=== PATIENT | male | born 1965 | race Caucasian/White ===

== ENCOUNTER 2017-01-19 17:25 | Emergency (ER) | payer OTHER, MEDICAID ==
[2017-01-19 17:32] VITALS: BMI 24.4
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
[2017-01-19 19:16] LABS: BASOPHILS # (AUTO) 0.1 X10^3/uL (0.0-0.1); BASOPHILS % (AUTO) 0.9 % (0.2-1.0); EOSINOPHILS # (AUTO) 0.2 x10^3/uL (0.0-0.2); EOSINOPHILS % (AUTO) 1.9 % (0.9-2.9); HEMATOCRIT 33.3 % (42.0-54.0); HEMOGLOBIN 11.4 g/dL (13.5-18.0); LYMPHOCYTES # (AUTO) 1.7 X10^3/uL (1.3-2.9); LYMPHOCYTES % (AUTO) 18.8 % (21.0-51.0); MEAN CORPUSCULAR HEMOGLOBIN 30.8 pg (27.0-34.0); MEAN CORPUSCULAR HGB CONC 34.2 g/dL (33.0-35.0); MEAN PLATELET VOLUME 9.1 fL (7.4-11.0); MONOCYTES # (AUTO) 0.7 x10^3/uL (0.3-0.8); MONOCYTES % (AUTO) 7.4 % (0.0-13.0); NEUTROPHILS # (AUTO) 6.2 x10^3/uL (2.2-4.8); PLATELET COUNT 180 X10^3/uL (150.0-450.0); RED BLOOD COUNT 3.71 X10^6/uL (4.7-6.0); RED CELL DISTRIBUTION WIDTH 14.6 % (11.6-16.5); WHITE BLOOD COUNT 8.8 X10^3/uL (3.6-10.0)
[2017-01-19 19:26] LABS: ALANINE AMINOTRANSFERASE 15 Units/L (12-78); ALBUMIN 3.3 g/dL (3.4-5.0); ALKALINE PHOSPHATASE 37 Units/L (46-116); ASPARTATE AMINO TRANSFERASE 15 Units/L (15-37); BLOOD UREA NITROGEN 13 mg/dL (7-18); CALCIUM 9.1 mg/dL (8.5-10.1); CARBON DIOXIDE 28.8 mmol/L (21-32); CHLORIDE 99 mmol/L (98-107); COR CA(FOR HYPOALB) 9.7 mg/dL (8.5-10.1); COR NA(FOR HYPERGLY) 134 mmol/L (136-145); CREATININE 0.77 mg/dL (0.70-1.30); MAGNESIUM 1.7 mg/dL (1.7-2.9); SODIUM 133 mmol/L (136-145); TOTAL PROTEIN 6.3 g/dL (6.4-8.2); eGFR BLACK RACES > 60 (>60); eGFR NON BLACK RACES > 60 (>60)
[2017-01-19 19:39] LABS: BILIRUBIN,URINE NEGATIVE (NEGATIVE); BLOOD/HEMOGLOBIN,URINE 5+ (NEGATIVE); GLUCOSE, URINE NEGATIVE (NEGATIVE); KETONES,URINE 2+ (NEGATIVE); LEUKOCYTE ESTERASE ,URINE NEGATIVE (NEGATIVE); NITRITES,URINE NEGATIVE (NEGATIVE); PROTEIN,URINE 4+ (NEGATIVE); UROBILINOGEN,URINE NORMAL (NORMAL)
[2017-01-19 19:42] VITALS: BP 93/53
[2017-01-19 19:46] LABS: APPEARANCE,URINE TURBID (CLEAR); COLOR,URINE RED (YELLOW)
[2017-01-19 19:47] LABS: AMORPHOUS SEDIMENT,UR 2+ /HPF (NEGATIVE); BACTERIA,URINE NEGATIVE /HPF (NEGATIVE); MUCUS,URINE MODERATE /HPF (NEGATIVE); RBC,URINE TNTC/ABUNDANT /HPF (NEGATIVE); SQUAMOUS EPITHELIAL CELL,UR RARE /HPF (NEGATIVE)
--- NOTE | 2017-01-19 20:03 | CT ---
CT abdomen and pelvis without contrast Indication: Hematuria with suprapubic pain. Quadriplegic with condom catheterization. Comparison: None Technique: CT images of the abdomen and pelvis were obtained without contrast. Automatic exposure con trol was utilized. Findings: The lung bases are grossly clear. No acute skeletal abnormality identified. There is genera lized osteopenia. Chronic appearing deformity of the left iliac wing is noted. Evaluation of the abdominopelvic viscera is limited by lack of contrast. Accounting for this, the janna er, gallbladder, spleen, stomach, duodenum, pancreas, and adrenals demonstrate no significant abnorma lity. There is severe bilateral hydronephrosis associated with some renal parenchymal atrophy, worse on the left. There is a heterogeneously hyper attenuating collection within the urinary bladder measu ring 7.2 x 5.8 cm. No radiopaque urinary stones are identified. No significant bowel thickening or dilatation of the lower GI tract is identified. The rectum and pro state are within normal limits. No free fluid or adenopathy identified. There is mild aortoiliac athe rosclerosis, without aneurysm. Impression: Severe bilateral hydroureteronephrosis, suggesting bladder outlet obstruction and/or chronic reflux. There is heterogeneously hyperdense material within the urinary bladder consistent with blood. Underl venita mass cannot be excluded. No radiopaque urinary stones are identified. Reported By:
--- NOTE | 2017-01-19 20:09 | RAD ---
HISTORY: Chest pain Study: 2 AP views of the chest. Comparison:NONE Findings: Exam is limited by patient rotation. Lungs appear clear without focal airspace opacities. The lateral right costophrenic sulcus fully included within the field of view. The lungs are clear. No consolidation. There are no pleural effusions. Cardiac silhouette appears normal in size for portable technique. IMPRESSION: 1. No radiographic evidence of an acute cardiopulmonary process. Reported By:
[2017-01-19] MEDS ORDERED: LEVAQUIN TAB 500 MG ONE (21:29)
[2017-01-19] MEDS ORDERED: LEVAQUIN TAB 500 MG PO SCH (22:00)
== END 2017-01-19 21:37 | disposition home or self-care (01) ==
LOC: ER 17:43
DX: N13.30 Unspecified hydronephrosis (principal); N30.90 Cystitis, unspecified without hematuria; R31.9 Hematuria, unspecified; R73.9 Hyperglycemia, unspecified
CPT/HCPCS: 36415; 71010; 74176; 80053; 81001; 83735; 85025; 85610; 85730; 93005; 93010; 96365; 96374; 99282; 99283; A4222

== ENCOUNTER 2017-04-01 08:50 | Emergency (ER) | payer OTHER, MEDICAID ==
[2017-04-01 09:13] VITALS: BMI 23.7
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
[2017-04-01 09:33] LABS: BASOPHILS % (AUTO) 0.1 % (0.2-1.0); EOSINOPHILS # (AUTO) 0.1 x10^3/uL (0.0-0.2); EOSINOPHILS % (AUTO) 0.3 % (0.9-2.9); LYMPHOCYTES # (AUTO) 0.8 X10^3/uL (1.3-2.9); LYMPHOCYTES % (AUTO) 4.3 % (21.0-51.0); MEAN CORPUSCULAR HEMOGLOBIN 29.8 pg (27.0-34.0); MEAN CORPUSCULAR HGB CONC 32.6 g/dL (33.0-35.0); MEAN CORPUSCULAR VOLUME 91.4 fL (80.0-100.0); MEAN PLATELET VOLUME 9.4 fL (7.4-11.0); MONOCYTES # (AUTO) 1.1 x10^3/uL (0.3-0.8); NEUTROPHILS # (AUTO) 16.8 x10^3/uL (2.2-4.8); NEUTROPHILS % (AUTO) 89.3 % (42.0-75.0); PLATELET COUNT 199 X10^3/uL (150.0-450.0); RED BLOOD COUNT 4.37 X10^6/uL (4.7-6.0); RED CELL DISTRIBUTION WIDTH 13.8 % (11.6-16.5); WHITE BLOOD COUNT 18.8 X10^3/uL (3.6-10.0)
[2017-04-01 09:46] LABS: BLOOD UREA NITROGEN 14 mg/dL (7-18); CALCIUM 9.6 mg/dL (8.5-10.1); CARBON DIOXIDE 23.7 mmol/L (21-32); CHLORIDE 98 mmol/L (98-107); COR NA(FOR HYPERGLY) 140 mmol/L (136-145); CREATININE 1.25 mg/dL (0.70-1.30); SODIUM 137 mmol/L (136-145); TROPONIN I 0.15 ng/mL (0-1.5); eGFR BLACK RACES > 60 (>60); eGFR NON BLACK RACES > 60 (>60)
[2017-04-01 09:49] LABS: B-TYPE NATRIURETIC PEPTIDE 338 pg/mL (0-79)
[2017-04-01 09:52] LABS: ABG ALLEN TEST pos; ABG BASE EXCESS 3.3 mmol/L (-2.0-2.0); ABG HCO3 26.8 mmol/L (22-26); FRACTIONATED INSPIRED OXYGEN 100
[2017-04-01] MEDS ORDERED: NS 1000 ML 1,000 ML IV ONE (10:00)
[2017-04-01 10:04] LABS: C-REACTIVE PROTEIN 29.2 mg/L (0-3.0)
[2017-04-01 10:08] LABS: ALANINE AMINOTRANSFERASE 40 Units/L (12-78); ALBUMIN 3.5 g/dL (3.4-5.0); ALKALINE PHOSPHATASE 55 Units/L (46-116); ASPARTATE AMINO TRANSFERASE 59 Units/L (15-37); CKMB % 6.5 % (<4); CREATINE KINASE 65 Units/L (39-308); TOTAL PROTEIN 7.2 g/dL (6.4-8.2)
[2017-04-01 10:12] LABS: CREATINE KINASE MB 4.2 ng/mL (0-4.0)
[2017-04-01] MEDS ORDERED: NS 1000 ML 1,000 ML ONE (10:12)
[2017-04-01 10:18] LABS: LACTIC ACID 2.4 mmol/L (0.4-2.0)
--- NOTE | 2017-04-01 10:34 | CT ---
CT HEAD WITHOUT CONTRAST CLINICAL HISTORY: 51-year-old quadriplegic found unresponsive. COMPARISON: None. TECHNIQUE: Multiple axial CT images were obtained from the skull base to the cranial vertex without t he administration of contrast. FINDINGS: No evidence of abnormal intra- or extra axial fluid collections, midline shift, or mass eff ect. Rosenberg white differentiation is maintained. Age advanced cortical volume loss is present, with com mensurate sulcal and ventricular prominence. The basal cisterns are normal in appearance. Atheroscler otic vascular calcifications of the cavernous segments of the internal carotid arteries bilaterally. Polypoid mucosal thickening of the left maxillary sinus with scattered mucosal thickening of the ethm oid labyrinth. Remaining paranasal sinuses, mastoid air cells and tympanic cavities are clear. IMPRESSION: No acute intracranial process, if clinical concern persists, consider MRI/MRA brain. Reported By:
--- NOTE | 2017-04-01 10:48 | RAD ---
HISTORY: Quadriplegic, patient unresponsive. Endotracheal tube placement. Study: Single-view chest Comparison: 01/19/2017. Findings: Cardiac monitoring electrodes are noted on the chest. Endotracheal tube is in place with the tip the level of medial clavicles. The trachea is midline. The heart size is upper normal. Lungs and pleural spaces are clear. Osseous structures are intact IMPRESSION: Satisfactory position of the endotracheal tube. Upper normal heart size. Clear lungs and pleural spaces. Reported By:
[2017-04-01] MEDS ORDERED: ZOSYN VIAL 3.375 GM 3.375 GM in NS 100 ML IV + SPIKE MINIBAG* 100 ML IV ONE (11:41)
[2017-04-01] MEDS ORDERED: VANCOMYCIN HCL 1 GM VIAL 1 GM in D5W 250 ML IV 250 ML IV ONE (11:42)
[2017-04-01] MEDS ORDERED: VANCOMYCIN 1 GM PREMIX (ADDVANTAGE) 250 ML IV ONE (12:30)
[2017-04-01] MEDS ORDERED: NS 100 ML IV + SPIKE MINIBAG* 100 ML IV ONE (12:31)
[2017-04-01] MEDS ORDERED: ZOSYN VIAL 3.375 GM IV ONE (12:31)
[2017-04-01 12:46] LABS: BILIRUBIN,URINE NEGATIVE (NEGATIVE); BLOOD/HEMOGLOBIN,URINE 5+ (NEGATIVE); GLUCOSE, URINE NEGATIVE (NEGATIVE); KETONES,URINE 1+ (NEGATIVE); LEUKOCYTE ESTERASE ,URINE 3+ (NEGATIVE); NITRITES,URINE POSITIVE (NEGATIVE); PH,URINE 6.5 (5.0 - 8.0); PROTEIN,URINE 2+ (NEGATIVE); UROBILINOGEN,URINE NORMAL (NORMAL)
[2017-04-01] MEDS ORDERED: TORADOL 30 MG VIAL IVP ONE (12:46)
[2017-04-01] MEDS ORDERED: TORADOL 30 MG VIAL ONE (12:48)
[2017-04-01 12:55] LABS: AMORPHOUS SEDIMENT,UR TRACE /HPF (NEGATIVE); APPEARANCE,URINE CLOUDY (CLEAR); BACTERIA,URINE 1+ /HPF (NEGATIVE); COLOR,URINE YELLOW (YELLOW); MUCUS,URINE FEW /HPF (NEGATIVE); RBC,URINE 15-20 /HPF (NEGATIVE); SQUAMOUS EPITHELIAL CELL,UR FEW /HPF (NEGATIVE)
[2017-04-01 13:16] LABS: TROPONIN I 1.14 ng/mL (0-1.5)
[2017-04-01 13:51] VITALS: BP 116/82
[2017-04-01 13:52] LABS: CREATINE KINASE MB 11.1 ng/mL (0-4.0)
[2017-04-01] MEDS ORDERED: HEPARIN SODIUM IN D5W 25,000 UNITS/500 ML BAG IV PRN (14:16)
[2017-04-01] MEDS ORDERED: HEPARIN SODIUM IN D5W 25,000 UNITS/500 ML BAG IV ONE (14:20)
[2017-04-01] MEDS ORDERED: HEPARIN SODIUM INJ 5000 UNITS ONE (14:22)
[2017-04-01] MEDS ORDERED: HEPARIN SODIUM INJ 5000 UNITS IVP ONE (14:34)
== END 2017-04-01 14:41 | disposition short-term general hospital (02) ==
LOC: ER 09:07
DX: I21.4 Non-ST elevation (NSTEMI) myocardial infarction (principal); A41.9 Sepsis, unspecified organism
CPT/HCPCS: 36415; 36600; 51702; 70450; 71010; 80053; 80307; 81001; 82550; 82553; 82803; 83605; 83880; 84484; 85025; 86140; 87040; 87070; 87086; 87088; 87186; 87205; 93005; 93010; 96365; 96374; 96375; 99285; A4222; G0434; J1644; J1885; J2543; J3370

== ENCOUNTER 2017-04-19 16:55 | Inpatient (IN) | payer OTHER, MEDICAID ==
[2017-04-19 17:09] VITALS: BMI 27.1
[2017-04-19 18:01] LABS: BASOPHILS # (AUTO) 0.1 X10^3/uL (0.0-0.1); BASOPHILS % (AUTO) 1.1 % (0.2-1.0); EOSINOPHILS # (AUTO) 0.3 x10^3/uL (0.0-0.2); EOSINOPHILS % (AUTO) 3.3 % (0.9-2.9); HEMOGLOBIN 12.3 g/dL (13.5-18.0); LYMPHOCYTES # (AUTO) 2.4 X10^3/uL (1.3-2.9); LYMPHOCYTES % (AUTO) 24.8 % (21.0-51.0); MEAN CORPUSCULAR HEMOGLOBIN 30.2 pg (27.0-34.0); MEAN CORPUSCULAR HGB CONC 33.3 g/dL (33.0-35.0); MEAN CORPUSCULAR VOLUME 90.8 fL (80.0-100.0); MEAN PLATELET VOLUME 10.3 fL (7.4-11.0); MONOCYTES # (AUTO) 0.8 x10^3/uL (0.3-0.8); MONOCYTES % (AUTO) 8.4 % (0.0-13.0); NEUTROPHILS # (AUTO) 6.2 x10^3/uL (2.2-4.8); NEUTROPHILS % (AUTO) 62.4 % (42.0-75.0); PLATELET COUNT 185 X10^3/uL (150.0-450.0); RED BLOOD COUNT 4.07 X10^6/uL (4.7-6.0); RED CELL DISTRIBUTION WIDTH 15.2 % (11.6-16.5); WHITE BLOOD COUNT 9.9 X10^3/uL (3.6-10.0)
[2017-04-19 18:15] LABS: ALBUMIN 3.3 g/dL (3.4-5.0); CALCIUM 9.2 mg/dL (8.5-10.1); COR CA(FOR HYPOALB) 9.8 mg/dL (8.5-10.1); CREATININE 0.58 mg/dL (0.70-1.30); TOTAL PROTEIN 6.8 g/dL (6.4-8.2); eGFR BLACK RACES > 60 (>60); eGFR NON BLACK RACES > 60 (>60)
[2017-04-19 18:33] LABS: PLATELET MORPHOLOGY COMMENT NORMAL (NORMAL)
--- NOTE | 2017-04-19 18:49 | CT ---
CT head without contrast Indication: Altered mental status Technique: Helical CT images of the brain were obtained without IV contrast. Reformatted images in th e coronal and sagittal planes were also generated for review. Comparison: 04/01/2017 Findings: There is no intracranial hemorrhage, visible acute infarct, focal or generalized edema, ext ra-axial collection, hydrocephalus or mass. There is stable, age advanced atrophy with proportional c ompensatory ventricular and sulcal enlargement. There is mild mucosal thickening of the ethmoid sinus es and small mucous retention cyst within the left maxillary sinus. There is also new fluid opacifica tion of the left mastoid air cells. The remaining visualized paranasal sinuses right mastoid air cell s are clear. No acute osseous or soft tissue abnormality is identified. Impression: No acute intracranial abnormality or significant change since prior. Mild paranasal sinus mucosal disease and new fluid opacification of the left mastoid air cells. Corre late for acute sinusitis/mastoiditis. Reported By:
[2017-04-19 18:58] LABS: ALANINE AMINOTRANSFERASE 19 Units/L (12-78); ALKALINE PHOSPHATASE 48 Units/L (46-116); ASPARTATE AMINO TRANSFERASE 20 Units/L (15-37); BLOOD UREA NITROGEN 10 mg/dL (7-18); CARBON DIOXIDE 29.8 mmol/L (21-32); CHLORIDE 111 mmol/L (98-107); SODIUM 147 mmol/L (136-145)
[2017-04-19 19:03] LABS: LACTIC ACID 0.6 mmol/L (0.4-2.0)
--- NOTE | 2017-04-19 19:10 | RAD ---
HISTORY: Lethargy Study: Single-view of the chest Comparison: April 01, 2017 Findings: The patient is rotated. The cardiac silhouette is at the upper limits of normal. The lungs are relati vely clear without evidence of focal consolidation. IMPRESSION: No evidence of acute disease within the chest. Reported By:
[2017-04-19] MEDS ORDERED: CATAPRES TAB 0.3 MG PO ONE (19:16)
--- NOTE | 2017-04-19 20:17 | DR.AMS ---
HPI - Time Seen Time seen: 17:10 - PCP Primary Care Physician: MICKEY - HPI Comment HPI Comment: RESPONSE SLOW IN ED. FOLLOW COMMAND. - Complaint Cheif Complaint Doctors Comments: HISTORY BELOW. Chief Complaint:: EMS STATES PT WAS LETHARGIC UPON ARRIVAL WITH B/P NOTED TO BE 71/46. UPON ARRIVAL TO ED PT AWAKE REPEATING "I DON'T WANT TO GO TO THE HOSPITAL." ASKED PT WHERE HE WAS, PT KEEPS STATING CHLOE RAMEY - Reviewed Nurses Notes Reviewed: Yes - Source History Provided: Patient, EMS - Mode of Arrival Mode of Arrival: EMS - Timing Onset of Chief Complaint: 04/19/17 Came On: Suddenly - Duration Duration: Constant Duration: Hours - Quality Quality: Change in Behavior, Confusion - Severity Severity: Moderate - Context Recent: denies: Fever History Of: CVA - Associated Signs and Symptoms Associated Signs and Symptoms: Change in Behavior, Change in Memory PMH - PMH Past Medical History: Yes Past Surgical History: Yes Surgical History: Tonsillectomy - Family History History of Family Medical Conditions: No - Social History Alcohol Use: None Do you use any recreational Drugs:: No Lives With: Family Lives Where: Home - infectious screening In the last 2 months have you had wt loss of >10#?: NO Have you had fever, night sweats or hemotysis?: No Have you traveled outside the country in the last 6 months?: No Isolation: Standard ROS - Review of Systems Constitutional: Weakness Eyes: negative: Eye Pain, Discharge ENTM: negative: Ear Pain, Nose Discharge, Nose Congestion, Throat Pain Respiratoy: negative: Productive Cough, Non-Productive Cough Cardiovascular: negative: Chest Pain Gastrointestinal/Abdominal: negative: Abdominal Pain, Diarrhea, Nausea, Vomiting Genitourinary: Other (PARAPLEGIA) Neurological: Pre-existing Deficit (PARAPLEGIA) Musculoskeletal: Muscle Pain Integumentary: Change in Color, Dryness Endocrine: No Symptoms Reported All Other Systems: Reviewed and Negative PE - Vitals Vital Signs: Temp Pulse Pulse Pulse Resp BP BP 04/19/17 19:45 57 L 87/61 04/19/17 19:00 55 L 112/67 04/19/17 18:53 56 L 111/60 04/19/17 17:45 48 L 18 129/64 04/19/17 17:30 49 L 18 156/88 04/19/17 17:15 57 L 18 119/63 04/19/17 16:55 97.1 F L 60 18 115/59 04/01/17 13:50 116/82 116/82 Pulse Ox 04/19/17 19:45 98 04/19/17 19:00 100 04/19/17 18:53 100 04/19/17 17:45 100 04/19/17 17:30 100 04/19/17 17:15 100 04/19/17 16:55 99 04/01/17 13:50 - General Limitations: Altered Mental Status General Appearance: Alert - Head Head Exam: Normal Inspection Head Exam Physical: Other (NONE) - Eyes Eye exam: PERRL, EOMI. negative: Scleral Icterus, Conjunctival Injection Pupils: Regular, Round: Bilateral - ENT ENT Exam: Normal External Ear Exam External Ear Exam: Normal External Inspection TM/Canal Exam: Bilateral Normal Nose Exam: Normal Nose Exam Mouth Exam: Normal Inspection Throat Exam: Normal Inspection - Neck Neck Exam: Trachea Midline - Chest Chest Inspection: Symmetric Chest Wall Rise - Respiratory Respiratory Exam: Normal Lung Sounds Bilat Respiratory Exam: Bilateral Rhonchi, Upper Rhonchi, Lower Rhonchi - Cardiovascular Cardiovascular Exam: Regular Rate, Normal Rhythm, Normal Heart Sounds - Abdominal Exam Abdominal Exam: Normal Bowel Sounds, Soft. negative: Tenderness - Extremities Extremities Exam: Other (PARAPLEGIA) - Back Back Exam: Paraspinal Tenderness - Neurological Neurological Exam: Alert. negative: Oriented X3 Patient Oriented To: Person Speech: negative: Fluid Speech (SLOW SPEECH) Cranial Nerve Exam: Gag reflex (XI): Normal - Skin Skin Exam: Erythema MDM - Additional Information Obtained Additional Information Obtained From: Family - Differential Diagnosis Metabolic: Dehydration, Hypercalcemia, Hypernatremia, Hypoglycemia, Hyponatremia Structural: CVA Infectious: UTI Course - Treatment Treatment: SEE ORDERS - Education/Counseling Education/Counseling: Patient, Family, Education Educated On: Diagnosis ROR - Labs Reviewed Laboratory Results Reviewed?: Yes Result Diagrams: 04/22/17 03:15 04/22/17 03:15 Laboratory: WBC 9.9 X10^3/uL (3.6-10.0) 04/19/17 17:04 RBC 4.07 X10^6/uL (4.7-6.0) L 04/19/17 17:04 Hgb 12.3 g/dL (13.5-18.0) L 04/19/17 17:04 Hct 37.0 % (42.0-54.0) L 04/19/17 17:04 MCV 90.8 fL (80.0-100.0) 04/19/17 17:04 MCH 30.2 pg (27.0-34.0) 04/19/17 17:04 MCHC 33.3 g/dL (33.0-35.0) 04/19/17 17:04 RDW 15.2 % (11.6-16.5) 04/19/17 17:04 Plt Count 185 X10^3/uL (150.0-450.0) 04/19/17 17:04 Plt Count Comment Adequate (ADEQUATE) 04/19/17 17:04 MPV 10.3 fL (7.4-11.0) 04/19/17 17:04 Neut % 62.4 % (42.0-75.0) 04/19/17 17:04 Lymph % 24.8 % (21.0-51.0) 04/19/17 17:04 [place] % 8.4 % (0.0-13.0) 04/19/17 17:04 Eos % 3.3 % (0.9-2.9) H 04/19/17 17:04 Baso % 1.1 % (0.2-1.0) H 04/19/17 17:04 Neut # 6.2 x10^3/uL (2.2-4.8) H 04/19/17 17:04 Lymph # 2.4 X10^3/uL (1.3-2.9) 04/19/17 17:04 [place] # 0.8 x10^3/uL (0.3-0.8) 04/19/17 17:04 Eos # 0.3 x10^3/uL (0.0-0.2) H 04/19/17 17:04 Baso # 0.1 X10^3/uL (0.0-0.1) 04/19/17 17:04 Absolute Nucleated RBC 0.2 /100WBC 04/19/17 17:04 Plt Clumps, EDTA Rare 04/19/17 17:04 Plt Morphology Comment Normal (NORMAL) 04/19/17 17:04 RBC Morphology Normal (NORMAL) 04/19/17 17:04 Sodium 147 mmol/L (136-145) H 04/19/17 17:04 Corrected Sodium TNP 04/19/17 17:04 Potassium 4.1 mmol/L (3.5-5.1) 04/19/17 17:04 Chloride 111 mmol/L (98-107) H 04/19/17 17:04 Carbon Dioxide 29.8 mmol/L (21-32) 04/19/17 17:04 BUN 10 mg/dL (7-18) 04/19/17 17:04 Creatinine 0.58 mg/dL (0.70-1.30) L 04/19/17 17:04 Est GFR (MDRD) Af Amer > 60 (>60) 04/19/17 17:04 Est GFR (MDRD) Non-Af > 60 (>60) 04/19/17 17:04 Glucose 91 mg/dL (65-99) 04/19/17 17:04 Lactic Acid 0.6 mmol/L (0.4-2.0) 04/19/17 17:04 Calcium 9.2 mg/dL (8.5-10.1) 04/19/17 17:04 Corrected Calcium 9.8 mg/dL (8.5-10.1) 04/19/17 17:04 Total Bilirubin 0.50 mg/dL (0.2-1.0) 04/19/17 17:04 AST 20 Units/L (15-37) 04/19/17 17:04 ALT 19 Units/L (12-78) 04/19/17 17:04 Alkaline Phosphatase 48 Units/L (46-116) 04/19/17 17:04 C-Reactive Protein 14.20 mg/L (0-3.0) H 04/19/17 17:04 Total Protein 6.8 g/dL (6.4-8.2) 04/19/17 17:04 Albumin 3.3 g/dL (3.4-5.0) L 04/19/17 17:04 Globulin 3.5 g/dL (2.5-4.5) 04/19/17 17:04 Albumin/Globulin Ratio 0.9 Ratio (1.1-2.1) L 04/19/17 17:04 - XRAY XRAY Interpreted by: Radiologist XRAY Findings: REPORT DISCUSS WITH FAMILY AND PATIENT. - Diagnosis Discharge Problem: Mental status alteration Qualifiers: Altered mental status type: transient alteration of awareness Qualified Code(s) : R40.4 - Transient alteration of awareness Hypotension Qualifiers: Hypotension type: unspecified hypotension type Qualified Code(s): I95.9 - Hypotension, unspecified - Discharge Plan Disposition: 09 ADMITTED INPATIENT Condition: Stable - Follow ups/Referrals - Instructions
[2017-04-19] MEDS ORDERED: ROCEPHIN 1 GM IV PREMIX 1 GM/50 ML IV.SOLN. IV ONE (22:20)
[2017-04-19] MEDS ORDERED: ROCEPHIN VIAL 1 GM ONE (22:27)
[2017-04-19] MEDS ORDERED: NS 100 ML IV 100 ML IV ONE (22:27)
[2017-04-19 22:30] LABS: BILIRUBIN,URINE NEGATIVE (NEGATIVE); BLOOD/HEMOGLOBIN,URINE 4+ (NEGATIVE); GLUCOSE, URINE NEGATIVE (NEGATIVE); KETONES,URINE NEGATIVE (NEGATIVE); LEUKOCYTE ESTERASE ,URINE 3+ (NEGATIVE); NITRITES,URINE NEGATIVE (NEGATIVE); PROTEIN,URINE 1+ (NEGATIVE); UROBILINOGEN,URINE NORMAL (NORMAL)
[2017-04-19 22:44] LABS: APPEARANCE,URINE SLIGHTLY HAZY (CLEAR); BACTERIA,URINE 3+ /HPF (NEGATIVE); COLOR,URINE YELLOW (YELLOW); RBC,URINE TNTC /HPF (NEGATIVE); SQUAMOUS EPITHELIAL CELL,UR RARE /HPF (NEGATIVE)
[2017-04-19 22:54] LABS: CHOL/HDL RATIO 2.7 (0.0-5.0)
[2017-04-20] MEDS: ROCEPHIN 1 GM IV PREMIX 1 GM/50 ML IV.SOLN. IV SCH ×2 (00:32→09:31)
[2017-04-20] MEDS: NYSTATIN POWDER TOP SCH ×3 (00:38→21:06)
[2017-04-20 05:54] LABS: ALANINE AMINOTRANSFERASE 23 Units/L (12-78); ALBUMIN 3.2 g/dL (3.4-5.0); ALKALINE PHOSPHATASE 48 Units/L (46-116); ASPARTATE AMINO TRANSFERASE 18 Units/L (15-37); BLOOD UREA NITROGEN 9 mg/dL (7-18); CALCIUM 9.1 mg/dL (8.5-10.1); CARBON DIOXIDE 26.5 mmol/L (21-32); CHLORIDE 112 mmol/L (98-107); COR CA(FOR HYPOALB) 9.7 mg/dL (8.5-10.1); CREATININE 0.53 mg/dL (0.70-1.30); SODIUM 149 mmol/L (136-145); TOTAL PROTEIN 6.9 g/dL (6.4-8.2); eGFR BLACK RACES > 60 (>60); eGFR NON BLACK RACES > 60 (>60)
[2017-04-20 06:12] LABS: BASOPHILS # (AUTO) 0.1 X10^3/uL (0.0-0.1); EOSINOPHILS # (AUTO) 0.2 x10^3/uL (0.0-0.2); EOSINOPHILS % (AUTO) 4.3 % (0.9-2.9); HEMATOCRIT 36.2 % (42.0-54.0); LYMPHOCYTES # (AUTO) 1.7 X10^3/uL (1.3-2.9); LYMPHOCYTES % (AUTO) 34.1 % (21.0-51.0); MEAN CORPUSCULAR HEMOGLOBIN 30.2 pg (27.0-34.0); MEAN CORPUSCULAR HGB CONC 33.2 g/dL (33.0-35.0); MEAN CORPUSCULAR VOLUME 90.9 fL (80.0-100.0); MEAN PLATELET VOLUME 9.5 fL (7.4-11.0); MONOCYTES # (AUTO) 0.4 x10^3/uL (0.3-0.8); MONOCYTES % (AUTO) 8.5 % (0.0-13.0); NEUTROPHILS # (AUTO) 2.7 x10^3/uL (2.2-4.8); NEUTROPHILS % (AUTO) 52.1 % (42.0-75.0); PLATELET COUNT 220 X10^3/uL (150.0-450.0); RED BLOOD COUNT 3.99 X10^6/uL (4.7-6.0); RED CELL DISTRIBUTION WIDTH 14.8 % (11.6-16.5); WHITE BLOOD COUNT 5.1 X10^3/uL (3.6-10.0)
[2017-04-20] MEDS: PROTONIX INJ 40 MG VIAL IVP SCH (10:15)
[2017-04-20] MEDS ORDERED: CHRONULAC PO PRN (12:07)
[2017-04-20] MEDS ORDERED: BACLOFEN 20 MG PO PRN (12:07)
[2017-04-20] MEDS ORDERED: DULCOLAX SUPPOSITORY 10 MG PR PRN (12:07)
[2017-04-20] MEDS: ZANAFLEX PO SCH ×2 (12:54→21:06)
[2017-04-20] MEDS: ASPIRIN EC 81 MG PO SCH (12:54)
[2017-04-20] MEDS: LYRICA CAP 100 MG PO SCH ×2 (12:54→21:06)
[2017-04-20] MEDS: ROXICODONE TAB 15 MG PO PRN ×2 (12:54→22:30)
[2017-04-20] MEDS: PriLOSEC PO SCH (12:54)
[2017-04-20] MEDS: KLONOPIN TAB 1 MG PO SCH (21:06)
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
[2017-04-21] MEDS: ROXICODONE TAB 15 MG PO PRN ×3 (03:54→21:01)
[2017-04-21 04:41] LABS: BASOPHILS # (AUTO) 0.1 X10^3/uL (0.0-0.1); BASOPHILS % (AUTO) 1.2 % (0.2-1.0); EOSINOPHILS # (AUTO) 0.2 x10^3/uL (0.0-0.2); EOSINOPHILS % (AUTO) 2.8 % (0.9-2.9); HEMATOCRIT 33.1 % (42.0-54.0); LYMPHOCYTES # (AUTO) 3.4 X10^3/uL (1.3-2.9); LYMPHOCYTES % (AUTO) 55.9 % (21.0-51.0); MEAN CORPUSCULAR HEMOGLOBIN 30.6 pg (27.0-34.0); MEAN CORPUSCULAR HGB CONC 33.3 g/dL (33.0-35.0); MEAN CORPUSCULAR VOLUME 91.7 fL (80.0-100.0); MEAN PLATELET VOLUME 10.1 fL (7.4-11.0); MONOCYTES # (AUTO) 0.5 x10^3/uL (0.3-0.8); MONOCYTES % (AUTO) 8.1 % (0.0-13.0); NEUTROPHILS # (AUTO) 1.9 x10^3/uL (2.2-4.8); PLATELET COUNT 215 X10^3/uL (150.0-450.0); RED BLOOD COUNT 3.61 X10^6/uL (4.7-6.0); RED CELL DISTRIBUTION WIDTH 15.3 % (11.6-16.5); WHITE BLOOD COUNT 6.1 X10^3/uL (3.6-10.0)
[2017-04-21 04:58] LABS: ALANINE AMINOTRANSFERASE 17 Units/L (12-78); ALBUMIN 2.9 g/dL (3.4-5.0); ALKALINE PHOSPHATASE 38 Units/L (46-116); ASPARTATE AMINO TRANSFERASE 15 Units/L (15-37); BLOOD UREA NITROGEN 12 mg/dL (7-18); CALCIUM 8.9 mg/dL (8.5-10.1); CHLORIDE 108 mmol/L (98-107); COR CA(FOR HYPOALB) 9.8 mg/dL (8.5-10.1); CREATININE 0.85 mg/dL (0.70-1.30); SODIUM 144 mmol/L (136-145); TOTAL PROTEIN 6.3 g/dL (6.4-8.2); eGFR BLACK RACES > 60 (>60); eGFR NON BLACK RACES > 60 (>60)
[2017-04-21] MEDS: ROCEPHIN 1 GM IV PREMIX 1 GM/50 ML IV.SOLN. IV SCH (09:42)
[2017-04-21] MEDS: PROTONIX INJ 40 MG VIAL IVP SCH (09:42)
[2017-04-21] MEDS: PriLOSEC PO SCH (09:42)
[2017-04-21] MEDS: LYRICA CAP 100 MG PO SCH ×2 (09:42→21:00)
[2017-04-21] MEDS: ZANAFLEX PO SCH ×2 (09:42→21:00)
[2017-04-21] MEDS: ASPIRIN EC 81 MG PO SCH (09:42)
[2017-04-21] MEDS: NYSTATIN POWDER TOP SCH ×2 (09:43→21:01)
[2017-04-21] MEDS ORDERED: NS 250 ML IV 250 ML IV ONE (09:47)
[2017-04-21] MEDS: LIORESAL PO PRN (21:00)
[2017-04-21] MEDS: KLONOPIN TAB 1 MG PO SCH (21:01)
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
[2017-04-21] MEDS: NS 250 ML IV 250 ML IV SCH (23:10)
[2017-04-22 05:27] LABS: BASOPHILS # (AUTO) 0.1 X10^3/uL (0.0-0.1); BASOPHILS % (AUTO) 1.2 % (0.2-1.0); EOSINOPHILS # (AUTO) 0.2 x10^3/uL (0.0-0.2); EOSINOPHILS % (AUTO) 3.2 % (0.9-2.9); HEMATOCRIT 32.8 % (42.0-54.0); LYMPHOCYTES # (AUTO) 3.1 X10^3/uL (1.3-2.9); LYMPHOCYTES % (AUTO) 41.8 % (21.0-51.0); MEAN CORPUSCULAR HEMOGLOBIN 30.5 pg (27.0-34.0); MEAN CORPUSCULAR HGB CONC 33.6 g/dL (33.0-35.0); MEAN CORPUSCULAR VOLUME 90.6 fL (80.0-100.0); MEAN PLATELET VOLUME 9.9 fL (7.4-11.0); MONOCYTES # (AUTO) 0.6 x10^3/uL (0.3-0.8); MONOCYTES % (AUTO) 8.3 % (0.0-13.0); NEUTROPHILS # (AUTO) 3.3 x10^3/uL (2.2-4.8); NEUTROPHILS % (AUTO) 45.5 % (42.0-75.0); PLATELET COUNT 203 X10^3/uL (150.0-450.0); RED BLOOD COUNT 3.62 X10^6/uL (4.7-6.0); RED CELL DISTRIBUTION WIDTH 15.2 % (11.6-16.5); WHITE BLOOD COUNT 7.3 X10^3/uL (3.6-10.0)
[2017-04-22 05:29] LABS: ALANINE AMINOTRANSFERASE 17 Units/L (12-78); ALBUMIN 2.9 g/dL (3.4-5.0); ALKALINE PHOSPHATASE 38 Units/L (46-116); ASPARTATE AMINO TRANSFERASE 13 Units/L (15-37); BLOOD UREA NITROGEN 13 mg/dL (7-18); CARBON DIOXIDE 29.1 mmol/L (21-32); CHLORIDE 110 mmol/L (98-107); COR CA(FOR HYPOALB) 9.9 mg/dL (8.5-10.1); SODIUM 147 mmol/L (136-145); TOTAL PROTEIN 6.1 g/dL (6.4-8.2); eGFR BLACK RACES > 60 (>60); eGFR NON BLACK RACES > 60 (>60)
[2017-04-22] MEDS: PriLOSEC PO SCH (09:26)
[2017-04-22] MEDS: ZANAFLEX PO SCH ×2 (09:26→20:40)
[2017-04-22] MEDS: PROTONIX INJ 40 MG VIAL IVP SCH (09:26)
[2017-04-22] MEDS: LYRICA CAP 100 MG PO SCH ×2 (09:26→20:40)
[2017-04-22] MEDS: NYSTATIN POWDER TOP SCH ×2 (09:26→21:01)
[2017-04-22] MEDS: ROCEPHIN 1 GM IV PREMIX 1 GM/50 ML IV.SOLN. IV SCH (09:26)
[2017-04-22] MEDS: ASPIRIN EC 81 MG PO SCH (09:26)
[2017-04-22] MEDS: MAXIPIME 1 GM IV PREMIX 1 GM/50 ML BAG IV SCH ×2 (13:08→20:40)
[2017-04-22] MEDS: ROXICODONE TAB 15 MG PO PRN (19:01)
[2017-04-22] MEDS: KLONOPIN TAB 1 MG PO SCH (20:40)
--- NOTE | 2017-04-22 21:19 | PCM.PROG ---
Progress Note - Progress Note for Day of Date: 04/21/17 - Subjective Subjective: WAS ADMITTED FOR ALTERED MENTAL STATUS AND HYPOTENSION. TODAY, HE IS LYING IN BED WITH EYES CLOSED ON MORNING ROUNDS. HE AWAKENS AND RESPONDS TO VERBAL STIMULI. HE CONTINUES WITH COMPLAINTS OF LOWER BACK PAIN AND GENERALIZED WEAKNESS. ON EXAMINATION, HEART IS REGULAR IN RATE AND RHYTHM. LUNG SOUNDS ARE DIMINISHED THROUGHOUT. HE IS NOTED TO BE UTILIZING OXYGEN VIA NASAL CANNULA AT 2L/MIN. ABDOMEN IS ROUND, SOFT, AND NOTED WITH SUPERPUBIC TENDERNESS. HYPOACTIVE BOWEL SOUNDS ARE NOTED IN ALL QUADRANTS. GOOD MOVEMENT NOTED TO UPPER EXTREMITIES. VITALS THIS MORNING ARE 97.9-64-18-96%-101/59. ABNORMAL LAB VALUES INCLUDE THE FOLLOWING: RBC 3.61, HGB 11.0, HCT 33.1, CHLORIDE 108, ALK PHOS 38, TOTAL PROTEIN 6.3, ALBUMIN 2.9, A/G RATIO 0.9. HE IS CURRENTLY RECEIVING ROCEPHIN 1GM IV DAILY FOR URINARY TRACT INFECTION. TODAY, WE WILL CONTINUE WITH CURRENT PLAN OF CARE. WE PLAN TO FOLLOW UP WITH AM LABS AND CONTINUE TO MONITOR PATIENT. - Past Medical Family Social History Past Med/Fam/Surg Hx: No changes since H&P Allergies: Allergies meperidine [From Demerol] Adverse Reaction (Verified 01/19/17 17:25) - Review of Systems ROS: No change since H&P - Vital Signs and I&O's Vital Signs: Temperature 97.7 F Pulse Rate [Apical] 51 Pulse Rate [Right Radial] 61 Pulse Rate 60 Respiratory Rate 20 Blood Pressure [Right Arm] 127/79 Blood Pressure [Left Arm] 137/83 Blood Pressure 115/59 O2 Sat by Pulse Oximetry 100 Intake and Output: Intake & Output 04/20/17 04/21/17 04/22/17 04/23/17 11:59 11:59 11:59 11:59 Intake Total 0 1642 1770 560 Output Total 700 1400 2800 1200 Balance -700 792 -1030 640 - Physical Exam Oriented: Normal Eyes: Normal. negative: Blurred Vision, Diplopia, Discharge, Pain, Redness, Photophobia, Other Ear: Normal Nose: Normal. negative: Injected, Discharge, Blood, Other Throat: Normal. negative: Tonsillar Hypertrophy, Red, Exudate, Dry, Other Respiratory: Generalized, Diminished. negative: Normal, Right, Left, Superior, Inferior, Wheezes, Rales, Rhonchi, OTHER Cardiovascular: Normal. negative: Tachycardia, Bradycardia, Irregular, S3, S4, Systolic, Diastolic, Murmur, Edema, Other : Normal. negative: Dysuria, Hematuria, Frequency, Discharge, Testicular Pain , Bleeding, , Other Auscultation: Bowel Sounds: Normal. negative: Bruit, Absent, Increased, Decreased, High Pitched, Other Palpation: Normal Tenderness: Normal Skin: Normal. negative: Decreased Turgur, Rash, Papular, Macular, Maculopapular , Vesicular, Pustular, Petechial, Red, Tender, Hot, Diaphoresis, Wound, Bruising , Ecchymosis, Other Musculoskeletal: Back:Paraspinous, Motor Deficit (PARAPLEGIC) Psychiatric: Other (CONFUSED) Mood Description: Calm Affect: Normal Speech Pattern: Clear, Appropriate - Laboratory and Diagnostics Result Diagrams: 04/22/17 03:15 04/22/17 03:15 Labs: 04/19/17 22:22 Urine,Catheterized Urine Culture - Preliminary Laboratory WBC 7.3 X10^3/uL (3.6-10.0) 04/22/17 03:15 RBC 3.62 X10^6/uL (4.7-6.0) L 04/22/17 03:15 Hgb 11.0 g/dL (13.5-18.0) L 04/22/17 03:15 Hct 32.8 % (42.0-54.0) L 04/22/17 03:15 MCV 90.6 fL (80.0-100.0) 04/22/17 03:15 MCH 30.5 pg (27.0-34.0) 04/22/17 03:15 MCHC 33.6 g/dL (33.0-35.0) 04/22/17 03:15 RDW 15.2 % (11.6-16.5) 04/22/17 03:15 Plt Count 203 X10^3/uL (150.0-450.0) 04/22/17 03:15 Plt Count Comment Adequate (ADEQUATE) 04/19/17 17:04 MPV 9.9 fL (7.4-11.0) 04/22/17 03:15 Neut % 45.5 % (42.0-75.0) 04/22/17 03:15 Lymph % 41.8 % (21.0-51.0) 04/22/17 03:15 [place] % 8.3 % (0.0-13.0) 04/22/17 03:15 Eos % 3.2 % (0.9-2.9) H 04/22/17 03:15 Baso % 1.2 % (0.2-1.0) H 04/22/17 03:15 Neut # 3.3 x10^3/uL (2.2-4.8) 04/22/17 03:15 Lymph # 3.1 X10^3/uL (1.3-2.9) H 04/22/17 03:15 [place] # 0.6 x10^3/uL (0.3-0.8) 04/22/17 03:15 Eos # 0.2 x10^3/uL (0.0-0.2) 04/22/17 03:15 Baso # 0.1 X10^3/uL (0.0-0.1) 04/22/17 03:15 Absolute Nucleated RBC 0.0 /100WBC 04/22/17 03:15 Plt Clumps, EDTA Rare 04/19/17 17:04 Plt Morphology Comment Normal (NORMAL) 04/19/17 17:04 RBC Morphology Normal (NORMAL) 04/19/17 17:04 INR Target Range - 04/22/17 03:15 INR 0.96 (0.8-1.3) 04/22/17 03:15 Sodium 147 mmol/L (136-145) H 04/22/17 03:15 Corrected Sodium TNP 04/22/17 03:15 Potassium 3.7 mmol/L (3.5-5.1) 04/22/17 03:15 Chloride 110 mmol/L (98-107) H 04/22/17 03:15 Carbon Dioxide 29.1 mmol/L (21-32) 04/22/17 03:15 BUN 13 mg/dL (7-18) 04/22/17 03:15 Creatinine 0.70 mg/dL (0.70-1.30) 04/22/17 03:15 Est GFR (MDRD) Af Amer > 60 (>60) 04/22/17 03:15 Est GFR (MDRD) Non-Af > 60 (>60) 04/22/17 03:15 Glucose 85 mg/dL (65-99) 04/22/17 03:15 Lactic Acid 0.6 mmol/L (0.4-2.0) 04/19/17 17:04 Calcium 9.0 mg/dL (8.5-10.1) 04/22/17 03:15 Corrected Calcium 9.9 mg/dL (8.5-10.1) 04/22/17 03:15 Total Bilirubin 0.30 mg/dL (0.2-1.0) 04/22/17 03:15 AST 13 Units/L (15-37) L 04/22/17 03:15 ALT 17 Units/L (12-78) 04/22/17 03:15 Alkaline Phosphatase 38 Units/L (46-116) L 04/22/17 03:15 C-Reactive Protein 14.20 mg/L (0-3.0) H 04/19/17 17:04 Total Protein 6.1 g/dL (6.4-8.2) L 04/22/17 03:15 Albumin 2.9 g/dL (3.4-5.0) L 04/22/17 03:15 Globulin 3.2 g/dL (2.5-4.5) 04/22/17 03:15 Albumin/Globulin Ratio 0.9 Ratio (1.1-2.1) L 04/22/17 03:15 Triglycerides 96 mg/dL (0-150) 04/19/17 18:00 Cholesterol 132 mg/dL (0-200) 04/19/17 18:00 LDL Cholesterol, Calc 64 mg/dL (0-100) 04/19/17 18:00 HDL Cholesterol 49 mg/dL (40-60) 04/19/17 18:00 Cholesterol/HDL Ratio 2.7 (0.0-5.0) 04/19/17 18:00 Specimen Type Catherized urine 04/19/17 22:22 Urine Color Yellow (YELLOW) 04/19/17 22:22 Urine Appearance Slightly hazy (CLEAR) 04/19/17 22:22 Urine pH 7.0 (5.0 - 8.0) 04/19/17 22:22 Ur Specific [place] 1.010 (1.000-1.030) 04/19/17 22:22 Urine Protein 1+ (NEGATIVE) 04/19/17 22:22 Urine Glucose (UA) Negative (NEGATIVE) 04/19/17 22:22 Urine Ketones Negative (NEGATIVE) 04/19/17 22:22 Urine Occult Blood 4+ (NEGATIVE) 04/19/17 22:22 Urine Nitrite Negative (NEGATIVE) 04/19/17 22:22 Urine Bilirubin Negative (NEGATIVE) 04/19/17 22:22 Urine Urobilinogen Normal (NORMAL) 04/19/17 22:22 Ur Leukocyte Esterase 3+ (NEGATIVE) 04/19/17 22:22 Urine RBC Tntc /HPF (NEGATIVE) 04/19/17 22:22 Urine WBC Tntc /HPF (NEGATIVE) 04/19/17 22:22 Ur Squamous Epith Cells Rare /HPF (NEGATIVE) 04/19/17 22:22 Urine Bacteria 3+ /HPF (NEGATIVE) 04/19/17 22:22 Ur Culture Indicated? Yes/culture set up 04/19/17 22:22 - Plan (1) Urinary tract infection Status: Acute Qualifiers: Urinary tract infection type: acute cystitis Hematuria presence: with hematuria Qualified Code(s): N30.01 - Acute cystitis with hematuria Plan: ROCEPHIN 1GM IV DAILY, CONTINUE TO MONITOR (2) Hypotension Status: Acute Qualifiers: Hypotension type: unspecified hypotension type Qualified Code(s): I95.9 - Hypotension, unspecified Plan: MONITOR NIBP, CONTINUE TO MONITOR (3) History of neurogenic bowel Status: Chronic Plan: CONTINUE LACTULOSE 30MG PO HS PRN, CONTINUE BISOCODYL 10MG VA HS PRN, CONTINUE TO MONITOR (4) GERD (gastroesophageal reflux disease) Status: Acute Qualifiers: Esophagitis presence: esophagitis presence not specified Qualified Code(s) : K21.9 - Gastro-esophageal reflux disease without esophagitis Plan: CONTINUE PROTONIX 40MG DAILY, CONTINUE PRILOSEC 20MG DAILY, CONTINUE TO MONITOR
[2017-04-22] MEDS: NS 250 ML IV 250 ML IV SCH (21:51)
[2017-04-23 05:31] LABS: BASOPHILS # (AUTO) 0.1 X10^3/uL (0.0-0.1); EOSINOPHILS # (AUTO) 0.2 x10^3/uL (0.0-0.2); EOSINOPHILS % (AUTO) 3.5 % (0.9-2.9); HEMATOCRIT 33.4 % (42.0-54.0); HEMOGLOBIN 11.2 g/dL (13.5-18.0); LYMPHOCYTES # (AUTO) 2.9 X10^3/uL (1.3-2.9); LYMPHOCYTES % (AUTO) 43.9 % (21.0-51.0); MEAN CORPUSCULAR HEMOGLOBIN 30.1 pg (27.0-34.0); MEAN CORPUSCULAR HGB CONC 33.4 g/dL (33.0-35.0); MEAN CORPUSCULAR VOLUME 90.3 fL (80.0-100.0); MEAN PLATELET VOLUME 9.6 fL (7.4-11.0); MONOCYTES # (AUTO) 0.7 x10^3/uL (0.3-0.8); MONOCYTES % (AUTO) 9.8 % (0.0-13.0); NEUTROPHILS # (AUTO) 2.8 x10^3/uL (2.2-4.8); NEUTROPHILS % (AUTO) 41.8 % (42.0-75.0); PLATELET COUNT 199 X10^3/uL (150.0-450.0); RED CELL DISTRIBUTION WIDTH 15.1 % (11.6-16.5); WHITE BLOOD COUNT 6.7 X10^3/uL (3.6-10.0)
[2017-04-23 05:41] LABS: ALANINE AMINOTRANSFERASE 16 Units/L (12-78); ALBUMIN 2.9 g/dL (3.4-5.0); ALKALINE PHOSPHATASE 41 Units/L (46-116); ASPARTATE AMINO TRANSFERASE 11 Units/L (15-37); BLOOD UREA NITROGEN 12 mg/dL (7-18); CALCIUM 8.7 mg/dL (8.5-10.1); CARBON DIOXIDE 29.6 mmol/L (21-32); CHLORIDE 108 mmol/L (98-107); COR CA(FOR HYPOALB) 9.6 mg/dL (8.5-10.1); CREATININE 0.79 mg/dL (0.70-1.30); SODIUM 145 mmol/L (136-145); TOTAL PROTEIN 6.3 g/dL (6.4-8.2); eGFR BLACK RACES > 60 (>60); eGFR NON BLACK RACES > 60 (>60)
[2017-04-23] MEDS: ROXICODONE TAB 15 MG PO PRN ×2 (06:08→21:03)
[2017-04-23] MEDS: MAXIPIME 1 GM IV PREMIX 1 GM/50 ML BAG IV SCH ×2 (09:33→20:57)
[2017-04-23] MEDS: LYRICA CAP 100 MG PO SCH ×2 (09:34→20:57)
[2017-04-23] MEDS: ZANAFLEX PO SCH ×2 (09:34→20:57)
[2017-04-23] MEDS: PROTONIX INJ 40 MG VIAL IVP SCH (09:34)
[2017-04-23] MEDS: PriLOSEC PO SCH (09:34)
[2017-04-23] MEDS: ASPIRIN EC 81 MG PO SCH (09:34)
[2017-04-23] MEDS: NYSTATIN POWDER TOP SCH ×2 (09:34→22:32)
[2017-04-23] MEDS: NS 250 ML IV 250 ML IV SCH ×2 (09:41→22:33)
--- NOTE | 2017-04-23 11:53 | PCM.PROG ---
Progress Note - Progress Note for Day of Date: 04/22/17 - Subjective Subjective: WAS ADMITTED FOR ALTERED MENTAL STATUS AND HYPOTENSION. TODAY, HE IS LYING IN BED WITH EYES CLOSED ON MORNING ROUNDS. HE AWAKENS AND RESPONDS TO VERBAL STIMULI. HE CONTINUES WITH COMPLAINTS OF LOWER BACK PAIN AND GENERALIZED WEAKNESS. HE IS ALSO NOTED WITH COMPLAINTS OF SUPRAPUBIC PAIN THIS MORNING. PATIENTS SISTER REPORTS INTERMITTENT CONFUSION AND ALTERED MENTAL STATUS THROUGHOUT THE NIGHT. ON EXAMINATION, HEART IS REGULAR IN RATE AND RHYTHM. LUNG SOUNDS ARE DIMINISHED THROUGHOUT. HE IS NOTED TO BE UTILIZING OXYGEN VIA NASAL CANNULA AT 2L/MIN. ABDOMEN IS ROUND, SOFT, AND NOTED WITH MILD SUPERPUBIC TENDERNESS. HYPOACTIVE BOWEL SOUNDS ARE NOTED IN ALL QUADRANTS. GOOD MOVEMENT NOTED TO UPPER EXTREMITIES. PATIENT REPORTS RECENTLY BEING TREATED FOR A URINARY TRACT INFECTION WITH MACROBID. VITALS THIS MORNING ARE 97.8-62-18-98%- 108/62. ABNORMAL LAB VALUES INCLUDE THE FOLLOWING: RBC 3.62, HGB 11.0, HCT 32.8 , SODIUM 147, CHLORIDE 110, AST 13, ALK PHOS 38, TOTAL PROTEIN 6.1, ALBUMIN 2.9 , A/G RATIO 0.9. URINE CULTURE REPORED GROWTH OF PSEUDOMONAS AERUGINOSA. IT IS RESISTENT TO THE ANTIBIOTIC THAT HE IS CURRENTLY ON. WE WILL DISCONTINUE ROCEPHIN AND START MAXIPIME 1GM IV Q12H FOR. OTHERWISE, WE WILL CONTINUE WITH CURRENT PLAN OF CARE FOR PYELONEPHRITIS. WE PLAN TO FOLLOW UP WITH AM LABS AND CONTINUE TO MONITOR PATIENT. - Past Medical Family Social History Past Med/Fam/Surg Hx: No changes since H&P Allergies: Allergies meperidine [From Demerol] Adverse Reaction (Verified 01/19/17 17:25) - Review of Systems ROS: No change since H&P - Vital Signs and I&O's Vital Signs: Temperature 98.4 F Pulse Rate [Apical] 59 Pulse Rate [Right Radial] 77 Pulse Rate 60 Respiratory Rate 18 Blood Pressure [Right Arm] 112/63 Blood Pressure [Left Arm] 137/83 Blood Pressure 115/59 O2 Sat by Pulse Oximetry 97 Intake and Output: Intake & Output 04/20/17 04/21/17 04/22/17 04/23/17 11:59 11:59 11:59 11:59 Intake Total 0 1642 1770 1480 Output Total 700 1400 2800 2400 Balance -700 242 -1030 -920 - Physical Exam Oriented: Person Eyes: Normal. negative: Blurred Vision, Diplopia, Discharge, Pain, Redness, Photophobia, Other Ear: Normal Nose: Normal. negative: Injected, Discharge, Blood, Other Throat: Normal. negative: Tonsillar Hypertrophy, Red, Exudate, Dry, Other Respiratory: Generalized, Diminished. negative: Normal, Right, Left, Superior, Inferior, Wheezes, Rales, Rhonchi, OTHER Cardiovascular: Normal. negative: Tachycardia, Bradycardia, Irregular, S3, S4, Systolic, Diastolic, Murmur, Edema, Other : Normal. negative: Dysuria, Hematuria, Frequency, Discharge, Testicular Pain , Bleeding, , Other Auscultation: Bowel Sounds: Normal. negative: Bruit, Absent, Increased, Decreased, High Pitched, Other Palpation: Normal Tenderness: Suprapubic, Mild Skin: Normal. negative: Decreased Turgur, Rash, Papular, Macular, Maculopapular , Vesicular, Pustular, Petechial, Red, Tender, Hot, Diaphoresis, Wound, Bruising , Ecchymosis, Other Musculoskeletal: Back:Paraspinous, Motor Deficit (PARAPLEGIC) Psychiatric: Other (CONFUSED) Mood Description: Calm Affect: Normal Speech Pattern: Clear, Appropriate - Laboratory and Diagnostics Result Diagrams: 04/25/17 03:00 04/25/17 03:00 Labs: 04/19/17 22:22 Urine,Catheterized Urine Culture - Final Pseudomonas Aeruginosa Laboratory WBC 6.7 X10^3/uL (3.6-10.0) 04/23/17 04:50 RBC 3.70 X10^6/uL (4.7-6.0) L 04/23/17 04:50 Hgb 11.2 g/dL (13.5-18.0) L 04/23/17 04:50 Hct 33.4 % (42.0-54.0) L 04/23/17 04:50 MCV 90.3 fL (80.0-100.0) 04/23/17 04:50 MCH 30.1 pg (27.0-34.0) 04/23/17 04:50 MCHC 33.4 g/dL (33.0-35.0) 04/23/17 04:50 RDW 15.1 % (11.6-16.5) 04/23/17 04:50 Plt Count 199 X10^3/uL (150.0-450.0) 04/23/17 04:50 Plt Count Comment Adequate (ADEQUATE) 04/19/17 17:04 MPV 9.6 fL (7.4-11.0) 04/23/17 04:50 Neut % 41.8 % (42.0-75.0) L 04/23/17 04:50 Lymph % 43.9 % (21.0-51.0) 04/23/17 04:50 [place] % 9.8 % (0.0-13.0) 04/23/17 04:50 Eos % 3.5 % (0.9-2.9) H 04/23/17 04:50 Baso % 1.0 % (0.2-1.0) 04/23/17 04:50 Neut # 2.8 x10^3/uL (2.2-4.8) 04/23/17 04:50 Lymph # 2.9 X10^3/uL (1.3-2.9) 04/23/17 04:50 [place] # 0.7 x10^3/uL (0.3-0.8) 04/23/17 04:50 Eos # 0.2 x10^3/uL (0.0-0.2) 04/23/17 04:50 Baso # 0.1 X10^3/uL (0.0-0.1) 04/23/17 04:50 Absolute Nucleated RBC 0.0 /100WBC 04/23/17 04:50 Plt Clumps, EDTA Rare 04/19/17 17:04 Plt Morphology Comment Normal (NORMAL) 04/19/17 17:04 RBC Morphology Normal (NORMAL) 04/19/17 17:04 INR Target Range - 04/22/17 03:15 INR 0.96 (0.8-1.3) 04/22/17 03:15 Sodium 145 mmol/L (136-145) 04/23/17 04:50 Corrected Sodium TNP 04/23/17 04:50 Potassium 4.0 mmol/L (3.5-5.1) 04/23/17 04:50 Chloride 108 mmol/L (98-107) H 04/23/17 04:50 Carbon Dioxide 29.6 mmol/L (21-32) 04/23/17 04:50 BUN 12 mg/dL (7-18) 04/23/17 04:50 Creatinine 0.79 mg/dL (0.70-1.30) 04/23/17 04:50 Est GFR (MDRD) Af Amer > 60 (>60) 04/23/17 04:50 Est GFR (MDRD) Non-Af > 60 (>60) 04/23/17 04:50 Glucose 89 mg/dL (65-99) 04/23/17 04:50 Lactic Acid 0.6 mmol/L (0.4-2.0) 04/19/17 17:04 Calcium 8.7 mg/dL (8.5-10.1) 04/23/17 04:50 Corrected Calcium 9.6 mg/dL (8.5-10.1) 04/23/17 04:50 Total Bilirubin 0.20 mg/dL (0.2-1.0) 04/23/17 04:50 AST 11 Units/L (15-37) L 04/23/17 04:50 ALT 16 Units/L (12-78) 04/23/17 04:50 Alkaline Phosphatase 41 Units/L (46-116) L 04/23/17 04:50 C-Reactive Protein 14.20 mg/L (0-3.0) H 04/19/17 17:04 Total Protein 6.3 g/dL (6.4-8.2) L 04/23/17 04:50 Albumin 2.9 g/dL (3.4-5.0) L 04/23/17 04:50 Globulin 3.4 g/dL (2.5-4.5) 04/23/17 04:50 Albumin/Globulin Ratio 0.9 Ratio (1.1-2.1) L 04/23/17 04:50 Triglycerides 96 mg/dL (0-150) 04/19/17 18:00 Cholesterol 132 mg/dL (0-200) 04/19/17 18:00 LDL Cholesterol, Calc 64 mg/dL (0-100) 04/19/17 18:00 HDL Cholesterol 49 mg/dL (40-60) 04/19/17 18:00 Cholesterol/HDL Ratio 2.7 (0.0-5.0) 04/19/17 18:00 Specimen Type Catherized urine 04/19/17 22:22 Urine Color Yellow (YELLOW) 04/19/17 22:22 Urine Appearance Slightly hazy (CLEAR) 04/19/17 22:22 Urine pH 7.0 (5.0 - 8.0) 04/19/17 22:22 Ur Specific [place] 1.010 (1.000-1.030) 04/19/17 22:22 Urine Protein 1+ (NEGATIVE) 04/19/17 22:22 Urine Glucose (UA) Negative (NEGATIVE) 04/19/17 22:22 Urine Ketones Negative (NEGATIVE) 04/19/17 22:22 Urine Occult Blood 4+ (NEGATIVE) 04/19/17 22:22 Urine Nitrite Negative (NEGATIVE) 04/19/17 22:22 Urine Bilirubin Negative (NEGATIVE) 04/19/17 22:22 Urine Urobilinogen Normal (NORMAL) 04/19/17 22:22 Ur Leukocyte Esterase 3+ (NEGATIVE) 04/19/17 22:22 Urine RBC Tntc /HPF (NEGATIVE) 04/19/17 22:22 Urine WBC Tntc /HPF (NEGATIVE) 04/19/17 22:22 Ur Squamous Epith Cells Rare /HPF (NEGATIVE) 04/19/17 22:22 Urine Bacteria 3+ /HPF (NEGATIVE) 04/19/17 22:22 Ur Culture Indicated? Yes/culture set up 04/19/17 22:22 - Plan (1) Urinary tract infection Status: Acute Qualifiers: Urinary tract infection type: acute cystitis Hematuria presence: with hematuria Qualified Code(s): N30.01 - Acute cystitis with hematuria Plan: MAXIPIME 1GM IV Q12H, CONTINUE TO MONITOR (2) Hypotension Status: Acute Qualifiers: Hypotension type: unspecified hypotension type Qualified Code(s): I95.9 - Hypotension, unspecified Plan: MONITOR NIBP, CONTINUE TO MONITOR (3) History of neurogenic bowel Status: Chronic Plan: CONTINUE LACTULOSE 30MG PO HS PRN, CONTINUE BISOCODYL 10MG SD HS PRN, CONTINUE TO MONITOR (4) GERD (gastroesophageal reflux disease) Status: Acute Qualifiers: Esophagitis presence: esophagitis presence not specified Qualified Code(s) : K21.9 - Gastro-esophageal reflux disease without esophagitis Plan: CONTINUE PROTONIX 40MG DAILY, CONTINUE PRILOSEC 20MG DAILY, CONTINUE TO MONITOR
[2017-04-23] MEDS: KLONOPIN TAB 1 MG PO SCH (20:57)
[2017-04-24] MEDS: ROXICODONE TAB 15 MG PO PRN ×2 (04:23→21:28)
[2017-04-24 04:46] LABS: BASOPHILS # (AUTO) 0.1 X10^3/uL (0.0-0.1); BASOPHILS % (AUTO) 0.8 % (0.2-1.0); EOSINOPHILS # (AUTO) 0.3 x10^3/uL (0.0-0.2); EOSINOPHILS % (AUTO) 3.7 % (0.9-2.9); HEMATOCRIT 34.1 % (42.0-54.0); HEMOGLOBIN 11.4 g/dL (13.5-18.0); LYMPHOCYTES # (AUTO) 2.6 X10^3/uL (1.3-2.9); LYMPHOCYTES % (AUTO) 36.3 % (21.0-51.0); MEAN CORPUSCULAR HEMOGLOBIN 30.5 pg (27.0-34.0); MEAN CORPUSCULAR HGB CONC 33.5 g/dL (33.0-35.0); MEAN CORPUSCULAR VOLUME 91.1 fL (80.0-100.0); MEAN PLATELET VOLUME 9.9 fL (7.4-11.0); MONOCYTES # (AUTO) 0.7 x10^3/uL (0.3-0.8); MONOCYTES % (AUTO) 9.4 % (0.0-13.0); NEUTROPHILS # (AUTO) 3.5 x10^3/uL (2.2-4.8); NEUTROPHILS % (AUTO) 49.8 % (42.0-75.0); PLATELET COUNT 195 X10^3/uL (150.0-450.0); RED BLOOD COUNT 3.74 X10^6/uL (4.7-6.0)
[2017-04-24 05:01] LABS: ALANINE AMINOTRANSFERASE 16 Units/L (12-78); ALKALINE PHOSPHATASE 44 Units/L (46-116); ASPARTATE AMINO TRANSFERASE 13 Units/L (15-37); BLOOD UREA NITROGEN 11 mg/dL (7-18); CARBON DIOXIDE 26.8 mmol/L (21-32); CHLORIDE 107 mmol/L (98-107); COR CA(FOR HYPOALB) 9.8 mg/dL (8.5-10.1); SODIUM 143 mmol/L (136-145); TOTAL PROTEIN 6.6 g/dL (6.4-8.2); eGFR BLACK RACES > 60 (>60); eGFR NON BLACK RACES > 60 (>60)
[2017-04-24] MEDS: NS 250 ML IV 250 ML IV SCH ×3 (05:43→18:33)
[2017-04-24] MEDS: ZOFRAN INJ 4 MG VIAL IVP PRN ×2 (06:43→18:33)
[2017-04-24] MEDS: MAXIPIME 1 GM IV PREMIX 1 GM/50 ML BAG IV SCH ×2 (09:24→21:27)
[2017-04-24] MEDS: PROTONIX INJ 40 MG VIAL IVP SCH (09:25)
[2017-04-24] MEDS: ZANAFLEX PO SCH ×2 (09:26→21:27)
[2017-04-24] MEDS: ASPIRIN EC 81 MG PO SCH (09:26)
[2017-04-24] MEDS: LYRICA CAP 100 MG PO SCH ×2 (09:26→21:27)
[2017-04-24] MEDS: PriLOSEC PO SCH (09:26)
[2017-04-24] MEDS: NYSTATIN POWDER TOP SCH ×2 (09:27→21:28)
--- NOTE | 2017-04-24 11:29 | PCM.PROG ---
Progress Note - Progress Note for Day of Date: 04/23/17 - Subjective Subjective: WAS ADMITTED FOR ALTERED MENTAL STATUS AND HYPOTENSION. TODAY, HE IS ALERT AND ORIENTED, LYING IN BED ON MORNING ROUNDS. HE CONTINUES WITH COMPLAINTS OF LOWER BACK PAIN AND SUPRAPUBIC PAIN. ON EXAMINATION, HEART IS REGULAR IN RATE AND RHYTHM. LUNG SOUNDS ARE DIMINISHED THROUGHOUT. HE IS NOTED TO BE UTILIZING OXYGEN VIA NASAL CANNULA AT 2L/MIN. ABDOMEN IS ROUND, SOFT , AND NOTED WITH MILD SUPERPUBIC TENDERNESS. NORMAL BOWEL SOUNDS ARE NOTED IN ALL QUADRANTS. GOOD MOVEMENT NOTED TO UPPER EXTREMITIES. VITALS THIS MORNING ARE 98.5-68-20-98%-136/75. ABNORMAL LAB VALUES INCLUDE THE FOLLOWING: RBC 3.70, HGB 11.2, HCT 33.4, CHLORIDE 108, AST 11, ALK PHOS 41, TOTAL PROTEIN 6.3, ALBUMIN 2.9, A/G RATIO 0.9. HE CONTINUES ON ABX FOR GROWTH OF PSEUDOMONAS AERUGINOSA IN URINE. SENSITIVITY REPORTS DOES NOT REPORTS SENSITIVITY TO ANTIBIOTICS BY MOUTH, THEREFORE, HE WILL NEED AN EXTENDED COURSE OF ANTIBIOTICS. WE WILL CONTINUE WITH CURRENT PLAN OF CARE TODAY. WE PLAN TO FOLLOW UP WITH AM LABS AND CONTINUE TO MONITOR PATIENT. - Past Medical Family Social History Past Med/Fam/Surg Hx: No changes since H&P Allergies: Allergies meperidine [From Demerol] Adverse Reaction (Verified 01/19/17 17:25) - Review of Systems ROS: No change since H&P - Vital Signs and I&O's Vital Signs: Temperature 98.3 F Pulse Rate [Apical] 67 Pulse Rate [Right Radial] 71 Pulse Rate 60 Respiratory Rate 20 Blood Pressure [Right Arm] 90/57 Blood Pressure [Left Arm] 137/83 Blood Pressure 115/59 O2 Sat by Pulse Oximetry 94 Intake and Output: Intake & Output 04/21/17 04/22/17 04/23/17 04/24/17 11:59 11:59 11:59 11:59 Intake Total 1642 1770 1480 2000 Output Total 1400 2800 2400 2375 Balance 188 -1030 -920 -375 - Physical Exam Oriented: Normal Eyes: Normal. negative: Blurred Vision, Diplopia, Discharge, Pain, Redness, Photophobia, Other Ear: Normal Nose: Normal. negative: Injected, Discharge, Blood, Other Throat: Normal. negative: Tonsillar Hypertrophy, Red, Exudate, Dry, Other Respiratory: Generalized, Diminished. negative: Normal, Right, Left, Superior, Inferior, Wheezes, Rales, Rhonchi, OTHER Cardiovascular: Normal. negative: Tachycardia, Bradycardia, Irregular, S3, S4, Systolic, Diastolic, Murmur, Edema, Other : Normal. negative: Dysuria, Hematuria, Frequency, Discharge, Testicular Pain , Bleeding, , Other Auscultation: Bowel Sounds: Normal. negative: Bruit, Absent, Increased, Decreased, High Pitched, Other Palpation: Normal Tenderness: Suprapubic, Mild Skin: Normal. negative: Decreased Turgur, Rash, Papular, Macular, Maculopapular , Vesicular, Pustular, Petechial, Red, Tender, Hot, Diaphoresis, Wound, Bruising , Ecchymosis, Other Musculoskeletal: Back:Paraspinous, Motor Deficit (PARAPLEGIC) Psychiatric: Other (CONFUSED) Mood Description: Calm Affect: Normal Speech Pattern: Clear, Appropriate - Laboratory and Diagnostics Result Diagrams: 04/24/17 03:20 04/24/17 03:20 Labs: 04/19/17 22:22 Urine,Catheterized Urine Culture - Final Pseudomonas Aeruginosa Laboratory WBC 7.0 X10^3/uL (3.6-10.0) 04/24/17 03:20 RBC 3.74 X10^6/uL (4.7-6.0) L 04/24/17 03:20 Hgb 11.4 g/dL (13.5-18.0) L 04/24/17 03:20 Hct 34.1 % (42.0-54.0) L 04/24/17 03:20 MCV 91.1 fL (80.0-100.0) 04/24/17 03:20 MCH 30.5 pg (27.0-34.0) 04/24/17 03:20 MCHC 33.5 g/dL (33.0-35.0) 04/24/17 03:20 RDW 15.0 % (11.6-16.5) 04/24/17 03:20 Plt Count 195 X10^3/uL (150.0-450.0) 04/24/17 03:20 Plt Count Comment Adequate (ADEQUATE) 04/19/17 17:04 MPV 9.9 fL (7.4-11.0) 04/24/17 03:20 Neut % 49.8 % (42.0-75.0) 04/24/17 03:20 Lymph % 36.3 % (21.0-51.0) 04/24/17 03:20 [place] % 9.4 % (0.0-13.0) 04/24/17 03:20 Eos % 3.7 % (0.9-2.9) H 04/24/17 03:20 Baso % 0.8 % (0.2-1.0) 04/24/17 03:20 Neut # 3.5 x10^3/uL (2.2-4.8) 04/24/17 03:20 Lymph # 2.6 X10^3/uL (1.3-2.9) 04/24/17 03:20 [place] # 0.7 x10^3/uL (0.3-0.8) 04/24/17 03:20 Eos # 0.3 x10^3/uL (0.0-0.2) H 04/24/17 03:20 Baso # 0.1 X10^3/uL (0.0-0.1) 04/24/17 03:20 Absolute Nucleated RBC 0.0 /100WBC 04/24/17 03:20 Plt Clumps, EDTA Rare 04/19/17 17:04 Plt Morphology Comment Normal (NORMAL) 04/19/17 17:04 RBC Morphology Normal (NORMAL) 04/19/17 17:04 INR Target Range - 04/22/17 03:15 INR 0.96 (0.8-1.3) 04/22/17 03:15 Sodium 143 mmol/L (136-145) 04/24/17 03:20 Corrected Sodium TNP 04/24/17 03:20 Potassium 4.2 mmol/L (3.5-5.1) 04/24/17 03:20 Chloride 107 mmol/L (98-107) 04/24/17 03:20 Carbon Dioxide 26.8 mmol/L (21-32) 04/24/17 03:20 BUN 11 mg/dL (7-18) 04/24/17 03:20 Creatinine 0.60 mg/dL (0.70-1.30) L 04/24/17 03:20 Est GFR (MDRD) Af Amer > 60 (>60) 04/24/17 03:20 Est GFR (MDRD) Non-Af > 60 (>60) 04/24/17 03:20 Glucose 86 mg/dL (65-99) 04/24/17 03:20 Lactic Acid 0.6 mmol/L (0.4-2.0) 04/19/17 17:04 Calcium 9.0 mg/dL (8.5-10.1) 04/24/17 03:20 Corrected Calcium 9.8 mg/dL (8.5-10.1) 04/24/17 03:20 Total Bilirubin 0.30 mg/dL (0.2-1.0) 04/24/17 03:20 AST 13 Units/L (15-37) L 04/24/17 03:20 ALT 16 Units/L (12-78) 04/24/17 03:20 Alkaline Phosphatase 44 Units/L (46-116) L 04/24/17 03:20 C-Reactive Protein 14.20 mg/L (0-3.0) H 04/19/17 17:04 Total Protein 6.6 g/dL (6.4-8.2) 04/24/17 03:20 Albumin 3.0 g/dL (3.4-5.0) L 04/24/17 03:20 Globulin 3.6 g/dL (2.5-4.5) 04/24/17 03:20 Albumin/Globulin Ratio 0.8 Ratio (1.1-2.1) L 04/24/17 03:20 Triglycerides 96 mg/dL (0-150) 04/19/17 18:00 Cholesterol 132 mg/dL (0-200) 04/19/17 18:00 LDL Cholesterol, Calc 64 mg/dL (0-100) 04/19/17 18:00 HDL Cholesterol 49 mg/dL (40-60) 04/19/17 18:00 Cholesterol/HDL Ratio 2.7 (0.0-5.0) 04/19/17 18:00 Specimen Type Catherized urine 04/19/17 22:22 Urine Color Yellow (YELLOW) 04/19/17 22:22 Urine Appearance Slightly hazy (CLEAR) 04/19/17 22:22 Urine pH 7.0 (5.0 - 8.0) 04/19/17 22:22 Ur Specific [place] 1.010 (1.000-1.030) 04/19/17 22:22 Urine Protein 1+ (NEGATIVE) 04/19/17 22:22 Urine Glucose (UA) Negative (NEGATIVE) 04/19/17 22:22 Urine Ketones Negative (NEGATIVE) 04/19/17 22:22 Urine Occult Blood 4+ (NEGATIVE) 04/19/17 22:22 Urine Nitrite Negative (NEGATIVE) 04/19/17 22:22 Urine Bilirubin Negative (NEGATIVE) 04/19/17 22:22 Urine Urobilinogen Normal (NORMAL) 04/19/17 22:22 Ur Leukocyte Esterase 3+ (NEGATIVE) 04/19/17 22:22 Urine RBC Tntc /HPF (NEGATIVE) 04/19/17 22:22 Urine WBC Tntc /HPF (NEGATIVE) 04/19/17 22:22 Ur Squamous Epith Cells Rare /HPF (NEGATIVE) 04/19/17 22:22 Urine Bacteria 3+ /HPF (NEGATIVE) 04/19/17 22:22 Ur Culture Indicated? Yes/culture set up 04/19/17 22:22 - Plan (1) Urinary tract infection Status: Acute Qualifiers: Urinary tract infection type: acute cystitis Hematuria presence: with hematuria Qualified Code(s): N30.01 - Acute cystitis with hematuria Plan: MAXIPIME 1GM IV Q12H, CONTINUE TO MONITOR (2) Hypotension Status: Acute Qualifiers: Hypotension type: unspecified hypotension type Qualified Code(s): I95.9 - Hypotension, unspecified Plan: MONITOR NIBP, CONTINUE TO MONITOR (3) History of neurogenic bowel Status: Chronic Plan: CONTINUE LACTULOSE 30MG PO HS PRN, CONTINUE BISOCODYL 10MG PA HS PRN, CONTINUE TO MONITOR (4) GERD (gastroesophageal reflux disease) Status: Acute Qualifiers: Esophagitis presence: esophagitis presence not specified Qualified Code(s) : K21.9 - Gastro-esophageal reflux disease without esophagitis Plan: CONTINUE PROTONIX 40MG DAILY, CONTINUE PRILOSEC 20MG DAILY, CONTINUE TO MONITOR
[2017-04-24] MEDS: KLONOPIN TAB 1 MG PO SCH (21:27)
[2017-04-24] MEDS: LIORESAL PO PRN (23:06)
[2017-04-25 04:58] LABS: BASOPHILS # (AUTO) 0.1 X10^3/uL (0.0-0.1); EOSINOPHILS # (AUTO) 0.2 x10^3/uL (0.0-0.2); EOSINOPHILS % (AUTO) 3.6 % (0.9-2.9); HEMATOCRIT 33.3 % (42.0-54.0); HEMOGLOBIN 11.2 g/dL (13.5-18.0); LYMPHOCYTES # (AUTO) 2.6 X10^3/uL (1.3-2.9); LYMPHOCYTES % (AUTO) 37.4 % (21.0-51.0); MEAN CORPUSCULAR HEMOGLOBIN 30.6 pg (27.0-34.0); MEAN CORPUSCULAR HGB CONC 33.6 g/dL (33.0-35.0); MEAN PLATELET VOLUME 9.8 fL (7.4-11.0); MONOCYTES # (AUTO) 0.7 x10^3/uL (0.3-0.8); NEUTROPHILS # (AUTO) 3.2 x10^3/uL (2.2-4.8); PLATELET COUNT 192 X10^3/uL (150.0-450.0); RED BLOOD COUNT 3.66 X10^6/uL (4.7-6.0); RED CELL DISTRIBUTION WIDTH 15.2 % (11.6-16.5); WHITE BLOOD COUNT 6.8 X10^3/uL (3.6-10.0)
[2017-04-25 05:14] LABS: ALANINE AMINOTRANSFERASE 17 Units/L (12-78); ALBUMIN 2.9 g/dL (3.4-5.0); ALKALINE PHOSPHATASE 43 Units/L (46-116); ASPARTATE AMINO TRANSFERASE 14 Units/L (15-37); BLOOD UREA NITROGEN 12 mg/dL (7-18); CALCIUM 8.6 mg/dL (8.5-10.1); CARBON DIOXIDE 27.2 mmol/L (21-32); CHLORIDE 108 mmol/L (98-107); COR CA(FOR HYPOALB) 9.5 mg/dL (8.5-10.1); CREATININE 0.71 mg/dL (0.70-1.30); SODIUM 144 mmol/L (136-145); TOTAL PROTEIN 6.4 g/dL (6.4-8.2); eGFR BLACK RACES > 60 (>60); eGFR NON BLACK RACES > 60 (>60)
[2017-04-25] MEDS: NS 250 ML IV 250 ML IV SCH ×2 (06:07→17:49)
[2017-04-25] MEDS: ZANAFLEX PO SCH ×2 (08:57→21:47)
[2017-04-25] MEDS: PROTONIX INJ 40 MG VIAL IVP SCH (08:57)
[2017-04-25] MEDS: PriLOSEC PO SCH (08:57)
[2017-04-25] MEDS: LYRICA CAP 100 MG PO SCH ×2 (08:57→21:47)
[2017-04-25] MEDS: NYSTATIN POWDER TOP SCH ×2 (08:58→21:48)
[2017-04-25] MEDS: MAXIPIME 1 GM IV PREMIX 1 GM/50 ML BAG IV SCH ×2 (08:58→21:47)
[2017-04-25] MEDS: CYMBALTA PO SCH (09:51)
[2017-04-25] MEDS: ROXICODONE TAB 15 MG PO PRN (09:51)
--- NOTE | 2017-04-25 11:22 | PCM.PROG ---
Progress Note - Progress Note for Day of Date: 04/24/17 - Subjective Subjective: WAS ADMITTED FOR ALTERED MENTAL STATUS AND HYPOTENSION. TODAY, HE IS ALERT AND ORIENTED, LYING IN BED ON MORNING ROUNDS. HE CONTINUES WITH COMPLAINTS OF LOWER BACK PAIN AND SUPRAPUBIC PAIN. ON EXAMINATION, HEART IS REGULAR IN RATE AND RHYTHM. LUNG SOUNDS ARE DIMINISHED THROUGHOUT. ABDOMEN IS ROUND, SOFT, AND NOTED WITH MILD SUPERPUBIC TENDERNESS. NORMAL BOWEL SOUNDS ARE NOTED IN ALL QUADRANTS. VITALS THIS MORNING ARE 98.3-67-20-94%-90/57. ABNORMAL LAB VALUES INCLUDE THE FOLLOWING: RBC 3.74, HGB 11.4, HCT 34.1, CREATININE 0.60, AST 13, ALK PHOS 44, ALBUMIN 3.0, A/G RATIO 0.8. HE CONTINUES ON ABX FOR GROWTH OF PSEUDOMONAS AERUGINOSA IN URINE. PATIENT WILL REQUIRE AN EXTENDED COURSE OF IV ANTIBIOTICS FOR TWO WEEKS AFTER DISCHARGE FROM HOSPITAL. WE WILL DISCUSS THIS WITH CASE MANAGEMENT AND ARRANGE FOR PATIENT. HE WILL ORDER FOR AN ANESTHESIA CONSULT FOR PLACEMENT OF PICC LINE. OTHERWISE, WE WILL CONTINUE WITH CURRENT PLAN OF CARE TODAY. WE PLAN TO FOLLOW UP WITH AM LABS AND CONTINUE TO MONITOR PATIENT. - Past Medical Family Social History Past Med/Fam/Surg Hx: No changes since H&P Allergies: Allergies meperidine [From Demerol] Adverse Reaction (Verified 01/19/17 17:25) - Review of Systems ROS: No change since H&P - Vital Signs and I&O's Vital Signs: Temperature 97.8 F Pulse Rate [Right Brachial] 59 Pulse Rate [Apical] 77 Pulse Rate [Right Radial] 71 Pulse Rate 60 Respiratory Rate 20 Blood Pressure [Right Arm] 149/85 Blood Pressure [Left Arm] 137/83 Blood Pressure 115/59 O2 Sat by Pulse Oximetry 96 Intake and Output: Intake & Output 04/22/17 04/23/17 04/24/17 04/25/17 11:59 11:59 11:59 11:59 Intake Total 1770 1480 2000 1260 Output Total 2800 2400 2375 2775 Balance -1030 -920 -375 -1515 - Physical Exam Oriented: Normal Eyes: Normal. negative: Blurred Vision, Diplopia, Discharge, Pain, Redness, Photophobia, Other Ear: Normal Nose: Normal. negative: Injected, Discharge, Blood, Other Throat: Normal. negative: Tonsillar Hypertrophy, Red, Exudate, Dry, Other Respiratory: Generalized, Diminished. negative: Normal, Right, Left, Superior, Inferior, Wheezes, Rales, Rhonchi, OTHER Cardiovascular: Normal. negative: Tachycardia, Bradycardia, Irregular, S3, S4, Systolic, Diastolic, Murmur, Edema, Other : Normal. negative: Dysuria, Hematuria, Frequency, Discharge, Testicular Pain , Bleeding, , Other Auscultation: Bowel Sounds: Normal. negative: Bruit, Absent, Increased, Decreased, High Pitched, Other Palpation: Normal Tenderness: Suprapubic, Mild Skin: Normal. negative: Decreased Turgur, Rash, Papular, Macular, Maculopapular , Vesicular, Pustular, Petechial, Red, Tender, Hot, Diaphoresis, Wound, Bruising , Ecchymosis, Other Musculoskeletal: Back:Paraspinous, Motor Deficit (QUADRAPLEGIC ) Psychiatric: Other (CONFUSED) Mood Description: Calm Affect: Normal Speech Pattern: Clear, Appropriate - Laboratory and Diagnostics Result Diagrams: 04/25/17 03:00 04/25/17 03:00 Labs: 04/23/17 09:40 Blood Blood Culture - Preliminary 04/23/17 09:30 Blood Blood Culture - Preliminary 04/19/17 22:22 Urine,Catheterized Urine Culture - Final Pseudomonas Aeruginosa Laboratory WBC 6.8 X10^3/uL (3.6-10.0) 04/25/17 03:00 RBC 3.66 X10^6/uL (4.7-6.0) L 04/25/17 03:00 Hgb 11.2 g/dL (13.5-18.0) L 04/25/17 03:00 Hct 33.3 % (42.0-54.0) L 04/25/17 03:00 MCV 91.0 fL (80.0-100.0) 04/25/17 03:00 MCH 30.6 pg (27.0-34.0) 04/25/17 03:00 MCHC 33.6 g/dL (33.0-35.0) 04/25/17 03:00 RDW 15.2 % (11.6-16.5) 04/25/17 03:00 Plt Count 192 X10^3/uL (150.0-450.0) 04/25/17 03:00 Plt Count Comment Adequate (ADEQUATE) 04/19/17 17:04 MPV 9.8 fL (7.4-11.0) 04/25/17 03:00 Neut % 47.0 % (42.0-75.0) 04/25/17 03:00 Lymph % 37.4 % (21.0-51.0) 04/25/17 03:00 [place] % 11.0 % (0.0-13.0) 04/25/17 03:00 Eos % 3.6 % (0.9-2.9) H 04/25/17 03:00 Baso % 1.0 % (0.2-1.0) 04/25/17 03:00 Neut # 3.2 x10^3/uL (2.2-4.8) 04/25/17 03:00 Lymph # 2.6 X10^3/uL (1.3-2.9) 04/25/17 03:00 [place] # 0.7 x10^3/uL (0.3-0.8) 04/25/17 03:00 Eos # 0.2 x10^3/uL (0.0-0.2) 04/25/17 03:00 Baso # 0.1 X10^3/uL (0.0-0.1) 04/25/17 03:00 Absolute Nucleated RBC 0.1 /100WBC 04/25/17 03:00 Plt Clumps, EDTA Rare 04/19/17 17:04 Plt Morphology Comment Normal (NORMAL) 04/19/17 17:04 RBC Morphology Normal (NORMAL) 04/19/17 17:04 INR Target Range - 04/22/17 03:15 INR 0.96 (0.8-1.3) 04/22/17 03:15 Sodium 144 mmol/L (136-145) 04/25/17 03:00 Corrected Sodium TNP 04/25/17 03:00 Potassium 3.8 mmol/L (3.5-5.1) 04/25/17 03:00 Chloride 108 mmol/L (98-107) H 04/25/17 03:00 Carbon Dioxide 27.2 mmol/L (21-32) 04/25/17 03:00 BUN 12 mg/dL (7-18) 04/25/17 03:00 Creatinine 0.71 mg/dL (0.70-1.30) 04/25/17 03:00 Est GFR (MDRD) Af Amer > 60 (>60) 04/25/17 03:00 Est GFR (MDRD) Non-Af > 60 (>60) 04/25/17 03:00 Glucose 96 mg/dL (65-99) 04/25/17 03:00 Lactic Acid 0.6 mmol/L (0.4-2.0) 04/19/17 17:04 Calcium 8.6 mg/dL (8.5-10.1) 04/25/17 03:00 Corrected Calcium 9.5 mg/dL (8.5-10.1) 04/25/17 03:00 Total Bilirubin 0.30 mg/dL (0.2-1.0) 04/25/17 03:00 AST 14 Units/L (15-37) L 04/25/17 03:00 ALT 17 Units/L (12-78) 04/25/17 03:00 Alkaline Phosphatase 43 Units/L (46-116) L 04/25/17 03:00 C-Reactive Protein 14.20 mg/L (0-3.0) H 04/19/17 17:04 Total Protein 6.4 g/dL (6.4-8.2) 04/25/17 03:00 Albumin 2.9 g/dL (3.4-5.0) L 04/25/17 03:00 Globulin 3.5 g/dL (2.5-4.5) 04/25/17 03:00 Albumin/Globulin Ratio 0.8 Ratio (1.1-2.1) L 04/25/17 03:00 Triglycerides 96 mg/dL (0-150) 04/19/17 18:00 Cholesterol 132 mg/dL (0-200) 04/19/17 18:00 LDL Cholesterol, Calc 64 mg/dL (0-100) 04/19/17 18:00 HDL Cholesterol 49 mg/dL (40-60) 04/19/17 18:00 Cholesterol/HDL Ratio 2.7 (0.0-5.0) 04/19/17 18:00 Specimen Type Catherized urine 04/19/17 22:22 Urine Color Yellow (YELLOW) 04/19/17 22:22 Urine Appearance Slightly hazy (CLEAR) 04/19/17 22:22 Urine pH 7.0 (5.0 - 8.0) 04/19/17 22:22 Ur Specific [place] 1.010 (1.000-1.030) 04/19/17 22:22 Urine Protein 1+ (NEGATIVE) 04/19/17 22:22 Urine Glucose (UA) Negative (NEGATIVE) 04/19/17 22:22 Urine Ketones Negative (NEGATIVE) 04/19/17 22:22 Urine Occult Blood 4+ (NEGATIVE) 04/19/17 22:22 Urine Nitrite Negative (NEGATIVE) 04/19/17 22:22 Urine Bilirubin Negative (NEGATIVE) 04/19/17 22:22 Urine Urobilinogen Normal (NORMAL) 04/19/17 22:22 Ur Leukocyte Esterase 3+ (NEGATIVE) 04/19/17 22:22 Urine RBC Tntc /HPF (NEGATIVE) 04/19/17 22:22 Urine WBC Tntc /HPF (NEGATIVE) 04/19/17 22:22 Ur Squamous Epith Cells Rare /HPF (NEGATIVE) 04/19/17 22:22 Urine Bacteria 3+ /HPF (NEGATIVE) 04/19/17 22:22 Ur Culture Indicated? Yes/culture set up 04/19/17 22:22 - Plan (1) Klebsiella pneumoniae infection Status: Acute Plan: CONTINUE MAXIPIME 1GM IV Q12H, CONTINUE TO MONITOR (2) Urinary tract infection Status: Acute Qualifiers: Urinary tract infection type: acute cystitis Hematuria presence: with hematuria Qualified Code(s): N30.01 - Acute cystitis with hematuria Plan: MAXIPIME 1GM IV Q12H, CONTINUE TO MONITOR (3) Hypotension Status: Acute Qualifiers: Hypotension type: unspecified hypotension type Qualified Code(s): I95.9 - Hypotension, unspecified Plan: MONITOR NIBP, CONTINUE TO MONITOR (4) History of neurogenic bowel Status: Chronic Plan: CONTINUE LACTULOSE 30MG PO HS PRN, CONTINUE BISOCODYL 10MG IA HS PRN, CONTINUE TO MONITOR (5) GERD (gastroesophageal reflux disease) Status: Acute Qualifiers: Esophagitis presence: esophagitis presence not specified Qualified Code(s) : K21.9 - Gastro-esophageal reflux disease without esophagitis Plan: CONTINUE PROTONIX 40MG DAILY, CONTINUE PRILOSEC 20MG DAILY, CONTINUE TO MONITOR
[2017-04-25] MEDS ORDERED: XYLOCAINE 1 % (PLAIN) ONE (12:59)
[2017-04-25] MEDS: KLONOPIN TAB 1 MG PO SCH (21:47)
[2017-04-26] MEDS: ROXICODONE TAB 15 MG PO PRN (04:22)
[2017-04-26 05:14] LABS: BASOPHILS # (AUTO) 0.1 X10^3/uL (0.0-0.1); EOSINOPHILS # (AUTO) 0.3 x10^3/uL (0.0-0.2); HEMATOCRIT 36.1 % (42.0-54.0); HEMOGLOBIN 12.1 g/dL (13.5-18.0); LYMPHOCYTES # (AUTO) 2.6 X10^3/uL (1.3-2.9); LYMPHOCYTES % (AUTO) 38.4 % (21.0-51.0); MEAN CORPUSCULAR HEMOGLOBIN 30.3 pg (27.0-34.0); MEAN CORPUSCULAR HGB CONC 33.5 g/dL (33.0-35.0); MEAN CORPUSCULAR VOLUME 90.5 fL (80.0-100.0); MEAN PLATELET VOLUME 9.8 fL (7.4-11.0); MONOCYTES # (AUTO) 0.6 x10^3/uL (0.3-0.8); MONOCYTES % (AUTO) 8.3 % (0.0-13.0); NEUTROPHILS # (AUTO) 3.3 x10^3/uL (2.2-4.8); NEUTROPHILS % (AUTO) 48.3 % (42.0-75.0); PLATELET COUNT 187 X10^3/uL (150.0-450.0); RED BLOOD COUNT 3.99 X10^6/uL (4.7-6.0); RED CELL DISTRIBUTION WIDTH 14.7 % (11.6-16.5); WHITE BLOOD COUNT 6.8 X10^3/uL (3.6-10.0)
[2017-04-26 05:25] LABS: ALANINE AMINOTRANSFERASE 17 Units/L (12-78); ALBUMIN 3.2 g/dL (3.4-5.0); ALKALINE PHOSPHATASE 47 Units/L (46-116); ASPARTATE AMINO TRANSFERASE 12 Units/L (15-37); BLOOD UREA NITROGEN 14 mg/dL (7-18); CARBON DIOXIDE 29.4 mmol/L (21-32); CHLORIDE 108 mmol/L (98-107); COR CA(FOR HYPOALB) 9.6 mg/dL (8.5-10.1); CREATININE 0.64 mg/dL (0.70-1.30); SODIUM 142 mmol/L (136-145); TOTAL PROTEIN 6.9 g/dL (6.4-8.2); eGFR BLACK RACES > 60 (>60); eGFR NON BLACK RACES > 60 (>60)
[2017-04-26] MEDS: MAXIPIME 1 GM IV PREMIX 1 GM/50 ML BAG IV SCH (09:20)
[2017-04-26] MEDS: ZANAFLEX PO SCH (09:21)
[2017-04-26] MEDS: PriLOSEC PO SCH (09:21)
[2017-04-26] MEDS: LYRICA CAP 100 MG PO SCH (09:22)
[2017-04-26] MEDS: CYMBALTA PO SCH (09:22)
[2017-04-26] MEDS: NYSTATIN POWDER TOP SCH (09:22)
[2017-04-26] MEDS: PROTONIX INJ 40 MG VIAL IVP SCH (09:22)
--- NOTE | 2017-04-26 11:16 | PCM.PROG ---
Progress Note - Progress Note for Day of Date: 04/25/17 - Subjective Subjective: WAS ADMITTED FOR ALTERED MENTAL STATUS AND HYPOTENSION. TODAY, HE IS ALERT AND ORIENTED, LYING IN BED ON MORNING ROUNDS. HE CONTINUES WITH COMPLAINTS OF LOWER BACK PAIN AND SUPRAPUBIC PAIN. ON EXAMINATION, HEART IS REGULAR IN RATE AND RHYTHM. LUNG SOUNDS ARE DIMINISHED THROUGHOUT. ABDOMEN IS ROUND, SOFT, AND NOTED WITH MILD SUPERPUBIC TENDERNESS. NORMAL BOWEL SOUNDS ARE NOTED IN ALL QUADRANTS. VITALS THIS MORNING ARE 97.8-59-20-96%-149/85. ABNORMAL LAB VALUES INCLUDE THE FOLLOWING: RBC 3.66, HGB 12.1, HCT 36.1, CHLORIDE 108, AST 14, ALK PHOS 43, ALBUMIN 2.9, A/G RATIO 0.8. HE CONTINUES ON ABX FOR GROWTH OF PSEUDOMONAS AERUGINOSA IN URINE AND SEVERE SEPSIS. PATIENT WILL REQUIRE AN EXTENDED COURSE OF ANTIBIOTICS FOR TWO WEEKS AFTER DISCHARGE FROM HOSPITAL. WE CONSULTED WITH ANESTHESIA FOR POSSIBLE PICC LINE. THEY REPORT THAT PATIENT IS NOT A CANDIDATE FOR PICC LINE. AFTER FURTHER REVIEWING CULTURE AND SENSITIVITY, WE FEEL COMFORTABLE WITH TRANSITIONING PATIENT TO ORAL ANTIBIOTICS FOR TWO WEEKS ON DISCHARGE. CASE MANAGEMENT IS ARRANGING FOR HOSPICE CARE FOLLOWING DISCHARGE. OTHERWISE, WE WILL CONTINUE WITH CURRENT PLAN OF CARE TODAY. WE PLAN TO FOLLOW UP WITH AM LABS AND CONTINUE TO MONITOR PATIENT. - Past Medical Family Social History Past Med/Fam/Surg Hx: No changes since H&P Allergies: Allergies meperidine [From Demerol] Adverse Reaction (Verified 01/19/17 17:25) - Review of Systems ROS: No change since H&P - Vital Signs and I&O's Vital Signs: Temperature 97.9 F Pulse Rate [Right Brachial] 60 Pulse Rate [Apical] 77 Pulse Rate [Right Radial] 71 Pulse Rate 60 Respiratory Rate 20 Blood Pressure [Right Arm] 140/78 Blood Pressure [Left Arm] 137/83 Blood Pressure 115/59 O2 Sat by Pulse Oximetry 98 Intake and Output: Intake & Output 04/23/17 04/24/17 04/25/17 04/26/17 11:59 11:59 11:59 11:59 Intake Total 1480 2000 1260 1420 Output Total 2400 6264 5915 5275 Balance -694 -092 -4085 -791 - Physical Exam Oriented: Normal Eyes: Normal. negative: Blurred Vision, Diplopia, Discharge, Pain, Redness, Photophobia, Other Ear: Normal Nose: Normal. negative: Injected, Discharge, Blood, Other Throat: Normal. negative: Tonsillar Hypertrophy, Red, Exudate, Dry, Other Respiratory: Generalized, Diminished. negative: Normal, Right, Left, Superior, Inferior, Wheezes, Rales, Rhonchi, OTHER Cardiovascular: Normal. negative: Tachycardia, Bradycardia, Irregular, S3, S4, Systolic, Diastolic, Murmur, Edema, Other : Normal. negative: Dysuria, Hematuria, Frequency, Discharge, Testicular Pain , Bleeding, , Other Auscultation: Bowel Sounds: Normal. negative: Bruit, Absent, Increased, Decreased, High Pitched, Other Palpation: Normal Tenderness: Suprapubic, Mild Skin: Normal. negative: Decreased Turgur, Rash, Papular, Macular, Maculopapular , Vesicular, Pustular, Petechial, Red, Tender, Hot, Diaphoresis, Wound, Bruising , Ecchymosis, Other Musculoskeletal: Back:Paraspinous, Motor Deficit (QUADRAPLEGIC ) Psychiatric: Other (CONFUSED) Mood Description: Calm Affect: Normal Speech Pattern: Clear, Appropriate - Laboratory and Diagnostics Result Diagrams: 04/26/17 03:20 04/26/17 03:20 Labs: 04/23/17 09:40 Blood Blood Culture - Preliminary 04/23/17 09:30 Blood Blood Culture - Preliminary 04/19/17 22:22 Urine,Catheterized Urine Culture - Final Pseudomonas Aeruginosa Laboratory WBC 6.8 X10^3/uL (3.6-10.0) 04/26/17 03:20 RBC 3.99 X10^6/uL (4.7-6.0) L 04/26/17 03:20 Hgb 12.1 g/dL (13.5-18.0) L 04/26/17 03:20 Hct 36.1 % (42.0-54.0) L 04/26/17 03:20 MCV 90.5 fL (80.0-100.0) 04/26/17 03:20 MCH 30.3 pg (27.0-34.0) 04/26/17 03:20 MCHC 33.5 g/dL (33.0-35.0) 04/26/17 03:20 RDW 14.7 % (11.6-16.5) 04/26/17 03:20 Plt Count 187 X10^3/uL (150.0-450.0) 04/26/17 03:20 Plt Count Comment Adequate (ADEQUATE) 04/19/17 17:04 MPV 9.8 fL (7.4-11.0) 04/26/17 03:20 Neut % 48.3 % (42.0-75.0) 04/26/17 03:20 Lymph % 38.4 % (21.0-51.0) 04/26/17 03:20 [place] % 8.3 % (0.0-13.0) 04/26/17 03:20 Eos % 4.0 % (0.9-2.9) H 04/26/17 03:20 Baso % 1.0 % (0.2-1.0) 04/26/17 03:20 Neut # 3.3 x10^3/uL (2.2-4.8) 04/26/17 03:20 Lymph # 2.6 X10^3/uL (1.3-2.9) 04/26/17 03:20 [place] # 0.6 x10^3/uL (0.3-0.8) 04/26/17 03:20 Eos # 0.3 x10^3/uL (0.0-0.2) H 04/26/17 03:20 Baso # 0.1 X10^3/uL (0.0-0.1) 04/26/17 03:20 Absolute Nucleated RBC 0.0 /100WBC 04/26/17 03:20 Plt Clumps, EDTA Rare 04/19/17 17:04 Plt Morphology Comment Normal (NORMAL) 04/19/17 17:04 RBC Morphology Normal (NORMAL) 04/19/17 17:04 INR Target Range - 04/22/17 03:15 INR 0.96 (0.8-1.3) 04/22/17 03:15 Sodium 142 mmol/L (136-145) 04/26/17 03:20 Corrected Sodium TNP 04/26/17 03:20 Potassium 4.1 mmol/L (3.5-5.1) 04/26/17 03:20 Chloride 108 mmol/L (98-107) H 04/26/17 03:20 Carbon Dioxide 29.4 mmol/L (21-32) 04/26/17 03:20 BUN 14 mg/dL (7-18) 04/26/17 03:20 Creatinine 0.64 mg/dL (0.70-1.30) L 04/26/17 03:20 Est GFR (MDRD) Af Amer > 60 (>60) 04/26/17 03:20 Est GFR (MDRD) Non-Af > 60 (>60) 04/26/17 03:20 Glucose 77 mg/dL (65-99) 04/26/17 03:20 Lactic Acid 0.6 mmol/L (0.4-2.0) 04/19/17 17:04 Calcium 9.0 mg/dL (8.5-10.1) 04/26/17 03:20 Corrected Calcium 9.6 mg/dL (8.5-10.1) 04/26/17 03:20 Total Bilirubin 0.30 mg/dL (0.2-1.0) 04/26/17 03:20 AST 12 Units/L (15-37) L 04/26/17 03:20 ALT 17 Units/L (12-78) 04/26/17 03:20 Alkaline Phosphatase 47 Units/L (46-116) 04/26/17 03:20 C-Reactive Protein 14.20 mg/L (0-3.0) H 04/19/17 17:04 Total Protein 6.9 g/dL (6.4-8.2) 04/26/17 03:20 Albumin 3.2 g/dL (3.4-5.0) L 04/26/17 03:20 Globulin 3.7 g/dL (2.5-4.5) 04/26/17 03:20 Albumin/Globulin Ratio 0.9 Ratio (1.1-2.1) L 04/26/17 03:20 Triglycerides 96 mg/dL (0-150) 04/19/17 18:00 Cholesterol 132 mg/dL (0-200) 04/19/17 18:00 LDL Cholesterol, Calc 64 mg/dL (0-100) 04/19/17 18:00 HDL Cholesterol 49 mg/dL (40-60) 04/19/17 18:00 Cholesterol/HDL Ratio 2.7 (0.0-5.0) 04/19/17 18:00 Specimen Type Catherized urine 04/19/17 22:22 Urine Color Yellow (YELLOW) 04/19/17 22:22 Urine Appearance Slightly hazy (CLEAR) 04/19/17 22:22 Urine pH 7.0 (5.0 - 8.0) 04/19/17 22:22 Ur Specific [place] 1.010 (1.000-1.030) 04/19/17 22:22 Urine Protein 1+ (NEGATIVE) 04/19/17 22:22 Urine Glucose (UA) Negative (NEGATIVE) 04/19/17 22:22 Urine Ketones Negative (NEGATIVE) 04/19/17 22:22 Urine Occult Blood 4+ (NEGATIVE) 04/19/17 22:22 Urine Nitrite Negative (NEGATIVE) 04/19/17 22:22 Urine Bilirubin Negative (NEGATIVE) 04/19/17 22:22 Urine Urobilinogen Normal (NORMAL) 04/19/17 22:22 Ur Leukocyte Esterase 3+ (NEGATIVE) 04/19/17 22:22 Urine RBC Tntc /HPF (NEGATIVE) 04/19/17 22:22 Urine WBC Tntc /HPF (NEGATIVE) 04/19/17 22:22 Ur Squamous Epith Cells Rare /HPF (NEGATIVE) 04/19/17 22:22 Urine Bacteria 3+ /HPF (NEGATIVE) 04/19/17 22:22 Ur Culture Indicated? Yes/culture set up 04/19/17 22:22 - Plan (1) Sepsis due to Klebsiella pneumoniae Status: Acute Plan: CONTINUE MAXIPIME 1GM IV Q12H, CONTINUE TO MONITOR (2) Urinary tract infection Status: Acute Qualifiers: Urinary tract infection type: acute cystitis Hematuria presence: with hematuria Qualified Code(s): N30.01 - Acute cystitis with hematuria Plan: MAXIPIME 1GM IV Q12H, CONTINUE TO MONITOR (3) Hypotension Status: Acute Qualifiers: Hypotension type: unspecified hypotension type Qualified Code(s): I95.9 - Hypotension, unspecified Plan: MONITOR NIBP, CONTINUE TO MONITOR (4) History of neurogenic bowel Status: Chronic Plan: CONTINUE LACTULOSE 30MG PO HS PRN, CONTINUE BISOCODYL 10MG LA HS PRN, CONTINUE TO MONITOR (5) GERD (gastroesophageal reflux disease) Status: Acute Qualifiers: Esophagitis presence: esophagitis presence not specified Qualified Code(s) : K21.9 - Gastro-esophageal reflux disease without esophagitis Plan: CONTINUE PROTONIX 40MG DAILY, CONTINUE PRILOSEC 20MG DAILY, CONTINUE TO MONITOR
[2017-04-26 12:22] VITALS: BP 96/55
== END 2017-04-26 14:15 | disposition hospice, home (50) | DRG 689 ==
LOC: ER 16:55 → MED/SURG 22:21 → OBSVTOIN 04-21 08:00 → MED/SURG 04-22 14:50
PROVIDERS: ADMIT Internal Medicine; ATTEND Internal Medicine
DX: N30.01 Acute cystitis with hematuria (principal); B96.5 Pseudomonas (aeruginosa) (mallei) (pseudomallei) as the cause of diseases classified elsewhere; R40.4 Transient alteration of awareness; I95.89 Other hypotension; R00.1 Bradycardia, unspecified; R94.31 Abnormal electrocardiogram [ECG] [EKG]; R53.1 Weakness; K21.9 Gastro-esophageal reflux disease without esophagitis; Z87.19 Personal history of other diseases of the digestive system; M54.5 Low back pain; R65.20 Severe sepsis without septic shock; G82.20 Paraplegia, unspecified
CPT/HCPCS: 36415; 70450; 71010; 80053; 80061; 81001; 83605; 85025; 85610; 86140; 87040; 87086; 87088; 87150; 87186; 93005; 93010; 94760; 96365; 96374; 99284; A4222; C9113; G0378; J0692; J0696; J2001; J2405

== ENCOUNTER 2017-05-31 22:17 | Inpatient (IN) | payer MEDICAID, OTHER ==
[~2017-05-31 22:17] MED LIST: NS 1000 ML 1,000 ML ONE
[2017-05-31] MEDS ORDERED: NARCAN INJ ONE (22:22)
[2017-05-31] MEDS ORDERED: NS 1000 ML 1,000 ML IV ONE ×2 (22:25→22:38)
[2017-05-31] MEDS ORDERED: DUONEB 0.5 MG/3 MG ONE (22:29)
[2017-05-31] MEDS ORDERED: NARCAN INJ IVP ONE (22:38)
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
[2017-05-31] MEDS ORDERED: DUONEB 0.5 MG/3 MG NEB ONE (22:45)
--- NOTE | 2017-05-31 23:04 | RAD ---
HISTORY: Altered mental status, shortness of breath, unresponsive Study: Single view chest Comparison: 04/19/2017 Findings: Single portable view is limited by patient's condition. No infiltrate, effusion or pneumothorax ident ified. The cardiac and mediastinal contours are within normal limits. The soft tissues are unremarka ble. IMPRESSION: 1. No acute cardiopulmonary abnormality. Reported By:
--- NOTE | 2017-05-31 23:04 | CT ---
CT head without contrast Indication: Altered mental status, shortness of breath, unresponsive Technique: Helical CT images of the brain were obtained without IV contrast. Reformatted images in th e coronal and sagittal planes were also generated for review. Comparison: 04/19/2017 Findings: The exam is moderately degraded by patient motion artifact. Given these limitations, no int racranial hemorrhage, visible acute infarct, focal or generalized edema, extra-axial collection, hydr ocephalus or mass is identified. There is stable mild generalized cerebral atrophy with proportional compensatory ventricular and sulcal enlargement. Small mucous retention cysts are noted within the le ft maxillary and left posterior ethmoid sinuses. The remaining visualized paranasal sinuses and masto id air cells are clear. No acute osseous or soft tissue abnormality is identified. Impression: Motion limited exam without definite acute intracranial abnormality. Reported By:
[2017-05-31 23:26] LABS: ABG BASE EXCESS 2.3 mmol/L (-2.0-2.0); ABG HCO3 29.1 mmol/L (22-26)
[2017-05-31 23:27] LABS: ABG ALLEN TEST POS
[2017-05-31 23:34] LABS: LACTIC ACID 0.4 mmol/L (0.4-2.0)
[2017-05-31 23:37] LABS: BASOPHILS # (AUTO) 0.1 X10^3/uL (0.0-0.1); BASOPHILS % (AUTO) 0.8 % (0.2-1.0); EOSINOPHILS # (AUTO) 0.2 x10^3/uL (0.0-0.2); EOSINOPHILS % (AUTO) 1.5 % (0.9-2.9); HEMATOCRIT 35.5 % (42.0-54.0); LYMPHOCYTES # (AUTO) 1.7 X10^3/uL (1.3-2.9); LYMPHOCYTES % (AUTO) 16.4 % (21.0-51.0); MEAN CORPUSCULAR HEMOGLOBIN 29.5 pg (27.0-34.0); MEAN CORPUSCULAR HGB CONC 33.9 g/dL (33.0-35.0); MEAN CORPUSCULAR VOLUME 87.1 fL (80.0-100.0); MEAN PLATELET VOLUME 9.2 fL (7.4-11.0); MONOCYTES # (AUTO) 1.6 x10^3/uL (0.3-0.8); MONOCYTES % (AUTO) 14.8 % (0.0-13.0); NEUTROPHILS # (AUTO) 7.1 x10^3/uL (2.2-4.8); NEUTROPHILS % (AUTO) 66.5 % (42.0-75.0); PLATELET COUNT 172 X10^3/uL (150.0-450.0); RED BLOOD COUNT 4.07 X10^6/uL (4.7-6.0); RED CELL DISTRIBUTION WIDTH 14.8 % (11.6-16.5); WHITE BLOOD COUNT 10.6 X10^3/uL (3.6-10.0)
[2017-05-31 23:52] LABS: BLOOD UREA NITROGEN 20 mg/dL (7-18); CALCIUM 9.1 mg/dL (8.5-10.1); CARBON DIOXIDE 27.3 mmol/L (21-32); CHLORIDE 99 mmol/L (98-107); CREATININE 0.73 mg/dL (0.70-1.30); SODIUM 132 mmol/L (136-145); TROPONIN I < 0.02 ng/mL (0-1.5); eGFR BLACK RACES > 60 (>60); eGFR NON BLACK RACES > 60 (>60)
[2017-05-31 23:55] LABS: ALANINE AMINOTRANSFERASE 16 Units/L (12-78); ALBUMIN 2.7 g/dL (3.4-5.0); ALKALINE PHOSPHATASE 51 Units/L (46-116); ASPARTATE AMINO TRANSFERASE 12 Units/L (15-37); CKMB % 5.4 % (<4); COR CA(FOR HYPOALB) 10.1 mg/dL (8.5-10.1); CREATINE KINASE 24 Units/L (39-308); CREATINE KINASE MB 1.3 ng/mL (0-4.0); TOTAL PROTEIN 6.3 g/dL (6.4-8.2)
[2017-06-01 00:02] LABS: APPEARANCE,URINE TURBID (CLEAR); BACTERIA,URINE 2+ /HPF (Negative); COLOR,URINE ORANGE (YELLOW); RBC,URINE TNTC /HPF (NEGATIVE); SQUAMOUS EPITHELIAL CELL,UR RARE /HPF (NEGATIVE)
[2017-06-01 00:05] LABS: B-TYPE NATRIURETIC PEPTIDE 503 pg/mL (0-79)
[2017-06-01] MEDS ORDERED: FORTAZ or TAZICEF INJ ONE ×2 (00:42→05:39)
[2017-06-01] MEDS: FORTAZ or TAZICEF INJ 1 GM in NS 100 ML IV + SPIKE MINIBAG* 100 ML IV SCH ×4 (00:49→21:00)
[2017-06-01] MEDS ORDERED: AFRIN NASAL SPRAY ENOSTRIL PRN (01:28)
[2017-06-01] MEDS ORDERED: PATIENT'S HOME MEDICATION PO PRN (01:28)
[2017-06-01] MEDS ORDERED: DULCOLAX SUPPOSITORY 10 MG PR PRN (01:28)
[2017-06-01] MEDS ORDERED: BACLOFEN 20 MG PO PRN (01:28)
[2017-06-01] MEDS ORDERED: COLACE CAP 100 MG PO PRN (01:28)
[2017-06-01] MEDS ORDERED: ROXICODONE TAB 15 MG PO PRN (01:28)
[2017-06-01] MEDS ORDERED: CHRONULAC PO PRN (01:28)
--- NOTE | 2017-06-01 01:33 | CT ---
CT abdomen and pelvis without contrast Indication: 'Snoring respirations, pupils reactive, film in his throat and couldn't cough it up.' Technique: Helical CT images of the abdomen and pelvis were obtained without IV contrast. Reformatted images in the coronal and sagittal planes were also generated for review. Comparison: 01/19/2017 Findings: There is mild subsegmental atelectasis versus scarring of the bilateral lower lobes. Lung b ases are otherwise clear. Diffuse osteopenia and chronic appearing deformity of the left iliac wing a gain noted. There is a mild compression fracture of the L2 vertebral body with approximately 20% heig ht loss, which is subacute in appearance but new since prior exam. No aggressive osseous lesions are identified. Within the limits of a noncontrast exam, the unenhanced liver, collapsed gallbladder, spleen, pancrea s and adrenals are grossly unremarkable. There is severe bilateral hydroureteronephrosis with dilatio n of the ureters to the level of the urinary bladder. No radiopaque obstructing ureteral stones are i dentified. The urinary bladder is mildly distended and demonstrates irregular wall thickening with mu ltiple small diverticula noted. Postsurgical changes of the prostate suggestive for prior TURP are no todd. There is moderate stool throughout the colon, compatible with constipation. There is no bowel inflamm ation or obstruction. The appendix is normal. There is mild calcification of the abdominal aorta with out aneurysm. No free air, free fluid or lymphadenopathy is identified. Impression: Severe bilateral hydroureteronephrosis, again either reflecting sequela from chronic urinary bladder outlet obstruction and/or chronic vesicoureteral reflux. No obstructing radiopaque urinary tract ston es identified. Irregular bladder wall thickening. Correlate clinically for cystitis. Mild compression fracture of the L2 vertebral body, which is subacute in appearance but new since jose david or exam. Constipation and additional incidental findings, as above. Reported By:
[2017-06-01 01:54] VITALS: BMI 22.1
[2017-06-01 05:28] LABS: BASOPHILS # (AUTO) 0.1 X10^3/uL (0.0-0.1); BASOPHILS % (AUTO) 0.6 % (0.2-1.0); EOSINOPHILS # (AUTO) 0.1 x10^3/uL (0.0-0.2); EOSINOPHILS % (AUTO) 1.1 % (0.9-2.9); HEMATOCRIT 34.5 % (42.0-54.0); HEMOGLOBIN 11.8 g/dL (13.5-18.0); LYMPHOCYTES # (AUTO) 1.9 X10^3/uL (1.3-2.9); LYMPHOCYTES % (AUTO) 21.6 % (21.0-51.0); MEAN CORPUSCULAR HEMOGLOBIN 29.6 pg (27.0-34.0); MEAN CORPUSCULAR HGB CONC 34.1 g/dL (33.0-35.0); MEAN CORPUSCULAR VOLUME 86.7 fL (80.0-100.0); MEAN PLATELET VOLUME 9.3 fL (7.4-11.0); MONOCYTES # (AUTO) 1.4 x10^3/uL (0.3-0.8); MONOCYTES % (AUTO) 16.1 % (0.0-13.0); NEUTROPHILS # (AUTO) 5.4 x10^3/uL (2.2-4.8); NEUTROPHILS % (AUTO) 60.6 % (42.0-75.0); PLATELET COUNT 160 X10^3/uL (150.0-450.0); RED BLOOD COUNT 3.98 X10^6/uL (4.7-6.0); RED CELL DISTRIBUTION WIDTH 15.2 % (11.6-16.5); WHITE BLOOD COUNT 8.9 X10^3/uL (3.6-10.0)
[2017-06-01] MEDS: NS 1000 ML 1,000 ML IV SCH (05:34)
[2017-06-01] MEDS ORDERED: NS 100 ML IV + SPIKE MINIBAG* 100 ML IV ONE (05:41)
[2017-06-01 05:46] LABS: ALANINE AMINOTRANSFERASE 16 Units/L (12-78); ALBUMIN 2.6 g/dL (3.4-5.0); ALKALINE PHOSPHATASE 49 Units/L (46-116); ASPARTATE AMINO TRANSFERASE 11 Units/L (15-37); BLOOD UREA NITROGEN 19 mg/dL (7-18); CALCIUM 9.1 mg/dL (8.5-10.1); CARBON DIOXIDE 28.3 mmol/L (21-32); CHLORIDE 101 mmol/L (98-107); COR CA(FOR HYPOALB) 10.2 mg/dL (8.5-10.1); CREATININE 0.81 mg/dL (0.70-1.30); MAGNESIUM 1.9 mg/dL (1.7-2.9); SODIUM 136 mmol/L (136-145); TOTAL PROTEIN 6.3 g/dL (6.4-8.2); eGFR BLACK RACES > 60 (>60); eGFR NON BLACK RACES > 60 (>60)
[2017-06-01] MEDS: DUONEB 0.5 MG/3 MG NEB SCH ×6 (05:51→17:27)
[2017-06-01 05:54] LABS: CKMB % 6.3 % (<4); CREATINE KINASE 30 Units/L (39-308); CREATINE KINASE MB 1.9 ng/mL (0-4.0); TROPONIN I < 0.02 ng/mL (0-1.5)
[2017-06-01] MEDS ORDERED: PATIENT'S HOME MEDICATION (Cholecalciferol (Vitamin D3) [Vitamin D3] 2,000 UNIT) PO SCH (09:00)
[2017-06-01] MEDS: VITAMIN D3 PO SCH (10:24)
[2017-06-01] MEDS: FLONASE NASAL SPRAY ENOSTRIL SCH (10:24)
[2017-06-01] MEDS: VITAMIN B-12 PO SCH (10:24)
[2017-06-01] MEDS: VITAMIN C PO SCH (10:25)
[2017-06-01] MEDS: LYRICA CAP 100 MG PO SCH ×2 (10:25→20:49)
[2017-06-01] MEDS: PriLOSEC PO SCH (10:25)
[2017-06-01] MEDS: CYMBALTA PO SCH ×2 (10:28→20:50)
[2017-06-01] MEDS: INULIN PO SCH (10:49)
[2017-06-01] MEDS: NAPROXEN 375 MG PO SCH ×3 (10:49→20:59)
[2017-06-01] MEDS: CHROMIUM PICOLINATE PO SCH (10:49)
[2017-06-01] MEDS: [UNRECOGNIZED DRUG - OTHER] PO SCH (10:49)
[2017-06-01 12:01] LABS: CKMB % 7.6 % (<4); CREATINE KINASE 25 Units/L (39-308); CREATINE KINASE MB 1.9 ng/mL (0-4.0); TROPONIN I < 0.02 ng/mL (0-1.5)
[2017-06-01] MEDS ORDERED: CITROMA PO ONE (19:36)
[2017-06-01] MEDS: CHRONULAC PO SCH (20:48)
[2017-06-01] MEDS: LIORESAL PO PRN (20:49)
[2017-06-01] MEDS: COLACE CAP 100 MG PO SCH (20:49)
[2017-06-01] MEDS: KLONOPIN TAB 1 MG PO SCH (20:50)
[2017-06-01] MEDS ORDERED: XOPENEX 1.25 MG/3 ML NEBULE NEB SCH (21:00)
[2017-06-01] MEDS: XOPENEX 1.25 MG/3 ML NEBULE NEB SCH (21:34)
[2017-06-02] MEDS: NS 1000 ML 1,000 ML IV SCH (02:05)
[2017-06-02] MEDS: FORTAZ or TAZICEF INJ 1 GM in NS 100 ML IV + SPIKE MINIBAG* 100 ML IV SCH ×3 (05:02→22:26)
[2017-06-02 05:30] LABS: BASOPHILS # (AUTO) 0.1 X10^3/uL (0.0-0.1); BASOPHILS % (AUTO) 1.1 % (0.2-1.0); EOSINOPHILS # (AUTO) 0.2 x10^3/uL (0.0-0.2); EOSINOPHILS % (AUTO) 2.3 % (0.9-2.9); HEMATOCRIT 34.1 % (42.0-54.0); HEMOGLOBIN 11.5 g/dL (13.5-18.0); LYMPHOCYTES # (AUTO) 1.3 X10^3/uL (1.3-2.9); LYMPHOCYTES % (AUTO) 19.1 % (21.0-51.0); MEAN CORPUSCULAR HEMOGLOBIN 29.4 pg (27.0-34.0); MEAN CORPUSCULAR HGB CONC 33.7 g/dL (33.0-35.0); MEAN CORPUSCULAR VOLUME 87.2 fL (80.0-100.0); MEAN PLATELET VOLUME 9.2 fL (7.4-11.0); MONOCYTES # (AUTO) 0.9 x10^3/uL (0.3-0.8); NEUTROPHILS # (AUTO) 4.3 x10^3/uL (2.2-4.8); NEUTROPHILS % (AUTO) 64.5 % (42.0-75.0); PLATELET COUNT 194 X10^3/uL (150.0-450.0); RED BLOOD COUNT 3.91 X10^6/uL (4.7-6.0); RED CELL DISTRIBUTION WIDTH 15.2 % (11.6-16.5); WHITE BLOOD COUNT 6.6 X10^3/uL (3.6-10.0)
[2017-06-02 05:57] LABS: ALANINE AMINOTRANSFERASE 14 Units/L (12-78); ALBUMIN 2.3 g/dL (3.4-5.0); ALKALINE PHOSPHATASE 50 Units/L (46-116); ASPARTATE AMINO TRANSFERASE 12 Units/L (15-37); BLOOD UREA NITROGEN 17 mg/dL (7-18); CALCIUM 8.5 mg/dL (8.5-10.1); CARBON DIOXIDE 26.4 mmol/L (21-32); CHLORIDE 104 mmol/L (98-107); COR CA(FOR HYPOALB) 9.9 mg/dL (8.5-10.1); SODIUM 139 mmol/L (136-145); TOTAL PROTEIN 6.2 g/dL (6.4-8.2); eGFR BLACK RACES > 60 (>60); eGFR NON BLACK RACES > 60 (>60)
[2017-06-02] MEDS: XOPENEX 1.25 MG/3 ML NEBULE NEB SCH ×4 (09:31→21:13)
[2017-06-02] MEDS: NAPROXEN 375 MG PO SCH ×2 (09:52→20:26)
[2017-06-02] MEDS: VITAMIN D3 PO SCH (09:53)
[2017-06-02] MEDS: PriLOSEC PO SCH (09:53)
[2017-06-02] MEDS: VITAMIN B-12 PO SCH (09:53)
[2017-06-02] MEDS: LYRICA CAP 100 MG PO SCH ×2 (09:54→20:16)
[2017-06-02] MEDS: [UNRECOGNIZED DRUG - OTHER] PO SCH (09:55)
[2017-06-02] MEDS: CHROMIUM PICOLINATE PO SCH (09:55)
[2017-06-02] MEDS: INULIN PO SCH (09:55)
[2017-06-02] MEDS: FLONASE NASAL SPRAY ENOSTRIL SCH (09:56)
[2017-06-02] MEDS: CYMBALTA PO SCH ×2 (09:58→20:16)
[2017-06-02] MEDS: VITAMIN C PO SCH (09:59)
[2017-06-02] MEDS ORDERED: CITROMA PO ONE (14:49)
[2017-06-02] MEDS: TYLENOL 325 MG TAB PO PRN (15:17)
[2017-06-02] MEDS: CHRONULAC PO SCH (20:15)
[2017-06-02] MEDS: KLONOPIN TAB 1 MG PO SCH (20:16)
[2017-06-02] MEDS: COLACE CAP 100 MG PO SCH (20:16)
[2017-06-02] MEDS: LIORESAL PO PRN (20:16)
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
[2017-06-03] MEDS: TYLENOL 325 MG TAB PO PRN (00:08)
[2017-06-03] MEDS: NS 1000 ML 1,000 ML IV SCH (02:22)
[2017-06-03] MEDS: LIORESAL PO PRN ×2 (04:29→09:15)
[2017-06-03] MEDS: FORTAZ or TAZICEF INJ 1 GM in NS 100 ML IV + SPIKE MINIBAG* 100 ML IV SCH (05:02)
[2017-06-03 06:05] LABS: ALANINE AMINOTRANSFERASE 15 Units/L (12-78); ALBUMIN 2.4 g/dL (3.4-5.0); ALKALINE PHOSPHATASE 44 Units/L (46-116); ASPARTATE AMINO TRANSFERASE 16 Units/L (15-37); BLOOD UREA NITROGEN 16 mg/dL (7-18); CARBON DIOXIDE 25.8 mmol/L (21-32); CHLORIDE 104 mmol/L (98-107); COR CA(FOR HYPOALB) 10.3 mg/dL (8.5-10.1); SODIUM 140 mmol/L (136-145); TOTAL PROTEIN 6.5 g/dL (6.4-8.2); eGFR BLACK RACES > 60 (>60); eGFR NON BLACK RACES > 60 (>60)
[2017-06-03 06:10] LABS: BASOPHILS # (AUTO) 0.1 X10^3/uL (0.0-0.1); BASOPHILS % (AUTO) 0.9 % (0.2-1.0); EOSINOPHILS # (AUTO) 0.3 x10^3/uL (0.0-0.2); EOSINOPHILS % (AUTO) 4.8 % (0.9-2.9); HEMATOCRIT 36.1 % (42.0-54.0); LYMPHOCYTES # (AUTO) 1.8 X10^3/uL (1.3-2.9); LYMPHOCYTES % (AUTO) 27.6 % (21.0-51.0); MEAN CORPUSCULAR HEMOGLOBIN 29.1 pg (27.0-34.0); MEAN CORPUSCULAR HGB CONC 33.3 g/dL (33.0-35.0); MEAN CORPUSCULAR VOLUME 87.4 fL (80.0-100.0); MEAN PLATELET VOLUME 8.7 fL (7.4-11.0); NEUTROPHILS # (AUTO) 3.3 x10^3/uL (2.2-4.8); NEUTROPHILS % (AUTO) 51.7 % (42.0-75.0); PLATELET COUNT 194 X10^3/uL (150.0-450.0); RED BLOOD COUNT 4.14 X10^6/uL (4.7-6.0); RED CELL DISTRIBUTION WIDTH 15.2 % (11.6-16.5); WHITE BLOOD COUNT 6.4 X10^3/uL (3.6-10.0)
[2017-06-03] MEDS: VITAMIN D3 PO SCH (09:14)
[2017-06-03] MEDS: PriLOSEC PO SCH (09:15)
[2017-06-03] MEDS: VITAMIN B-12 PO SCH (09:15)
[2017-06-03] MEDS: LYRICA CAP 100 MG PO SCH (09:15)
[2017-06-03] MEDS: FLONASE NASAL SPRAY ENOSTRIL SCH (09:16)
[2017-06-03] MEDS: VITAMIN C PO SCH (09:20)
[2017-06-03] MEDS: XOPENEX 1.25 MG/3 ML NEBULE NEB SCH ×2 (09:59→14:15)
[2017-06-03 15:54] VITALS: BP 124/67
== END 2017-06-03 16:00 | disposition hospice, home (50) | DRG 951 ==
LOC: ER 22:17 → MED/SURG 06-01 00:45 → INTOOBSV 06-01 00:45 → UNDOADMOB 06-01 00:45 → OBSVTOIN 06-01 00:45 → UNDODISIN 06-03 16:00
PROVIDERS: ADMIT Obstetrics & Gynecology Obstetrics; ATTEND Internal Medicine
DX: Z51.5 Encounter for palliative care (principal); G82.50 Quadriplegia, unspecified; N39.0 Urinary tract infection, site not specified; E87.1 Hypo-osmolality and hyponatremia; R31.9 Hematuria, unspecified; R40.4 Transient alteration of awareness; R10.84 Generalized abdominal pain; K59.09 Other constipation; I95.89 Other hypotension; R94.31 Abnormal electrocardiogram [ECG] [EKG]; R06.02 Shortness of breath; R60.1 Generalized edema; B96.5 Pseudomonas (aeruginosa) (mallei) (pseudomallei) as the cause of diseases classified elsewhere
CPT/HCPCS: 36415; 36600; 70450; 71045; 74176; 80053; 80307; 81015; 82550; 82553; 82803; 83605; 83735; 83880; 84484; 85025; 85610; 85730; 86140; 87040; 87086; 87088; 87186; 93005; 93010; 94640; 94760; 96365; 96367; 96374; 96375; 99284; A4222; G0378; G0434; J0713; J2310; J7620

== ENCOUNTER 2017-07-26 20:15 | Inpatient (IN) | payer OTHER ==
[2017-07-26] MEDS ORDERED: NS 1000 ML 1,000 ML ONE ×2 (20:22→21:31)
[2017-07-26] MEDS ORDERED: NS 1000 ML 1,000 ML IV ONE (20:22)
--- NOTE | 2017-07-26 20:37 | DR.AMS ---
HPI - Time Seen Time seen: 20:20 - HPI Comment HPI Comment: Pt states on arrival he does NOT want a breathing tube and wants to be a DNR. He states he's had breathing tubes before and doesn't want another. 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) PMH - PMH Past Medical History: Anxiety, Depression, Sleep Apnea Past Medical History Comment: paraplegia, hx pneumonia, hx UTI's Past Surgical History: Yes Surgical History: Tonsillectomy - Social History Do you use any recreational Drugs:: No ROS - Review of Systems Constitutional: Weakness Eyes: No Symptoms Reported ENTM: Nose Congestion Respiratoy: Short of Breath Cardiovascular: No Symptoms Reported Gastrointestinal/Abdominal: No Symptoms Reported Genitourinary: No Symptoms Reported Neurological: No Symptoms Reported, Pre-existing Deficit Integumentary: No Symptoms Reported Hematologic/Lymphatic: No Symptoms Reported Endocrine: No Symptoms Reported Psychiatric: Depression All Other Systems: Reviewed and Negative PE - Vitals Vital Signs: Temp Pulse Pulse Resp BP BP BP 07/26/17 21:10 82 14 113/61 07/26/17 20:50 64 18 98/57 07/26/17 20:34 96.9 F L 65 17 67/39 07/26/17 20:30 71 15 69/42 07/26/17 20:21 66 16 71/42 06/03/17 12:00 124/67 124/67 04/20/17 04:00 137/83 Pulse Ox 07/26/17 21:10 100 07/26/17 20:50 92 L 07/26/17 20:34 91 L 07/26/17 20:30 88 L 07/26/17 20:21 89 L 06/03/17 12:00 04/20/17 04:00 - General Limitations: No Limitations General Appearance: Alert, In No Apparent Distress - Head Head Exam: Normal Inspection - Eyes Eye exam: Normal Appearance, PERRL - ENT ENT Exam: Normal Exam, Normal Oropharynx Throat Exam: Normal Inspection - Neck Neck Exam: Normal Inspection, Full ROM, Trachea Midline - Chest Chest Inspection: Normal Inspection. negative: Tenderness, Rash - Respiratory Respiratory Exam: Bilateral Rhonchi, Bilateral Decreased Breath Sounds - Cardiovascular Cardiovascular Exam: Regular Rate, Normal Rhythm, Normal Heart Sounds - Abdominal Exam Abdominal Exam: Normal Inspection, Normal Bowel Sounds, Soft. negative: Tenderness, Guarding, Rebound - Extremities Extremities Exam: Normal Capillary Refill - Neurological Neurological Exam: Alert, Oriented X3 Patient Oriented To: Person, Place, Time Speech: Fluid Speech - Psychological Psychiatric Exam: Normal Affect, Normal Mood - Skin Skin Exam: Warm, Dry, Intact ROR - Labs Reviewed Laboratory Results Reviewed?: Yes (UA + infection, cardiacs ok, BNP elev at 379) Result Diagrams: 07/26/17 20:59 07/26/17 20:49 Laboratory: WBC 11.4 X10^3/uL (3.6-10.0) H 07/26/17 20:59 RBC 3.59 X10^6/uL (4.7-6.0) L 07/26/17 20:59 Hgb 10.3 g/dL (13.5-18.0) L 07/26/17 20:59 Hct 31.7 % (42.0-54.0) L 07/26/17 20:59 MCV 88.1 fL (80.0-100.0) 07/26/17 20:59 MCH 28.7 pg (27.0-34.0) 07/26/17 20:59 MCHC 32.6 g/dL (33.0-35.0) L 07/26/17 20:59 RDW 16.2 % (11.6-16.5) 07/26/17 20:59 Plt Count 184 X10^3/uL (150.0-450.0) 07/26/17 20:59 MPV 8.4 fL (7.4-11.0) 07/26/17 20:59 Neut % (Auto) 75.2 % (42.0-75.0) H 07/26/17 20:59 Lymph % (Auto) 8.8 % (21.0-51.0) L 07/26/17 20:59 [place] % (Auto) 12.6 % (0.0-13.0) 07/26/17 20:59 Eos % (Auto) 2.9 % (0.9-2.9) 07/26/17 20:59 Baso % (Auto) 0.5 % (0.2-1.0) 07/26/17 20:59 Neut # (Auto) 8.6 x10^3/uL (2.2-4.8) H 07/26/17 20:59 Lymph # (Auto) 1.0 X10^3/uL (1.3-2.9) L 07/26/17 20:59 [place] # (Auto) 1.4 x10^3/uL (0.3-0.8) H 07/26/17 20:59 Eos # (Auto) 0.3 x10^3/uL (0.0-0.2) H 07/26/17 20:59 Baso # (Auto) 0.1 X10^3/uL (0.0-0.1) 07/26/17 20:59 Absolute Nucleated RBC 0.0 /100WBC 07/26/17 20:59 INR Target Range - 07/26/17 20:49 INR 1.03 (0.8-1.3) 07/26/17 20:49 APTT 23.2 SECONDS (22.9-36.5) 07/26/17 20:49 PTT Comment - 07/26/17 20:49 Sodium 138 mmol/L (136-145) 07/26/17 20:49 Corrected Sodium TNP 07/26/17 20:49 Potassium 5.3 mmol/L (3.5-5.1) H 07/26/17 20:49 Chloride 103 mmol/L (98-107) 07/26/17 20:49 Carbon Dioxide 26.2 mmol/L (21-32) 07/26/17 20:49 BUN 23 mg/dL (7-18) H 07/26/17 20:49 Creatinine 1.13 mg/dL (0.70-1.30) 07/26/17 20:49 Est GFR (MDRD) Af Amer > 60 (>60) 07/26/17 20:49 Est GFR (MDRD) Non-Af > 60 (>60) 07/26/17 20:49 Glucose 102 mg/dL (65-99) H 07/26/17 20:49 Calcium 8.5 mg/dL (8.5-10.1) 07/26/17 20:49 Corrected Calcium 9.4 mg/dL (8.5-10.1) 07/26/17 20:49 Magnesium 3.1 mg/dL (1.7-2.9) H 07/26/17 20:49 Total Bilirubin 0.70 mg/dL (0.2-1.0) 07/26/17 20:49 AST 18 Units/L (15-37) 07/26/17 20:49 ALT 12 Units/L (12-78) 07/26/17 20:49 Alkaline Phosphatase 66 Units/L (46-116) 07/26/17 20:49 Ammonia < 10 umol/L (11-32) L 07/26/17 20:49 Creatine Kinase 20 Units/L (39-308) L 07/26/17 20:49 CK-MB (CK-2) 1.2 ng/mL (0-4.0) 07/26/17 20:49 CK/CKMB % Calc 6.0 % (<4) 07/26/17 20:49 Troponin I < 0.02 ng/mL (0-1.5) 07/26/17 20:49 B-Natriuretic Peptide 387 pg/mL (0-79) H 07/26/17 20:49 Total Protein 7.3 g/dL (6.4-8.2) 07/26/17 20:49 Albumin 2.9 g/dL (3.4-5.0) L 07/26/17 20:49 Globulin 4.4 g/dL (2.5-4.5) 07/26/17 20:49 Albumin/Globulin Ratio 0.7 Ratio (1.1-2.1) L 07/26/17 20:49 Specimen Type Clean catch urine 07/26/17 20:56 Urine Color Yellow (YELLOW) 07/26/17 20:56 Urine Appearance Cloudy (CLEAR) 07/26/17 20:56 Urine pH 6.0 (5.0 - 8.0) 07/26/17 20:56 Ur Specific [place] 1.010 (1.000-1.030) 07/26/17 20:56 Urine Protein 2+ (NEGATIVE) 07/26/17 20:56 Urine Glucose (UA) Negative (NEGATIVE) 07/26/17 20:56 Urine Ketones Negative (NEGATIVE) 07/26/17 20:56 Urine Occult Blood 5+ (NEGATIVE) 07/26/17 20:56 Urine Nitrite Positive (NEGATIVE) 07/26/17 20:56 Urine Bilirubin Negative (NEGATIVE) 07/26/17 20:56 Urine Urobilinogen Normal (NORMAL) 07/26/17 20:56 Ur Leukocyte Esterase 3+ (NEGATIVE) 07/26/17 20:56 Urine RBC 10-20 /HPF (NONE SEEN) 07/26/17 20:56 Urine WBC Tntc /HPF (NONE SEEN) 07/26/17 20:56 Ur Squamous Epith Cells Few /HPF (NEGATIVE) 07/26/17 20:56 Urine Bacteria 2+ /HPF (NEGATIVE) 07/26/17 20:56 Ur Culture Indicated? Yes/culture set up 07/26/17 20:56 - XRAY XRAY Interpreted by: Radiologist XRAY Findings: nothing acute seen on port CXR - EKG Shirley: LAD Rhythm: NSR ST: Normal - Diagnosis Discharge Problem: Sepsis Qualifiers: Sepsis type: sepsis due to unspecified organism Qualified Code(s): A41.9 - Sepsis, unspecified organism - Discharge Plan Disposition: ADMITTED INPATIENT Condition: Fair - Follow ups/Referrals - Instructions
--- NOTE | 2017-07-26 20:40 | RAD ---
HISTORY: 51-year-old male with altered mental status and shortness of breath. Study: Frontal view of the chest. Comparison: Chest radiograph 05/31/2017 Findings: The trachea is midline. The cardiac silhouette is stably enlarged with low lung volumes. The lungs are clear without focal consolidation, effusion or pneumothorax. Soft tissues are unremarkable. Osse ous structures are unremarkable. IMPRESSION: 1. No acute cardiopulmonary disease. Reported By:
[2017-07-26] MEDS ORDERED: DUONEB 0.5 MG/3 MG NEB ONE (20:45)
[2017-07-26 21:09] LABS: BASOPHILS # (AUTO) 0.1 X10^3/uL (0.0-0.1); BASOPHILS % (AUTO) 0.5 % (0.2-1.0); EOSINOPHILS # (AUTO) 0.3 x10^3/uL (0.0-0.2); EOSINOPHILS % (AUTO) 2.9 % (0.9-2.9); HEMATOCRIT 31.7 % (42.0-54.0); HEMOGLOBIN 10.3 g/dL (13.5-18.0); LYMPHOCYTES % (AUTO) 8.8 % (21.0-51.0); MEAN CORPUSCULAR HEMOGLOBIN 28.7 pg (27.0-34.0); MEAN CORPUSCULAR HGB CONC 32.6 g/dL (33.0-35.0); MEAN CORPUSCULAR VOLUME 88.1 fL (80.0-100.0); MEAN PLATELET VOLUME 8.4 fL (7.4-11.0); MONOCYTES # (AUTO) 1.4 x10^3/uL (0.3-0.8); MONOCYTES % (AUTO) 12.6 % (0.0-13.0); NEUTROPHILS # (AUTO) 8.6 x10^3/uL (2.2-4.8); NEUTROPHILS % (AUTO) 75.2 % (42.0-75.0); PLATELET COUNT 184 X10^3/uL (150.0-450.0); RED BLOOD COUNT 3.59 X10^6/uL (4.7-6.0); RED CELL DISTRIBUTION WIDTH 16.2 % (11.6-16.5); WHITE BLOOD COUNT 11.4 X10^3/uL (3.6-10.0)
[2017-07-26 21:09] LABS: BILIRUBIN,URINE NEGATIVE (NEGATIVE); BLOOD/HEMOGLOBIN,URINE 5+ (NEGATIVE); GLUCOSE, URINE NEGATIVE (NEGATIVE); KETONES,URINE NEGATIVE (NEGATIVE); LEUKOCYTE ESTERASE ,URINE 3+ (NEGATIVE); NITRITES,URINE POSITIVE (NEGATIVE); PROTEIN,URINE 2+ (NEGATIVE); UROBILINOGEN,URINE NORMAL (NORMAL)
[2017-07-26 21:20] LABS: APPEARANCE,URINE CLOUDY (CLEAR); BACTERIA,URINE 2+ /HPF (NEGATIVE); COLOR,URINE YELLOW (YELLOW); SQUAMOUS EPITHELIAL CELL,UR FEW /HPF (NEGATIVE)
[2017-07-26 21:24] LABS: AMMONIA < 10 umol/L (11-32)
[2017-07-26] MEDS ORDERED: NS 1000 ML 1,000 ML IV STA (21:30)
[2017-07-26 21:34] LABS: BLOOD UREA NITROGEN 23 mg/dL (7-18); CALCIUM 8.5 mg/dL (8.5-10.1); CARBON DIOXIDE 26.2 mmol/L (21-32); CHLORIDE 103 mmol/L (98-107); CREATININE 1.13 mg/dL (0.70-1.30); SODIUM 138 mmol/L (136-145); TROPONIN I < 0.02 ng/mL (0-1.5); eGFR BLACK RACES > 60 (>60); eGFR NON BLACK RACES > 60 (>60)
[2017-07-26 21:38] LABS: ALANINE AMINOTRANSFERASE 12 Units/L (12-78); ALBUMIN 2.9 g/dL (3.4-5.0); ALKALINE PHOSPHATASE 66 Units/L (46-116); ASPARTATE AMINO TRANSFERASE 18 Units/L (15-37); COR CA(FOR HYPOALB) 9.4 mg/dL (8.5-10.1); CREATINE KINASE 20 Units/L (39-308); CREATINE KINASE MB 1.2 ng/mL (0-4.0); MAGNESIUM 3.1 mg/dL (1.7-2.9); TOTAL PROTEIN 7.3 g/dL (6.4-8.2)
[2017-07-26 21:39] LABS: B-TYPE NATRIURETIC PEPTIDE 387 pg/mL (0-79)
[2017-07-26] MEDS ORDERED: HALOPERIDOL PO PRN (22:18)
[2017-07-26] MEDS ORDERED: LEVAQUIN PREMIX IV 500 MG 500 MG/100 ML BAG IV ONE (22:18)
[2017-07-26] MEDS ORDERED: HYOSCYAMINE SULFATE SL PRN (22:18)
[2017-07-26] MEDS ORDERED: BACLOFEN 20 MG PO PRN (22:18)
[2017-07-26] MEDS ORDERED: DULCOLAX SUPPOSITORY 10 MG PR PRN (22:18)
[2017-07-26] MEDS ORDERED: ONDANSETRON 8 MG PO PRN (22:18)
[2017-07-26] MEDS ORDERED: COLACE CAP 100 MG PO PRN (22:18)
[2017-07-26] MEDS ORDERED: TYLENOL SUPP 650 MG RECTAL PRN (22:18)
[2017-07-26] MEDS ORDERED: ATIVAN TAB 0.5 MG PO PRN (22:18)
[2017-07-26] MEDS: NS 1000 ML 1,000 ML IV SCH (22:58)
[2017-07-26] MEDS: LEVAQUIN PREMIX IV 500 MG 500 MG/100 ML BAG IV SCH (22:58)
[2017-07-26] MEDS ORDERED: LIORESAL PO PRN (23:27)
[2017-07-26] MEDS ORDERED: HALDOL PO PRN (23:27)
[2017-07-27] MEDS: KLONOPIN TAB 1 MG PO SCH ×3 (00:09→21:17)
[2017-07-27] MEDS: NS 1000 ML 1,000 ML IV SCH ×3 (05:08→21:20)
[2017-07-27 05:41] LABS: BASOPHILS % (AUTO) 0.3 % (0.2-1.0); EOSINOPHILS # (AUTO) 0.2 x10^3/uL (0.0-0.2); HEMATOCRIT 27.7 % (42.0-54.0); HEMOGLOBIN 9.1 g/dL (13.5-18.0); LYMPHOCYTES # (AUTO) 1.6 X10^3/uL (1.3-2.9); LYMPHOCYTES % (AUTO) 13.4 % (21.0-51.0); MEAN CORPUSCULAR HEMOGLOBIN 29.1 pg (27.0-34.0); MEAN CORPUSCULAR HGB CONC 32.9 g/dL (33.0-35.0); MEAN CORPUSCULAR VOLUME 88.6 fL (80.0-100.0); MEAN PLATELET VOLUME 8.5 fL (7.4-11.0); MONOCYTES # (AUTO) 0.9 x10^3/uL (0.3-0.8); NEUTROPHILS % (AUTO) 76.3 % (42.0-75.0); PLATELET COUNT 178 X10^3/uL (150.0-450.0); RED BLOOD COUNT 3.13 X10^6/uL (4.7-6.0); RED CELL DISTRIBUTION WIDTH 16.2 % (11.6-16.5); WHITE BLOOD COUNT 11.8 X10^3/uL (3.6-10.0)
[2017-07-27 05:49] LABS: LACTIC ACID 0.3 mmol/L (0.4-2.0)
[2017-07-27 05:52] LABS: ALANINE AMINOTRANSFERASE 8 Units/L (12-78); ALBUMIN 2.3 g/dL (3.4-5.0); ALKALINE PHOSPHATASE 56 Units/L (46-116); ASPARTATE AMINO TRANSFERASE 9 Units/L (15-37); BLOOD UREA NITROGEN 20 mg/dL (7-18); CALCIUM 7.8 mg/dL (8.5-10.1); CARBON DIOXIDE 26.5 mmol/L (21-32); CHLORIDE 107 mmol/L (98-107); COR CA(FOR HYPOALB) 9.2 mg/dL (8.5-10.1); CREATININE 0.94 mg/dL (0.70-1.30); SODIUM 140 mmol/L (136-145); TOTAL PROTEIN 6.1 g/dL (6.4-8.2); eGFR BLACK RACES > 60 (>60); eGFR NON BLACK RACES > 60 (>60)
[2017-07-27] MEDS ORDERED: LEVSIN SYRUP PO PRN (08:00)
--- NOTE | 2017-07-27 08:25 | DR.H&P ---
H&P - History & Physical for Day of: H&P Date: 07/26/17 - Chief Complaint Chief Complaint: AMS PER FAMILY, SOB - Allergies Allergies/Adverse Reactions: Allergies Allergy/AdvReac Type Severity Reaction Status Date / Time meperidine [From Demerol] AdvReac Verified 07/26/17 20:47 - History of Present Illness History of Present Illness: [address] MCDONOUGH PP, ER ADMISSION WITH INCREASED AMS, INCREASE SOB AND CHEST CONGESTION. PT IS QUADRIPLEGIC, WITH HX OF REOCCURRING UTI'S. PT STATES REASON HE USUALLY HAS SOB WITH UTI. PT HAS PMH OF C SPINE INJURY, REOCCURRING UTIS, CONSITPATION, CHRONIC PAIN. PLAN TO ADMIT FOR TREATMENT AND EVALUATION OF AMS, CONFUSION. UTI - Past Medical History Past Medical History: Anxiety, Depression, Sleep Apnea Additional Medical History: PARAPLEGIC, NEUROGENIC BOWEL, MUSCLE SPASMS, CONSTIPATION - Past Surgical History Surgical History: Tonsillectomy Additional Surgical History: FUSION OF 3RD, 4TH, AND 5TH CERVICAL BERTEBRAE, ORBITAL FX, REPAIRED WITH PLATE - Social History Does patient currently use any type of tobacco product: No Have you used tobacco products in the last 12 months: No Type of Tobacco Use: None Does any household member use tobacco: No Alcohol Use: None Drug Use: None - Medications Home Medications: Acetaminophen [Tylenol Supp 650 mg] 650 mg RECTAL Q6H PRN 07/26/17 [History Confirmed 07/26/17] Duloxetine HCl [Cymbalta] 30 mg PO BID 07/26/17 [History Confirmed 07/26/17] Haloperidol [Haldol tab 0.5 mg] 1 - 2 tabs PO Q4H PRN 07/26/17 [History Confirmed 07/26/17] Hyoscyamine Sulfate 2 - 4 tabs SL Q4H PRN 07/26/17 [History Confirmed 07/26/17] Lorazepam [Ativan Tab 0.5 mg] 1 - 2 tabs PO Q2H PRN 07/26/17 [History Confirmed 07/26/17] Misc Home Med [Patient's Home Medication] 0.25 - 2 ml PO Q2H PRN 07/26/17 [ History Confirmed 07/26/17] Neomycin/Polymyxin B/Hydrocort [Qejhopoc-Tbohkprwf-Dp Ear Soln] 3 drops AFF EAR BID 07/26/17 [History Confirmed 07/26/17] Ondansetron [Zofran ODT 8 mg] 8 mg PO Q8H PRN 07/26/17 [History Confirmed ] Pregabalin [LYRICA 100 MG *] 1 cap PO BID 07/26/17 [History Confirmed 07/26/17] Sennosides/Docusate Sodium [Senna] 1 tab PO HS 07/26/17 [History Confirmed 07/26] Temazepam [Restoril Cap 30 mg] 30 mg PO HS 07/26/17 [History Confirmed 07/26/17] - Review of Systems Constitutional: Weakness Eyes: No Symptoms Reported ENT: No Symptoms Reported Respiratory: Shortness of Breath, SOB with Excertion Cardiovascular: No Symptoms Reported Gastrointestinal: Constipation Genitourinary: Incontinence Musculoskeletal: Neck Pain Skin: Wound (MILD REDNESS TO BUTTOCK) Neurological: Weakness, Other (PARALYSIS) - Physical Exam Vital Signs: Temperature 97.6 F Pulse Rate [Apical] 76 Pulse Rate 67 Respiratory Rate 18 Blood Pressure [Right Arm] 100/57 Blood Pressure [Left Arm] 137/83 Blood Pressure 67/39 O2 Sat by Pulse Oximetry 99 Oriented: Normal Eyes: Normal Ear: Normal Nose: Normal Throat: Normal Respiratory: Rhonchi Throughout, RLL Diminished, LLL Diminished Cardiovascular: Normal. negative: Edema : Normal Auscultation: Bowel Sounds: Decreased Palpation: Normal Tenderness: Normal Skin: Decreased Turgur Musculoskeletal: Motor Deficit, Sensory Deficit Psychiatric: Anxiety, Depression Speech Pattern: Clear, Appropriate - Assessment/Plan (1) Mental status alteration Qualifiers: Altered mental status type: transient alteration of awareness Qualified Code(s): R40.4 - Transient alteration of awareness Status: Acute Plan: ADMIT, IV ATBX. RESP THERAPY. RESUME HOME MEDS. BP MONITORING, SKIN ASSESSMENTS. REPEAT AM LABS (2) Urinary tract infection Qualifiers: Urinary tract infection type: site unspecified Hematuria presence: with hematuria Qualified Code(s): N39.0 - Urinary tract infection, site not specified; R31.9 - Hematuria, unspecified; R31.9 - Hematuria, unspecified Status: Acute (3) Quadriplegia Status: Acute (4) Constipation Qualifiers: Constipation type: unspecified constipation type Qualified Code(s): K59.00 - Constipation, unspecified Status: Acute (5) GERD (gastroesophageal reflux disease) Qualifiers: Esophagitis presence: esophagitis presence not specified Qualified Code(s) : K21.9 - Gastro-esophageal reflux disease without esophagitis Status: Acute
[2017-07-27] MEDS: CYMBALTA PO SCH ×2 (09:17→21:17)
[2017-07-27] MEDS: LYRICA CAP 100 MG PO SCH ×2 (09:17→21:19)
[2017-07-27] MEDS: PriLOSEC PO SCH (09:17)
[2017-07-27] MEDS: AFRIN NASAL SPRAY ENOSTRIL PRN (09:18)
[2017-07-27] MEDS: ZANAFLEX PO SCH ×2 (09:18→21:17)
[2017-07-27] MEDS: FLONASE NASAL SPRAY ENOSTRIL SCH (09:18)
[2017-07-27] MEDS: ROXICODONE TAB 15 MG PO PRN (09:26)
[2017-07-27] MEDS ORDERED: NS 100 ML IV 100 ML IV ONE ×2 (14:27→21:26)
[2017-07-27] MEDS: TOBRAMYCIN SULFATE IVP SCH ×2 (14:36→21:17)
[2017-07-27] MEDS ORDERED: SENOKOT PO SCH (21:00)
[2017-07-27] MEDS: LEVAQUIN PREMIX IV 500 MG 500 MG/100 ML BAG IV SCH (21:18)
[2017-07-27] MEDS: RESTORIL CAP 30 MG PO SCH (21:18)
[2017-07-27] MEDS: CHRONULAC PO SCH (22:01)
[2017-07-27] MEDS ORDERED: NYSTATIN CREAM ONE (23:52)
[2017-07-28] MEDS ORDERED: NS 100 ML IV 100 ML IV ONE ×2 (05:26→13:11)
[2017-07-28] MEDS: TOBRAMYCIN SULFATE IVP SCH ×2 (05:37→13:15)
[2017-07-28] MEDS: NS 1000 ML 1,000 ML IV SCH ×4 (05:38→22:00)
[2017-07-28] MEDS: FLONASE NASAL SPRAY ENOSTRIL SCH (08:45)
[2017-07-28] MEDS: LYRICA CAP 100 MG PO SCH ×2 (08:46→20:59)
[2017-07-28] MEDS: PriLOSEC PO SCH (08:46)
[2017-07-28] MEDS: KLONOPIN TAB 1 MG PO SCH ×2 (08:46→20:58)
[2017-07-28] MEDS: ZANAFLEX PO SCH ×2 (08:46→20:59)
[2017-07-28] MEDS: CYMBALTA PO SCH ×2 (08:46→20:59)
[2017-07-28 08:52] LABS: BASOPHILS % (AUTO) 0.5 % (0.2-1.0); EOSINOPHILS # (AUTO) 0.4 x10^3/uL (0.0-0.2); EOSINOPHILS % (AUTO) 5.7 % (0.9-2.9); HEMATOCRIT 26.5 % (42.0-54.0); HEMOGLOBIN 8.9 g/dL (13.5-18.0); LYMPHOCYTES # (AUTO) 1.9 X10^3/uL (1.3-2.9); LYMPHOCYTES % (AUTO) 27.9 % (21.0-51.0); MEAN CORPUSCULAR HEMOGLOBIN 29.4 pg (27.0-34.0); MEAN CORPUSCULAR HGB CONC 33.7 g/dL (33.0-35.0); MEAN CORPUSCULAR VOLUME 87.4 fL (80.0-100.0); MEAN PLATELET VOLUME 8.2 fL (7.4-11.0); MONOCYTES # (AUTO) 0.7 x10^3/uL (0.3-0.8); MONOCYTES % (AUTO) 10.5 % (0.0-13.0); NEUTROPHILS # (AUTO) 3.8 x10^3/uL (2.2-4.8); NEUTROPHILS % (AUTO) 55.4 % (42.0-75.0); PLATELET COUNT 170 X10^3/uL (150.0-450.0); RED BLOOD COUNT 3.03 X10^6/uL (4.7-6.0); RED CELL DISTRIBUTION WIDTH 15.8 % (11.6-16.5); WHITE BLOOD COUNT 6.9 X10^3/uL (3.6-10.0)
[2017-07-28 09:17] LABS: ALANINE AMINOTRANSFERASE 10 Units/L (12-78); ALBUMIN 2.2 g/dL (3.4-5.0); ALKALINE PHOSPHATASE 56 Units/L (46-116); ASPARTATE AMINO TRANSFERASE 9 Units/L (15-37); BLOOD UREA NITROGEN 20 mg/dL (7-18); CALCIUM 7.7 mg/dL (8.5-10.1); CARBON DIOXIDE 28.4 mmol/L (21-32); CHLORIDE 110 mmol/L (98-107); COR CA(FOR HYPOALB) 9.1 mg/dL (8.5-10.1); CREATININE 1.44 mg/dL (0.70-1.30); SODIUM 142 mmol/L (136-145); TOTAL PROTEIN 6.1 g/dL (6.4-8.2); eGFR BLACK RACES > 60 (>60); eGFR NON BLACK RACES 55 (>60)
[2017-07-28 12:20] LABS: CREATININE 1.3 mg/dL (0.70-1.30)
[2017-07-28 12:24] LABS: TOBRAMYCIN,TROUGH 3.2 ug/mL (0-2)
[2017-07-28] MEDS: ROXICODONE TAB 15 MG PO PRN (12:34)
[2017-07-28] MEDS ORDERED: PHARMACY CONSULT - TOBRAMYCIN XX SCH (13:00)
[2017-07-28] MEDS: RESTORIL CAP 30 MG PO SCH (20:58)
[2017-07-29] MEDS: ROXICODONE TAB 15 MG PO PRN ×2 (04:42→21:29)
[2017-07-29] MEDS: NS 1000 ML 1,000 ML IV SCH ×2 (06:01→22:05)
[2017-07-29] MEDS ORDERED: NS 100 ML IV 100 ML IV ONE ×3 (06:05→16:41)
[2017-07-29] MEDS: TOBRAMYCIN SULFATE IVP SCH ×2 (06:07→16:46)
[2017-07-29 06:24] LABS: BASOPHILS % (AUTO) 0.5 % (0.2-1.0); EOSINOPHILS # (AUTO) 0.4 x10^3/uL (0.0-0.2); HEMATOCRIT 27.2 % (42.0-54.0); HEMOGLOBIN 9.1 g/dL (13.5-18.0); LYMPHOCYTES # (AUTO) 1.5 X10^3/uL (1.3-2.9); LYMPHOCYTES % (AUTO) 20.1 % (21.0-51.0); MEAN CORPUSCULAR HEMOGLOBIN 29.1 pg (27.0-34.0); MEAN CORPUSCULAR HGB CONC 33.4 g/dL (33.0-35.0); MEAN CORPUSCULAR VOLUME 87.3 fL (80.0-100.0); MEAN PLATELET VOLUME 8.9 fL (7.4-11.0); MONOCYTES # (AUTO) 0.7 x10^3/uL (0.3-0.8); MONOCYTES % (AUTO) 9.5 % (0.0-13.0); NEUTROPHILS # (AUTO) 4.7 x10^3/uL (2.2-4.8); NEUTROPHILS % (AUTO) 64.9 % (42.0-75.0); PLATELET COUNT 175 X10^3/uL (150.0-450.0); RED BLOOD COUNT 3.11 X10^6/uL (4.7-6.0); RED CELL DISTRIBUTION WIDTH 15.8 % (11.6-16.5); WHITE BLOOD COUNT 7.3 X10^3/uL (3.6-10.0)
[2017-07-29 06:37] LABS: ALANINE AMINOTRANSFERASE 11 Units/L (12-78); ALBUMIN 2.2 g/dL (3.4-5.0); ALKALINE PHOSPHATASE 59 Units/L (46-116); ASPARTATE AMINO TRANSFERASE 10 Units/L (15-37); BLOOD UREA NITROGEN 20 mg/dL (7-18); CALCIUM 7.8 mg/dL (8.5-10.1); CHLORIDE 109 mmol/L (98-107); COR CA(FOR HYPOALB) 9.2 mg/dL (8.5-10.1); SODIUM 141 mmol/L (136-145); TOTAL PROTEIN 6.1 g/dL (6.4-8.2); eGFR BLACK RACES > 60 (>60); eGFR NON BLACK RACES > 60 (>60)
[2017-07-29] MEDS: ZOFRAN TAB 4 MG PO PRN (08:18)
[2017-07-29] MEDS: CYMBALTA PO SCH ×2 (09:32→21:32)
[2017-07-29] MEDS: PriLOSEC PO SCH (09:32)
[2017-07-29] MEDS: ZANAFLEX PO SCH ×2 (09:32→21:30)
[2017-07-29] MEDS: KLONOPIN TAB 1 MG PO SCH ×2 (09:33→21:30)
[2017-07-29] MEDS: LYRICA CAP 100 MG PO SCH ×2 (09:33→21:35)
[2017-07-29] MEDS: FLONASE NASAL SPRAY ENOSTRIL SCH (09:33)
[2017-07-29] MEDS ORDERED: NS 100 ML IV + SPIKE MINIBAG* 0 ML IV ONE (16:38)
[2017-07-29] MEDS: RESTORIL CAP 30 MG PO SCH (21:29)
[2017-07-30] MEDS: AFRIN NASAL SPRAY ENOSTRIL PRN (00:47)
[2017-07-30 02:17] LABS: CREATININE 1.19 mg/dL (0.70-1.30)
[2017-07-30 02:20] LABS: TOBRAMYCIN,TROUGH 5.6 ug/mL (0-2)
[2017-07-30] MEDS: TOBRAMYCIN SULFATE IVP SCH (02:22)
[2017-07-30] MEDS: NS 1000 ML 1,000 ML IV SCH ×5 (06:05→22:17)
[2017-07-30 06:17] LABS: BASOPHILS % (AUTO) 0.6 % (0.2-1.0); EOSINOPHILS # (AUTO) 0.4 x10^3/uL (0.0-0.2); EOSINOPHILS % (AUTO) 5.7 % (0.9-2.9); HEMATOCRIT 27.1 % (42.0-54.0); HEMOGLOBIN 9.1 g/dL (13.5-18.0); LYMPHOCYTES # (AUTO) 2.7 X10^3/uL (1.3-2.9); LYMPHOCYTES % (AUTO) 39.4 % (21.0-51.0); MEAN CORPUSCULAR HEMOGLOBIN 29.4 pg (27.0-34.0); MEAN CORPUSCULAR HGB CONC 33.6 g/dL (33.0-35.0); MEAN CORPUSCULAR VOLUME 87.5 fL (80.0-100.0); MEAN PLATELET VOLUME 8.7 fL (7.4-11.0); MONOCYTES # (AUTO) 0.6 x10^3/uL (0.3-0.8); MONOCYTES % (AUTO) 9.4 % (0.0-13.0); NEUTROPHILS % (AUTO) 44.9 % (42.0-75.0); PLATELET COUNT 167 X10^3/uL (150.0-450.0); RED BLOOD COUNT 3.09 X10^6/uL (4.7-6.0); RED CELL DISTRIBUTION WIDTH 15.7 % (11.6-16.5); WHITE BLOOD COUNT 6.7 X10^3/uL (3.6-10.0)
[2017-07-30 06:24] LABS: ALANINE AMINOTRANSFERASE 11 Units/L (12-78); ALBUMIN 2.2 g/dL (3.4-5.0); ALKALINE PHOSPHATASE 63 Units/L (46-116); ASPARTATE AMINO TRANSFERASE 10 Units/L (15-37); BLOOD UREA NITROGEN 20 mg/dL (7-18); CALCIUM 7.9 mg/dL (8.5-10.1); CARBON DIOXIDE 24.3 mmol/L (21-32); CHLORIDE 107 mmol/L (98-107); COR CA(FOR HYPOALB) 9.3 mg/dL (8.5-10.1); CREATININE 1.13 mg/dL (0.70-1.30); SODIUM 137 mmol/L (136-145); TOTAL PROTEIN 6.1 g/dL (6.4-8.2); eGFR BLACK RACES > 60 (>60); eGFR NON BLACK RACES > 60 (>60)
[2017-07-30] MEDS: KLONOPIN TAB 1 MG PO SCH ×2 (09:08→21:39)
[2017-07-30] MEDS: PriLOSEC PO SCH (09:08)
[2017-07-30] MEDS: LYRICA CAP 100 MG PO SCH ×2 (09:08→21:39)
[2017-07-30] MEDS: MERREM VIAL 1,000 MG in NS 100 ML IV 100 ML IV SCH ×3 (09:08→21:42)
[2017-07-30] MEDS: ZANAFLEX PO SCH ×2 (09:08→21:39)
[2017-07-30] MEDS: FLONASE NASAL SPRAY ENOSTRIL SCH (09:09)
[2017-07-30] MEDS: CYMBALTA PO SCH ×2 (09:10→21:39)
[2017-07-30] MEDS: ROXICODONE TAB 15 MG PO PRN ×2 (15:33→21:40)
[2017-07-30] MEDS: ZOFRAN TAB 4 MG PO PRN (20:09)
[2017-07-30] MEDS: RESTORIL CAP 30 MG PO SCH (21:40)
[2017-07-30] MEDS: CHRONULAC PO SCH (21:42)
[2017-07-31] MEDS: MERREM VIAL 1,000 MG in NS 100 ML IV 100 ML IV SCH ×3 (05:32→21:07)
[2017-07-31] MEDS: NS 1000 ML 1,000 ML IV SCH ×2 (05:33→13:43)
[2017-07-31 06:11] LABS: BASOPHILS # (AUTO) 0.1 X10^3/uL (0.0-0.1); EOSINOPHILS # (AUTO) 0.3 x10^3/uL (0.0-0.2); EOSINOPHILS % (AUTO) 3.8 % (0.9-2.9); HEMATOCRIT 26.9 % (42.0-54.0); HEMOGLOBIN 9.1 g/dL (13.5-18.0); LYMPHOCYTES # (AUTO) 2.1 X10^3/uL (1.3-2.9); LYMPHOCYTES % (AUTO) 29.9 % (21.0-51.0); MEAN CORPUSCULAR HEMOGLOBIN 29.2 pg (27.0-34.0); MEAN CORPUSCULAR HGB CONC 33.8 g/dL (33.0-35.0); MEAN CORPUSCULAR VOLUME 86.4 fL (80.0-100.0); MEAN PLATELET VOLUME 8.8 fL (7.4-11.0); MONOCYTES # (AUTO) 0.6 x10^3/uL (0.3-0.8); MONOCYTES % (AUTO) 9.1 % (0.0-13.0); NEUTROPHILS % (AUTO) 56.2 % (42.0-75.0); PLATELET COUNT 188 X10^3/uL (150.0-450.0); RED BLOOD COUNT 3.11 X10^6/uL (4.7-6.0); RED CELL DISTRIBUTION WIDTH 15.6 % (11.6-16.5); WHITE BLOOD COUNT 7.1 X10^3/uL (3.6-10.0)
[2017-07-31 06:15] LABS: ALANINE AMINOTRANSFERASE 12 Units/L (12-78); ALBUMIN 2.2 g/dL (3.4-5.0); ALKALINE PHOSPHATASE 65 Units/L (46-116); ASPARTATE AMINO TRANSFERASE 12 Units/L (15-37); BLOOD UREA NITROGEN 20 mg/dL (7-18); CALCIUM 7.7 mg/dL (8.5-10.1); CARBON DIOXIDE 22.5 mmol/L (21-32); CHLORIDE 107 mmol/L (98-107); COR CA(FOR HYPOALB) 9.1 mg/dL (8.5-10.1); CREATININE 1.16 mg/dL (0.70-1.30); SODIUM 141 mmol/L (136-145); TOTAL PROTEIN 6.2 g/dL (6.4-8.2); eGFR BLACK RACES > 60 (>60); eGFR NON BLACK RACES > 60 (>60)
[2017-07-31] MEDS ORDERED: DULCOLAX SUPPOSITORY 10 MG PR PRN (09:13)
[2017-07-31] MEDS: LYRICA CAP 100 MG PO SCH ×2 (09:26→20:44)
[2017-07-31] MEDS: ZANAFLEX PO SCH ×2 (09:26→20:44)
[2017-07-31] MEDS: KLONOPIN TAB 1 MG PO SCH ×2 (09:26→20:44)
[2017-07-31] MEDS: PriLOSEC PO SCH (09:26)
[2017-07-31] MEDS: CYMBALTA PO SCH ×2 (09:26→20:59)
[2017-07-31] MEDS: FLONASE NASAL SPRAY ENOSTRIL SCH (09:27)
[2017-07-31] MEDS: NYSTATIN CREAM TOP PRN (09:33)
[2017-07-31] MEDS ORDERED: RESTORIL CAP 15 MG PO ONE (20:55)
[2017-07-31] MEDS: RESTORIL CAP 30 MG PO SCH (20:59)
[2017-08-01] MEDS: NS 1000 ML 1,000 ML IV SCH (03:00)
[2017-08-01] MEDS: MERREM VIAL 1,000 MG in NS 100 ML IV 100 ML IV SCH ×3 (06:10→22:30)
[2017-08-01 06:39] LABS: BASOPHILS # (AUTO) 0.1 X10^3/uL (0.0-0.1); BASOPHILS % (AUTO) 0.7 % (0.2-1.0); EOSINOPHILS # (AUTO) 0.2 x10^3/uL (0.0-0.2); HEMATOCRIT 26.5 % (42.0-54.0); LYMPHOCYTES # (AUTO) 1.8 X10^3/uL (1.3-2.9); LYMPHOCYTES % (AUTO) 22.9 % (21.0-51.0); MEAN CORPUSCULAR HEMOGLOBIN 29.3 pg (27.0-34.0); MEAN CORPUSCULAR HGB CONC 33.8 g/dL (33.0-35.0); MEAN CORPUSCULAR VOLUME 86.7 fL (80.0-100.0); MEAN PLATELET VOLUME 8.6 fL (7.4-11.0); MONOCYTES # (AUTO) 0.6 x10^3/uL (0.3-0.8); MONOCYTES % (AUTO) 7.9 % (0.0-13.0); NEUTROPHILS % (AUTO) 65.5 % (42.0-75.0); PLATELET COUNT 196 X10^3/uL (150.0-450.0); RED BLOOD COUNT 3.05 X10^6/uL (4.7-6.0); RED CELL DISTRIBUTION WIDTH 15.6 % (11.6-16.5); WHITE BLOOD COUNT 7.7 X10^3/uL (3.6-10.0)
[2017-08-01 06:43] LABS: ALANINE AMINOTRANSFERASE 11 Units/L (12-78); ALBUMIN 2.3 g/dL (3.4-5.0); ALKALINE PHOSPHATASE 63 Units/L (46-116); ASPARTATE AMINO TRANSFERASE 11 Units/L (15-37); BLOOD UREA NITROGEN 18 mg/dL (7-18); CALCIUM 7.9 mg/dL (8.5-10.1); CARBON DIOXIDE 18.8 mmol/L (21-32); CHLORIDE 108 mmol/L (98-107); COR CA(FOR HYPOALB) 9.3 mg/dL (8.5-10.1); CREATININE 1.12 mg/dL (0.70-1.30); SODIUM 142 mmol/L (136-145); TOTAL PROTEIN 6.3 g/dL (6.4-8.2); eGFR BLACK RACES > 60 (>60); eGFR NON BLACK RACES > 60 (>60)
[2017-08-01] MEDS: ZANAFLEX PO SCH ×2 (08:18→21:16)
[2017-08-01] MEDS: PriLOSEC PO SCH (08:18)
[2017-08-01] MEDS: CYMBALTA PO SCH ×2 (08:18→21:15)
[2017-08-01] MEDS: LYRICA CAP 100 MG PO SCH ×2 (08:19→21:15)
[2017-08-01] MEDS: KLONOPIN TAB 1 MG PO SCH ×2 (08:19→21:15)
[2017-08-01] MEDS: FLONASE NASAL SPRAY ENOSTRIL SCH (08:19)
[2017-08-01] MEDS: ROXICODONE TAB 15 MG PO PRN (08:32)
[2017-08-01] MEDS: NYSTATIN CREAM TOP PRN (08:33)
[2017-08-01] MEDS: SNACK - Diabetic Appropriate PO SCH ×2 (09:58→21:14)
[2017-08-01] MEDS ORDERED: CATAPRES-TTS-2 TD SCH (10:00)
--- NOTE | 2017-08-01 10:07 | PCM.PROG ---
Progress Note - Progress Note for Day of Date: 07/29/17 - Subjective Subjective: IS BEING TREATED FOR UROSEPSIS. HE HAS A CHRONIC HISTORY OF URINARY TRACT INFECTIONS. TODAY, HE IS ALERT AND ORIENTED, LYING IN BED ON MORNING ROUNDS. HE AWAKENS TO VERBAL STIMULI. HE DENIES COMPLAINTS AT THIS TIME. STAFF REPORTS THAT PATIENT HAS BEEN NOTED WITH INTERMITTENT CONFUSION THROUGHOUT THE NIGHT. ON EXAMINATION, HEART IS REGULAR IN RATE AND RHYTHM. BILATERAL LUNGS ARE NOTED TO BE CLEAR TO AUSCULTATION. ABDOMEN IS ROUND, SOFT, AND NON-TENDER WITH NORMAL BOWEL SOUNDS NOTED IN ALL QUADRANTS. HIS VITALS THIS MORNING ARE 98.0-73-18-93%-178/82. LABS WERE OBTAINED. ABNORMAL LAB VALUES INCLUDE THE FOLLOWING: RBC 3.11, HGB 9.1, HCT 27.2, CHLORIDE 109, BUN 20, CALCIUM 7.8, AST 10, ALT 11, TOTAL PROTEIN 6.1, ALBUMIN 2.2. URINE CULTURE REPORTED GROWTH OF PSEUDOMONAS AERUGINOSA, FOR WHICH HE WAS STARTED ON TOBRAMYCIN OVER THE WEEKEND. WE WILL CONTINUE WITH CURRENT PLAN OF CARE TODAY. WE WILL FOLLOW UP WITH AM LABS AND CONTINUE TO MONITOR PATIENT. - Past Medical Family Social History Past Med/Fam/Surg Hx: No changes since H&P Allergies: Allergies meperidine [From Demerol] Adverse Reaction (Verified 07/26/17 20:47) - Review of Systems ROS: No change since H&P - Vital Signs and I&O's Vital Signs: Temperature 98.5 F Pulse Rate [Left Brachial] 75 Pulse Rate [Right Brachial] 84 Pulse Rate [Apical] 76 Pulse Rate 66 Respiratory Rate 18 Blood Pressure [Right Arm] 192/110 Blood Pressure [Left Arm] 161/84 Blood Pressure 67/39 O2 Sat by Pulse Oximetry 96 Intake and Output: Intake & Output 07/29/17 07/30/17 07/31/17 08/01/17 11:59 11:59 11:59 11:59 Intake Total 4290 3290 2553 1648 Output Total 3300 3535 3100 3600 Balance 990 -245 -547 -1952 - Physical Exam Oriented: Normal Eyes: Normal Ear: Normal Nose: Normal Throat: Normal Respiratory: Normal Cardiovascular: Normal. negative: Edema : Normal Auscultation: Bowel Sounds: Normal Palpation: Normal Tenderness: Normal Skin: Decreased Turgur Musculoskeletal: Motor Deficit, Sensory Deficit Psychiatric: Depression Mood Description: Flat Affect: Depressed Speech Pattern: Clear - Laboratory and Diagnostics Result Diagrams: 08/01/17 05:58 08/01/17 05:58 Labs: 07/26/17 20:59 Blood Blood Culture - Final 07/26/17 20:49 Blood Blood Culture - Final 07/26/17 20:56 Urine,Clean Catch Urine Culture - Final Pseudomonas Aeruginosa Laboratory WBC 7.7 X10^3/uL (3.6-10.0) 08/01/17 05:58 RBC 3.05 X10^6/uL (4.7-6.0) L 08/01/17 05:58 Hgb 9.0 g/dL (13.5-18.0) L 08/01/17 05:58 Hct 26.5 % (42.0-54.0) L 08/01/17 05:58 MCV 86.7 fL (80.0-100.0) 08/01/17 05:58 MCH 29.3 pg (27.0-34.0) 08/01/17 05:58 MCHC 33.8 g/dL (33.0-35.0) 08/01/17 05:58 RDW 15.6 % (11.6-16.5) 08/01/17 05:58 Plt Count 196 X10^3/uL (150.0-450.0) 08/01/17 05:58 MPV 8.6 fL (7.4-11.0) 08/01/17 05:58 Neut % (Auto) 65.5 % (42.0-75.0) 08/01/17 05:58 Lymph % (Auto) 22.9 % (21.0-51.0) 08/01/17 05:58 [place] % (Auto) 7.9 % (0.0-13.0) 08/01/17 05:58 Eos % (Auto) 3.0 % (0.9-2.9) H 08/01/17 05:58 Baso % (Auto) 0.7 % (0.2-1.0) 08/01/17 05:58 Neut # (Auto) 5.0 x10^3/uL (2.2-4.8) H 08/01/17 05:58 Lymph # (Auto) 1.8 X10^3/uL (1.3-2.9) 08/01/17 05:58 [place] # (Auto) 0.6 x10^3/uL (0.3-0.8) 08/01/17 05:58 Eos # (Auto) 0.2 x10^3/uL (0.0-0.2) 08/01/17 05:58 Baso # (Auto) 0.1 X10^3/uL (0.0-0.1) 08/01/17 05:58 Absolute Nucleated RBC 0.0 /100WBC 08/01/17 05:58 INR Target Range - 07/26/17 20:49 INR 1.03 (0.8-1.3) 07/26/17 20:49 APTT 23.2 SECONDS (22.9-36.5) 07/26/17 20:49 PTT Comment - 07/26/17 20:49 Sodium 142 mmol/L (136-145) 08/01/17 05:58 Corrected Sodium TNP 08/01/17 05:58 Potassium 4.3 mmol/L (3.5-5.1) 08/01/17 05:58 Chloride 108 mmol/L (98-107) H 08/01/17 05:58 Carbon Dioxide 18.8 mmol/L (21-32) L 08/01/17 05:58 BUN 18 mg/dL (7-18) 08/01/17 05:58 Creatinine 1.12 mg/dL (0.70-1.30) 08/01/17 05:58 Est GFR (MDRD) Af Amer > 60 (>60) 08/01/17 05:58 Est GFR (MDRD) Non-Af > 60 (>60) 08/01/17 05:58 Glucose 62 mg/dL (65-99) L 08/01/17 05:58 Lactic Acid 0.4 mmol/L (0.4-2.0) 07/27/17 15:40 Calcium 7.9 mg/dL (8.5-10.1) L 08/01/17 05:58 Corrected Calcium 9.3 mg/dL (8.5-10.1) 08/01/17 05:58 Magnesium 3.1 mg/dL (1.7-2.9) H 07/26/17 20:49 Total Bilirubin 0.40 mg/dL (0.2-1.0) 08/01/17 05:58 AST 11 Units/L (15-37) L 08/01/17 05:58 ALT 11 Units/L (12-78) L 08/01/17 05:58 Alkaline Phosphatase 63 Units/L (46-116) 08/01/17 05:58 Ammonia < 10 umol/L (11-32) L 07/26/17 20:49 Creatine Kinase 20 Units/L (39-308) L 07/26/17 20:49 CK-MB (CK-2) 1.2 ng/mL (0-4.0) 07/26/17 20:49 CK/CKMB % Calc 6.0 % (<4) 07/26/17 20:49 Troponin I < 0.02 ng/mL (0-1.5) 07/26/17 20:49 B-Natriuretic Peptide 387 pg/mL (0-79) H 07/26/17 20:49 Total Protein 6.3 g/dL (6.4-8.2) L 08/01/17 05:58 Albumin 2.3 g/dL (3.4-5.0) L 08/01/17 05:58 Globulin 4.0 g/dL (2.5-4.5) 08/01/17 05:58 Albumin/Globulin Ratio 0.6 Ratio (1.1-2.1) L 08/01/17 05:58 Cortisol 27.5 ug/dL 07/26/17 20:59 Specimen Type Clean catch urine 07/26/17 20:56 Urine Color Yellow (YELLOW) 07/26/17 20:56 Urine Appearance Cloudy (CLEAR) 07/26/17 20:56 Urine pH 6.0 (5.0 - 8.0) 07/26/17 20:56 Ur Specific [place] 1.010 (1.000-1.030) 07/26/17 20:56 Urine Protein 2+ (NEGATIVE) 07/26/17 20:56 Urine Glucose (UA) Negative (NEGATIVE) 07/26/17 20:56 Urine Ketones Negative (NEGATIVE) 07/26/17 20:56 Urine Occult Blood 5+ (NEGATIVE) 07/26/17 20:56 Urine Nitrite Positive (NEGATIVE) 07/26/17 20:56 Urine Bilirubin Negative (NEGATIVE) 07/26/17 20:56 Urine Urobilinogen Normal (NORMAL) 07/26/17 20:56 Ur Leukocyte Esterase 3+ (NEGATIVE) 07/26/17 20:56 Urine RBC 10-20 /HPF (NONE SEEN) 07/26/17 20:56 Urine WBC Tntc /HPF (NONE SEEN) 07/26/17 20:56 Ur Squamous Epith Cells Few /HPF (NEGATIVE) 07/26/17 20:56 Urine Bacteria 2+ /HPF (NEGATIVE) 07/26/17 20:56 Ur Culture Indicated? Yes/culture set up 07/26/17 20:56 Tobramycin Trough 5.6 ug/mL (0-2) H* 07/30/17 01:36 - Plan (1) Pseudomonas urinary tract infection Status: Acute Plan: TOBRAMYCIN IV, NORMAL SALINE AT 125ML/HR, CONTINUE TO MONITOR (2) Sepsis Status: Acute Qualifiers: Sepsis type: sepsis due to unspecified organism Qualified Code(s): A41.9 - Sepsis, unspecified organism Plan: TOBRAMYCIN IV, NORMAL SALINE AT 125ML/HR, CONTINUE TO MONITOR (3) Quadriplegia Status: Acute Plan: TURN Q2H, CONTINUE TO MONITOR
[2017-08-01] MEDS: D5 NS 1000 ML 1,000 ML IV SCH ×2 (10:13→18:12)
--- NOTE | 2017-08-01 10:19 | PCM.PROG ---
Progress Note - Progress Note for Day of Date: 07/30/17 - Subjective Subjective: IS BEING TREATED FOR UROSEPSIS. HE HAS A CHRONIC HISTORY OF URINARY TRACT INFECTIONS. TODAY, HE IS ALERT AND ORIENTED, LYING IN BED WITH EYES OPEN ON MORNING ROUNDS. HE REPORTS FEELINGS OF GENERALIZED WEAKNESS. STAFF REPORTS THAT PATIENT CONTINES WITH INTERMITTENT CONFUSION. ON EXAMINATION, HEART IS REGULAR IN RATE AND RHYTHM. BILATERAL LUNGS ARE NOTED TO BE CLEAR TO AUSCULTATION. ABDOMEN IS ROUND, SOFT, AND NON-TENDER WITH NORMAL BOWEL SOUNDS NOTED IN ALL QUADRANTS. HIS VITALS THIS MORNING ARE 97.9-67-20-93%-168/81. LABS WERE OBTAINED. ABNORMAL LAB VALUES INCLUDE THE FOLLOWING: RBC 3.09, HGB 9.1, HCT 27.1, BUN 20, CALCIUM 7.9, AST 10, ALT 11, TOTAL PROTEIN 6.1, ALBUMIN 2.2. TODAY, WE WILL CHANGE IV ANTIBIOTICS TO MEROPENEM 1GM IV Q8H, IT SEEMS TO BE A BETTER CHOICE. OTHERWISE, WE WILL CONTINUE WITH CURRENT PLAN OF CARE TODAY. WE WILL FOLLOW UP WITH AM LABS AND CONTINUE TO MONITOR PATIENT. - Past Medical Family Social History Past Med/Fam/Surg Hx: No changes since H&P Allergies: Allergies meperidine [From Demerol] Adverse Reaction (Verified 07/26/17 20:47) - Review of Systems ROS: No change since H&P - Vital Signs and I&O's Vital Signs: Temperature 98.5 F Pulse Rate [Left Brachial] 75 Pulse Rate [Right Brachial] 84 Pulse Rate [Apical] 76 Pulse Rate 66 Respiratory Rate 18 Blood Pressure [Right Arm] 192/110 Blood Pressure [Left Arm] 161/84 Blood Pressure 67/39 O2 Sat by Pulse Oximetry 96 Intake and Output: Intake & Output 07/29/17 07/30/17 07/31/17 08/01/17 11:59 11:59 11:59 11:59 Intake Total 4290 3290 2553 1648 Output Total 3300 3535 3100 3600 Balance 990 -245 -547 -1952 - Physical Exam Oriented: Normal Eyes: Normal Ear: Normal Nose: Normal Throat: Normal Respiratory: Normal Cardiovascular: Normal. negative: Edema : Normal Auscultation: Bowel Sounds: Normal Palpation: Normal Tenderness: Normal Skin: Normal Musculoskeletal: Motor Deficit, Sensory Deficit Psychiatric: Depression Mood Description: Flat Affect: Depressed Speech Pattern: Clear - Laboratory and Diagnostics Result Diagrams: 08/01/17 05:58 08/01/17 05:58 Labs: 07/26/17 20:59 Blood Blood Culture - Final 07/26/17 20:49 Blood Blood Culture - Final 07/26/17 20:56 Urine,Clean Catch Urine Culture - Final Pseudomonas Aeruginosa Laboratory WBC 7.7 X10^3/uL (3.6-10.0) 08/01/17 05:58 RBC 3.05 X10^6/uL (4.7-6.0) L 08/01/17 05:58 Hgb 9.0 g/dL (13.5-18.0) L 08/01/17 05:58 Hct 26.5 % (42.0-54.0) L 08/01/17 05:58 MCV 86.7 fL (80.0-100.0) 08/01/17 05:58 MCH 29.3 pg (27.0-34.0) 08/01/17 05:58 MCHC 33.8 g/dL (33.0-35.0) 08/01/17 05:58 RDW 15.6 % (11.6-16.5) 08/01/17 05:58 Plt Count 196 X10^3/uL (150.0-450.0) 08/01/17 05:58 MPV 8.6 fL (7.4-11.0) 08/01/17 05:58 Neut % (Auto) 65.5 % (42.0-75.0) 08/01/17 05:58 Lymph % (Auto) 22.9 % (21.0-51.0) 08/01/17 05:58 [place] % (Auto) 7.9 % (0.0-13.0) 08/01/17 05:58 Eos % (Auto) 3.0 % (0.9-2.9) H 08/01/17 05:58 Baso % (Auto) 0.7 % (0.2-1.0) 08/01/17 05:58 Neut # (Auto) 5.0 x10^3/uL (2.2-4.8) H 08/01/17 05:58 Lymph # (Auto) 1.8 X10^3/uL (1.3-2.9) 08/01/17 05:58 [place] # (Auto) 0.6 x10^3/uL (0.3-0.8) 08/01/17 05:58 Eos # (Auto) 0.2 x10^3/uL (0.0-0.2) 08/01/17 05:58 Baso # (Auto) 0.1 X10^3/uL (0.0-0.1) 08/01/17 05:58 Absolute Nucleated RBC 0.0 /100WBC 08/01/17 05:58 INR Target Range - 07/26/17 20:49 INR 1.03 (0.8-1.3) 07/26/17 20:49 APTT 23.2 SECONDS (22.9-36.5) 07/26/17 20:49 PTT Comment - 07/26/17 20:49 Sodium 142 mmol/L (136-145) 08/01/17 05:58 Corrected Sodium TNP 08/01/17 05:58 Potassium 4.3 mmol/L (3.5-5.1) 08/01/17 05:58 Chloride 108 mmol/L (98-107) H 08/01/17 05:58 Carbon Dioxide 18.8 mmol/L (21-32) L 08/01/17 05:58 BUN 18 mg/dL (7-18) 08/01/17 05:58 Creatinine 1.12 mg/dL (0.70-1.30) 08/01/17 05:58 Est GFR (MDRD) Af Amer > 60 (>60) 08/01/17 05:58 Est GFR (MDRD) Non-Af > 60 (>60) 08/01/17 05:58 Glucose 62 mg/dL (65-99) L 08/01/17 05:58 Lactic Acid 0.4 mmol/L (0.4-2.0) 07/27/17 15:40 Calcium 7.9 mg/dL (8.5-10.1) L 08/01/17 05:58 Corrected Calcium 9.3 mg/dL (8.5-10.1) 08/01/17 05:58 Magnesium 3.1 mg/dL (1.7-2.9) H 07/26/17 20:49 Total Bilirubin 0.40 mg/dL (0.2-1.0) 08/01/17 05:58 AST 11 Units/L (15-37) L 08/01/17 05:58 ALT 11 Units/L (12-78) L 08/01/17 05:58 Alkaline Phosphatase 63 Units/L (46-116) 08/01/17 05:58 Ammonia < 10 umol/L (11-32) L 07/26/17 20:49 Creatine Kinase 20 Units/L (39-308) L 07/26/17 20:49 CK-MB (CK-2) 1.2 ng/mL (0-4.0) 07/26/17 20:49 CK/CKMB % Calc 6.0 % (<4) 07/26/17 20:49 Troponin I < 0.02 ng/mL (0-1.5) 07/26/17 20:49 B-Natriuretic Peptide 387 pg/mL (0-79) H 07/26/17 20:49 Total Protein 6.3 g/dL (6.4-8.2) L 08/01/17 05:58 Albumin 2.3 g/dL (3.4-5.0) L 08/01/17 05:58 Globulin 4.0 g/dL (2.5-4.5) 08/01/17 05:58 Albumin/Globulin Ratio 0.6 Ratio (1.1-2.1) L 08/01/17 05:58 Cortisol 27.5 ug/dL 07/26/17 20:59 Specimen Type Clean catch urine 07/26/17 20:56 Urine Color Yellow (YELLOW) 07/26/17 20:56 Urine Appearance Cloudy (CLEAR) 07/26/17 20:56 Urine pH 6.0 (5.0 - 8.0) 07/26/17 20:56 Ur Specific [place] 1.010 (1.000-1.030) 07/26/17 20:56 Urine Protein 2+ (NEGATIVE) 07/26/17 20:56 Urine Glucose (UA) Negative (NEGATIVE) 07/26/17 20:56 Urine Ketones Negative (NEGATIVE) 07/26/17 20:56 Urine Occult Blood 5+ (NEGATIVE) 07/26/17 20:56 Urine Nitrite Positive (NEGATIVE) 07/26/17 20:56 Urine Bilirubin Negative (NEGATIVE) 07/26/17 20:56 Urine Urobilinogen Normal (NORMAL) 07/26/17 20:56 Ur Leukocyte Esterase 3+ (NEGATIVE) 07/26/17 20:56 Urine RBC 10-20 /HPF (NONE SEEN) 07/26/17 20:56 Urine WBC Tntc /HPF (NONE SEEN) 07/26/17 20:56 Ur Squamous Epith Cells Few /HPF (NEGATIVE) 07/26/17 20:56 Urine Bacteria 2+ /HPF (NEGATIVE) 07/26/17 20:56 Ur Culture Indicated? Yes/culture set up 07/26/17 20:56 Tobramycin Trough 5.6 ug/mL (0-2) H* 07/30/17 01:36 - Plan (1) Pseudomonas urinary tract infection Status: Acute Plan: TOBRAMYCIN IV, NORMAL SALINE AT 125ML/HR, CONTINUE TO MONITOR (2) Sepsis Status: Acute Qualifiers: Sepsis type: sepsis due to unspecified organism Qualified Code(s): A41.9 - Sepsis, unspecified organism Plan: TOBRAMYCIN IV, NORMAL SALINE AT 125ML/HR, CONTINUE TO MONITOR (3) Quadriplegia Status: Acute Plan: TURN Q2H, CONTINUE TO MONITOR (4) Mental status alteration Status: Acute Qualifiers: Altered mental status type: transient alteration of awareness Qualified Code(s): R40.4 - Transient alteration of awareness Plan: CONTINUE HALDOL, CONTINUE ATIVAN, CONTINUE TO MONITOR (5) Depression Status: Chronic Qualifiers: Depression Type: major depressive disorder Major depression recurrence: recurrent Active/Remission status: currently active Major depression episode severity: moderate Qualified Code(s): F33.1 - Major depressive disorder, recurrent, moderate Plan: CONTINUE CYMBALTA, CONTINUE TO MONITOR (6) GERD (gastroesophageal reflux disease) Status: Chronic Qualifiers: Esophagitis presence: esophagitis presence not specified Qualified Code(s) : K21.9 - Gastro-esophageal reflux disease without esophagitis Plan: CONTINUE PRILOSEC, CONTINUE TO MONITOR (7) History of neurogenic bowel Status: Chronic Plan: CONTINUE BACLOFEN, CONTINUE BISACODYL, CONTINUE CHRONULAC, CONTINUE TO MONITOR
--- NOTE | 2017-08-01 10:23 | PCM.PROG ---
Progress Note - Progress Note for Day of Date: 07/31/17 - Subjective Subjective: IS BEING TREATED FOR UROSEPSIS. HE HAS A CHRONIC HISTORY OF URINARY TRACT INFECTIONS. TODAY, HE IS LYING IN BED WITH EYES CLOSED ON MORNING ROUNDS. HE AWAKNES AND RESPONDS TO VERBAL STIMULI. HE CONTINUES TO REPORT FEELINGS OF GENERALIZED WEAKNESS. STAFF REPORTS THAT PATIENT CONTINES WITH INTERMITTENT CONFUSION. ON EXAMINATION, HEART IS REGULAR IN RATE AND RHYTHM. BILATERAL LUNGS ARE NOTED TO BE CLEAR TO AUSCULTATION. ABDOMEN IS ROUND , SOFT, AND NON-TENDER WITH NORMAL BOWEL SOUNDS NOTED IN ALL QUADRANTS. HIS VITALS THIS MORNING ARE 97.9-87-20-92%-176/86. LABS WERE OBTAINED. ABNORMAL LAB VALUES INCLUDE THE FOLLOWING: RBC 3.11-HGB 9.1, HCT 26.9, BUN 20, CALCIUM 7.7, AST 12, TOTAL PROTEIN 6.2, ALBUMIN 2.2. TODAY, WE WILL CONTINUE IV ANTIBIOTICS AND CURRENT PLAN OF CARE FOR TREATMENT OF PSEUDOMONAS IN URINE. WE WILL FOLLOW UP WITH AM LABS AND CONTINUE TO MONITOR PATIENT. - Past Medical Family Social History Past Med/Fam/Surg Hx: No changes since H&P Allergies: Allergies meperidine [From Demerol] Adverse Reaction (Verified 07/26/17 20:47) - Review of Systems ROS: No change since H&P - Vital Signs and I&O's Vital Signs: Temperature 98.5 F Pulse Rate [Left Brachial] 75 Pulse Rate [Right Brachial] 84 Pulse Rate [Apical] 76 Pulse Rate 66 Respiratory Rate 18 Blood Pressure [Right Arm] 192/110 Blood Pressure [Left Arm] 161/84 Blood Pressure 67/39 O2 Sat by Pulse Oximetry 96 Intake and Output: Intake & Output 07/29/17 07/30/17 07/31/17 08/01/17 11:59 11:59 11:59 11:59 Intake Total 4290 3290 2553 1648 Output Total 3300 3535 3100 3600 Balance 990 -135 -547 -0872 - Physical Exam Oriented: Normal Eyes: Normal Ear: Normal Nose: Normal Throat: Normal Respiratory: Normal Cardiovascular: Normal. negative: Edema : Normal Auscultation: Bowel Sounds: Normal Palpation: Normal Tenderness: Normal Skin: Normal Musculoskeletal: Motor Deficit, Sensory Deficit Psychiatric: Depression Mood Description: Flat Affect: Depressed Speech Pattern: Clear - Laboratory and Diagnostics Result Diagrams: 08/01/17 05:58 08/01/17 05:58 Labs: 07/26/17 20:59 Blood Blood Culture - Final 07/26/17 20:49 Blood Blood Culture - Final 07/26/17 20:56 Urine,Clean Catch Urine Culture - Final Pseudomonas Aeruginosa Laboratory WBC 7.7 X10^3/uL (3.6-10.0) 08/01/17 05:58 RBC 3.05 X10^6/uL (4.7-6.0) L 08/01/17 05:58 Hgb 9.0 g/dL (13.5-18.0) L 08/01/17 05:58 Hct 26.5 % (42.0-54.0) L 08/01/17 05:58 MCV 86.7 fL (80.0-100.0) 08/01/17 05:58 MCH 29.3 pg (27.0-34.0) 08/01/17 05:58 MCHC 33.8 g/dL (33.0-35.0) 08/01/17 05:58 RDW 15.6 % (11.6-16.5) 08/01/17 05:58 Plt Count 196 X10^3/uL (150.0-450.0) 08/01/17 05:58 MPV 8.6 fL (7.4-11.0) 08/01/17 05:58 Neut % (Auto) 65.5 % (42.0-75.0) 08/01/17 05:58 Lymph % (Auto) 22.9 % (21.0-51.0) 08/01/17 05:58 [place] % (Auto) 7.9 % (0.0-13.0) 08/01/17 05:58 Eos % (Auto) 3.0 % (0.9-2.9) H 08/01/17 05:58 Baso % (Auto) 0.7 % (0.2-1.0) 08/01/17 05:58 Neut # (Auto) 5.0 x10^3/uL (2.2-4.8) H 08/01/17 05:58 Lymph # (Auto) 1.8 X10^3/uL (1.3-2.9) 08/01/17 05:58 [place] # (Auto) 0.6 x10^3/uL (0.3-0.8) 08/01/17 05:58 Eos # (Auto) 0.2 x10^3/uL (0.0-0.2) 08/01/17 05:58 Baso # (Auto) 0.1 X10^3/uL (0.0-0.1) 08/01/17 05:58 Absolute Nucleated RBC 0.0 /100WBC 08/01/17 05:58 INR Target Range - 07/26/17 20:49 INR 1.03 (0.8-1.3) 07/26/17 20:49 APTT 23.2 SECONDS (22.9-36.5) 07/26/17 20:49 PTT Comment - 07/26/17 20:49 Sodium 142 mmol/L (136-145) 08/01/17 05:58 Corrected Sodium TNP 08/01/17 05:58 Potassium 4.3 mmol/L (3.5-5.1) 08/01/17 05:58 Chloride 108 mmol/L (98-107) H 08/01/17 05:58 Carbon Dioxide 18.8 mmol/L (21-32) L 08/01/17 05:58 BUN 18 mg/dL (7-18) 08/01/17 05:58 Creatinine 1.12 mg/dL (0.70-1.30) 08/01/17 05:58 Est GFR (MDRD) Af Amer > 60 (>60) 08/01/17 05:58 Est GFR (MDRD) Non-Af > 60 (>60) 08/01/17 05:58 Glucose 62 mg/dL (65-99) L 08/01/17 05:58 Lactic Acid 0.4 mmol/L (0.4-2.0) 07/27/17 15:40 Calcium 7.9 mg/dL (8.5-10.1) L 08/01/17 05:58 Corrected Calcium 9.3 mg/dL (8.5-10.1) 08/01/17 05:58 Magnesium 3.1 mg/dL (1.7-2.9) H 07/26/17 20:49 Total Bilirubin 0.40 mg/dL (0.2-1.0) 08/01/17 05:58 AST 11 Units/L (15-37) L 08/01/17 05:58 ALT 11 Units/L (12-78) L 08/01/17 05:58 Alkaline Phosphatase 63 Units/L (46-116) 08/01/17 05:58 Ammonia < 10 umol/L (11-32) L 07/26/17 20:49 Creatine Kinase 20 Units/L (39-308) L 07/26/17 20:49 CK-MB (CK-2) 1.2 ng/mL (0-4.0) 07/26/17 20:49 CK/CKMB % Calc 6.0 % (<4) 07/26/17 20:49 Troponin I < 0.02 ng/mL (0-1.5) 07/26/17 20:49 B-Natriuretic Peptide 387 pg/mL (0-79) H 07/26/17 20:49 Total Protein 6.3 g/dL (6.4-8.2) L 08/01/17 05:58 Albumin 2.3 g/dL (3.4-5.0) L 08/01/17 05:58 Globulin 4.0 g/dL (2.5-4.5) 08/01/17 05:58 Albumin/Globulin Ratio 0.6 Ratio (1.1-2.1) L 08/01/17 05:58 Cortisol 27.5 ug/dL 07/26/17 20:59 Specimen Type Clean catch urine 07/26/17 20:56 Urine Color Yellow (YELLOW) 07/26/17 20:56 Urine Appearance Cloudy (CLEAR) 07/26/17 20:56 Urine pH 6.0 (5.0 - 8.0) 07/26/17 20:56 Ur Specific [place] 1.010 (1.000-1.030) 07/26/17 20:56 Urine Protein 2+ (NEGATIVE) 07/26/17 20:56 Urine Glucose (UA) Negative (NEGATIVE) 07/26/17 20:56 Urine Ketones Negative (NEGATIVE) 07/26/17 20:56 Urine Occult Blood 5+ (NEGATIVE) 07/26/17 20:56 Urine Nitrite Positive (NEGATIVE) 07/26/17 20:56 Urine Bilirubin Negative (NEGATIVE) 07/26/17 20:56 Urine Urobilinogen Normal (NORMAL) 07/26/17 20:56 Ur Leukocyte Esterase 3+ (NEGATIVE) 07/26/17 20:56 Urine RBC 10-20 /HPF (NONE SEEN) 07/26/17 20:56 Urine WBC Tntc /HPF (NONE SEEN) 07/26/17 20:56 Ur Squamous Epith Cells Few /HPF (NEGATIVE) 07/26/17 20:56 Urine Bacteria 2+ /HPF (NEGATIVE) 07/26/17 20:56 Ur Culture Indicated? Yes/culture set up 07/26/17 20:56 Tobramycin Trough 5.6 ug/mL (0-2) H* 07/30/17 01:36 - Plan (1) Pseudomonas urinary tract infection Status: Acute Plan: TOBRAMYCIN IV, NORMAL SALINE AT 125ML/HR, CONTINUE TO MONITOR (2) Sepsis Status: Acute Qualifiers: Sepsis type: sepsis due to unspecified organism Qualified Code(s): A41.9 - Sepsis, unspecified organism Plan: TOBRAMYCIN IV, NORMAL SALINE AT 125ML/HR, CONTINUE TO MONITOR (3) Quadriplegia Status: Acute Plan: TURN Q2H, CONTINUE TO MONITOR (4) Mental status alteration Status: Acute Qualifiers: Altered mental status type: transient alteration of awareness Qualified Code(s): R40.4 - Transient alteration of awareness Plan: CONTINUE HALDOL, CONTINUE ATIVAN, CONTINUE TO MONITOR (5) Depression Status: Chronic Qualifiers: Depression Type: major depressive disorder Major depression recurrence: recurrent Active/Remission status: currently active Major depression episode severity: moderate Qualified Code(s): F33.1 - Major depressive disorder, recurrent, moderate Plan: CONTINUE CYMBALTA, CONTINUE TO MONITOR (6) GERD (gastroesophageal reflux disease) Status: Chronic Qualifiers: Esophagitis presence: esophagitis presence not specified Qualified Code(s) : K21.9 - Gastro-esophageal reflux disease without esophagitis Plan: CONTINUE PRILOSEC, CONTINUE TO MONITOR (7) History of neurogenic bowel Status: Chronic Plan: CONTINUE BACLOFEN, CONTINUE BISACODYL, CONTINUE CHRONULAC, CONTINUE TO MONITOR
[2017-08-01 12:05] VITALS: BMI 25.5
[2017-08-01] MEDS: CHECK PATCH XX SCH (21:14)
[2017-08-01] MEDS: RESTORIL CAP 30 MG PO SCH (21:15)
[2017-08-02 05:05] LABS: BASOPHILS # (AUTO) 0.1 X10^3/uL (0.0-0.1); BASOPHILS % (AUTO) 0.9 % (0.2-1.0); EOSINOPHILS # (AUTO) 0.3 x10^3/uL (0.0-0.2); EOSINOPHILS % (AUTO) 3.8 % (0.9-2.9); HEMATOCRIT 25.7 % (42.0-54.0); HEMOGLOBIN 8.8 g/dL (13.5-18.0); LYMPHOCYTES # (AUTO) 1.8 X10^3/uL (1.3-2.9); LYMPHOCYTES % (AUTO) 23.5 % (21.0-51.0); MEAN CORPUSCULAR HEMOGLOBIN 29.3 pg (27.0-34.0); MEAN CORPUSCULAR HGB CONC 34.3 g/dL (33.0-35.0); MEAN CORPUSCULAR VOLUME 85.4 fL (80.0-100.0); MEAN PLATELET VOLUME 8.4 fL (7.4-11.0); MONOCYTES # (AUTO) 0.6 x10^3/uL (0.3-0.8); MONOCYTES % (AUTO) 8.2 % (0.0-13.0); NEUTROPHILS # (AUTO) 4.7 x10^3/uL (2.2-4.8); NEUTROPHILS % (AUTO) 63.6 % (42.0-75.0); PLATELET COUNT 201 X10^3/uL (150.0-450.0); RED BLOOD COUNT 3.01 X10^6/uL (4.7-6.0); RED CELL DISTRIBUTION WIDTH 16.1 % (11.6-16.5); WHITE BLOOD COUNT 7.5 X10^3/uL (3.6-10.0)
[2017-08-02 05:14] LABS: ALANINE AMINOTRANSFERASE 9 Units/L (12-78); ALBUMIN 2.2 g/dL (3.4-5.0); ALKALINE PHOSPHATASE 59 Units/L (46-116); ASPARTATE AMINO TRANSFERASE 11 Units/L (15-37); BLOOD UREA NITROGEN 13 mg/dL (7-18); CALCIUM 7.8 mg/dL (8.5-10.1); CARBON DIOXIDE 22.5 mmol/L (21-32); CHLORIDE 110 mmol/L (98-107); COR CA(FOR HYPOALB) 9.2 mg/dL (8.5-10.1); COR NA(FOR HYPERGLY) 146 mmol/L (136-145); SODIUM 145 mmol/L (136-145); TOTAL PROTEIN 6.1 g/dL (6.4-8.2); eGFR BLACK RACES > 60 (>60); eGFR NON BLACK RACES > 60 (>60)
[2017-08-02] MEDS: MERREM VIAL 1,000 MG in NS 100 ML IV 100 ML IV SCH ×3 (05:34→21:44)
[2017-08-02] MEDS: D5 NS 1000 ML 1,000 ML IV SCH ×2 (05:35→14:26)
[2017-08-02] MEDS: ZANAFLEX PO SCH ×2 (08:47→21:50)
[2017-08-02] MEDS: CHECK PATCH XX SCH ×2 (08:47→21:49)
[2017-08-02] MEDS: KLONOPIN TAB 1 MG PO SCH ×2 (08:47→21:49)
[2017-08-02] MEDS: CYMBALTA PO SCH ×2 (08:47→21:57)
[2017-08-02] MEDS: LYRICA CAP 100 MG PO SCH ×2 (08:47→21:50)
[2017-08-02] MEDS: PriLOSEC PO SCH (08:47)
[2017-08-02] MEDS: FLONASE NASAL SPRAY ENOSTRIL SCH (08:48)
--- NOTE | 2017-08-02 11:18 | PCM.PROG ---
Progress Note - Progress Note for Day of Date: 08/01/17 - Subjective Subjective: IS BEING TREATED FOR UROSEPSIS. HE HAS A CHRONIC HISTORY OF URINARY TRACT INFECTIONS. TODAY, HE IS ALERT AND ORIENTED, LYING IN BED ON MORNING ROUNDS. HE CONTINUES TO REPORT FEELINGS OF GENERALIZED WEAKNESS. ON EXAMINATION, HEART IS REGULAR IN RATE AND RHYTHM. BILATERAL LUNGS ARE NOTED TO BE CLEAR TO AUSCULTATION. ABDOMEN IS ROUND, SOFT, AND NON-TENDER WITH NORMAL BOWEL SOUNDS NOTED IN ALL QUADRANTS. HIS VITALS THIS MORNING ARE 98.5-84-18-96%- 161/87. LABS WERE OBTAINED. ABNORMAL LAB VALUES INCLUDE THE FOLLOWING: RBC 3.05 , HGB 9.0, HCT 26.5, CHLORIDE 108, CARBON DIOXIDE 18.8, GLUCOSE 62, CALCIUM 7.9 , AST 11, ALT 11, TOTAL PROTEIN 6.3, ALBUMIN 2.3. TODAY, WE WILL CONTINUE IV ANTIBIOTICS AND CURRENT PLAN OF CARE FOR TREATMENT OF PSEUDOMONAS IN URINE. WE WILL ALSO START CLONIDINE 0.5MG TD PATCH WEEKLY AND CHANGE IV FLUIDS TO D5NS @ 125ML/HR DUE TO DECREASED GLUCOSE. WE WILL FOLLOW UP WITH AM LABS AND CONTINUE TO MONITOR PATIENT. - Past Medical Family Social History Past Med/Fam/Surg Hx: No changes since H&P Allergies: Allergies meperidine [From Demerol] Adverse Reaction (Verified 07/26/17 20:47) - Review of Systems ROS: No change since H&P - Vital Signs and I&O's Vital Signs: Temperature 99.3 F Pulse Rate [Left Brachial] 75 Pulse Rate [Right Brachial] 69 Pulse Rate [Apical] 76 Pulse Rate 66 Respiratory Rate 20 Blood Pressure [Right Arm] 191/97 Blood Pressure [Left Arm] 161/84 Blood Pressure 67/39 O2 Sat by Pulse Oximetry 90 Intake and Output: Intake & Output 07/30/17 07/31/17 08/01/17 08/02/17 11:59 11:59 11:59 11:59 Intake Total 3290 2553 1648 600 Output Total 3535 3100 3600 3050 Balance -260 -351 -1822 -4229 - Physical Exam Oriented: Normal Eyes: Normal Ear: Normal Nose: Normal Throat: Normal Respiratory: Normal Cardiovascular: Normal. negative: Edema : Normal Auscultation: Bowel Sounds: Normal Palpation: Normal Tenderness: Normal Skin: Normal Musculoskeletal: Motor Deficit, Sensory Deficit Psychiatric: Depression Mood Description: Flat Affect: Depressed Speech Pattern: Clear, Inappropriate - Laboratory and Diagnostics Result Diagrams: 08/02/17 04:40 08/02/17 04:40 Labs: 07/26/17 20:59 Blood Blood Culture - Final 07/26/17 20:49 Blood Blood Culture - Final 07/26/17 20:56 Urine,Clean Catch Urine Culture - Final Pseudomonas Aeruginosa Laboratory WBC 7.5 X10^3/uL (3.6-10.0) 08/02/17 04:40 RBC 3.01 X10^6/uL (4.7-6.0) L 08/02/17 04:40 Hgb 8.8 g/dL (13.5-18.0) L 08/02/17 04:40 Hct 25.7 % (42.0-54.0) L 08/02/17 04:40 MCV 85.4 fL (80.0-100.0) 08/02/17 04:40 MCH 29.3 pg (27.0-34.0) 08/02/17 04:40 MCHC 34.3 g/dL (33.0-35.0) 08/02/17 04:40 RDW 16.1 % (11.6-16.5) 08/02/17 04:40 Plt Count 201 X10^3/uL (150.0-450.0) 08/02/17 04:40 MPV 8.4 fL (7.4-11.0) 08/02/17 04:40 Neut % (Auto) 63.6 % (42.0-75.0) 08/02/17 04:40 Lymph % (Auto) 23.5 % (21.0-51.0) 08/02/17 04:40 [place] % (Auto) 8.2 % (0.0-13.0) 08/02/17 04:40 Eos % (Auto) 3.8 % (0.9-2.9) H 08/02/17 04:40 Baso % (Auto) 0.9 % (0.2-1.0) 08/02/17 04:40 Neut # (Auto) 4.7 x10^3/uL (2.2-4.8) 08/02/17 04:40 Lymph # (Auto) 1.8 X10^3/uL (1.3-2.9) 08/02/17 04:40 [place] # (Auto) 0.6 x10^3/uL (0.3-0.8) 08/02/17 04:40 Eos # (Auto) 0.3 x10^3/uL (0.0-0.2) H 08/02/17 04:40 Baso # (Auto) 0.1 X10^3/uL (0.0-0.1) 08/02/17 04:40 Absolute Nucleated RBC 0.0 /100WBC 08/02/17 04:40 INR Target Range - 07/26/17 20:49 INR 1.03 (0.8-1.3) 07/26/17 20:49 APTT 23.2 SECONDS (22.9-36.5) 07/26/17 20:49 PTT Comment - 07/26/17 20:49 Sodium 145 mmol/L (136-145) 08/02/17 04:40 Corrected Sodium 146 mmol/L (136-145) H 08/02/17 04:40 Potassium 3.6 mmol/L (3.5-5.1) 08/02/17 04:40 Chloride 110 mmol/L (98-107) H 08/02/17 04:40 Carbon Dioxide 22.5 mmol/L (21-32) 08/02/17 04:40 BUN 13 mg/dL (7-18) 08/02/17 04:40 Creatinine 1.20 mg/dL (0.70-1.30) 08/02/17 04:40 Est GFR (MDRD) Af Amer > 60 (>60) 08/02/17 04:40 Est GFR (MDRD) Non-Af > 60 (>60) 08/02/17 04:40 Glucose 126 mg/dL (65-99) H 08/02/17 04:40 POC Glucose (mg/dL) 69 mg/dL (65-99) 08/01/17 11:07 Lactic Acid 0.4 mmol/L (0.4-2.0) 07/27/17 15:40 Calcium 7.8 mg/dL (8.5-10.1) L 08/02/17 04:40 Corrected Calcium 9.2 mg/dL (8.5-10.1) 08/02/17 04:40 Magnesium 3.1 mg/dL (1.7-2.9) H 07/26/17 20:49 Total Bilirubin 0.30 mg/dL (0.2-1.0) 08/02/17 04:40 AST 11 Units/L (15-37) L 08/02/17 04:40 ALT 9 Units/L (12-78) L 08/02/17 04:40 Alkaline Phosphatase 59 Units/L (46-116) 08/02/17 04:40 Ammonia < 10 umol/L (11-32) L 07/26/17 20:49 Creatine Kinase 20 Units/L (39-308) L 07/26/17 20:49 CK-MB (CK-2) 1.2 ng/mL (0-4.0) 07/26/17 20:49 CK/CKMB % Calc 6.0 % (<4) 07/26/17 20:49 Troponin I < 0.02 ng/mL (0-1.5) 07/26/17 20:49 B-Natriuretic Peptide 387 pg/mL (0-79) H 07/26/17 20:49 Total Protein 6.1 g/dL (6.4-8.2) L 08/02/17 04:40 Albumin 2.2 g/dL (3.4-5.0) L 08/02/17 04:40 Globulin 3.9 g/dL (2.5-4.5) 08/02/17 04:40 Albumin/Globulin Ratio 0.6 Ratio (1.1-2.1) L 08/02/17 04:40 Cortisol 27.5 ug/dL 07/26/17 20:59 Specimen Type Clean catch urine 07/26/17 20:56 Urine Color Yellow (YELLOW) 07/26/17 20:56 Urine Appearance Cloudy (CLEAR) 07/26/17 20:56 Urine pH 6.0 (5.0 - 8.0) 07/26/17 20:56 Ur Specific [place] 1.010 (1.000-1.030) 07/26/17 20:56 Urine Protein 2+ (NEGATIVE) 07/26/17 20:56 Urine Glucose (UA) Negative (NEGATIVE) 07/26/17 20:56 Urine Ketones Negative (NEGATIVE) 07/26/17 20:56 Urine Occult Blood 5+ (NEGATIVE) 07/26/17 20:56 Urine Nitrite Positive (NEGATIVE) 07/26/17 20:56 Urine Bilirubin Negative (NEGATIVE) 07/26/17 20:56 Urine Urobilinogen Normal (NORMAL) 07/26/17 20:56 Ur Leukocyte Esterase 3+ (NEGATIVE) 07/26/17 20:56 Urine RBC 10-20 /HPF (NONE SEEN) 07/26/17 20:56 Urine WBC Tntc /HPF (NONE SEEN) 07/26/17 20:56 Ur Squamous Epith Cells Few /HPF (NEGATIVE) 07/26/17 20:56 Urine Bacteria 2+ /HPF (NEGATIVE) 07/26/17 20:56 Ur Culture Indicated? Yes/culture set up 07/26/17 20:56 Tobramycin Trough 5.6 ug/mL (0-2) H* 07/30/17 01:36 - Plan (1) Pseudomonas urinary tract infection Status: Acute Plan: MEROPENEM 1GM IV Q8H, D5NS AT 125ML/HR, CONTINUE TO MONITOR (2) Sepsis Status: Acute Qualifiers: Sepsis type: sepsis due to unspecified organism Qualified Code(s): A41.9 - Sepsis, unspecified organism Plan: MEROPENEM 1GM IV Q8H, D5NS AT 125ML/HR, CONTINUE TO MONITOR (3) Quadriplegia Status: Acute Plan: TURN Q2H, CONTINUE TO MONITOR (4) Mental status alteration Status: Acute Qualifiers: Altered mental status type: transient alteration of awareness Qualified Code(s): R40.4 - Transient alteration of awareness Plan: CONTINUE HALDOL, CONTINUE ATIVAN, CONTINUE TO MONITOR (5) Depression Status: Chronic Qualifiers: Depression Type: major depressive disorder Major depression recurrence: recurrent Active/Remission status: currently active Major depression episode severity: moderate Qualified Code(s): F33.1 - Major depressive disorder, recurrent, moderate Plan: CONTINUE CYMBALTA, CONTINUE TO MONITOR (6) GERD (gastroesophageal reflux disease) Status: Chronic Qualifiers: Esophagitis presence: esophagitis presence not specified Qualified Code(s) : K21.9 - Gastro-esophageal reflux disease without esophagitis Plan: CONTINUE PRILOSEC, CONTINUE TO MONITOR (7) History of neurogenic bowel Status: Chronic Plan: CONTINUE BACLOFEN, CONTINUE BISACODYL, CONTINUE CHRONULAC, CONTINUE TO MONITOR
[2017-08-02] MEDS: SNACK - Diabetic Appropriate PO SCH (21:15)
[2017-08-02] MEDS: RESTORIL CAP 30 MG PO SCH (21:50)
[2017-08-02] MEDS: CHRONULAC PO SCH (21:50)
[2017-08-03] MEDS: ROXICODONE TAB 15 MG PO PRN (02:38)
[2017-08-03] MEDS: D5 NS 1000 ML 1,000 ML IV SCH ×2 (04:14→06:35)
[2017-08-03 05:53] LABS: BASOPHILS # (AUTO) 0.1 X10^3/uL (0.0-0.1); EOSINOPHILS # (AUTO) 0.2 x10^3/uL (0.0-0.2); HEMATOCRIT 24.6 % (42.0-54.0); HEMOGLOBIN 8.5 g/dL (13.5-18.0); LYMPHOCYTES % (AUTO) 33.1 % (21.0-51.0); MEAN CORPUSCULAR HEMOGLOBIN 29.5 pg (27.0-34.0); MEAN CORPUSCULAR HGB CONC 34.5 g/dL (33.0-35.0); MEAN CORPUSCULAR VOLUME 85.7 fL (80.0-100.0); MEAN PLATELET VOLUME 8.4 fL (7.4-11.0); MONOCYTES # (AUTO) 0.7 x10^3/uL (0.3-0.8); MONOCYTES % (AUTO) 11.1 % (0.0-13.0); NEUTROPHILS # (AUTO) 3.1 x10^3/uL (2.2-4.8); NEUTROPHILS % (AUTO) 51.8 % (42.0-75.0); PLATELET COUNT 202 X10^3/uL (150.0-450.0); RED BLOOD COUNT 2.87 X10^6/uL (4.7-6.0); RED CELL DISTRIBUTION WIDTH 15.9 % (11.6-16.5)
[2017-08-03 06:23] LABS: ALANINE AMINOTRANSFERASE 10 Units/L (12-78); ALBUMIN 2.2 g/dL (3.4-5.0); ALKALINE PHOSPHATASE 53 Units/L (46-116); ASPARTATE AMINO TRANSFERASE 10 Units/L (15-37); BLOOD UREA NITROGEN 11 mg/dL (7-18); CALCIUM 7.8 mg/dL (8.5-10.1); CARBON DIOXIDE 26.9 mmol/L (21-32); CHLORIDE 113 mmol/L (98-107); COR CA(FOR HYPOALB) 9.2 mg/dL (8.5-10.1); COR NA(FOR HYPERGLY) 149 mmol/L (136-145); CREATININE 0.97 mg/dL (0.70-1.30); SODIUM 149 mmol/L (136-145); TOTAL PROTEIN 5.8 g/dL (6.4-8.2); eGFR BLACK RACES > 60 (>60); eGFR NON BLACK RACES > 60 (>60)
[2017-08-03] MEDS: MERREM VIAL 1,000 MG in NS 100 ML IV 100 ML IV SCH ×2 (06:35→15:35)
[2017-08-03] MEDS ORDERED: K-RIDER 10 MEQ/NS 100 ML 10 MEQ/100 ML BAG IV PRN (07:04)
[2017-08-03] MEDS ORDERED: K-LYTE EFFERVESCENT PO PRN (07:04)
[2017-08-03] MEDS ORDERED: POTASSIUM CHL 40 MEQ/NS 0.45% 500 ML IV PRN (07:04)
[2017-08-03] MEDS ORDERED: MAGNESIUM SULFATE 1 GM/100 mL PREMIX 1 GM/100 ML BAG IV PRN (07:04)
[2017-08-03] MEDS ORDERED: POTASSIUM CHL 60 MEQ/NS 0.45% 500 ML IV PRN (07:04)
[2017-08-03] MEDS ORDERED: MAG-OX TAB PO PRN (07:04)
[2017-08-03] MEDS ORDERED: POTASSIUM CHLORIDE LIQ 20 MEQ UDC PO PRN (07:04)
[2017-08-03] MEDS: LYRICA CAP 100 MG PO SCH (09:38)
[2017-08-03] MEDS: ZANAFLEX PO SCH (09:39)
[2017-08-03] MEDS: PriLOSEC PO SCH (09:39)
[2017-08-03] MEDS: KLONOPIN TAB 1 MG PO SCH (09:39)
[2017-08-03] MEDS: CYMBALTA PO SCH (09:40)
[2017-08-03] MEDS: FLONASE NASAL SPRAY ENOSTRIL SCH (09:43)
[2017-08-03] MEDS: CHECK PATCH XX SCH (09:44)
[2017-08-03 15:32] VITALS: BP 164/94
== END 2017-08-03 14:55 | disposition hospice, home (50) | DRG 689 ==
LOC: ER 20:17 → MED/SURG 21:53
PROVIDERS: ADMIT Internal Medicine; ATTEND Internal Medicine
DX: N39.0 Urinary tract infection, site not specified (principal); A41.52 Sepsis due to Pseudomonas; G82.50 Quadriplegia, unspecified; F33.1 Major depressive disorder, recurrent, moderate; K59.2 Neurogenic bowel, not elsewhere classified; Z51.5 Encounter for palliative care; R94.31 Abnormal electrocardiogram [ECG] [EKG]; R31.9 Hematuria, unspecified; K59.00 Constipation, unspecified; K21.9 Gastro-esophageal reflux disease without esophagitis; G89.29 Other chronic pain
CPT/HCPCS: 36415; 71045; 80053; 80200; 81001; 82140; 82533; 82550; 82553; 82565; 83605; 83735; 83880; 84484; 85025; 85610; 85730; 87040; 87086; 87088; 87186; 93005; 93010; 94760; 96365; 96367; 96374; 99284; A4216; A4222; S0181; J1956; J2185; J3260; J7620

== ENCOUNTER 2017-12-25 19:00 | Inpatient (IN) ==
--- NOTE | 2017-12-25 19:46 | DR.UPM ---
HPI Time Seen Time seen: 19:38 PCP Primary Care Physician: MICKEY LORA Complaint Chief Complaint Doctors Comments: Home health nurse noted on today's visit that he has a rapid HR and hematuria. Pt states he has noted blood in Condom Catheter since last Saturday. Lower abdominal pain for few days. He has no fever, or N/V. He was placed on Bactrim for presumed UTI and that abx. was changed to Macrobid today. Chief Complaint:: PTS HOME HEALTH NURSE WENT OUT TO SEE PT AND PT IS NOTED TO BE HAVING A UTI, GROSS HEMATURIA, AND HR > 150'S , NO TEMP, AND PT WAS JUST PLACED ON MACROBID ,,,BR Self Treatment fo Chief Complaint: MACROBID STARTED TODAY Source History Provided: Patient, EMS and Other Mode of Arrival Mode of Arrival: EMS Timing Onset of Chief Complaint: 12/25/17 PMH PMH Past Medical History: Yes Past Medical History: Anxiety, Depression and Sleep Apnea Past Surgical History: Yes Surgical History: Tonsillectomy Family History History of Family Medical Conditions: No Social History Does patient currently use any type of tobacco product: No Have you used tobacco products in the last 12 months: No Type of Tobacco Use: None Does any household member use tobacco: No Alcohol Use: None Do you use any recreational Drugs:: No Lives With: Family Lives Where: Home infectious screening In the last 2 months have you had wt loss of >10#?: NO Have you had fever, night sweats or hemotysis?: No Have you traveled outside the country in the last 6 months?: No Isolation: Standard ROS Review of Systems Constitutional: No Symptoms Reported Eyes: No Symptoms Reported ENTM: No Symptoms Reported Respiratoy: No Symptoms Reported Cardiovascular: No Symptoms Reported Gastrointestinal/Abdominal: Abdominal Pain (suprapubic tenderness); negative No Symptoms Reported, See HPI, Constipation, Diarrhea, Nausea, Vomiting and Food Intolerance Genitourinary: Other (Hematuria) Neurological: No Symptoms Reported Musculoskeletal: No Symptoms Reported (Quadraplegia) Integumentary: No Symptoms Reported Hematologic/Lymphatic: No Symptoms Reported Endocrine: No Symptoms Reported Psychiatric: No Symptoms Reported All Other Systems: Reviewed and Negative PE Vital Signs Vitals: Temperature 98.2 F Pulse Rate [Right] 98 Pulse Rate 130 Respiratory Rate 16 Blood Pressure [Right Arm] 133/73 Blood Pressure [Left Arm] 161/84 Blood Pressure 107/51 O2 Sat by Pulse Oximetry 100 General Limitations: Physical Limitation (Quadraplegia) General Appearance: Alert, In No Apparent Distress and Cachectic Head Head Exam: Normal Inspection Eyes Eye exam: Normal Appearance, PERRL and EOMI ENT ENT Exam: Normal Exam and Normal Oropharynx Neck Neck Exam: Normal Inspection and Trachea Midline Chest Chest Inspection: Symmetric Chest Wall Rise and Other (cachectic) Respiratory Respiratory Exam: Normal Lung Sounds Bilat Cardiovascular Cardiovascular Exam: Tachycardia Abdominal Exam Abdominal Exam: Normal Inspection, Normal Bowel Sounds and Soft Abdominal Tenderness: Suprapubic Rectal Rectal Exam: Deferred Extremities Extremities Exam: Other (flaccid) Neurologic Neurological Exam: Alert and Oriented X3 Psychiatric Psychiatric Exam: Normal Affect and Normal Mood Skin Skin Exam: Warm ROR Labs Reviewed Result Diagrams: 12/25/17 20:20 12/25/17 20:20 Laboratory: WBC 11.9 X10^3/uL (3.6-10.0) H 12/25/17 20:20 RBC 3.26 X10^6/uL (4.7-6.0) L 12/25/17 20:20 Hgb 9.6 g/dL (13.5-18.0) L 12/25/17 20:20 Hct 29.7 % (42.0-54.0) L 12/25/17 20:20 MCV 91.2 fL (80.0-100.0) 12/25/17 20:20 MCH 29.5 pg (27.0-34.0) 12/25/17 20:20 MCHC 32.3 g/dL (33.0-35.0) L 12/25/17 20:20 RDW 15.9 % (11.6-16.5) 12/25/17 20:20 Plt Count 247 X10^3/uL (150.0-450.0) 12/25/17 20:20 MPV 8.9 fL (7.4-11.0) 12/25/17 20:20 Neut % (Auto) 69.5 % (42.0-75.0) 12/25/17 20:20 Lymph % (Auto) 12.3 % (21.0-51.0) L 12/25/17 20:20 [place] % (Auto) 17.0 % (0.0-13.0) H 12/25/17 20:20 Eos % (Auto) 0.6 % (0.9-2.9) L 12/25/17 20:20 Baso % (Auto) 0.6 % (0.2-1.0) 12/25/17 20:20 Neut # (Auto) 8.3 x10^3/uL (2.2-4.8) H 12/25/17 20:20 Lymph # (Auto) 1.5 X10^3/uL (1.3-2.9) 12/25/17 20:20 [place] # (Auto) 2.0 x10^3/uL (0.3-0.8) H 12/25/17 20:20 Eos # (Auto) 0.1 x10^3/uL (0.0-0.2) 12/25/17 20:20 Baso # (Auto) 0.1 X10^3/uL (0.0-0.1) 12/25/17 20:20 Absolute Nucleated RBC 0.0 /100WBC 12/25/17 20:20 Sodium 134 mmol/L (136-145) L 12/25/17 20:20 Corrected Sodium TNP 12/25/17 20:20 Potassium 4.8 mmol/L (3.5-5.1) 12/25/17 20:20 Chloride 101 mmol/L (98-107) 12/25/17 20:20 Carbon Dioxide 26.3 mmol/L (21-32) 12/25/17 20:20 BUN 28 mg/dL (7-18) H 12/25/17 20:20 Creatinine 1.17 mg/dL (0.70-1.30) 12/25/17 20:20 Est GFR (MDRD) Af Amer > 60 (>60) 12/25/17 20:20 Est GFR (MDRD) Non-Af > 60 (>60) 12/25/17 20:20 Glucose 102 mg/dL (65-99) H 12/25/17 20:20 Lactic Acid 1.6 mmol/L (0.4-2.0) 12/25/17 23:20 Calcium 8.9 mg/dL (8.5-10.1) 12/25/17 20:20 Corrected Calcium TNP 12/25/17 20:20 Total Bilirubin 0.60 mg/dL (0.2-1.0) 12/25/17 20:20 AST 16 Units/L (15-37) 12/25/17 20:20 ALT 16 Units/L (12-78) 12/25/17 20:20 Alkaline Phosphatase 57 Units/L (46-116) 12/25/17 20:20 Total Protein 7.6 g/dL (6.4-8.2) 12/25/17 20:20 Albumin 3.4 g/dL (3.4-5.0) 12/25/17 20:20 Globulin 4.2 g/dL (2.5-4.5) 12/25/17 20:20 Albumin/Globulin Ratio 0.8 Ratio (1.1-2.1) L 12/25/17 20:20 Specimen Type Catherized urine 12/25/17 20:44 Urine Color Bloody (YELLOW) 12/25/17 20:44 Urine Appearance Hazy (CLEAR) 12/25/17 20:44 Urine pH 8.0 (5.0 - 8.0) 12/25/17 20:44 Ur Specific [place] 1.015 (1.000-1.030) 12/25/17 20:44 Urine Protein 4+ (NEGATIVE) 12/25/17 20:44 Urine Glucose (UA) Negative (NEGATIVE) 12/25/17 20:44 Urine Ketones Negative (NEGATIVE) 12/25/17 20:44 Urine Occult Blood 5+ (NEGATIVE) 12/25/17 20:44 Urine Nitrite Negative (NEGATIVE) 12/25/17 20:44 Urine Bilirubin Negative (NEGATIVE) 12/25/17 20:44 Urine Urobilinogen Normal (NORMAL) 12/25/17 20:44 Ur Leukocyte Esterase Negative (NEGATIVE) 12/25/17 20:44 Urine RBC Tntc /HPF (NONE SEEN) 12/25/17 20:44 Urine WBC 5-10 /HPF (NONE SEEN) 12/25/17 20:44 Ur Squamous Epith Cells Negative /HPF (NEGATIVE) 12/25/17 20:44 Amorphous Sediment 2+ /HPF (NEGATIVE) 12/25/17 20:44 Urine Bacteria 2+ /HPF (NEGATIVE) 12/25/17 20:44 Ur Culture Indicated? Yes/culture set up 12/25/17 20:44
[2017-12-25] MEDS ORDERED: XYLOCAINE VISCOUS ONE (19:57)
[2017-12-25 20:38] LABS: BASOPHILS # (AUTO) 0.1 X10^3/uL (0.0-0.1); BASOPHILS % (AUTO) 0.6 % (0.2-1.0); EOSINOPHILS # (AUTO) 0.1 x10^3/uL (0.0-0.2); EOSINOPHILS % (AUTO) 0.6 % (0.9-2.9); HEMATOCRIT 29.7 % (42.0-54.0); HEMOGLOBIN 9.6 g/dL (13.5-18.0); LYMPHOCYTES # (AUTO) 1.5 X10^3/uL (1.3-2.9); LYMPHOCYTES % (AUTO) 12.3 % (21.0-51.0); MEAN CORPUSCULAR HEMOGLOBIN 29.5 pg (27.0-34.0); MEAN CORPUSCULAR HGB CONC 32.3 g/dL (33.0-35.0); MEAN CORPUSCULAR VOLUME 91.2 fL (80.0-100.0); MEAN PLATELET VOLUME 8.9 fL (7.4-11.0); NEUTROPHILS # (AUTO) 8.3 x10^3/uL (2.2-4.8); NEUTROPHILS % (AUTO) 69.5 % (42.0-75.0); PLATELET COUNT 247 X10^3/uL (150.0-450.0); RED BLOOD COUNT 3.26 X10^6/uL (4.7-6.0); RED CELL DISTRIBUTION WIDTH 15.9 % (11.6-16.5); WHITE BLOOD COUNT 11.9 X10^3/uL (3.6-10.0)
[2017-12-25 20:50] LABS: ALANINE AMINOTRANSFERASE 16 Units/L (12-78); ALBUMIN 3.4 g/dL (3.4-5.0); ALKALINE PHOSPHATASE 57 Units/L (46-116); ASPARTATE AMINO TRANSFERASE 16 Units/L (15-37); BLOOD UREA NITROGEN 28 mg/dL (7-18); CALCIUM 8.9 mg/dL (8.5-10.1); CARBON DIOXIDE 26.3 mmol/L (21-32); CHLORIDE 101 mmol/L (98-107); CREATININE 1.17 mg/dL (0.70-1.30); SODIUM 134 mmol/L (136-145); TOTAL PROTEIN 7.6 g/dL (6.4-8.2); eGFR NON BLACK RACES > 60 (>60)
[2017-12-25 20:53] LABS: BILIRUBIN,URINE NEGATIVE (NEGATIVE); BLOOD/HEMOGLOBIN,URINE 5+ (NEGATIVE); GLUCOSE, URINE NEGATIVE (NEGATIVE); KETONES,URINE NEGATIVE (NEGATIVE); LEUKOCYTE ESTERASE ,URINE NEGATIVE (NEGATIVE); NITRITES,URINE NEGATIVE (NEGATIVE); PROTEIN,URINE 4+ (NEGATIVE); UROBILINOGEN,URINE NORMAL (NORMAL)
[2017-12-25 21:06] LABS: APPEARANCE,URINE HAZY (CLEAR); COLOR,URINE BLOODY (YELLOW)
[2017-12-25] MEDS ORDERED: NS 1000 ML 1,000 ML ONE (21:06)
[2017-12-25 21:07] LABS: BACTERIA,URINE 2+ /HPF (NEGATIVE); RBC,URINE TNTC /HPF (NONE SEEN); SQUAMOUS EPITHELIAL CELL,UR NEGATIVE /HPF (NEGATIVE)
[2017-12-25 21:08] LABS: AMORPHOUS SEDIMENT,UR 2+ /HPF (NEGATIVE)
[2017-12-25] MEDS ORDERED: NS 1000 ML 1,000 ML IV ONE (21:12)
[2017-12-25] MEDS ORDERED: NORCO 7.5/325 MG TAB PO ONE (22:54)
[2017-12-25] MEDS ORDERED: LEVAQUIN PREMIX IV 500 MG 500 MG/100 ML BAG IV ONE ×2 (22:54→23:17)
[2017-12-25] MEDS ORDERED: NORCO 7.5/325 MG TAB ONE (23:17)
--- NOTE | 2017-12-26 00:02 | RAD ---
Chest, one view Indication: Tachycardia Comparison: 07/26/2017 Findings: Cardiac silhouette size is stable. The lungs are grossly clear without focal infiltrates or significant pleural effusion. Impression: No acute chest process. Reported By:
[2017-12-26] MEDS ORDERED: NORCO 5/325 MG TAB PO PRN ×2 (00:45→01:13)
[2017-12-26] MEDS ORDERED: TYLENOL 325 MG TAB PO PRN (00:45)
[2017-12-26] MEDS ORDERED: ZOFRAN INJ 4 MG VIAL IVP SCH ×2 (01:00→07:00)
[2017-12-26] MEDS ORDERED: NS 1000 ML 1,000 ML IV SCH ×2 (01:00→09:00)
[2017-12-26] MEDS ORDERED: HALOPERIDOL PO PRN (01:27)
[2017-12-26] MEDS ORDERED: NORCO 7.5/325 MG TAB PO PRN (01:38)
[2017-12-26] MEDS ORDERED: MILK OF MAGNESIA PO PRN (01:38)
[2017-12-26] MEDS ORDERED: ZOFRAN INJ 4 MG VIAL IVP PRN (01:43)
[2017-12-26] MEDS: NS 1000 ML 1,000 ML IV SCH ×5 (02:02→18:21)
[2017-12-26 02:11] VITALS: BMI 23.3
[2017-12-26] MEDS: NORCO 7.5/325 MG TAB PO PRN (03:04)
[2017-12-26] MEDS ORDERED: HALDOL PO PRN (05:41)
[2017-12-26] MEDS: ROXICODONE TAB 15 MG PO PRN ×2 (05:45→17:37)
[2017-12-26] MEDS: KLONOPIN TAB 1 MG PO SCH ×3 (05:46→21:46)
[2017-12-26] MEDS: LYRICA CAP 100 MG PO SCH ×3 (05:46→21:46)
[2017-12-26 06:11] LABS: BASOPHILS % (AUTO) 0.4 % (0.2-1.0); EOSINOPHILS % (AUTO) 0.1 % (0.9-2.9); HEMATOCRIT 24.6 % (42.0-54.0); HEMOGLOBIN 8.2 g/dL (13.5-18.0); LYMPHOCYTES # (AUTO) 0.9 X10^3/uL (1.3-2.9); LYMPHOCYTES % (AUTO) 10.2 % (21.0-51.0); MEAN CORPUSCULAR HEMOGLOBIN 30.2 pg (27.0-34.0); MEAN CORPUSCULAR HGB CONC 33.2 g/dL (33.0-35.0); MEAN CORPUSCULAR VOLUME 90.9 fL (80.0-100.0); MEAN PLATELET VOLUME 8.8 fL (7.4-11.0); MONOCYTES # (AUTO) 1.2 x10^3/uL (0.3-0.8); MONOCYTES % (AUTO) 13.9 % (0.0-13.0); NEUTROPHILS # (AUTO) 6.5 x10^3/uL (2.2-4.8); NEUTROPHILS % (AUTO) 75.4 % (42.0-75.0); PLATELET COUNT 188 X10^3/uL (150.0-450.0); WHITE BLOOD COUNT 8.7 X10^3/uL (3.6-10.0)
[2017-12-26 06:39] LABS: ALANINE AMINOTRANSFERASE 14 Units/L (12-78); ALBUMIN 2.9 g/dL (3.4-5.0); ALKALINE PHOSPHATASE 48 Units/L (46-116); ASPARTATE AMINO TRANSFERASE 16 Units/L (15-37); BLOOD UREA NITROGEN 29 mg/dL (7-18); CALCIUM 8.5 mg/dL (8.5-10.1); CHLORIDE 104 mmol/L (98-107); COR CA(FOR HYPOALB) 9.4 mg/dL (8.5-10.1); CREATININE 1.19 mg/dL (0.70-1.30); SODIUM 137 mmol/L (136-145); TOTAL PROTEIN 6.6 g/dL (6.4-8.2); eGFR NON BLACK RACES > 60 (>60)
[2017-12-26] MEDS: LEVAQUIN PREMIX IV 500 MG 500 MG/100 ML BAG IV SCH (08:34)
[2017-12-26] MEDS: LIORESAL PO SCH ×4 (08:35→21:45)
[2017-12-26] MEDS: PriLOSEC PO SCH (08:35)
[2017-12-26] MEDS ORDERED: LEVAQUIN PREMIX IV 500 MG 500 MG/100 ML BAG IV SCH ×2 (09:00)
[2017-12-26] MEDS: CYMBALTA PO SCH ×2 (09:40→21:45)
[2017-12-26] MEDS: TYLENOL 325 MG TAB PO PRN (09:40)
[2017-12-26] MEDS ORDERED: DILAUDID INJ IVP PRN (09:51)
[2017-12-26] MEDS ORDERED: STERILE WATER IRRIGATION IR ONE (17:27)
[2017-12-26] MEDS ORDERED: PATIENT'S HOME MEDICATION (Sennosides-Docusate Sodium [Senna-S] 2 TAB) PO SCH (21:00)
[2017-12-26] MEDS ORDERED: COLACE CAP 100 MG PO SCH (21:00)
[2017-12-26] MEDS ORDERED: LACTULOSE PO SCH (21:00)
[2017-12-26] MEDS: CHRONULAC PO SCH (21:45)
[2017-12-27] MEDS: NS 1000 ML 1,000 ML IV SCH ×3 (01:03→17:05)
[2017-12-27] MEDS: KLONOPIN TAB 1 MG PO SCH ×3 (05:13→21:00)
[2017-12-27] MEDS: LYRICA CAP 100 MG PO SCH (05:13)
[2017-12-27 05:27] LABS: BASOPHILS % (AUTO) 0.5 % (0.2-1.0); EOSINOPHILS # (AUTO) 0.2 x10^3/uL (0.0-0.2); EOSINOPHILS % (AUTO) 4.4 % (0.9-2.9); LYMPHOCYTES % (AUTO) 21.2 % (21.0-51.0); MEAN CORPUSCULAR HEMOGLOBIN 30.3 pg (27.0-34.0); MEAN CORPUSCULAR HGB CONC 32.9 g/dL (33.0-35.0); MEAN CORPUSCULAR VOLUME 92.2 fL (80.0-100.0); MEAN PLATELET VOLUME 8.5 fL (7.4-11.0); MONOCYTES # (AUTO) 0.8 x10^3/uL (0.3-0.8); MONOCYTES % (AUTO) 15.8 % (0.0-13.0); NEUTROPHILS # (AUTO) 2.8 x10^3/uL (2.2-4.8); NEUTROPHILS % (AUTO) 58.1 % (42.0-75.0); PLATELET COUNT 135 X10^3/uL (150.0-450.0); RED BLOOD COUNT 2.12 X10^6/uL (4.7-6.0); RED CELL DISTRIBUTION WIDTH 16.3 % (11.6-16.5); WHITE BLOOD COUNT 4.9 X10^3/uL (3.6-10.0)
[2017-12-27 05:50] LABS: ALANINE AMINOTRANSFERASE 13 Units/L (12-78); ALBUMIN 2.2 g/dL (3.4-5.0); ALKALINE PHOSPHATASE 38 Units/L (46-116); ASPARTATE AMINO TRANSFERASE 12 Units/L (15-37); BLOOD UREA NITROGEN 24 mg/dL (7-18); CALCIUM 8.1 mg/dL (8.5-10.1); CARBON DIOXIDE 24.9 mmol/L (21-32); CHLORIDE 110 mmol/L (98-107); COR CA(FOR HYPOALB) 9.5 mg/dL (8.5-10.1); SODIUM 141 mmol/L (136-145); TOTAL PROTEIN 5.7 g/dL (6.4-8.2); eGFR NON BLACK RACES > 60 (>60)
[2017-12-27 06:04] LABS: HEMATOCRIT 19.6 % (42.0-54.0); HEMOGLOBIN 6.4 g/dL (13.5-18.0)
--- NOTE | 2017-12-27 08:32 | DR.H&P ---
H&P - History & Physical for Day of: H&P Date: 12/26/17 - Chief Complaint Chief Complaint: UTI, TACHYCARDIA - History of Present Illness History of Present Illness: WAS ADMITTED FOR COMMUNITY ACQUIRED PNEUMONIA, REFRACTORY TO OUTPATIENT TREATMENT. TODAY, SHE IS ALERT AND ORIENTED , SITTING UP IN BED ON MORNING ROUNDS. SHE CONTINUES WITH COMPLAINTS OF SHORTNESS OF BREATH AND A PRODUCTIVE COUGH. ON EXAMINATION, HEART IS REGULAR IN RATE AND RHYTHM. BILATERAL LUNGS ARE NOTED WITH COURSE, BIBASILAR WHEEZING TO AUSCULTATION. ABDOMEN IS ROUND, SOFT, AND NON-TENDER WITH NORMAL BOWEL SOUNDS NTOED IN ALL QUADRANTS. HER VITLAS THIS MORNING ARE 97.8-63-20-96%-167/73. LABS WERE OBTAINED. ABNORMAL LAB VALUES INCLUDE THE FOLLOWING: HGB 11.2, HCT 33.3, BUN 23, CREATININE 1.44, GLUCOSE 100, AST 13, ALBUMIN 3.0. SPUTUM AND BLOOD CULTURES ARE PENDING. TODAYS CHEST XRAY IS STABLE. SHE IS CURRENTLY RECEIVING IV ANTIBIOTICS AND RESPIRATORY TREATMENTS. TODAY, WE WILL START SOLU-MEDROL 40MG IV Q8H AND ADD PULMICORT TO NEB TX BID. OTHERWISE, WE WILL FOLLOW UP WITH AM LABS AND CONTINUE TO MONITOR PATIENT. - Past Medical History Past Medical History: Depression, Anxiety, Sleep Apnea Additional Medical History: QUADRAPLEGIC, NEUROGENIC BOWEL, MUSCLE SPASMS, CONSTIPATION - Past Surgical History Surgical History: Ortho Surgery, Tonsillectomy Additional Surgical History: FUSION OF 3RD, 4TH, AND 5TH CERVICAL BERTEBRAE, ORBITAL FX, REPAIRED WITH PLATE - Social History Does patient currently use any type of tobacco product: No Have you used tobacco products in the last 12 months: No Type of Tobacco Use: None Does any household member use tobacco: No Alcohol Use: None Drug Use: None - Medications Home Medications: meperidine [From Demerol] Adverse Reaction (Verified 07/26/17 20:47) CONTINUE taking the following medications RX: acetaminophen 1 supp [place] Q6H PRN 12/25/17 [History] RX: baclofen 1 tab PO QID 12/25/17 [History] RX: clonazepam 1 tab PO TID 12/25/17 [History] RX: clonidine 1 patch TOPICAL WEEKLY 12/25/17 [History] RX: haloperidol 0.5 - 1 mg PO Q4H PRN 12/25/17 [History] RX: hyoscyamine sulfate 1 - 2 ml SUBLINGUAL Q4H PRN 12/25/17 [History] RX: lactulose 2 tbsp PO HS 12/25/17 [History] RX: lorazepam 0.5 - 1 mg PO Q2H PRN 12/25/17 [History] RX: naproxen 1 tab PO BID 12/25/17 [History] RX: omeprazole 1 tab PO DAILY 12/25/17 [History] RX: oxycodone 1 tab PO QID 12/25/17 [History] RX: promethazine 1 supp PRN PRN 12/25/17 [History] duloxetine [Cymbalta] 1 tab PO QID 12/25/17 [History] pregabalin [Lyrica] 100 mg PO TID 12/25/17 [History] sennosides-docusate sodium [Senna-S] 2 tab PO HS 12/25/17 [History] RX: tizanidine 1 tab PO BID 12/26/17 [History] bisacodyl [Dulcolax (bisacodyl)] 1 supp [place] WEEKLY 12/26/17 [History] ondansetron HCl [Zofran] 1 tab PO TID PRN 12/26/17 [History] - Review of Systems Constitutional: Weakness Eyes: No Symptoms Reported ENT: No Symptoms Reported Respiratory: Shortness of Breath Cardiovascular: Other (TACHYCARDIA ) Gastrointestinal: Abdominal Pain Genitourinary: No Symptoms Reported Musculoskeletal: Other (QUADRAPLEGIA) Skin: No Symptoms Reported Neurological: Weakness - Physical Exam Vital Signs: Temperature 96.1 F Pulse Rate [Right] 97 Pulse Rate 130 Respiratory Rate 10 Blood Pressure [Right Arm] 84/53 Blood Pressure [Left Arm] 161/84 Blood Pressure 107/51 O2 Sat by Pulse Oximetry 99 Oriented: Normal Eyes: Normal Ear: Normal Nose: Normal Throat: Normal Respiratory: Diminished Throughout Cardiovascular: Tachycardia. negative: S3, S4, Murmur : Normal Auscultation: Bowel Sounds: Normal Palpation: Normal Tenderness: Suprapubic. negative: Rebound, Guarding, Rigidity Skin: Normal Musculoskeletal: Motor Deficit, Sensory Deficit Psychiatric: Normal Mood Description: Calm Affect: Normal Speech Pattern: Clear - Assessment/Plan (1) Urinary tract infection Qualifiers: Urinary tract infection type: acute cystitis Hematuria presence: with hematuria Qualified Code(s): N30.01 - Acute cystitis with hematuria Status: Acute Plan: NORMAL SALINE AT 125ML/HR, LEVAQUIN 500MG IV DAILY, CONTINUE TO MONITOR (2) Dehydration Status: Acute Plan: NORMAL SALINE AT 125ML/HR - Allergies Allergies/Adverse Reactions: Allergies Allergy/AdvReac Type Severity Reaction Status Date / Time meperidine [From Demerol] AdvReac Verified 07/26/17 20:47
[2017-12-27] MEDS ORDERED: DULCOLAX SUPPOSITORY 10 MG PR SCH (09:00)
[2017-12-27] MEDS: LEVAQUIN PREMIX IV 500 MG 500 MG/100 ML BAG IV SCH (09:20)
[2017-12-27] MEDS: PriLOSEC PO SCH (09:21)
[2017-12-27] MEDS: CYMBALTA PO SCH ×2 (09:21→20:16)
[2017-12-27] MEDS: LIORESAL PO SCH ×4 (09:21→20:13)
[2017-12-27] MEDS ORDERED: NARCAN INJ IVP ONE (10:15)
[2017-12-27] MEDS: NORCO 7.5/325 MG TAB PO PRN (13:00)
[2017-12-27] MEDS ORDERED: BENADRYL INJ 50 MG VIAL IV ONE (16:46)
[2017-12-27] MEDS ORDERED: NS 500 ML IV 500 ML IV ONE ×2 (16:55→21:42)
[2017-12-27] MEDS: TYLENOL 325 MG TAB PO PRN (17:06)
[2017-12-27] MEDS: ROXICODONE TAB 15 MG PO PRN (20:12)
[2017-12-27] MEDS: CHRONULAC PO SCH (20:13)
[2017-12-27] MEDS ORDERED: LASIX ONE (20:31)
[2017-12-27] MEDS: SENOKOT PO SCH (20:34)
[2017-12-27] MEDS: COLACE CAP 100 MG PO SCH (20:34)
[2017-12-27] MEDS ORDERED: LASIX IVP ONE (23:00)
[2017-12-28] MEDS: NS 1000 ML 1,000 ML IV SCH ×5 (03:00→20:51)
[2017-12-28] MEDS: KLONOPIN TAB 1 MG PO SCH ×3 (05:36→21:03)
[2017-12-28 06:16] LABS: BASOPHILS # (AUTO) 0.1 X10^3/uL (0.0-0.1); BASOPHILS % (AUTO) 0.7 % (0.2-1.0); EOSINOPHILS # (AUTO) 0.2 x10^3/uL (0.0-0.2); EOSINOPHILS % (AUTO) 3.1 % (0.9-2.9); HEMATOCRIT 32.4 % (42.0-54.0); HEMOGLOBIN 10.8 g/dL (13.5-18.0); LYMPHOCYTES # (AUTO) 1.7 X10^3/uL (1.3-2.9); LYMPHOCYTES % (AUTO) 23.6 % (21.0-51.0); MEAN CORPUSCULAR HEMOGLOBIN 30.7 pg (27.0-34.0); MEAN CORPUSCULAR HGB CONC 33.4 g/dL (33.0-35.0); MEAN CORPUSCULAR VOLUME 91.9 fL (80.0-100.0); MEAN PLATELET VOLUME 8.7 fL (7.4-11.0); MONOCYTES # (AUTO) 1.2 x10^3/uL (0.3-0.8); MONOCYTES % (AUTO) 16.4 % (0.0-13.0); NEUTROPHILS # (AUTO) 4.1 x10^3/uL (2.2-4.8); NEUTROPHILS % (AUTO) 56.2 % (42.0-75.0); PLATELET COUNT 157 X10^3/uL (150.0-450.0); RED BLOOD COUNT 3.53 X10^6/uL (4.7-6.0); RED CELL DISTRIBUTION WIDTH 15.2 % (11.6-16.5); WHITE BLOOD COUNT 7.3 X10^3/uL (3.6-10.0)
[2017-12-28 06:31] LABS: ALANINE AMINOTRANSFERASE 15 Units/L (12-78); ALBUMIN 2.4 g/dL (3.4-5.0); ALKALINE PHOSPHATASE 57 Units/L (46-116); ASPARTATE AMINO TRANSFERASE 15 Units/L (15-37); BLOOD UREA NITROGEN 25 mg/dL (7-18); CALCIUM 8.1 mg/dL (8.5-10.1); CARBON DIOXIDE 24.9 mmol/L (21-32); CHLORIDE 111 mmol/L (98-107); COR CA(FOR HYPOALB) 9.4 mg/dL (8.5-10.1); CREATININE 1.12 mg/dL (0.70-1.30); SODIUM 142 mmol/L (136-145); TOTAL PROTEIN 6.5 g/dL (6.4-8.2); eGFR NON BLACK RACES > 60 (>60)
[2017-12-28] MEDS: LEVAQUIN PREMIX IV 500 MG 500 MG/100 ML BAG IV SCH (09:09)
[2017-12-28] MEDS: PriLOSEC PO SCH (09:09)
[2017-12-28] MEDS: LIORESAL PO SCH ×4 (09:09→20:50)
[2017-12-28] MEDS: CYMBALTA PO SCH ×2 (09:11→20:50)
[2017-12-28] MEDS: NORCO 7.5/325 MG TAB PO PRN ×2 (09:38→22:11)
[2017-12-28] MEDS: ROXICODONE TAB 15 MG PO PRN ×2 (12:50→23:15)
[2017-12-28] MEDS ORDERED: CATAPRES-TTS-3 TD ONE (13:00)
[2017-12-28] MEDS ORDERED: CATAPRES-TTS-3 TD SCH (14:00)
[2017-12-28] MEDS ORDERED: APRESOLINE INJ 20 MG VIAL IVP PRN (17:46)
[2017-12-28] MEDS: COLACE CAP 100 MG PO SCH (20:50)
[2017-12-28] MEDS: SENOKOT PO SCH (20:50)
[2017-12-28] MEDS: CHRONULAC PO SCH (20:50)
[2017-12-29] MEDS: NS 1000 ML 1,000 ML IV SCH ×4 (02:52→18:16)
--- NOTE | 2017-12-29 04:15 | DR.UPM ---
HPI Time Seen Time seen: 19:25 PCP Primary Care Physician: MICKEY LORA Complaint Chief Complaint:: PTS HOME HEALTH NURSE WENT OUT TO SEE PT AND PT IS NOTED TO BE HAVING A UTI, GROSS HEMATURIA, AND HR > 150'S , NO TEMP, AND PT WAS JUST PLACED ON MACROBID ,,,BR Self Treatment fo Chief Complaint: MACROBID STARTED TODAY Source History Provided: Patient, EMS and Other Mode of Arrival Mode of Arrival: EMS Timing Onset of Chief Complaint: 12/25/17 PMH PMH Past Medical History: Yes Past Medical History: Anxiety, Depression and Sleep Apnea Past Surgical History: Yes Surgical History: Tonsillectomy Family History History of Family Medical Conditions: No Social History Does patient currently use any type of tobacco product: No Have you used tobacco products in the last 12 months: No Type of Tobacco Use: None Does any household member use tobacco: No Alcohol Use: None Do you use any recreational Drugs:: No Lives With: Family Lives Where: Home infectious screening In the last 2 months have you had wt loss of >10#?: NO Have you had fever, night sweats or hemotysis?: No Have you traveled outside the country in the last 6 months?: No Isolation: Standard PE Vital Signs Vitals: Temperature 98.4 F Pulse Rate [Right Brachial] 104 Pulse Rate [Left Brachial] 97 Pulse Rate [Right] 89 Pulse Rate 130 Respiratory Rate 22 Blood Pressure [Right Arm] 113/69 Blood Pressure [Left Arm] 140/82 Blood Pressure 107/51 O2 Sat by Pulse Oximetry 92 ROR Labs Reviewed Result Diagrams: 12/28/17 05:57 12/28/17 05:57 Laboratory: 12/25/17 20:44 Urine,Catheterized Urine Culture - Preliminary 12/25/17 20:22 Blood Blood Culture - Preliminary 12/25/17 20:20 Blood Blood Culture - Preliminary WBC 7.3 X10^3/uL (3.6-10.0) 12/28/17 05:57 RBC 3.53 X10^6/uL (4.7-6.0) L 12/28/17 05:57 Hgb 10.8 g/dL (13.5-18.0) L D 12/28/17 05:57 Hct 32.4 % (42.0-54.0) L 12/28/17 05:57 MCV 91.9 fL (80.0-100.0) 12/28/17 05:57 MCH 30.7 pg (27.0-34.0) 12/28/17 05:57 MCHC 33.4 g/dL (33.0-35.0) 12/28/17 05:57 RDW 15.2 % (11.6-16.5) 12/28/17 05:57 Plt Count 157 X10^3/uL (150.0-450.0) 12/28/17 05:57 MPV 8.7 fL (7.4-11.0) 12/28/17 05:57 Neut % (Auto) 56.2 % (42.0-75.0) 12/28/17 05:57 Lymph % (Auto) 23.6 % (21.0-51.0) 12/28/17 05:57 [place] % (Auto) 16.4 % (0.0-13.0) H 12/28/17 05:57 Eos % (Auto) 3.1 % (0.9-2.9) H 12/28/17 05:57 Baso % (Auto) 0.7 % (0.2-1.0) 12/28/17 05:57 Neut # (Auto) 4.1 x10^3/uL (2.2-4.8) 12/28/17 05:57 Lymph # (Auto) 1.7 X10^3/uL (1.3-2.9) 12/28/17 05:57 [place] # (Auto) 1.2 x10^3/uL (0.3-0.8) H 12/28/17 05:57 Eos # (Auto) 0.2 x10^3/uL (0.0-0.2) 12/28/17 05:57 Baso # (Auto) 0.1 X10^3/uL (0.0-0.1) 12/28/17 05:57 Absolute Nucleated RBC 0.0 /100WBC 12/28/17 05:57 Sodium 142 mmol/L (136-145) 12/28/17 05:57 Corrected Sodium TNP 12/28/17 05:57 Potassium 4.7 mmol/L (3.5-5.1) 12/28/17 05:57 Chloride 111 mmol/L (98-107) H 12/28/17 05:57 Carbon Dioxide 24.9 mmol/L (21-32) 12/28/17 05:57 BUN 25 mg/dL (7-18) H 12/28/17 05:57 Creatinine 1.12 mg/dL (0.70-1.30) 12/28/17 05:57 Est GFR (MDRD) Af Amer > 60 (>60) 12/28/17 05:57 Est GFR (MDRD) Non-Af > 60 (>60) 12/28/17 05:57 Glucose 89 mg/dL (65-99) 12/28/17 05:57 Lactic Acid 1.6 mmol/L (0.4-2.0) 12/25/17 23:20 Calcium 8.1 mg/dL (8.5-10.1) L 12/28/17 05:57 Corrected Calcium 9.4 mg/dL (8.5-10.1) 12/28/17 05:57 Total Bilirubin 0.40 mg/dL (0.2-1.0) 12/28/17 05:57 AST 15 Units/L (15-37) 12/28/17 05:57 ALT 15 Units/L (12-78) 12/28/17 05:57 Alkaline Phosphatase 57 Units/L (46-116) 12/28/17 05:57 Total Protein 6.5 g/dL (6.4-8.2) 12/28/17 05:57 Albumin 2.4 g/dL (3.4-5.0) L 12/28/17 05:57 Globulin 4.1 g/dL (2.5-4.5) 12/28/17 05:57 Albumin/Globulin Ratio 0.6 Ratio (1.1-2.1) L 12/28/17 05:57 Specimen Type Catherized urine 12/25/17 20:44 Urine Color Bloody (YELLOW) 12/25/17 20:44 Urine Appearance Hazy (CLEAR) 12/25/17 20:44 Urine pH 8.0 (5.0 - 8.0) 12/25/17 20:44 Ur Specific [place] 1.015 (1.000-1.030) 12/25/17 20:44 Urine Protein 4+ (NEGATIVE) 12/25/17 20:44 Urine Glucose (UA) Negative (NEGATIVE) 12/25/17 20:44 Urine Ketones Negative (NEGATIVE) 12/25/17 20:44 Urine Occult Blood 5+ (NEGATIVE) 12/25/17 20:44 Urine Nitrite Negative (NEGATIVE) 12/25/17 20:44 Urine Bilirubin Negative (NEGATIVE) 12/25/17 20:44 Urine Urobilinogen Normal (NORMAL) 12/25/17 20:44 Ur Leukocyte Esterase Negative (NEGATIVE) 12/25/17 20:44 Urine RBC Tntc /HPF (NONE SEEN) 12/25/17 20:44 Urine WBC 5-10 /HPF (NONE SEEN) 12/25/17 20:44 Ur Squamous Epith Cells Negative /HPF (NEGATIVE) 12/25/17 20:44 Amorphous Sediment 2+ /HPF (NEGATIVE) 12/25/17 20:44 Urine Bacteria 2+ /HPF (NEGATIVE) 12/25/17 20:44 Ur Culture Indicated? Yes/culture set up 12/25/17 20:44 Blood Type A POSITIVE 12/27/17 09:15 Antibody Screen Negative 12/27/17 09:15 Crossmatch See Detail 12/27/17 09:15 Diagnosis Discharge Problem: Urinary tract infection, Hematuria, Sepsis, Hypotension
[2017-12-29] MEDS: ROXICODONE TAB 15 MG PO PRN ×3 (05:13→21:10)
[2017-12-29] MEDS: KLONOPIN TAB 1 MG PO SCH ×3 (05:13→21:10)
[2017-12-29 05:27] LABS: BASOPHILS # (AUTO) 0.1 X10^3/uL (0.0-0.1); BASOPHILS % (AUTO) 1.2 % (0.2-1.0); EOSINOPHILS # (AUTO) 0.2 x10^3/uL (0.0-0.2); HEMATOCRIT 26.4 % (42.0-54.0); HEMOGLOBIN 8.9 g/dL (13.5-18.0); LYMPHOCYTES # (AUTO) 1.7 X10^3/uL (1.3-2.9); LYMPHOCYTES % (AUTO) 19.7 % (21.0-51.0); MEAN CORPUSCULAR HEMOGLOBIN 30.7 pg (27.0-34.0); MEAN CORPUSCULAR HGB CONC 33.7 g/dL (33.0-35.0); MEAN CORPUSCULAR VOLUME 91.1 fL (80.0-100.0); MEAN PLATELET VOLUME 8.7 fL (7.4-11.0); MONOCYTES % (AUTO) 12.1 % (0.0-13.0); NEUTROPHILS # (AUTO) 5.6 x10^3/uL (2.2-4.8); PLATELET COUNT 147 X10^3/uL (150.0-450.0); RED CELL DISTRIBUTION WIDTH 15.4 % (11.6-16.5); WHITE BLOOD COUNT 8.6 X10^3/uL (3.6-10.0)
[2017-12-29 05:38] LABS: ALANINE AMINOTRANSFERASE 15 Units/L (12-78); ALBUMIN 1.9 g/dL (3.4-5.0); ALKALINE PHOSPHATASE 48 Units/L (46-116); ASPARTATE AMINO TRANSFERASE 19 Units/L (15-37); BLOOD UREA NITROGEN 25 mg/dL (7-18); CALCIUM 7.7 mg/dL (8.5-10.1); CARBON DIOXIDE 19.9 mmol/L (21-32); CHLORIDE 111 mmol/L (98-107); COR CA(FOR HYPOALB) 9.4 mg/dL (8.5-10.1); CREATININE 1.13 mg/dL (0.70-1.30); SODIUM 139 mmol/L (136-145); TOTAL PROTEIN 5.4 g/dL (6.4-8.2); eGFR NON BLACK RACES > 60 (>60)
[2017-12-29 05:58] LABS: BAND NEUTROPHILS % 3 % (0-10); PLATELET MORPHOLOGY COMMENT NORMAL (NORMAL)
[2017-12-29] MEDS: LIORESAL PO SCH ×4 (09:37→21:10)
[2017-12-29] MEDS: LEVAQUIN PREMIX IV 500 MG 500 MG/100 ML BAG IV SCH (09:37)
[2017-12-29] MEDS: CYMBALTA PO SCH ×2 (09:37→21:14)
[2017-12-29] MEDS: PriLOSEC PO SCH (09:37)
[2017-12-29] MEDS: NORCO 7.5/325 MG TAB PO PRN (09:37)
--- NOTE | 2017-12-29 12:14 | PCM.PROG ---
Progress Note - Progress Note for Day of Date of Exam: 12/29/17 - Subjective Subjective: 52 WM QU[address]IPLEGIC PT OF DR MCDONOUGH, ADMITTED WITH HEMATURIA, UROSEPSIS. PT CURRENTLY ON IV LEVAQUIN, UC SENSITIVITY REPORT RESISTANT. CONSULTED PHARMACY FOR GENTAMICIN AND ZOSYN. PT CO PAIN ALL OVER THIS AM. PT HAS GROSS HEMATURIA IN ARENAS COLLECTION BAG. PT CURRENTLY ON IV DIALUDID AND PO ROXICODONE FOR PAIN. BP MONITORING AND AM LABS. - Past Medical Family Social History Past Med/Fam/Surg Hx: No changes since H&P Allergies: Allergies meperidine [From Demerol] Adverse Reaction (Verified 07/26/17 20:47) - Review of Systems ROS: No change since H&P - Vital Signs and I&O's Vital Signs: Temperature 99.3 F Pulse Rate [Right Brachial] 104 Pulse Rate [Left Brachial] 86 Pulse Rate [Right] 89 Pulse Rate 130 Respiratory Rate 20 Blood Pressure [Right Arm] 113/69 Blood Pressure [Left Arm] 127/59 Blood Pressure 107/51 O2 Sat by Pulse Oximetry 91 Intake and Output: Intake & Output 12/27/17 12/28/17 12/29/17 12/30/17 11:59 11:59 11:59 11:59 Intake Total 2398 / 2398 3110 / 3110 3240 / 3240 Output Total 2550 / 2550 1450 / 1450 3800 / 3800 Balance -152 / -152 1660 / 1660 -560 / -560 - Physical Exam Oriented: Normal Eyes: Normal Ear: Normal Nose: Normal Throat: Normal Respiratory: Diminished Cardiovascular: Tachycardia. negative: S3, S4, Murmur : Normal Auscultation: Bowel Sounds: Normal Tenderness: Suprapubic. negative: Rebound, Guarding, Rigidity Skin: Normal Musculoskeletal: Motor Deficit, Sensory Deficit Psychiatric: Normal Mood Description: Calm Affect: Normal Speech Pattern: Clear, Appropriate - Laboratory and Diagnostics Result Diagrams: 12/29/17 04:59 12/29/17 04:59 Labs: 12/25/17 20:44 Urine,Catheterized Urine Culture - Final Pseudomonas Aeruginosa 12/25/17 20:22 Blood Blood Culture - Preliminary 12/25/17 20:20 Blood Blood Culture - Preliminary Laboratory WBC 8.6 X10^3/uL (3.6-10.0) 12/29/17 04:59 RBC 2.90 X10^6/uL (4.7-6.0) L 12/29/17 04:59 Hgb 8.9 g/dL (13.5-18.0) L 12/29/17 04:59 Hct 26.4 % (42.0-54.0) L 12/29/17 04:59 MCV 91.1 fL (80.0-100.0) 12/29/17 04:59 MCH 30.7 pg (27.0-34.0) 12/29/17 04:59 MCHC 33.7 g/dL (33.0-35.0) 12/29/17 04:59 RDW 15.4 % (11.6-16.5) 12/29/17 04:59 Plt Count 147 X10^3/uL (150.0-450.0) L 12/29/17 04:59 Plt Count Comment Adequate (ADEQUATE) 12/29/17 04:59 MPV 8.7 fL (7.4-11.0) 12/29/17 04:59 Neut % (Auto) 65.0 % (42.0-75.0) 12/29/17 04:59 Lymph % (Auto) 19.7 % (21.0-51.0) L 12/29/17 04:59 [place] % (Auto) 12.1 % (0.0-13.0) 12/29/17 04:59 Eos % (Auto) 2.0 % (0.9-2.9) 12/29/17 04:59 Baso % (Auto) 1.2 % (0.2-1.0) H 12/29/17 04:59 Neut # (Auto) 5.6 x10^3/uL (2.2-4.8) H 12/29/17 04:59 Lymph # (Auto) 1.7 X10^3/uL (1.3-2.9) 12/29/17 04:59 [place] # (Auto) 1.0 x10^3/uL (0.3-0.8) H 12/29/17 04:59 Eos # (Auto) 0.2 x10^3/uL (0.0-0.2) 12/29/17 04:59 Baso # (Auto) 0.1 X10^3/uL (0.0-0.1) 12/29/17 04:59 Absolute Nucleated RBC 0.1 /100WBC 12/29/17 04:59 Total Counted 100 12/29/17 04:59 Neutrophils % (Manual) 66 % (39-76) 12/29/17 04:59 Band Neutrophils % 3 % (0-10) 12/29/17 04:59 Lymphocytes % (Manual) 20 % (13-43) 12/29/17 04:59 Monocytes % (Manual) 9 % (4-9) 12/29/17 04:59 Eosinophils % (Manual) 2 % (0-6) 12/29/17 04:59 Plt Morphology Comment Normal (NORMAL) 12/29/17 04:59 RBC Morphology Normal (NORMAL) 12/29/17 04:59 Sodium 139 mmol/L (136-145) 12/29/17 04:59 Corrected Sodium TNP 12/29/17 04:59 Potassium 5.6 mmol/L (3.5-5.1) H 12/29/17 04:59 Chloride 111 mmol/L (98-107) H 12/29/17 04:59 Carbon Dioxide 19.9 mmol/L (21-32) L 12/29/17 04:59 BUN 25 mg/dL (7-18) H 12/29/17 04:59 Creatinine 1.13 mg/dL (0.70-1.30) 12/29/17 04:59 Est GFR (MDRD) Af Amer > 60 (>60) 12/29/17 04:59 Est GFR (MDRD) Non-Af > 60 (>60) 12/29/17 04:59 Glucose 89 mg/dL (65-99) 12/29/17 04:59 Lactic Acid 1.6 mmol/L (0.4-2.0) 12/25/17 23:20 Calcium 7.7 mg/dL (8.5-10.1) L 12/29/17 04:59 Corrected Calcium 9.4 mg/dL (8.5-10.1) 12/29/17 04:59 Total Bilirubin 0.30 mg/dL (0.2-1.0) 12/29/17 04:59 AST 19 Units/L (15-37) 12/29/17 04:59 ALT 15 Units/L (12-78) 12/29/17 04:59 Alkaline Phosphatase 48 Units/L (46-116) 12/29/17 04:59 Total Protein 5.4 g/dL (6.4-8.2) L 12/29/17 04:59 Albumin 1.9 g/dL (3.4-5.0) L 12/29/17 04:59 Globulin 3.5 g/dL (2.5-4.5) 12/29/17 04:59 Albumin/Globulin Ratio 0.5 Ratio (1.1-2.1) L 12/29/17 04:59 Specimen Type Catherized urine 12/25/17 20:44 Urine Color Bloody (YELLOW) 12/25/17 20:44 Urine Appearance Hazy (CLEAR) 12/25/17 20:44 Urine pH 8.0 (5.0 - 8.0) 12/25/17 20:44 Ur Specific [place] 1.015 (1.000-1.030) 12/25/17 20:44 Urine Protein 4+ (NEGATIVE) 12/25/17 20:44 Urine Glucose (UA) Negative (NEGATIVE) 12/25/17 20:44 Urine Ketones Negative (NEGATIVE) 12/25/17 20:44 Urine Occult Blood 5+ (NEGATIVE) 12/25/17 20:44 Urine Nitrite Negative (NEGATIVE) 12/25/17 20:44 Urine Bilirubin Negative (NEGATIVE) 12/25/17 20:44 Urine Urobilinogen Normal (NORMAL) 12/25/17 20:44 Ur Leukocyte Esterase Negative (NEGATIVE) 12/25/17 20:44 Urine RBC Tntc /HPF (NONE SEEN) 12/25/17 20:44 Urine WBC 5-10 /HPF (NONE SEEN) 12/25/17 20:44 Ur Squamous Epith Cells Negative /HPF (NEGATIVE) 12/25/17 20:44 Amorphous Sediment 2+ /HPF (NEGATIVE) 12/25/17 20:44 Urine Bacteria 2+ /HPF (NEGATIVE) 18 20:44 Ur Culture Indicated? Yes/culture set up 12/25/17 20:44 Blood Type A POSITIVE 12/27/17 09:15 Antibody Screen Negative 12/27/17 09:15 Crossmatch See Detail 12/27/17 09:15 - Plan (1) Pseudomonas urinary tract infection Status: Acute Plan: IV GENTAMICIN AND IV ZOSYN, SEE CULTURE REPORT. IV HYDRATION AND ORAL HYDRATION. PAIN CONTROL, MONITOR H&H. BP MONITORING. REPEAT AM LABS (2) UTI (urinary tract infection) Status: Acute (3) Hematuria Status: Acute (4) Hypertension Status: Acute (5) Chronic pain disorder Status: Acute (6) Quadriplegia Status: Acute
[2017-12-29] MEDS ORDERED: CONSULT PHARMACY - GENTAMICIN XX SCH (13:00)
[2017-12-29] MEDS ORDERED: GENTAMICIN INJ ONE ×2 (13:35→21:11)
[2017-12-29] MEDS ORDERED: NS 100 ML IV + SPIKE MINIBAG* 100 ML IV ONE ×2 (13:53→21:04)
[2017-12-29] MEDS ORDERED: NS 100 ML IV 100 ML IV ONE ×2 (14:08→21:26)
[2017-12-29] MEDS: GENTAMICIN INJ 100 MG in NS 100 ML IV 100 ML IV SCH ×2 (14:23→22:00)
[2017-12-29] MEDS: ZOSYN VIAL 3.375 GRAMS IV SCH ×2 (14:52→21:00)
[2017-12-29] MEDS ORDERED: SOLU-Medrol 125 MG VIAL IVP ONE (15:36)
[2017-12-29] MEDS ORDERED: RESTORIL CAP 15 MG PO PRN (20:59)
[2017-12-29] MEDS: SENOKOT PO SCH (21:10)
[2017-12-29] MEDS: COLACE CAP 100 MG PO SCH (21:10)
[2017-12-29] MEDS: CHRONULAC PO SCH (21:11)
[2017-12-29] MEDS ORDERED: LANTISEPTIC TOP PRN (21:21)
--- NOTE | 2017-12-29 21:33 | DR.H&P ---
H&P - History & Physical for Day of: H&P Date: 12/26/17 - Chief Complaint Chief Complaint: UTI, TACHYCARDIA - History of Present Illness History of Present Illness: IS A 52 YEAR OLD PATIENT OF OURS. HE PRESENTED TO THE EMERGENCY ROOM VIA EMS. -HOME HEALTH NURSE REPORTS THAT SHE WAS VISITING PATIENT AND NOTICED GROSS HEMATURIA AND HEART RATE IN THE 150s. PATIENT REPORTS THAT HE WAS RECENTLY PLACED ON MACROBID FOR A URINARY TRACT INFECTION. HE DENIES FEVER. MEDICAL HISTORY INCLUDES QUADRAPLEGIA, HTN, SLEEP APNEA, GERD, NEUROGENIC BOWEL, CHRONIC UTIs, ANEMIA, ANXIETY, DEPRESSION, TONSILLECTOMY, CERVICAL FUSION, AND ORBITAL FX REPAIR. ON ARRIVAL, VITALS WERE 98.9-504-66-100%-107/51. LABS WERE OBTAINED. ABNORMAL LABS INCLUDE THE FOLLOWING : WBC 11.9, RBC 3.26, HGB 9.6, HCT 29.7, SODIUM 134, BUN 28, GLUCOSE 102. URINALYSIS REVEALED: WBC 5-10, RBC TNTC, BACTERIA 2+, LEUKOCYTES NEGATIVE, OCCULT BLOOD 5+, PROTEIN 4+. HE WAS GIVEN LEVAQUIN 500MG IV IN THE ER AND STARTED ON NORMAL SALINE AT 125ML/HR. HE WAS ADMITTED TO THE INTENSIVE CARE UNIT FOR FURTHER EVALUATION AND TREATMENT OF UROSEPSIS AND HYPOTENSION. WE WILL FOLLOW UP WITH AM LABS AND CONTINUE TO MONITOR. - Past Medical History Past Medical History: Depression, Anxiety, Sleep Apnea Additional Medical History: QUADRAPLEGIC, NEUROGENIC BOWEL, MUSCLE SPASMS, CONSTIPATION - Past Surgical History Surgical History: Tonsillectomy Additional Surgical History: FUSION OF 3RD, 4TH, AND 5TH CERVICAL BERTEBRAE, ORBITAL FX, REPAIRED WITH PLATE - Social History Does patient currently use any type of tobacco product: No Have you used tobacco products in the last 12 months: No Type of Tobacco Use: None Does any household member use tobacco: No Alcohol Use: None Drug Use: None - Medications Home Medications: meperidine [From Demerol] Adverse Reaction (Verified 07/26/17 20:47) CONTINUE taking the following medications acetaminophen 1 supp OK Q6H PRN 12/25/17 [History] baclofen 1 tab PO QID 12/25/17 [History] clonazepam 1 tab PO TID 12/25/17 [History] clonidine 1 patch TOPICAL WEEKLY 12/25/17 [History] duloxetine [Cymbalta] 1 tab PO QID 12/25/17 [History] haloperidol 0.5 - 1 mg PO Q4H PRN 12/25/17 [History] hyoscyamine sulfate 1 - 2 ml SUBLINGUAL Q4H PRN 12/25/17 [History] lactulose 2 tbsp PO HS 12/25/17 [History] lorazepam 0.5 - 1 mg PO Q2H PRN 12/25/17 [History] naproxen 1 tab PO BID 12/25/17 [History] omeprazole 1 tab PO DAILY 12/25/17 [History] oxycodone 1 tab PO QID 12/25/17 [History] pregabalin [Lyrica] 100 mg PO TID 12/25/17 [History] promethazine 1 supp PRN PRN 12/25/17 [History] sennosides-docusate sodium [Senna-S] 2 tab PO HS 12/25/17 [History] bisacodyl [Dulcolax (bisacodyl)] 1 supp OK WEEKLY 12/26/17 [History] ondansetron HCl [Zofran] 1 tab PO TID PRN 12/26/17 [History] tizanidine 1 tab PO BID 12/26/17 [History] - Review of Systems Constitutional: Weakness Eyes: No Symptoms Reported ENT: No Symptoms Reported Respiratory: Shortness of Breath Cardiovascular: Other (TACHYCARDIA ) Gastrointestinal: Abdominal Pain Genitourinary: No Symptoms Reported Musculoskeletal: Other (QUADRAPLEGIA ) Skin: No Symptoms Reported Neurological: Weakness - Physical Exam Vital Signs: Temperature 98.3 F Pulse Rate [Right Brachial] 104 Pulse Rate [Left Brachial] 89 Pulse Rate [Right] 89 Pulse Rate 130 Respiratory Rate 16 Blood Pressure [Right Arm] 113/69 Blood Pressure [Left Arm] 109/63 Blood Pressure 107/51 O2 Sat by Pulse Oximetry 92 Oriented: Normal Eyes: Normal Ear: Normal Nose: Normal Throat: Normal Respiratory: Diminished Throughout Cardiovascular: Tachycardia : Normal Auscultation: Bowel Sounds: Normal Palpation: Normal Tenderness: Suprapubic Skin: Normal Psychiatric: Normal Mood Description: Calm Affect: Normal Speech Pattern: Clear - Assessment/Plan (1) Urinary tract infection Qualifiers: Urinary tract infection type: acute cystitis Hematuria presence: with hematuria Qualified Code(s): N30.01 - Acute cystitis with hematuria Status: Acute Plan: NORMAL SALINE AT 125ML/HR, LEVAQUIN 500G IV DAILY, CONTINUE TO MONITOR (2) Dehydration Status: Acute Plan: NORMAL SALINE AT 125ML/HR - Allergies Allergies/Adverse Reactions: Allergies Allergy/AdvReac Type Severity Reaction Status Date / Time meperidine [From Demerol] AdvReac Verified 07/26/17 20:47
--- NOTE | 2017-12-29 21:50 | PCM.PROG ---
Progress Note - Progress Note for Day of Date of Exam: 12/27/17 - Subjective Subjective: WAS ADMITTED FOR UROSEPSIS AND DEHYDRATION. TODAY, LYING IN BED WITH EYES CLOSED ON MORNING ROUNDS. HE IS DROWSY AND DIFFICULT TO AROUSE. HE DOES MOAN TO PAINFUL STIMULI. STAFF REPORTS THAT HE HAS RECEIVED DILAUDID AND ROXICODONE RECENTLY. ON EXAMINATION, HEART IS REGULAR IN RATE AND RHYTHM. BILATERAL LUNGS ARE NOTED WITH DIMINISHED LUNG SOUNDS THROUGHOUT. ABDOMEN IS ROUND, SOFT, AND NOTED WITH MODERATE, SUPRAPUBIC PAIN ON PALPATION. HIS VITALS THIS MORNING ARE 96.1-97-10-99%-84/53. LABS WERE OBTAINED. ABNORMAL LAB VALUES INCLUDE THE FOLLOWING: RBC 2.12, HGB 6.4, HCT 19.6, PLT COUNT 135, CHLORIDE 110, BUN 24, CALCIUM 8.1, AST 12, ALK PHOS 38, TOTAL PROTEIN 5.7, ALBUMIN 2.2. BLOOD AND URINE CULTURES ARE PENDING. TODAY, WE WILL ADMINISTER TWO UNITS OF PACKED RED BLOOD CELLS. WE WILL ADMINISTER NARCAN 0.2MG IV X 1 DOSE. OTHERWISE, WE WILL FOLLOW UP WITH AM LABS AND CONTINUE TO MONITOR. - Past Medical Family Social History Past Med/Fam/Surg Hx: No changes since H&P Allergies: Allergies meperidine [From Demerol] Adverse Reaction (Verified 07/26/17 20:47) - Review of Systems ROS: No change since H&P - Vital Signs and I&O's Vital Signs: Temperature 98.3 F Pulse Rate [Right Brachial] 104 Pulse Rate [Left Brachial] 89 Pulse Rate [Right] 89 Pulse Rate 130 Respiratory Rate 16 Blood Pressure [Right Arm] 113/69 Blood Pressure [Left Arm] 109/63 Blood Pressure 107/51 O2 Sat by Pulse Oximetry 92 Intake and Output: Intake & Output 12/27/17 12/28/17 12/29/17 12/30/17 11:59 11:59 11:59 11:59 Intake Total 2398 / 2398 3110 / 3110 3240 / 3240 480 / 480 Output Total 2550 / 2550 1450 / 1450 3800 / 3800 1425 / 1425 Balance -152 / -152 1660 / 1660 -560 / -560 -945 / -945 - Physical Exam Oriented: Normal Eyes: Normal Ear: Normal Nose: Normal Throat: Normal Respiratory: Diminished Cardiovascular: Tachycardia : Normal Auscultation: Bowel Sounds: Normal Palpation: Normal Tenderness: Suprapubic Skin: Normal Musculoskeletal: Motor Deficit, Sensory Deficit Psychiatric: Normal Mood Description: Calm Affect: Normal Speech Pattern: Clear - Laboratory and Diagnostics Result Diagrams: 12/29/17 04:59 12/29/17 04:59 Labs: 12/25/17 20:44 Urine,Catheterized Urine Culture - Final Pseudomonas Aeruginosa 12/25/17 20:22 Blood Blood Culture - Preliminary 12/25/17 20:20 Blood Blood Culture - Preliminary Laboratory WBC 8.6 X10^3/uL (3.6-10.0) 12/29/17 04:59 RBC 2.90 X10^6/uL (4.7-6.0) L 12/29/17 04:59 Hgb 8.9 g/dL (13.5-18.0) L 12/29/17 04:59 Hct 26.4 % (42.0-54.0) L 12/29/17 04:59 MCV 91.1 fL (80.0-100.0) 12/29/17 04:59 MCH 30.7 pg (27.0-34.0) 12/29/17 04:59 MCHC 33.7 g/dL (33.0-35.0) 12/29/17 04:59 RDW 15.4 % (11.6-16.5) 12/29/17 04:59 Plt Count 147 X10^3/uL (150.0-450.0) L 12/29/17 04:59 Plt Count Comment Adequate (ADEQUATE) 12/29/17 04:59 MPV 8.7 fL (7.4-11.0) 12/29/17 04:59 Neut % (Auto) 65.0 % (42.0-75.0) 12/29/17 04:59 Lymph % (Auto) 19.7 % (21.0-51.0) L 12/29/17 04:59 [place] % (Auto) 12.1 % (0.0-13.0) 12/29/17 04:59 Eos % (Auto) 2.0 % (0.9-2.9) 12/29/17 04:59 Baso % (Auto) 1.2 % (0.2-1.0) H 12/29/17 04:59 Neut # (Auto) 5.6 x10^3/uL (2.2-4.8) H 12/29/17 04:59 Lymph # (Auto) 1.7 X10^3/uL (1.3-2.9) 12/29/17 04:59 [place] # (Auto) 1.0 x10^3/uL (0.3-0.8) H 12/29/17 04:59 Eos # (Auto) 0.2 x10^3/uL (0.0-0.2) 12/29/17 04:59 Baso # (Auto) 0.1 X10^3/uL (0.0-0.1) 12/29/17 04:59 Absolute Nucleated RBC 0.1 /100WBC 12/29/17 04:59 Total Counted 100 12/29/17 04:59 Neutrophils % (Manual) 66 % (39-76) 12/29/17 04:59 Band Neutrophils % 3 % (0-10) 12/29/17 04:59 Lymphocytes % (Manual) 20 % (13-43) 12/29/17 04:59 Monocytes % (Manual) 9 % (4-9) 12/29/17 04:59 Eosinophils % (Manual) 2 % (0-6) 12/29/17 04:59 Plt Morphology Comment Normal (NORMAL) 12/29/17 04:59 RBC Morphology Normal (NORMAL) 12/29/17 04:59 Sodium 139 mmol/L (136-145) 12/29/17 04:59 Corrected Sodium TNP 12/29/17 04:59 Potassium 5.6 mmol/L (3.5-5.1) H 12/29/17 04:59 Chloride 111 mmol/L (98-107) H 12/29/17 04:59 Carbon Dioxide 19.9 mmol/L (21-32) L 12/29/17 04:59 BUN 25 mg/dL (7-18) H 12/29/17 04:59 Creatinine 1.13 mg/dL (0.70-1.30) 12/29/17 04:59 Est GFR (MDRD) Af Amer > 60 (>60) 12/29/17 04:59 Est GFR (MDRD) Non-Af > 60 (>60) 12/29/17 04:59 Glucose 89 mg/dL (65-99) 12/29/17 04:59 Lactic Acid 1.6 mmol/L (0.4-2.0) 12/25/17 23:20 Calcium 7.7 mg/dL (8.5-10.1) L 12/29/17 04:59 Corrected Calcium 9.4 mg/dL (8.5-10.1) 12/29/17 04:59 Total Bilirubin 0.30 mg/dL (0.2-1.0) 12/29/17 04:59 AST 19 Units/L (15-37) 12/29/17 04:59 ALT 15 Units/L (12-78) 12/29/17 04:59 Alkaline Phosphatase 48 Units/L (46-116) 12/29/17 04:59 Total Protein 5.4 g/dL (6.4-8.2) L 12/29/17 04:59 Albumin 1.9 g/dL (3.4-5.0) L 12/29/17 04:59 Globulin 3.5 g/dL (2.5-4.5) 12/29/17 04:59 Albumin/Globulin Ratio 0.5 Ratio (1.1-2.1) L 12/29/17 04:59 Specimen Type Catherized urine 12/25/17 20:44 Urine Color Bloody (YELLOW) 12/25/17 20:44 Urine Appearance Hazy (CLEAR) 12/25/17 20:44 Urine pH 8.0 (5.0 - 8.0) 12/25/17 20:44 Ur Specific [place] 1.015 (1.000-1.030) 12/25/17 20:44 Urine Protein 4+ (NEGATIVE) 12/25/17 20:44 Urine Glucose (UA) Negative (NEGATIVE) 12/25/17 20:44 Urine Ketones Negative (NEGATIVE) 12/25/17 20:44 Urine Occult Blood 5+ (NEGATIVE) 12/25/17 20:44 Urine Nitrite Negative (NEGATIVE) 12/25/17 20:44 Urine Bilirubin Negative (NEGATIVE) 12/25/17 20:44 Urine Urobilinogen Normal (NORMAL) 12/25/17 20:44 Ur Leukocyte Esterase Negative (NEGATIVE) 12/25/17 20:44 Urine RBC Tntc /HPF (NONE SEEN) 12/25/17 20:44 Urine WBC 5-10 /HPF (NONE SEEN) 12/25/17 20:44 Ur Squamous Epith Cells Negative /HPF (NEGATIVE) 12/25/17 20:44 Amorphous Sediment 2+ /HPF (NEGATIVE) 12/25/17 20:44 Urine Bacteria 2+ /HPF (NEGATIVE) 12/25/17 20:44 Ur Culture Indicated? Yes/culture set up 12/25/17 20:44 Blood Type A POSITIVE 12/27/17 09:15 Antibody Screen Negative 12/27/17 09:15 Crossmatch See Detail 12/27/17 09:15 - Plan (1) Urinary tract infection Status: Acute Qualifiers: Urinary tract infection type: acute cystitis Hematuria presence: with hematuria Qualified Code(s): N30.01 - Acute cystitis with hematuria Plan: NORMAL SALINE AT 125ML/HR, LEVAQUIN 500G IV DAILY, CONTINUE TO MONITOR (2) Dehydration Status: Acute Plan: NORMAL SALINE AT 125ML/HR
--- NOTE | 2017-12-29 22:04 | PCM.PROG ---
Progress Note - Progress Note for Day of Date of Exam: 12/28/17 - Subjective Subjective: WAS ADMITTED FOR UROSEPSIS AND DEHYDRATION. TODAY, LYING IN BED WITH EYES CLOSED ON MORNING ROUNDS. HE AWAKENS EASILY TO VERBAL STIMULI. HE RECEIVED TWO UNITS OF PACKED RED BLOOD CELLS THROUGHOUT THE NIGHT FOR A LOW HEMOGLOBIN. ON EXAMINATION, HE IS SLIGHTLY TACHYCARDIC. BILATERAL LUNGS ARE NOTED WITH DIMINISHED LUNG SOUNDS THROUGHOUT. ABDOMEN IS ROUND, SOFT, AND NOTED WITH MILD, SUPRAPUBIC PAIN ON PALPATION. HIS VITALS THIS MORNING ARE 98.1-109-18 -94%NC-182/89. LABS WERE OBTAINED. ABNORMAL LAB VALUES INCLUDE THE FOLLOWING: RBC 3.53, HGB 10.8, HCT 32.4, CHLORIDE 111, BUN 25, CALCIUM 8.1, ALBUMIN 2.4. BLOOD AND URINE CULTURES ARE PENDING. TODAY, WE WILL CONTINUE WITH IV ANTIBIOIOTICS, IV FLUIDS, AND CURRENT PLAN OF CARE. OTHERWISE, WE WILL FOLLOW UP WITH AM LABS AND CONTINUE TO MONITOR. - Past Medical Family Social History Past Med/Fam/Surg Hx: No changes since H&P Allergies: Allergies meperidine [From Demerol] Adverse Reaction (Verified 07/26/17 20:47) - Review of Systems ROS: No change since H&P - Vital Signs and I&O's Vital Signs: Temperature 98.3 F Pulse Rate [Right Brachial] 104 Pulse Rate [Left Brachial] 89 Pulse Rate [Right] 89 Pulse Rate 130 Respiratory Rate 16 Blood Pressure [Right Arm] 113/69 Blood Pressure [Left Arm] 109/63 Blood Pressure 107/51 O2 Sat by Pulse Oximetry 92 Intake and Output: Intake & Output 12/27/17 12/28/17 12/29/17 12/30/17 11:59 11:59 11:59 11:59 Intake Total 2398 / 2398 3110 / 3110 3240 / 3240 480 / 480 Output Total 2550 / 2550 1450 / 1450 3800 / 3800 1425 / 1425 Balance -152 / -152 1660 / 1660 -560 / -560 -945 / -945 - Physical Exam Oriented: Normal Eyes: Normal Ear: Normal Nose: Normal Throat: Normal Respiratory: Diminished Cardiovascular: Tachycardia : Normal Auscultation: Bowel Sounds: Normal Palpation: Normal Tenderness: Suprapubic Skin: Normal Musculoskeletal: Motor Deficit, Sensory Deficit Psychiatric: Normal Mood Description: Calm Affect: Normal Speech Pattern: Clear - Laboratory and Diagnostics Result Diagrams: 12/29/17 04:59 12/29/17 04:59 Labs: 12/25/17 20:44 Urine,Catheterized Urine Culture - Final Pseudomonas Aeruginosa 12/25/17 20:22 Blood Blood Culture - Preliminary 12/25/17 20:20 Blood Blood Culture - Preliminary Laboratory WBC 8.6 X10^3/uL (3.6-10.0) 12/29/17 04:59 RBC 2.90 X10^6/uL (4.7-6.0) L 12/29/17 04:59 Hgb 8.9 g/dL (13.5-18.0) L 12/29/17 04:59 Hct 26.4 % (42.0-54.0) L 12/29/17 04:59 MCV 91.1 fL (80.0-100.0) 12/29/17 04:59 MCH 30.7 pg (27.0-34.0) 12/29/17 04:59 MCHC 33.7 g/dL (33.0-35.0) 12/29/17 04:59 RDW 15.4 % (11.6-16.5) 12/29/17 04:59 Plt Count 147 X10^3/uL (150.0-450.0) L 12/29/17 04:59 Plt Count Comment Adequate (ADEQUATE) 12/29/17 04:59 MPV 8.7 fL (7.4-11.0) 12/29/17 04:59 Neut % (Auto) 65.0 % (42.0-75.0) 12/29/17 04:59 Lymph % (Auto) 19.7 % (21.0-51.0) L 12/29/17 04:59 [place] % (Auto) 12.1 % (0.0-13.0) 12/29/17 04:59 Eos % (Auto) 2.0 % (0.9-2.9) 12/29/17 04:59 Baso % (Auto) 1.2 % (0.2-1.0) H 12/29/17 04:59 Neut # (Auto) 5.6 x10^3/uL (2.2-4.8) H 12/29/17 04:59 Lymph # (Auto) 1.7 X10^3/uL (1.3-2.9) 12/29/17 04:59 [place] # (Auto) 1.0 x10^3/uL (0.3-0.8) H 12/29/17 04:59 Eos # (Auto) 0.2 x10^3/uL (0.0-0.2) 12/29/17 04:59 Baso # (Auto) 0.1 X10^3/uL (0.0-0.1) 12/29/17 04:59 Absolute Nucleated RBC 0.1 /100WBC 12/29/17 04:59 Total Counted 100 12/29/17 04:59 Neutrophils % (Manual) 66 % (39-76) 12/29/17 04:59 Band Neutrophils % 3 % (0-10) 12/29/17 04:59 Lymphocytes % (Manual) 20 % (13-43) 12/29/17 04:59 Monocytes % (Manual) 9 % (4-9) 12/29/17 04:59 Eosinophils % (Manual) 2 % (0-6) 12/29/17 04:59 Plt Morphology Comment Normal (NORMAL) 12/29/17 04:59 RBC Morphology Normal (NORMAL) 12/29/17 04:59 Sodium 139 mmol/L (136-145) 12/29/17 04:59 Corrected Sodium TNP 12/29/17 04:59 Potassium 5.6 mmol/L (3.5-5.1) H 12/29/17 04:59 Chloride 111 mmol/L (98-107) H 12/29/17 04:59 Carbon Dioxide 19.9 mmol/L (21-32) L 12/29/17 04:59 BUN 25 mg/dL (7-18) H 12/29/17 04:59 Creatinine 1.13 mg/dL (0.70-1.30) 12/29/17 04:59 Est GFR (MDRD) Af Amer > 60 (>60) 12/29/17 04:59 Est GFR (MDRD) Non-Af > 60 (>60) 12/29/17 04:59 Glucose 89 mg/dL (65-99) 12/29/17 04:59 Lactic Acid 1.6 mmol/L (0.4-2.0) 12/25/17 23:20 Calcium 7.7 mg/dL (8.5-10.1) L 12/29/17 04:59 Corrected Calcium 9.4 mg/dL (8.5-10.1) 12/29/17 04:59 Total Bilirubin 0.30 mg/dL (0.2-1.0) 12/29/17 04:59 AST 19 Units/L (15-37) 12/29/17 04:59 ALT 15 Units/L (12-78) 12/29/17 04:59 Alkaline Phosphatase 48 Units/L (46-116) 12/29/17 04:59 Total Protein 5.4 g/dL (6.4-8.2) L 12/29/17 04:59 Albumin 1.9 g/dL (3.4-5.0) L 12/29/17 04:59 Globulin 3.5 g/dL (2.5-4.5) 12/29/17 04:59 Albumin/Globulin Ratio 0.5 Ratio (1.1-2.1) L 12/29/17 04:59 Specimen Type Catherized urine 12/25/17 20:44 Urine Color Bloody (YELLOW) 12/25/17 20:44 Urine Appearance Hazy (CLEAR) 12/25/17 20:44 Urine pH 8.0 (5.0 - 8.0) 12/25/17 20:44 Ur Specific [place] 1.015 (1.000-1.030) 12/25/17 20:44 Urine Protein 4+ (NEGATIVE) 12/25/17 20:44 Urine Glucose (UA) Negative (NEGATIVE) 12/25/17 20:44 Urine Ketones Negative (NEGATIVE) 12/25/17 20:44 Urine Occult Blood 5+ (NEGATIVE) 12/25/17 20:44 Urine Nitrite Negative (NEGATIVE) 12/25/17 20:44 Urine Bilirubin Negative (NEGATIVE) 12/25/17 20:44 Urine Urobilinogen Normal (NORMAL) 12/25/17 20:44 Ur Leukocyte Esterase Negative (NEGATIVE) 12/25/17 20:44 Urine RBC Tntc /HPF (NONE SEEN) 12/25/17 20:44 Urine WBC 5-10 /HPF (NONE SEEN) 12/25/17 20:44 Ur Squamous Epith Cells Negative /HPF (NEGATIVE) 12/25/17 20:44 Amorphous Sediment 2+ /HPF (NEGATIVE) 12/25/17 20:44 Urine Bacteria 2+ /HPF (NEGATIVE) 12/25/17 20:44 Ur Culture Indicated? Yes/culture set up 12/25/17 20:44 Blood Type A POSITIVE 12/27/17 09:15 Antibody Screen Negative 12/27/17 09:15 Crossmatch See Detail 12/27/17 09:15 - Plan (1) Urinary tract infection Status: Acute Qualifiers: Urinary tract infection type: acute cystitis Hematuria presence: with hematuria Qualified Code(s): N30.01 - Acute cystitis with hematuria Plan: NORMAL SALINE AT 125ML/HR, LEVAQUIN 500G IV DAILY, CONTINUE TO MONITOR (2) Dehydration Status: Acute Plan: NORMAL SALINE AT 125ML/HR (3) Anemia Status: Acute Qualifiers: Anemia type: iron deficiency Iron deficiency anemia type: chronic blood loss Qualified Code(s): D50.0 - Iron deficiency anemia secondary to blood loss (chronic) Plan: CONTINUE TO MONITOR
[2017-12-30] MEDS: NORCO 7.5/325 MG TAB PO PRN (00:03)
[2017-12-30] MEDS ORDERED: NS 100 ML IV 0 ML IV ONE (05:14)
[2017-12-30] MEDS ORDERED: NS 100 ML IV + SPIKE MINIBAG* 100 ML IV ONE (05:14)
[2017-12-30 05:25] LABS: BASOPHILS % (AUTO) 0.2 % (0.2-1.0); HEMATOCRIT 24.7 % (42.0-54.0); HEMOGLOBIN 8.3 g/dL (13.5-18.0); LYMPHOCYTES # (AUTO) 0.5 X10^3/uL (1.3-2.9); LYMPHOCYTES % (AUTO) 15.8 % (21.0-51.0); MEAN CORPUSCULAR HEMOGLOBIN 30.5 pg (27.0-34.0); MEAN CORPUSCULAR HGB CONC 33.6 g/dL (33.0-35.0); MEAN CORPUSCULAR VOLUME 90.7 fL (80.0-100.0); MEAN PLATELET VOLUME 8.9 fL (7.4-11.0); MONOCYTES # (AUTO) 0.2 x10^3/uL (0.3-0.8); MONOCYTES % (AUTO) 6.5 % (0.0-13.0); NEUTROPHILS # (AUTO) 2.4 x10^3/uL (2.2-4.8); NEUTROPHILS % (AUTO) 77.5 % (42.0-75.0); PLATELET COUNT 132 X10^3/uL (150.0-450.0); RED BLOOD COUNT 2.72 X10^6/uL (4.7-6.0); RED CELL DISTRIBUTION WIDTH 15.5 % (11.6-16.5); WHITE BLOOD COUNT 3.2 X10^3/uL (3.6-10.0)
[2017-12-30] MEDS: NS 1000 ML 1,000 ML IV SCH ×2 (05:34)
[2017-12-30] MEDS: KLONOPIN TAB 1 MG PO SCH (05:35)
[2017-12-30] MEDS: ZOSYN VIAL 3.375 GRAMS IV SCH (05:35)
[2017-12-30 05:47] LABS: ALANINE AMINOTRANSFERASE 19 Units/L (12-78); ALBUMIN 1.9 g/dL (3.4-5.0); ALKALINE PHOSPHATASE 63 Units/L (46-116); ASPARTATE AMINO TRANSFERASE 18 Units/L (15-37); BLOOD UREA NITROGEN 24 mg/dL (7-18); CARBON DIOXIDE 23.1 mmol/L (21-32); CHLORIDE 112 mmol/L (98-107); COR CA(FOR HYPOALB) 9.7 mg/dL (8.5-10.1); COR NA(FOR HYPERGLY) 143 mmol/L (136-145); CREATININE 1.16 mg/dL (0.70-1.30); SODIUM 141 mmol/L (136-145); TOTAL PROTEIN 5.7 g/dL (6.4-8.2); eGFR NON BLACK RACES > 60 (>60)
[2017-12-30] MEDS ORDERED: ALBUMIN HUMAN 25%- 100 ML 100 ML IV SCH (09:00)
[2017-12-30] MEDS: LIORESAL PO SCH (10:04)
[2017-12-30] MEDS: PriLOSEC PO SCH (10:04)
[2017-12-30] MEDS: CYMBALTA PO SCH (10:09)
[2017-12-30] MEDS: GENTAMICIN INJ 100 MG in NS 100 ML IV 100 ML IV SCH (11:11)
[2017-12-30 11:48] VITALS: BP 150/86
[2017-12-30] MEDS ORDERED: PHARMACY COMMENT IV NR (20:30)
[2018-01-01] MEDS ORDERED: CATAPRES-TTS-3 TD SCH (09:00)
--- NOTE | 2018-02-05 21:22 | DR.CARTERD ---
- Discharge Summary for: Discharge Summary for Date of:: 12/30/17 - Admission Date Date of Admission: 12/26/17 - Admission Diagnoses Admission Diagnosis: (1) Tachycardia (2) Dehydration (3) Urinary tract infection - Discharge Date Discharge Date: 12/30/17 - Discharge Diagnoses Discharge Diagnosis: (1) Pseudomonas urinary tract infection (2) Tachycardia (3) Dehydration (4) Hypertension (5) Chronic pain disorder (6) Quadriplegia - Hospital Course Hospital Course: DAY ONE, MR. WATKINS IS A 52 YEAR OLD PATIENT OF OURS. HE PRESENTED TO THE EMERGENCY ROOM VIA EMS. -HOME HEALTH NURSE REPORTED THAT SHE WAS VISITING PATIENT AND NOTICED GROSS HEMATURIA AND HEART RATE IN THE 150s. PATIENT REPORTED THAT HE WAS RECENTLY PLACED ON MACROBID FOR A URINARY TRACT INFECTION. HE DENIED FEVER. MEDICAL HISTORY INCLUDED QUADRAPLEGIA, HTN, SLEEP APNEA, GERD, NEUROGENIC BOWEL, CHRONIC UTIs, ANEMIA, ANXIETY, DEPRESSION, TONSILLECTOMY, CERVICAL FUSION, AND ORBITAL FX REPAIR. ON ARRIVAL, VITALS WERE 98.0-649-38-100% -107/51. LABS WERE OBTAINED. ABNORMAL LABS INCLUDED THE FOLLOWING: WBC 11.9, RBC 3.26, HGB 9.6, HCT 29.7, SODIUM 134, BUN 28, GLUCOSE 102. URINALYSIS REVEALED: WBC 5-10, RBC TNTC, BACTERIA 2+, LEUKOCYTES NEGATIVE, OCCULT BLOOD 5+ , PROTEIN 4+. HE WAS GIVEN LEVAQUIN 500MG IV IN THE ER AND STARTED ON NORMAL SALINE AT 125ML/HR. HE WAS ADMITTED TO THE INTENSIVE CARE UNIT FOR FURTHER EVALUATION AND TREATMENT OF UROSEPSIS AND HYPOTENSION. WE CONTINUED TO MONITOR. DAY TWO, MR. WATKINS WAS ADMITTED FOR UROSEPSIS AND DEHYDRATION. PATIENT WAS LYING IN BED WITH EYES CLOSED ON MORNING ROUNDS. HE WAS DROWSY AND DIFFICULT TO AROUSE. HE DID MOAN TO PAINFUL STIMULI. STAFF REPORTED THAT HE HAD RECEIVED DILAUDID AND ROXICODONE RECENTLY. ON EXAMINATION, HEART WAS REGULAR IN RATE AND RHYTHM. BILATERAL LUNGS WERE NOTED WITH DIMINISHED LUNG SOUNDS THROUGHOUT. ABDOMEN WAS ROUND, SOFT, AND NOTED WITH MODERATE, SUPRAPUBIC PAIN ON PALPATION. HIS VITALS WERE 96.1-97-10-99%-84/53. LABS WERE OBTAINED. ABNORMAL LAB VALUES INCLUDED THE FOLLOWING: RBC 2.12, HGB 6.4, HCT 19.6, PLT COUNT 135, CHLORIDE 110 , BUN 24, CALCIUM 8.1, AST 12, ALK PHOS 38, TOTAL PROTEIN 5.7, ALBUMIN 2.2. BLOOD AND URINE CULTURES WERE PENDING. WE ADMINISTERED TWO UNITS OF PACKED RED BLOOD CELLS. WE ADMINISTERED NARCAN 0.2MG IV X 1 DOSE. DAY THREE, HE AWAKENED EASILY TO VERBAL STIMULI. HE RECEIVED TWO UNITS OF PACKED RED BLOOD CELLS THROUGHOUT THE NIGHT FOR A LOW HEMOGLOBIN. ON EXAMINATION , HE WAS SLIGHTLY TACHYCARDIC. BILATERAL LUNGS WERE NOTED WITH DIMINISHED LUNG SOUNDS THROUGHOUT. ABDOMEN WAS ROUND, SOFT, AND NOTED WITH MILD, SUPRAPUBIC PAIN ON PALPATION. HIS VITALS WERE 98.1-109-18-94%NC-182/89. LABS WERE OBTAINED. ABNORMAL LAB VALUES INCLUDED THE FOLLOWING: RBC 3.53, HGB 10.8, HCT 32.4, CHLORIDE 111, BUN 25, CALCIUM 8.1, ALBUMIN 2.4. BLOOD AND URINE CULTURES WERE PENDING. WE CONTINUED WITH IV ANTIBIOTICS AND IV FLUIDS. DAY FOUR, PATIENT CONTINUED ON IV LEVAQUIN, URINE CULTURE SENSITIVITY REPORT RESISTANT. CONSULTED PHARMACY FOR GENTAMICIN AND ZOSYN. PATIENT COMPLAINED OF PAIN ALL OVER. PT HAD GROSS HEMATURIA IN ARENAS COLLECTION BAG. PATIENT CONTINUED ON IV DIALUDID AND PO ROXICODONE FOR PAIN. DAY FIVE, PATIENT REPORTED HE CONTINUED WITH PAIN, BUT HAD IMPROVED SINCE ADMISSION. URINE CULTURE REPORTED PSEUDOMONAS. HEMATURIA HAD IMPROVED. VITAL SIGNS STABLE. LABS WNL. WE DISCUSSED OPTIONS FOR DISCHARGE WITH PATIENT'S SISTER. HOSPICE WAS PRESENTED AND PATIENT'S SISTER AGREED WITH PLAN. WE PLANNED FOR DISCHARGE WITH HOSPICE. INSTRUCTIONS FOR MEDICATIONS AND FOLLOW UP WERE DISCUSSED WITH PATIENT AND FAMILY, BOTH VOICED UNDERSTANDING. PATIENT DISCHARGED HOME IN STABLE CONDITION WITH FAMILY. Labs: Microbiology 12/25/17 20:44 Urine,Catheterized Urine Culture - Final Pseudomonas Aeruginosa - Discharge Medications Discharge Medications: Home Medication List acetaminophen 1 supp NC Q6H PRN 12/25/17 [History] baclofen 1 tab PO QID 12/25/17 [History] clonazepam 1 tab PO TID 12/25/17 [History] clonidine 1 patch TOPICAL WEEKLY 12/25/17 [History] duloxetine [Cymbalta] 1 tab PO QID 12/25/17 [History] haloperidol 0.5 - 1 mg PO Q4H PRN 12/25/17 [History] hyoscyamine sulfate 1 - 2 ml SUBLINGUAL Q4H PRN 12/25/17 [History] lactulose 2 tbsp PO HS 12/25/17 [History] lorazepam 0.5 - 1 mg PO Q2H PRN 12/25/17 [History] naproxen 1 tab PO BID 12/25/17 [History] omeprazole 1 tab PO DAILY 12/25/17 [History] oxycodone 1 tab PO QID 12/25/17 [History] pregabalin [Lyrica] 100 mg PO TID 12/25/17 [History] promethazine 1 supp PRN PRN 12/25/17 [History] sennosides-docusate sodium [Senna-S] 2 tab PO HS 12/25/17 [History] bisacodyl [Dulcolax (bisacodyl)] 1 supp NC WEEKLY 12/26/17 [History] ondansetron HCl [Zofran] 1 tab PO TID PRN 12/26/17 [History] tizanidine 1 tab PO BID 12/26/17 [History] amoxicillin-pot clavulanate [Augmentin] 1 tab PO BID #28 tab 12/30/17 [Rx] Prescriptions: amoxicillin-pot clavulanate [Augmentin] David Oshea Miguel Angel - Discharge Disposition Discharge Disposition: PATIENT IS TO FOLLOW UP IN OUR OFFICE NEEDED.
== END 2017-12-30 12:40 | disposition home or self-care (01) | DRG 689 ==
LOC: MED/SURG 19:00 → ER 19:00 → OBSVTOIN 12-26 00:55 → MED/SURG 12-26 00:55 → ER 12-26 00:59
PROVIDERS: ADMIT Internal Medicine; ATTEND Internal Medicine
DX: N30.01 Acute cystitis with hematuria; Z66 Do not resuscitate; G82.50 Quadriplegia, unspecified; F41.8 Other specified anxiety disorders; R00.0 Tachycardia, unspecified; K21.9 Gastro-esophageal reflux disease without esophagitis; B96.5 Pseudomonas (aeruginosa) (mallei) (pseudomallei) as the cause of diseases classified elsewhere; E86.0 Dehydration; R06.02 Shortness of breath; I95.89 Other hypotension; D50.0 Iron deficiency anemia secondary to blood loss (chronic)
CPT/HCPCS: 36415; 36430; 51702; 71010; 71045; 80053; 81001; 83605; 85025; 86850; 86900; 86901; 86922; 87040; 87086; 87088; 87150; 87186; 96365; 96374; 99283; 99284; A4217; A4222; P9016; P9047; J0360; J1170; J1200; J1580; J1940; J1956; J2310; J2543; J2930; J3490; J7030; J7040; J7050

== ENCOUNTER 2018-08-02 11:58 | Inpatient (IN) ==
[2018-08-03 20:44] LABS: BASOPHILS # (AUTO) 0.1 X10^3/uL (0.0-0.1); BASOPHILS % (AUTO) 0.8 % (0.2-1.0); EOSINOPHILS # (AUTO) 0.3 x10^3/uL (0.0-0.2); EOSINOPHILS % (AUTO) 3.1 % (0.9-2.9); HEMATOCRIT 30.1 % (42.0-54.0); HEMOGLOBIN 9.9 g/dL (13.5-18.0); LYMPHOCYTES # (AUTO) 1.2 X10^3/uL (1.3-2.9); LYMPHOCYTES % (AUTO) 15.2 % (21.0-51.0); MEAN CORPUSCULAR HEMOGLOBIN 30.6 pg (27.0-34.0); MEAN CORPUSCULAR HGB CONC 32.9 g/dL (33.0-35.0); MEAN CORPUSCULAR VOLUME 93.2 fL (80.0-100.0); MEAN PLATELET VOLUME 8.5 fL (7.4-11.0); MONOCYTES # (AUTO) 0.7 x10^3/uL (0.3-0.8); MONOCYTES % (AUTO) 8.4 % (0.0-13.0); NEUTROPHILS # (AUTO) 5.9 x10^3/uL (2.2-4.8); NEUTROPHILS % (AUTO) 72.5 % (42.0-75.0); PLATELET COUNT 217 X10^3/uL (150.0-450.0); RED BLOOD COUNT 3.23 X10^6/uL (4.7-6.0); RED CELL DISTRIBUTION WIDTH 15.4 % (11.6-16.5); WHITE BLOOD COUNT 8.2 X10^3/uL (3.6-10.0)
[2018-08-03 20:53] LABS: ALANINE AMINOTRANSFERASE 12 Units/L (12-78); ALBUMIN 2.9 g/dL (3.4-5.0); ALKALINE PHOSPHATASE 66 Units/L (46-116); ASPARTATE AMINO TRANSFERASE 10 Units/L (15-37); BLOOD UREA NITROGEN 23 mg/dL (7-18); CALCIUM 8.6 mg/dL (8.5-10.1); CARBON DIOXIDE 26.3 mmol/L (21-32); CHLORIDE 104 mmol/L (98-107); COR CA(FOR HYPOALB) 9.5 mg/dL (8.5-10.1); CREATININE 1.11 mg/dL (0.70-1.30); SODIUM 138 mmol/L (136-145); TOTAL PROTEIN 6.4 g/dL (6.4-8.2); eGFR NON BLACK RACES > 60 (>60)
[2018-08-03 21:33] VITALS: BMI 21.5
[2018-08-03] MEDS: INVANZ INJ 1 GM VIAL 1 GM in NS 100 ML IV + SPIKE MINIBAG* 100 ML IV SCH (21:37)
[2018-08-03] MEDS: NS 1000 ML 1,000 ML IV SCH (21:51)
[2018-08-03 22:08] LABS: BILIRUBIN,URINE NEGATIVE (NEGATIVE); BLOOD/HEMOGLOBIN,URINE 5+ (NEGATIVE); GLUCOSE, URINE NEGATIVE (NEGATIVE); KETONES,URINE NEGATIVE (NEGATIVE); LEUKOCYTE ESTERASE ,URINE 3+ (NEGATIVE); NITRITES,URINE POSITIVE (NEGATIVE); PROTEIN,URINE 2+ (NEGATIVE); UROBILINOGEN,URINE NORMAL (NORMAL)
[2018-08-03 22:25] LABS: APPEARANCE,URINE HAZY (CLEAR); COLOR,URINE RED (YELLOW)
[2018-08-03 22:26] LABS: BACTERIA,URINE 2+ /HPF (NEGATIVE); RBC,URINE TNTC /HPF (NONE SEEN); SQUAMOUS EPITHELIAL CELL,UR NEGATIVE /HPF (NEGATIVE)
[2018-08-04] MEDS: NS 1000 ML 1,000 ML IV SCH ×3 (05:17→22:04)
[2018-08-04 05:24] LABS: BASOPHILS # (AUTO) 0.1 X10^3/uL (0.0-0.1); BASOPHILS % (AUTO) 0.7 % (0.2-1.0); EOSINOPHILS # (AUTO) 0.3 x10^3/uL (0.0-0.2); EOSINOPHILS % (AUTO) 3.9 % (0.9-2.9); HEMATOCRIT 26.9 % (42.0-54.0); HEMOGLOBIN 8.9 g/dL (13.5-18.0); LYMPHOCYTES # (AUTO) 2.4 X10^3/uL (1.3-2.9); LYMPHOCYTES % (AUTO) 28.5 % (21.0-51.0); MEAN CORPUSCULAR HEMOGLOBIN 30.9 pg (27.0-34.0); MEAN CORPUSCULAR HGB CONC 33.1 g/dL (33.0-35.0); MEAN CORPUSCULAR VOLUME 93.5 fL (80.0-100.0); MEAN PLATELET VOLUME 8.7 fL (7.4-11.0); MONOCYTES # (AUTO) 0.7 x10^3/uL (0.3-0.8); MONOCYTES % (AUTO) 8.6 % (0.0-13.0); NEUTROPHILS # (AUTO) 4.8 x10^3/uL (2.2-4.8); NEUTROPHILS % (AUTO) 58.3 % (42.0-75.0); PLATELET COUNT 185 X10^3/uL (150.0-450.0); RED BLOOD COUNT 2.88 X10^6/uL (4.7-6.0); RED CELL DISTRIBUTION WIDTH 15.3 % (11.6-16.5); WHITE BLOOD COUNT 8.3 X10^3/uL (3.6-10.0)
[2018-08-04 05:40] LABS: ALANINE AMINOTRANSFERASE 11 Units/L (12-78); ALBUMIN 2.4 g/dL (3.4-5.0); ALKALINE PHOSPHATASE 55 Units/L (46-116); ASPARTATE AMINO TRANSFERASE 10 Units/L (15-37); BLOOD UREA NITROGEN 24 mg/dL (7-18); CALCIUM 8.2 mg/dL (8.5-10.1); CARBON DIOXIDE 25.9 mmol/L (21-32); CHLORIDE 107 mmol/L (98-107); COR CA(FOR HYPOALB) 9.5 mg/dL (8.5-10.1); CREATININE 1.09 mg/dL (0.70-1.30); SODIUM 140 mmol/L (136-145); TOTAL PROTEIN 5.7 g/dL (6.4-8.2); eGFR NON BLACK RACES > 60 (>60)
[2018-08-04] MEDS: ROXICODONE TAB 15 MG PO PRN ×3 (08:36→22:44)
[2018-08-04] MEDS: INVANZ INJ 1 GM VIAL 1 GM in NS 100 ML IV + SPIKE MINIBAG* 100 ML IV SCH (08:37)
[2018-08-04] MEDS ORDERED: ATIVAN TAB 0.5 MG PO PRN (10:30)
[2018-08-04] MEDS ORDERED: AFRIN NASAL SPRAY ENOSTRIL PRN (10:30)
[2018-08-04] MEDS ORDERED: PHENERGAN SUPP 25 MG PR PRN (10:30)
[2018-08-04] MEDS ORDERED: ZOFRAN TAB 4 MG PO PRN (10:30)
[2018-08-04] MEDS ORDERED: [UNRECOGNIZED DRUG - OTHER] PO SCH (10:45)
[2018-08-04] MEDS: COLACE CAP 100 MG PO SCH ×2 (11:49→21:05)
[2018-08-04] MEDS: PriLOSEC PO SCH (11:49)
[2018-08-04] MEDS: VITAMIN D3 PO SCH (11:49)
[2018-08-04] MEDS: LIORESAL PO SCH ×4 (11:49→21:06)
[2018-08-04] MEDS: ZANAFLEX PO SCH ×2 (11:49→21:06)
[2018-08-04] MEDS: NAPROSYN PO SCH ×2 (11:49→21:05)
[2018-08-04] MEDS: FLONASE NASAL SPRAY ENOSTRIL SCH (11:50)
[2018-08-04] MEDS: CYMBALTA PO SCH ×2 (11:50→21:13)
[2018-08-04] MEDS: CHRONULAC PO SCH (11:51)
[2018-08-04] MEDS: ZOSYN VIAL 4.5 GRAMS 4.5 G in NS 100 ML IV + SPIKE MINIBAG* 100 ML IV SCH ×2 (15:48→22:27)
--- NOTE | 2018-08-04 19:05 | DR.H&P ---
H&P - History & Physical for Day of: H&P Date: 08/03/18 - Chief Complaint Chief Complaint: UTI, HEMATURIA, FEVER - History of Present Illness History of Present Illness: IS A 52 YEAR OLD PATIENT OF OURS WHO PRESENTED TO THE HOSPITAL A DIRECT ADMISSION DUE TO URINARY TRACT INFECTION AND HEMATURIA. PATIENT IS A QUADRAPLEGIC AND HAS A HISTORY OF CHRONIC URINARY TRACT INFECTIONS, HOWEVER, HE REPORTS RUNNING A FEVER FOR THE PAST SEVERAL DAYS. HE HAS BEEN ON MACROBID X 1 MONTH AND BACTRIM AND AUGMENTIN X 1 WEEK. HE REPORTED TO THE EMERGENCY ROOM ON 08/01. AT THAT TIME, URINALYSIS REVEALED WBC TNTC, RBC TNTC, BACTERIA 1+, LEUKOCYTES 3+. HE WAS DISCHARGED HOME AND INSTRUCTED TO CONTINUE HIS ORAL ANTIBIOTICS. SYMPTOMS CONTINUED DESPITE COMPLIANCE AFTER DISCHARGE FROM ER. HE WAS ADMITTED AND LABS WERE OBTAINED. ABNORMAL LAB VALUES INCLUDE THE FOLLOWING: RBC 3.23, HGB 9.9, HCT 30.1, POTASSIUM 5.7, BUN 23, GLUCOSE 109, AST 10, ALBUMIN 2.9. A URINALYSIS WAS REPEATED AND REVEALED: WBC TNTC, RBC TNTC, BACTERIA 2+, LEUKOCYTES 3+. HE WAS STARTED ON IV FLUIDS AND INVANZ 1GM IV DAILY. WE WILL RESUME HOME MEDICATIONS WITH THE EXCEPTION OF THE MACROBID, AUGMENTIN, AND BACTRIM. OTHERWISE, WE WILL FOLLOW UP WITH AM LABS AND CONTINUE TO MONITOR. - Past Medical History Past Medical History: Depression, Anxiety, Sleep Apnea Additional Medical History: QUADRAPLEGIC, NEUROGENIC BOWEL, MUSCLE SPASMS, CONSTIPATION - Past Surgical History Surgical History: Tonsillectomy Additional Surgical History: FUSION OF 3RD, 4TH, AND 5TH CERVICAL BERTEBRAE, ORBITAL FX, REPAIRED WITH PLATE - Social History Type of Tobacco Use: None Alcohol Use: None Drug Use: None - Medications Home Medications: meperidine [From Demerol] Adverse Reaction (Verified 08/03/18 20:02) CONTINUE taking the following medications amoxicillin-pot clavulanate 1 tab PO BID 08/03/18 [History] oxycodone 30 mg PO QID PRN 08/03/18 [History] oxymetazoline [Afrin (oxymetazoline)] 2 spray INTRANASAL BID PRN 08/03/18 [History] sulfamethoxazole-trimethoprim 1 tab PO BID 08/03/18 [History] temazepam 60 mg PO HS 08/03/18 [History] - Review of Systems Constitutional: See HPI, Fever, Chills Eyes: No Symptoms Reported ENT: No Symptoms Reported Respiratory: No Symptoms Reported Cardiovascular: No Symptoms Reported Gastrointestinal: No Symptoms Reported Genitourinary: See HPI, Hematuria Musculoskeletal: Other (QUADRAPLEGIC ) Skin: No Symptoms Reported Neurological: No Symptoms Reported - Physical Exam Vital Signs: Temperature 97.9 F Pulse Rate [Left Radial] 73 Respiratory Rate 16 Blood Pressure [Right Arm] 168/75 Blood Pressure [Left Arm] 153/74 Blood Pressure 123/71 O2 Sat by Pulse Oximetry 96 Oriented: Normal Eyes: Normal Ear: Normal Nose: Normal Throat: Normal Respiratory: Diminished Throughout Cardiovascular: Normal. negative: S3, S4, Murmur : Hematuria Auscultation: Bowel Sounds: Normal Palpation: Normal Tenderness: Normal Skin: Normal Musculoskeletal: Normal Psychiatric: Normal Mood Description: Calm Affect: Normal Speech Pattern: Clear - Assessment/Plan (1) UTI (urinary tract infection) Qualifiers: Urinary tract infection type: catheter-associated UTI Indwelling urinary catheter type: indwelling urethral catheter Encounter type: subsequent encounter Qualified Code(s): T83.511D - Infection and inflammatory reaction due to indwelling urethral catheter, subsequent encounter; N39.0 - Urinary tract infection, site not specified Status: Acute Plan: INVANZ 1GM IV DAILY, IV FLUIDS, CONTINUE TO MONITOR (2) Hematuria Qualifiers: Hematuria type: unspecified type Qualified Code(s): R31.9 - Hematuria, unspecified Status: Acute - Allergies Allergies/Adverse Reactions: Allergies Allergy/AdvReac Type Severity Reaction Status Date / Time meperidine [From Demerol] AdvReac Verified 08/03/18 20:02
[2018-08-04] MEDS ORDERED: MILK OF MAGNESIA PO ONE (21:00)
[2018-08-04] MEDS ORDERED: CHRONULAC PO ONE (21:00)
[2018-08-04] MEDS: RESTORIL CAP 30 MG PO SCH (21:05)
[2018-08-04] MEDS: KLONOPIN TAB 1 MG PO SCH (21:05)
[2018-08-04] MEDS: WELLBUTRIN XL 150 MG (DAILY) PO SCH (21:06)
[2018-08-05] MEDS: NS 1000 ML 1,000 ML IV SCH ×3 (04:11→20:53)
[2018-08-05] MEDS: ZOSYN VIAL 4.5 GRAMS 4.5 G in NS 100 ML IV + SPIKE MINIBAG* 100 ML IV SCH ×2 (05:12→13:17)
[2018-08-05 05:37] LABS: BASOPHILS # (AUTO) 0.1 X10^3/uL (0.0-0.1); BASOPHILS % (AUTO) 1.3 % (0.2-1.0); EOSINOPHILS # (AUTO) 0.3 x10^3/uL (0.0-0.2); EOSINOPHILS % (AUTO) 4.6 % (0.9-2.9); HEMATOCRIT 25.4 % (42.0-54.0); HEMOGLOBIN 8.5 g/dL (13.5-18.0); LYMPHOCYTES # (AUTO) 2.3 X10^3/uL (1.3-2.9); LYMPHOCYTES % (AUTO) 35.3 % (21.0-51.0); MEAN CORPUSCULAR HEMOGLOBIN 31.1 pg (27.0-34.0); MEAN CORPUSCULAR HGB CONC 33.3 g/dL (33.0-35.0); MEAN CORPUSCULAR VOLUME 93.3 fL (80.0-100.0); MEAN PLATELET VOLUME 8.6 fL (7.4-11.0); MONOCYTES # (AUTO) 0.7 x10^3/uL (0.3-0.8); MONOCYTES % (AUTO) 11.3 % (0.0-13.0); NEUTROPHILS # (AUTO) 3.1 x10^3/uL (2.2-4.8); NEUTROPHILS % (AUTO) 47.5 % (42.0-75.0); PLATELET COUNT 164 X10^3/uL (150.0-450.0); RED BLOOD COUNT 2.72 X10^6/uL (4.7-6.0); RED CELL DISTRIBUTION WIDTH 15.5 % (11.6-16.5); WHITE BLOOD COUNT 6.6 X10^3/uL (3.6-10.0)
[2018-08-05 05:48] LABS: ALANINE AMINOTRANSFERASE 10 Units/L (12-78); ALBUMIN 2.3 g/dL (3.4-5.0); ALKALINE PHOSPHATASE 49 Units/L (46-116); ASPARTATE AMINO TRANSFERASE 9 Units/L (15-37); BLOOD UREA NITROGEN 19 mg/dL (7-18); CALCIUM 7.9 mg/dL (8.5-10.1); CARBON DIOXIDE 24.3 mmol/L (21-32); CHLORIDE 108 mmol/L (98-107); COR CA(FOR HYPOALB) 9.3 mg/dL (8.5-10.1); CREATININE 1.16 mg/dL (0.70-1.30); SODIUM 139 mmol/L (136-145); TOTAL PROTEIN 5.5 g/dL (6.4-8.2); eGFR NON BLACK RACES > 60 (>60)
[2018-08-05] MEDS: ROXICODONE TAB 15 MG PO PRN ×2 (06:33→11:54)
--- NOTE | 2018-08-05 08:26 | PCM.PROG ---
Progress Note - Progress Note for Day of Date of Exam: 08/04/18 - Subjective Subjective: WAS ADMITTED FOR A URINARY TRACT INFECTION AND HEMATURIA. TODAY, HE IS ALERT AND ORIENTED, LYING IN BED ON MORNING ROUNDS. HE DENIES COMPLAINTS THIS MORNING. ON EXAMINATION, HEART IS REGULAR IN RATE AD RHYTHM. BILATERAL LUNGS ARE NOTED WITH DIMINISHED LUNG SOUNDS THROUGHOUT. ABDOMEN IS ROUND, SOFT, AND NOTED WITH NORMAL BOWEL SOUNDS IN ALL QUADRANTS. THERE IS A CATHETER NOTED TO BEDSIDE DRAINAGE. TEA COLOR URINE NOTED IN BAG. HIS VITALS THIS MORNING ARE 98.6-94-18-97%-136/63. LABS WERE OBTAINED. ABNORMAL LAB VALUES INCLUDE THE FOLLOWING: RBC 2.88, HGB 8.9, HCT 26.9, POTASSIUM 5.8, BUN 24, CALCIUM 8.2, AST 10, ALT 11, TOTAL PROTEIN 5.7, ALBUMIN 2.4. HE CONTINUES TO RECEIVE IV FLUIDS AND INVANZ 1GM IV DAILY. WE WILL CONTINUE WITH CURRENT PLAN OF CARE TODAY. OTHERWISE, WE WILL FOLLOW UP WITH AM LABS AND CONTINUE TO MONITOR. - Past Medical Family Social History Past Med/Fam/Surg Hx: No changes since H&P Allergies: Allergies meperidine [From Demerol] Adverse Reaction (Verified 08/03/18 20:02) - Review of Systems ROS: No change since H&P - Vital Signs and I&O's Vital Signs: Temperature 98.0 F Pulse Rate [Left Radial] 70 Respiratory Rate 18 Blood Pressure [Right Arm] 185/90 Blood Pressure [Left Arm] 153/74 Blood Pressure 123/71 O2 Sat by Pulse Oximetry 99 Intake and Output: Intake & Output 08/02/18 08/03/18 08/04/18 08/05/18 11:59 11:59 11:59 11:59 Intake Total 1930 / 1930 3320 / 3320 Output Total 1450 / 1450 3600 / 3600 Balance 480 / 480 -280 / -280 - Physical Exam Oriented: Normal Eyes: Normal Ear: Normal Nose: Normal Throat: Normal Respiratory: Generalized, Diminished Cardiovascular: Normal. negative: S3, S4, Murmur : Hematuria Auscultation: Bowel Sounds: Normal Palpation: Normal Tenderness: Normal Skin: Normal Musculoskeletal: Normal Psychiatric: Normal Mood Description: Calm Affect: Normal Speech Pattern: Clear - Laboratory and Diagnostics Result Diagrams: 08/05/18 04:42 08/05/18 04:42 Labs: Laboratory WBC 6.6 X10^3/uL (3.6-10.0) 08/05/18 04:42 RBC 2.72 X10^6/uL (4.7-6.0) L 08/05/18 04:42 Hgb 8.5 g/dL (13.5-18.0) L 08/05/18 04:42 Hct 25.4 % (42.0-54.0) L 08/05/18 04:42 MCV 93.3 fL (80.0-100.0) 08/05/18 04:42 MCH 31.1 pg (27.0-34.0) 08/05/18 04:42 MCHC 33.3 g/dL (33.0-35.0) 08/05/18 04:42 RDW 15.5 % (11.6-16.5) 08/05/18 04:42 Plt Count 164 X10^3/uL (150.0-450.0) 08/05/18 04:42 MPV 8.6 fL (7.4-11.0) 08/05/18 04:42 Neut % (Auto) 47.5 % (42.0-75.0) 08/05/18 04:42 Lymph % (Auto) 35.3 % (21.0-51.0) 08/05/18 04:42 [place] % (Auto) 11.3 % (0.0-13.0) 08/05/18 04:42 Eos % (Auto) 4.6 % (0.9-2.9) H 08/05/18 04:42 Baso % (Auto) 1.3 % (0.2-1.0) H 08/05/18 04:42 Neut # (Auto) 3.1 x10^3/uL (2.2-4.8) 08/05/18 04:42 Lymph # (Auto) 2.3 X10^3/uL (1.3-2.9) 08/05/18 04:42 [place] # (Auto) 0.7 x10^3/uL (0.3-0.8) 08/05/18 04:42 Eos # (Auto) 0.3 x10^3/uL (0.0-0.2) H 08/05/18 04:42 Baso # (Auto) 0.1 X10^3/uL (0.0-0.1) 08/05/18 04:42 Absolute Nucleated RBC 0.0 /100WBC 08/05/18 04:42 Sodium 139 mmol/L (136-145) 08/05/18 04:42 Corrected Sodium TNP 08/05/18 04:42 Potassium 5.3 mmol/L (3.5-5.1) H 08/05/18 04:42 Chloride 108 mmol/L (98-107) H 08/05/18 04:42 Carbon Dioxide 24.3 mmol/L (21-32) 08/05/18 04:42 BUN 19 mg/dL (7-18) H 08/05/18 04:42 Creatinine 1.16 mg/dL (0.70-1.30) 08/05/18 04:42 Est GFR (MDRD) Af Amer > 60 (>60) 08/05/18 04:42 Est GFR (MDRD) Non-Af > 60 (>60) 08/05/18 04:42 Glucose 89 mg/dL (65-99) 08/05/18 04:42 POC Glucose (mg/dL) 90 mg/dL (65-99) 08/05/18 05:21 Lactic Acid 1.0 mmol/L (0.4-2.0) 08/03/18 20:20 Calcium 7.9 mg/dL (8.5-10.1) L 08/05/18 04:42 Corrected Calcium 9.3 mg/dL (8.5-10.1) 08/05/18 04:42 Total Bilirubin 0.50 mg/dL (0.2-1.0) 08/05/18 04:42 AST 9 Units/L (15-37) L 08/05/18 04:42 ALT 10 Units/L (12-78) L 08/05/18 04:42 Alkaline Phosphatase 49 Units/L (46-116) 08/05/18 04:42 Total Protein 5.5 g/dL (6.4-8.2) L 08/05/18 04:42 Albumin 2.3 g/dL (3.4-5.0) L 08/05/18 04:42 Globulin 3.2 g/dL (2.5-4.5) 08/05/18 04:42 Albumin/Globulin Ratio 0.7 Ratio (1.1-2.1) L 08/05/18 04:42 Specimen Type Catherized urine 08/03/18 21:50 Urine Color Red (YELLOW) 08/03/18 21:50 Urine Appearance Hazy (CLEAR) 08/03/18 21:50 Urine pH 7.0 (5.0 - 8.0) 08/03/18 21:50 Ur Specific [place] 1.010 (1.000-1.030) 08/03/18 21:50 Urine Protein 2+ (NEGATIVE) 08/03/18 21:50 Urine Glucose (UA) Negative (NEGATIVE) 08/03/18 21:50 Urine Ketones Negative (NEGATIVE) 08/03/18 21:50 Urine Occult Blood 5+ (NEGATIVE) 08/03/18 21:50 Urine Nitrite Positive (NEGATIVE) 08/03/18 21:50 Urine Bilirubin Negative (NEGATIVE) 08/03/18 21:50 Urine Urobilinogen Normal (NORMAL) 08/03/18 21:50 Ur Leukocyte Esterase 3+ (NEGATIVE) 08/03/18 21:50 Urine RBC Tntc /HPF (NONE SEEN) 08/03/18 21:50 Urine WBC Tntc /HPF (NONE SEEN) 08/03/18 21:50 Ur Squamous Epith Cells Negative /HPF (NEGATIVE) 08/03/18 21:50 Urine Bacteria 2+ /HPF (NEGATIVE) 08/03/18 21:50 Ur Culture Indicated? No/not indicated 08/03/18 21:50 - Plan (1) UTI (urinary tract infection) Status: Acute Qualifiers: Urinary tract infection type: catheter-associated UTI Indwelling urinary catheter type: indwelling urethral catheter Encounter type: subsequent encounter Qualified Code(s): T83.511D - Infection and inflammatory reaction due to indwelling urethral catheter, subsequent encounter; N39.0 - Urinary tract infection, site not specified Plan: INVANZ 1GM IV DAILY, IV FLUIDS, CONTINUE TO MONITOR (2) Hematuria Status: Acute Qualifiers: Hematuria type: unspecified type Qualified Code(s): R31.9 - Hematuria, unspecified
[2018-08-05] MEDS: NAPROSYN PO SCH ×2 (09:04→20:43)
[2018-08-05] MEDS: LIORESAL PO SCH ×4 (09:04→20:43)
[2018-08-05] MEDS: ZANAFLEX PO SCH ×2 (09:05→20:43)
[2018-08-05] MEDS: PriLOSEC PO SCH (09:05)
[2018-08-05] MEDS: FLONASE NASAL SPRAY ENOSTRIL SCH (09:05)
[2018-08-05] MEDS: VITAMIN D3 PO SCH (09:05)
[2018-08-05] MEDS: CYMBALTA PO SCH ×2 (09:09→20:47)
[2018-08-05] MEDS: DULCOLAX SUPPOSITORY 10 MG PR SCH (16:46)
--- NOTE | 2018-08-05 19:26 | PCM.PROG ---
Progress Note - Progress Note for Day of Date of Exam: 08/05/18 - Subjective Subjective: WAS ADMITTED FOR A URINARY TRACT INFECTION AND HEMATURIA. TODAY, HE IS ALERT AND ORIENTED, LYING IN BED ON MORNING ROUNDS. HE DENIES COMPLAINTS THIS MORNING. ON EXAMINATION, HEART IS REGULAR IN RATE AD RHYTHM. BILATERAL LUNGS ARE NOTED WITH DIMINISHED LUNG SOUNDS THROUGHOUT. ABDOMEN IS ROUND, SOFT, AND NOTED WITH NORMAL BOWEL SOUNDS IN ALL QUADRANTS. THERE IS A CATHETER NOTED TO BEDSIDE DRAINAGE. TEA COLOR URINE NOTED IN BAG. HIS VITALS THIS MORNING ARE 98.0-70-18-99%-185/90. LABS WERE OBTAINED. ABNORMAL LAB VALUES INCLUDE THE FOLLOWING: RBC 2.72, HGB 8.5, HCT 25.4, POTASSIUM 5.3, CHLORIDE 108, BUN 19, CALCIUM 7.9, AST 9, ALT 10, TOTAL PROTEIN 5.5, ALBUMIN 2.3. BLOOD CULTURES PENDING. URINE CULTURE FROM ER VISIT ON 08/01 REPORTS GROWTH OF PSEUDOMONAS AERUGINOSA. IT IS RESISTANT TO THE ZOSYN THAT HE IS CURRENTLY ON. TODAY, WE WILL CHANGE IV ANTIBIOTICS TO TOBRAMYCIN 340MG PO DAILY. OTHERWISE, WE WILL FOLLOW UP WITH AM LABS AND CONTINUE TO MONITOR. - Past Medical Family Social History Past Med/Fam/Surg Hx: No changes since H&P Allergies: Allergies meperidine [From Demerol] Adverse Reaction (Verified 08/03/18 20:02) - Review of Systems ROS: No change since H&P - Vital Signs and I&O's Vital Signs: Temperature 98.7 F Pulse Rate [Left Radial] 83 Respiratory Rate 20 Blood Pressure [Right Arm] 98/55 Blood Pressure [Left Arm] 153/74 Blood Pressure 123/71 O2 Sat by Pulse Oximetry 95 Intake and Output: Intake & Output 08/03/18 08/04/18 08/05/18 08/06/18 11:59 11:59 11:59 11:59 Intake Total 1930 / 1930 3320 / 3320 400 / 400 Output Total 1450 / 1450 3600 / 3600 1700 / 1700 Balance 480 / 480 -280 / -280 -1300 / -1300 - Physical Exam Oriented: Normal Eyes: Normal Ear: Normal Nose: Normal Throat: Normal Respiratory: Generalized, Diminished Cardiovascular: Normal. negative: S3, S4, Murmur : Hematuria Auscultation: Bowel Sounds: Normal Palpation: Normal Tenderness: Normal Skin: Normal Musculoskeletal: Normal Psychiatric: Normal Mood Description: Calm Affect: Normal Speech Pattern: Clear - Laboratory and Diagnostics Result Diagrams: 08/05/18 04:42 08/05/18 04:42 Labs: 08/03/18 20:31 Blood Blood Culture - Preliminary 08/03/18 20:20 Blood Blood Culture - Preliminary 08/03/18 21:50 Urine,Catheterized Urine Culture - Preliminary Laboratory WBC 6.6 X10^3/uL (3.6-10.0) 08/05/18 04:42 RBC 2.72 X10^6/uL (4.7-6.0) L 08/05/18 04:42 Hgb 8.5 g/dL (13.5-18.0) L 08/05/18 04:42 Hct 25.4 % (42.0-54.0) L 08/05/18 04:42 MCV 93.3 fL (80.0-100.0) 08/05/18 04:42 MCH 31.1 pg (27.0-34.0) 08/05/18 04:42 MCHC 33.3 g/dL (33.0-35.0) 08/05/18 04:42 RDW 15.5 % (11.6-16.5) 08/05/18 04:42 Plt Count 164 X10^3/uL (150.0-450.0) 08/05/18 04:42 MPV 8.6 fL (7.4-11.0) 08/05/18 04:42 Neut % (Auto) 47.5 % (42.0-75.0) 08/05/18 04:42 Lymph % (Auto) 35.3 % (21.0-51.0) 08/05/18 04:42 [place] % (Auto) 11.3 % (0.0-13.0) 08/05/18 04:42 Eos % (Auto) 4.6 % (0.9-2.9) H 08/05/18 04:42 Baso % (Auto) 1.3 % (0.2-1.0) H 08/05/18 04:42 Neut # (Auto) 3.1 x10^3/uL (2.2-4.8) 08/05/18 04:42 Lymph # (Auto) 2.3 X10^3/uL (1.3-2.9) 08/05/18 04:42 [place] # (Auto) 0.7 x10^3/uL (0.3-0.8) 08/05/18 04:42 Eos # (Auto) 0.3 x10^3/uL (0.0-0.2) H 08/05/18 04:42 Baso # (Auto) 0.1 X10^3/uL (0.0-0.1) 08/05/18 04:42 Absolute Nucleated RBC 0.0 /100WBC 08/05/18 04:42 Sodium 139 mmol/L (136-145) 08/05/18 04:42 Corrected Sodium TNP 08/05/18 04:42 Potassium 5.3 mmol/L (3.5-5.1) H 08/05/18 04:42 Chloride 108 mmol/L (98-107) H 08/05/18 04:42 Carbon Dioxide 24.3 mmol/L (21-32) 08/05/18 04:42 BUN 19 mg/dL (7-18) H 08/05/18 04:42 Creatinine 1.16 mg/dL (0.70-1.30) 08/05/18 04:42 Est GFR (MDRD) Af Amer > 60 (>60) 08/05/18 04:42 Est GFR (MDRD) Non-Af > 60 (>60) 08/05/18 04:42 Glucose 89 mg/dL (65-99) 08/05/18 04:42 POC Glucose (mg/dL) 110 mg/dL (65-99) H 08/05/18 17:05 Lactic Acid 1.0 mmol/L (0.4-2.0) 08/03/18 20:20 Calcium 7.9 mg/dL (8.5-10.1) L 08/05/18 04:42 Corrected Calcium 9.3 mg/dL (8.5-10.1) 08/05/18 04:42 Total Bilirubin 0.50 mg/dL (0.2-1.0) 08/05/18 04:42 AST 9 Units/L (15-37) L 08/05/18 04:42 ALT 10 Units/L (12-78) L 08/05/18 04:42 Alkaline Phosphatase 49 Units/L (46-116) 08/05/18 04:42 Total Protein 5.5 g/dL (6.4-8.2) L 08/05/18 04:42 Albumin 2.3 g/dL (3.4-5.0) L 08/05/18 04:42 Globulin 3.2 g/dL (2.5-4.5) 08/05/18 04:42 Albumin/Globulin Ratio 0.7 Ratio (1.1-2.1) L 08/05/18 04:42 Specimen Type Catherized urine 08/03/18 21:50 Urine Color Red (YELLOW) 08/03/18 21:50 Urine Appearance Hazy (CLEAR) 08/03/18 21:50 Urine pH 7.0 (5.0 - 8.0) 08/03/18 21:50 Ur Specific [place] 1.010 (1.000-1.030) 08/03/18 21:50 Urine Protein 2+ (NEGATIVE) 08/03/18 21:50 Urine Glucose (UA) Negative (NEGATIVE) 08/03/18 21:50 Urine Ketones Negative (NEGATIVE) 08/03/18 21:50 Urine Occult Blood 5+ (NEGATIVE) 08/03/18 21:50 Urine Nitrite Positive (NEGATIVE) 08/03/18 21:50 Urine Bilirubin Negative (NEGATIVE) 08/03/18 21:50 Urine Urobilinogen Normal (NORMAL) 08/03/18 21:50 Ur Leukocyte Esterase 3+ (NEGATIVE) 08/03/18 21:50 Urine RBC Tntc /HPF (NONE SEEN) 08/03/18 21:50 Urine WBC Tntc /HPF (NONE SEEN) 08/03/18 21:50 Ur Squamous Epith Cells Negative /HPF (NEGATIVE) 08/03/18 21:50 Urine Bacteria 2+ /HPF (NEGATIVE) 08/03/18 21:50 Ur Culture Indicated? No/not indicated 08/03/18 21:50 - Plan (1) UTI (urinary tract infection) Status: Acute Qualifiers: Urinary tract infection type: catheter-associated UTI Indwelling urinary catheter type: indwelling urethral catheter Encounter type: subsequent encounter Qualified Code(s): T83.511D - Infection and inflammatory reaction due to indwelling urethral catheter, subsequent encounter; N39.0 - Urinary tract infection, site not specified Plan: TOBRAMYCIN 340MG IV DAILY, IV FLUIDS, CONTINUE TO MONITOR (2) Hematuria Status: Acute Qualifiers: Hematuria type: unspecified type Qualified Code(s): R31.9 - Hematuria, unspecified
[2018-08-05] MEDS ORDERED: NS IV SCH (20:00)
[2018-08-05] MEDS ORDERED: TOBRAMYCIN SULFATE IV SCH (20:00)
[2018-08-05] MEDS: WELLBUTRIN XL 150 MG (DAILY) PO SCH (20:42)
[2018-08-05] MEDS: TOBRAMYCIN SULFATE 80 MG in NS 100 ML IV 98 ML IV SCH (20:42)
[2018-08-05] MEDS: KLONOPIN TAB 1 MG PO SCH (20:43)
[2018-08-05] MEDS: RESTORIL CAP 30 MG PO SCH (20:43)
[2018-08-05] MEDS: COLACE CAP 100 MG PO SCH (20:43)
[2018-08-06] MEDS: ROXICODONE TAB 15 MG PO PRN ×4 (00:34→17:50)
[2018-08-06] MEDS: NS 1000 ML 1,000 ML IV SCH ×4 (04:35→23:53)
[2018-08-06] MEDS: TOBRAMYCIN SULFATE 80 MG in NS 100 ML IV 98 ML IV SCH ×2 (05:28→13:30)
[2018-08-06 05:30] LABS: ALANINE AMINOTRANSFERASE 8 Units/L (12-78); ALBUMIN 2.1 g/dL (3.4-5.0); ALKALINE PHOSPHATASE 50 Units/L (46-116); ASPARTATE AMINO TRANSFERASE 9 Units/L (15-37); BLOOD UREA NITROGEN 25 mg/dL (7-18); CALCIUM 7.9 mg/dL (8.5-10.1); CARBON DIOXIDE 25.4 mmol/L (21-32); CHLORIDE 109 mmol/L (98-107); COR CA(FOR HYPOALB) 9.4 mg/dL (8.5-10.1); CREATININE 0.96 mg/dL (0.70-1.30); SODIUM 142 mmol/L (136-145); TOTAL PROTEIN 5.3 g/dL (6.4-8.2); eGFR NON BLACK RACES > 60 (>60)
[2018-08-06 05:31] LABS: BASOPHILS % (AUTO) 0.7 % (0.2-1.0); EOSINOPHILS # (AUTO) 0.4 x10^3/uL (0.0-0.2); EOSINOPHILS % (AUTO) 6.6 % (0.9-2.9); HEMATOCRIT 25.5 % (42.0-54.0); HEMOGLOBIN 8.4 g/dL (13.5-18.0); LYMPHOCYTES # (AUTO) 2.5 X10^3/uL (1.3-2.9); LYMPHOCYTES % (AUTO) 36.9 % (21.0-51.0); MEAN CORPUSCULAR HEMOGLOBIN 30.8 pg (27.0-34.0); MEAN CORPUSCULAR HGB CONC 32.7 g/dL (33.0-35.0); MEAN CORPUSCULAR VOLUME 94.1 fL (80.0-100.0); MEAN PLATELET VOLUME 8.6 fL (7.4-11.0); MONOCYTES # (AUTO) 0.6 x10^3/uL (0.3-0.8); MONOCYTES % (AUTO) 9.5 % (0.0-13.0); NEUTROPHILS # (AUTO) 3.1 x10^3/uL (2.2-4.8); NEUTROPHILS % (AUTO) 46.3 % (42.0-75.0); PLATELET COUNT 171 X10^3/uL (150.0-450.0); RED BLOOD COUNT 2.71 X10^6/uL (4.7-6.0); RED CELL DISTRIBUTION WIDTH 15.8 % (11.6-16.5); WHITE BLOOD COUNT 6.7 X10^3/uL (3.6-10.0)
[2018-08-06] MEDS: NAPROSYN PO SCH ×2 (08:43→20:47)
[2018-08-06] MEDS: VITAMIN D3 PO SCH (08:43)
[2018-08-06] MEDS: PriLOSEC PO SCH (08:43)
[2018-08-06] MEDS: FLONASE NASAL SPRAY ENOSTRIL SCH (08:43)
[2018-08-06] MEDS: CYMBALTA PO SCH ×2 (08:44→22:10)
[2018-08-06] MEDS: ZANAFLEX PO SCH ×2 (08:44→20:47)
[2018-08-06] MEDS: LIORESAL PO SCH ×4 (08:44→20:47)
--- NOTE | 2018-08-06 13:54 | PCM.PROG ---
Progress Note - Progress Note for Day of Date of Exam: 08/06/18 - Subjective Subjective: WAS ADMITTED FOR A URINARY TRACT INFECTION AND HEMATURIA. TODAY, HE IS ALERT AND ORIENTED, LYING IN BED ON MORNING ROUNDS. HE DENIES COMPLAINTS THIS MORNING. ON EXAMINATION, HEART IS REGULAR IN RATE AD RHYTHM. BILATERAL LUNGS ARE NOTED WITH DIMINISHED LUNG SOUNDS THROUGHOUT. ABDOMEN IS ROUND, SOFT, AND NOTED WITH NORMAL BOWEL SOUNDS IN ALL QUADRANTS. THERE IS A CATHETER NOTED TO BEDSIDE DRAINAGE. TEA COLOR URINE NOTED IN BAG. HIS VITALS THIS MORNING ARE 98.7-76-20-97%-129/64. LABS WERE OBTAINED. ABNORMAL LAB VALUES INCLUDE THE FOLLOWING: RBC 2.72, HGB 8.5, HCT 25.4, POTASSIUM 5.3, CHLORIDE 108, BUN 19, CALCIUM 7.9, AST 9, ALT 10, TOTAL PROTEIN 5.5, ALBUMIN 2.3. BLOOD CULTURES PENDING. URINE CULTURE GROWTH OF PSEUDOMONAS AERUGINOSA. HE IS CURRENTLY ON TOBRAMYCIN 340MG PO DAILY. WE WILL CONTINUE WITH CURRENT PLAN OF CARE TODAY. OTHERWISE, WE WILL FOLLOW UP WITH AM LABS AND CONTINUE TO MONITOR. - Past Medical Family Social History Past Med/Fam/Surg Hx: No changes since H&P Allergies: Allergies meperidine [From Demerol] Adverse Reaction (Verified 08/03/18 20:02) - Review of Systems ROS: No change since H&P - Vital Signs and I&O's Vital Signs: Temperature 97.9 F Pulse Rate [Left Radial] 70 Respiratory Rate 20 Blood Pressure [Right Arm] 114/59 Blood Pressure [Left Arm] 153/74 Blood Pressure 123/71 O2 Sat by Pulse Oximetry 98 Intake and Output: Intake & Output 08/04/18 08/05/18 08/06/18 08/07/18 11:59 11:59 11:59 11:59 Intake Total 1930 / 1930 3320 / 3320 4010 / 4010 Output Total 1450 / 1450 3600 / 3600 4150 / 4150 Balance 480 / 480 -280 / -280 -140 / -140 - Physical Exam Oriented: Normal Eyes: Normal Ear: Normal Nose: Normal Throat: Normal Respiratory: Generalized, Diminished Cardiovascular: Normal. negative: S3, S4, Murmur : Hematuria Auscultation: Bowel Sounds: Normal Tenderness: Normal Skin: Normal Musculoskeletal: Normal Psychiatric: Normal Mood Description: Calm Affect: Normal Speech Pattern: Clear, Appropriate - Laboratory and Diagnostics Result Diagrams: 08/06/18 04:48 08/06/18 04:48 Labs: 08/03/18 21:50 Urine,Catheterized Urine Culture - Final Pseudomonas Aeruginosa 08/03/18 20:31 Blood Blood Culture - Preliminary 08/03/18 20:20 Blood Blood Culture - Preliminary Laboratory WBC 6.7 X10^3/uL (3.6-10.0) 08/06/18 04:48 RBC 2.71 X10^6/uL (4.7-6.0) L 08/06/18 04:48 Hgb 8.4 g/dL (13.5-18.0) L 08/06/18 04:48 Hct 25.5 % (42.0-54.0) L 08/06/18 04:48 MCV 94.1 fL (80.0-100.0) 08/06/18 04:48 MCH 30.8 pg (27.0-34.0) 08/06/18 04:48 MCHC 32.7 g/dL (33.0-35.0) L 08/06/18 04:48 RDW 15.8 % (11.6-16.5) 08/06/18 04:48 Plt Count 171 X10^3/uL (150.0-450.0) 08/06/18 04:48 MPV 8.6 fL (7.4-11.0) 08/06/18 04:48 Neut % (Auto) 46.3 % (42.0-75.0) 08/06/18 04:48 Lymph % (Auto) 36.9 % (21.0-51.0) 08/06/18 04:48 [place] % (Auto) 9.5 % (0.0-13.0) 08/06/18 04:48 Eos % (Auto) 6.6 % (0.9-2.9) H 08/06/18 04:48 Baso % (Auto) 0.7 % (0.2-1.0) 08/06/18 04:48 Neut # (Auto) 3.1 x10^3/uL (2.2-4.8) 08/06/18 04:48 Lymph # (Auto) 2.5 X10^3/uL (1.3-2.9) 08/06/18 04:48 [place] # (Auto) 0.6 x10^3/uL (0.3-0.8) 08/06/18 04:48 Eos # (Auto) 0.4 x10^3/uL (0.0-0.2) H 08/06/18 04:48 Baso # (Auto) 0.0 X10^3/uL (0.0-0.1) 08/06/18 04:48 Absolute Nucleated RBC 0.0 /100WBC 08/06/18 04:48 Sodium 142 mmol/L (136-145) 08/06/18 04:48 Corrected Sodium TNP 08/06/18 04:48 Potassium 5.4 mmol/L (3.5-5.1) H 08/06/18 04:48 Chloride 109 mmol/L (98-107) H 08/06/18 04:48 Carbon Dioxide 25.4 mmol/L (21-32) 08/06/18 04:48 BUN 25 mg/dL (7-18) H 08/06/18 04:48 Creatinine 0.96 mg/dL (0.70-1.30) 08/06/18 04:48 Est GFR (MDRD) Af Amer > 60 (>60) 08/06/18 04:48 Est GFR (MDRD) Non-Af > 60 (>60) 08/06/18 04:48 Glucose 104 mg/dL (65-99) H 08/06/18 04:48 POC Glucose (mg/dL) 91 mg/dL (65-99) 08/06/18 05:24 Lactic Acid 1.0 mmol/L (0.4-2.0) 08/03/18 20:20 Calcium 7.9 mg/dL (8.5-10.1) L 08/06/18 04:48 Corrected Calcium 9.4 mg/dL (8.5-10.1) 08/06/18 04:48 Total Bilirubin 0.50 mg/dL (0.2-1.0) 08/06/18 04:48 AST 9 Units/L (15-37) L 08/06/18 04:48 ALT 8 Units/L (12-78) L 08/06/18 04:48 Alkaline Phosphatase 50 Units/L (46-116) 08/06/18 04:48 Total Protein 5.3 g/dL (6.4-8.2) L 08/06/18 04:48 Albumin 2.1 g/dL (3.4-5.0) L 08/06/18 04:48 Globulin 3.2 g/dL (2.5-4.5) 08/06/18 04:48 Albumin/Globulin Ratio 0.7 Ratio (1.1-2.1) L 08/06/18 04:48 Specimen Type Catherized urine 08/03/18 21:50 Urine Color Red (YELLOW) 08/03/18 21:50 Urine Appearance Hazy (CLEAR) 08/03/18 21:50 Urine pH 7.0 (5.0 - 8.0) 08/03/18 21:50 Ur Specific [place] 1.010 (1.000-1.030) 08/03/18 21:50 Urine Protein 2+ (NEGATIVE) 08/03/18 21:50 Urine Glucose (UA) Negative (NEGATIVE) 08/03/18 21:50 Urine Ketones Negative (NEGATIVE) 08/03/18 21:50 Urine Occult Blood 5+ (NEGATIVE) 08/03/18 21:50 Urine Nitrite Positive (NEGATIVE) 08/03/18 21:50 Urine Bilirubin Negative (NEGATIVE) 08/03/18 21:50 Urine Urobilinogen Normal (NORMAL) 08/03/18 21:50 Ur Leukocyte Esterase 3+ (NEGATIVE) 08/03/18 21:50 Urine RBC Tntc /HPF (NONE SEEN) 08/03/18 21:50 Urine WBC Tntc /HPF (NONE SEEN) 08/03/18 21:50 Ur Squamous Epith Cells Negative /HPF (NEGATIVE) 08/03/18 21:50 Urine Bacteria 2+ /HPF (NEGATIVE) 08/03/18 21:50 Ur Culture Indicated? No/not indicated 08/03/18 21:50 - Plan (1) UTI (urinary tract infection) Status: Acute Qualifiers: Urinary tract infection type: catheter-associated UTI Indwelling urinary catheter type: indwelling urethral catheter Encounter type: subsequent encounter Qualified Code(s): T83.511D - Infection and inflammatory reaction due to indwelling urethral catheter, subsequent encounter; N39.0 - Urinary tract infection, site not specified Plan: TOBRAMYCIN 340MG IV DAILY, IV FLUIDS, CONTINUE TO MONITOR (2) Hematuria Status: Acute Qualifiers: Hematuria type: unspecified type Qualified Code(s): R31.9 - Hematuria, unspecified
[2018-08-06] MEDS: RESTORIL CAP 30 MG PO SCH (20:46)
[2018-08-06] MEDS: KLONOPIN TAB 1 MG PO SCH (20:47)
[2018-08-06] MEDS: WELLBUTRIN XL 150 MG (DAILY) PO SCH (20:47)
[2018-08-06] MEDS: COLACE CAP 100 MG PO SCH (20:47)
[2018-08-06] MEDS ORDERED: PHARMACY COMMENT IV NR (21:30)
[2018-08-06 22:04] LABS: CREATININE 1.01 mg/dL (0.70-1.30)
[2018-08-07] MEDS: ROXICODONE TAB 15 MG PO PRN ×3 (03:46→18:10)
[2018-08-07] MEDS: NS 1000 ML 1,000 ML IV SCH ×6 (05:18→20:47)
[2018-08-07 05:28] LABS: BASOPHILS % (AUTO) 0.5 % (0.2-1.0); EOSINOPHILS # (AUTO) 0.4 x10^3/uL (0.0-0.2); EOSINOPHILS % (AUTO) 6.2 % (0.9-2.9); HEMATOCRIT 25.7 % (42.0-54.0); HEMOGLOBIN 8.5 g/dL (13.5-18.0); LYMPHOCYTES # (AUTO) 2.5 X10^3/uL (1.3-2.9); LYMPHOCYTES % (AUTO) 38.3 % (21.0-51.0); MEAN CORPUSCULAR HGB CONC 33.1 g/dL (33.0-35.0); MEAN CORPUSCULAR VOLUME 93.7 fL (80.0-100.0); MEAN PLATELET VOLUME 8.3 fL (7.4-11.0); MONOCYTES # (AUTO) 0.6 x10^3/uL (0.3-0.8); MONOCYTES % (AUTO) 9.1 % (0.0-13.0); NEUTROPHILS % (AUTO) 45.9 % (42.0-75.0); PLATELET COUNT 170 X10^3/uL (150.0-450.0); RED BLOOD COUNT 2.74 X10^6/uL (4.7-6.0); RED CELL DISTRIBUTION WIDTH 15.5 % (11.6-16.5); WHITE BLOOD COUNT 6.5 X10^3/uL (3.6-10.0)
[2018-08-07 05:42] LABS: ALANINE AMINOTRANSFERASE 9 Units/L (12-78); ALBUMIN 2.2 g/dL (3.4-5.0); ALKALINE PHOSPHATASE 47 Units/L (46-116); ASPARTATE AMINO TRANSFERASE 11 Units/L (15-37); BLOOD UREA NITROGEN 23 mg/dL (7-18); CALCIUM 8.1 mg/dL (8.5-10.1); CARBON DIOXIDE 22.5 mmol/L (21-32); CHLORIDE 114 mmol/L (98-107); COR CA(FOR HYPOALB) 9.5 mg/dL (8.5-10.1); CREATININE 1.01 mg/dL (0.70-1.30); SODIUM 145 mmol/L (136-145); TOTAL PROTEIN 5.3 g/dL (6.4-8.2); eGFR NON BLACK RACES > 60 (>60)
[2018-08-07] MEDS ORDERED: BACITRACIN VIAL ONE (07:27)
[2018-08-07] MEDS ORDERED: BACTROBAN TOPICAL OINT ONE (07:27)
[2018-08-07] MEDS ORDERED: XYLOCAINE 1 % (PLAIN) ONE (07:27)
[2018-08-07] MEDS ORDERED: ANCEF 1 GRAM IV PREMIX* 1 G/50 ML BAG IV ONE (08:21)
[2018-08-07] MEDS ORDERED: LR 1000 ML IV 1,000 ML ONE (08:21)
[2018-08-07] MEDS ORDERED: FENTANYL INJ 100 mcg ONE (08:28)
[2018-08-07] MEDS ORDERED: KETALAR ONE (08:42)
[2018-08-07] MEDS ORDERED: DIPRIVAN VIAL ONE (10:10)
[2018-08-07] MEDS ORDERED: VERSED ONE (10:10)
--- NOTE | 2018-08-07 10:48 | RAD ---
HISTORY: Line placement. Study: Single view of the chest. Comparison: 06/30/2018 Findings: The cardiomediastinal silhouette is normal. No focal consolidations, pleural effusions or pneumothorax. Osseous structures demonstrate no acute abnormality. A right central catheter terminates over the expected area of the SVC. IMPRESSION: 1. No acute cardiopulmonary process. 2. A right central catheter terminating over the expected area of the SVC. Reported By:
[2018-08-07] MEDS ORDERED: HYDROGEN PEROXIDE 3% ONE (11:00)
[2018-08-07] MEDS: CHRONULAC PO SCH (11:39)
[2018-08-07] MEDS: LIORESAL PO SCH ×4 (11:40→20:45)
[2018-08-07] MEDS: PriLOSEC PO SCH (11:40)
[2018-08-07] MEDS: ZANAFLEX PO SCH ×2 (11:40→20:45)
[2018-08-07] MEDS: CYMBALTA PO SCH ×2 (11:41→20:46)
[2018-08-07] MEDS: VITAMIN D3 PO SCH (11:41)
[2018-08-07] MEDS: NAPROSYN PO SCH ×2 (11:41→20:45)
[2018-08-07] MEDS: FLONASE NASAL SPRAY ENOSTRIL SCH (11:42)
[2018-08-07] MEDS ORDERED: BUTT CREAM (COMPOUND) ONE (17:37)
[2018-08-07] MEDS ORDERED: BUTT CREAM (COMPOUND) TOP PRN (17:45)
[2018-08-07] MEDS: COLACE CAP 100 MG PO SCH (20:44)
[2018-08-07] MEDS: KLONOPIN TAB 1 MG PO SCH (20:45)
[2018-08-07] MEDS: RESTORIL CAP 30 MG PO SCH (20:45)
[2018-08-07] MEDS: NS IV SCH (20:46)
[2018-08-07] MEDS: TOBRAMYCIN SULFATE IV SCH (20:46)
[2018-08-07] MEDS: WELLBUTRIN XL 150 MG (DAILY) PO SCH (20:46)
[2018-08-08] MEDS: ROXICODONE TAB 15 MG PO PRN ×2 (03:00→09:12)
[2018-08-08 05:19] LABS: BASOPHILS % (AUTO) 0.3 % (0.2-1.0); EOSINOPHILS # (AUTO) 0.1 x10^3/uL (0.0-0.2); EOSINOPHILS % (AUTO) 1.4 % (0.9-2.9); HEMATOCRIT 26.8 % (42.0-54.0); HEMOGLOBIN 8.8 g/dL (13.5-18.0); LYMPHOCYTES # (AUTO) 0.9 X10^3/uL (1.3-2.9); LYMPHOCYTES % (AUTO) 10.7 % (21.0-51.0); MEAN CORPUSCULAR HGB CONC 32.7 g/dL (33.0-35.0); MEAN CORPUSCULAR VOLUME 94.7 fL (80.0-100.0); MEAN PLATELET VOLUME 8.1 fL (7.4-11.0); MONOCYTES # (AUTO) 0.5 x10^3/uL (0.3-0.8); MONOCYTES % (AUTO) 6.2 % (0.0-13.0); NEUTROPHILS # (AUTO) 6.8 x10^3/uL (2.2-4.8); NEUTROPHILS % (AUTO) 81.4 % (42.0-75.0); PLATELET COUNT 156 X10^3/uL (150.0-450.0); RED BLOOD COUNT 2.83 X10^6/uL (4.7-6.0); RED CELL DISTRIBUTION WIDTH 15.8 % (11.6-16.5); WHITE BLOOD COUNT 8.3 X10^3/uL (3.6-10.0)
[2018-08-08 05:44] LABS: ALANINE AMINOTRANSFERASE 10 Units/L (12-78); ALBUMIN 2.2 g/dL (3.4-5.0); ALKALINE PHOSPHATASE 49 Units/L (46-116); ASPARTATE AMINO TRANSFERASE 13 Units/L (15-37); BLOOD UREA NITROGEN 16 mg/dL (7-18); CALCIUM 8.3 mg/dL (8.5-10.1); CHLORIDE 114 mmol/L (98-107); COR CA(FOR HYPOALB) 9.7 mg/dL (8.5-10.1); CREATININE 0.83 mg/dL (0.70-1.30); SODIUM 146 mmol/L (136-145); TOTAL PROTEIN 5.5 g/dL (6.4-8.2); eGFR NON BLACK RACES > 60 (>60)
[2018-08-08] MEDS: NS 1000 ML 1,000 ML IV SCH (05:52)
[2018-08-08] MEDS ORDERED: CATAPRES-TTS-2 TD SCH (09:00)
[2018-08-08] MEDS: LIORESAL PO SCH (09:11)
[2018-08-08] MEDS: VITAMIN D3 PO SCH (09:11)
[2018-08-08] MEDS: PriLOSEC PO SCH (09:12)
[2018-08-08] MEDS: CYMBALTA PO SCH (09:14)
[2018-08-08] MEDS: NAPROSYN PO SCH (09:14)
[2018-08-08] MEDS: ZANAFLEX PO SCH (09:15)
[2018-08-08] MEDS: NS IV SCH (09:18)
[2018-08-08] MEDS: TOBRAMYCIN SULFATE IV SCH (09:18)
[2018-08-08] MEDS: DULCOLAX SUPPOSITORY 10 MG PR SCH (09:19)
[2018-08-08] MEDS: FLONASE NASAL SPRAY ENOSTRIL SCH (09:20)
[2018-08-08 15:08] VITALS: BP 127/72
--- NOTE | 2018-08-11 10:01 | PCM.PROG ---
Progress Note - Progress Note for Day of Date of Exam: 08/07/18 - Subjective Subjective: WAS ADMITTED FOR A URINARY TRACT INFECTION AND HEMATURIA. TODAY, HE IS ALERT AND ORIENTED, LYING IN BED ON MORNING ROUNDS. HE DENIES COMPLAINTS THIS MORNING. ON EXAMINATION, HEART IS REGULAR IN RATE AD RHYTHM. BILATERAL LUNGS ARE NOTED WITH DIMINISHED LUNG SOUNDS THROUGHOUT. ABDOMEN IS ROUND, SOFT, AND NOTED WITH NORMAL BOWEL SOUNDS IN ALL QUADRANTS. THERE IS A CATHETER NOTED TO BEDSIDE DRAINAGE. TEA COLOR URINE NOTED IN BAG. HIS VITALS THIS MORNING ARE 97.7-60-18-96%-161/90. LABS WERE OBTAINED. ABNORMAL LAB VALUES INCLUDE THE FOLLOWING: RBC 2.74, HGB 8.5, HCT 25.7, CHLORIDE 114, BUN 23, CALCIUM 8.1, AST 11, ALT 9, TOTAL PROTEIN 5.3, ALBUMIN 2.2. URINE CULTURE GROWTH OF PSEUDOMONAS AERUGINOSA. HE IS CURRENTLY ON TOBRAMYCIN 60MG PO Q12H. WE WILL CONTINUE WITH CURRENT PLAN OF CARE TODAY. WE WILL CONSULT FOR PORT A CATH PLACEMENT DUE TO POOR PERIPHERAL ACCESS. OTHERWISE, WE WILL FOLLOW UP WITH AM LABS AND CONTINUE TO MONITOR. - Past Medical Family Social History Past Med/Fam/Surg Hx: No changes since H&P Allergies: Allergies meperidine [From Demerol] Adverse Reaction (Verified 08/03/18 20:02) - Review of Systems ROS: No change since H&P - Vital Signs and I&O's Vital Signs: Temperature 97.6 F Pulse Rate [Left Radial] 97 Respiratory Rate 18 Blood Pressure [Right Arm] 127/72 Blood Pressure [Left Arm] 153/74 Blood Pressure 123/71 O2 Sat by Pulse Oximetry 97 Intake and Output: Intake & Output 08/08/18 08/09/18 08/10/18 08/11/18 11:59 11:59 11:59 11:59 Intake Total 3255 / 3255 Output Total 2750 / 2750 Balance 505 / 505 - Physical Exam Oriented: Normal Eyes: Normal Ear: Normal Nose: Normal Throat: Normal Respiratory: Generalized, Diminished Cardiovascular: Normal. negative: S3, S4, Murmur : Hematuria Auscultation: Bowel Sounds: Normal Tenderness: Normal Skin: Normal Musculoskeletal: Normal Psychiatric: Normal Mood Description: Calm Affect: Normal Speech Pattern: Clear, Appropriate - Laboratory and Diagnostics Result Diagrams: 08/08/18 04:43 08/08/18 04:43 Labs: 08/03/18 20:31 Blood Blood Culture - Final 08/03/18 20:20 Blood Blood Culture - Final 08/03/18 21:50 Urine,Catheterized Urine Culture - Final Pseudomonas Aeruginosa Laboratory WBC 8.3 X10^3/uL (3.6-10.0) 08/08/18 04:43 RBC 2.83 X10^6/uL (4.7-6.0) L 08/08/18 04:43 Hgb 8.8 g/dL (13.5-18.0) L 08/08/18 04:43 Hct 26.8 % (42.0-54.0) L 08/08/18 04:43 MCV 94.7 fL (80.0-100.0) 08/08/18 04:43 MCH 31.0 pg (27.0-34.0) 08/08/18 04:43 MCHC 32.7 g/dL (33.0-35.0) L 08/08/18 04:43 RDW 15.8 % (11.6-16.5) 08/08/18 04:43 Plt Count 156 X10^3/uL (150.0-450.0) 08/08/18 04:43 MPV 8.1 fL (7.4-11.0) 08/08/18 04:43 Neut % (Auto) 81.4 % (42.0-75.0) H 08/08/18 04:43 Lymph % (Auto) 10.7 % (21.0-51.0) L 08/08/18 04:43 [place] % (Auto) 6.2 % (0.0-13.0) 08/08/18 04:43 Eos % (Auto) 1.4 % (0.9-2.9) 08/08/18 04:43 Baso % (Auto) 0.3 % (0.2-1.0) 08/08/18 04:43 Neut # (Auto) 6.8 x10^3/uL (2.2-4.8) H 08/08/18 04:43 Lymph # (Auto) 0.9 X10^3/uL (1.3-2.9) L 08/08/18 04:43 [place] # (Auto) 0.5 x10^3/uL (0.3-0.8) 08/08/18 04:43 Eos # (Auto) 0.1 x10^3/uL (0.0-0.2) 08/08/18 04:43 Baso # (Auto) 0.0 X10^3/uL (0.0-0.1) 08/08/18 04:43 Absolute Nucleated RBC 0.0 /100WBC 08/08/18 04:43 Sodium 146 mmol/L (136-145) H 08/08/18 04:43 Corrected Sodium TNP 08/08/18 04:43 Potassium 4.4 mmol/L (3.5-5.1) 08/08/18 04:43 Chloride 114 mmol/L (98-107) H 08/08/18 04:43 Carbon Dioxide 22.0 mmol/L (21-32) 08/08/18 04:43 BUN 16 mg/dL (7-18) 08/08/18 04:43 Creatinine 0.83 mg/dL (0.70-1.30) 08/08/18 04:43 Est GFR (MDRD) Af Amer > 60 (>60) 08/08/18 04:43 Est GFR (MDRD) Non-Af > 60 (>60) 08/08/18 04:43 Glucose 95 mg/dL (65-99) 08/08/18 04:43 POC Glucose (mg/dL) 94 mg/dL (65-99) 08/06/18 19:34 Lactic Acid 1.0 mmol/L (0.4-2.0) 08/03/18 20:20 Calcium 8.3 mg/dL (8.5-10.1) L 08/08/18 04:43 Corrected Calcium 9.7 mg/dL (8.5-10.1) 08/08/18 04:43 Total Bilirubin 0.40 mg/dL (0.2-1.0) 08/08/18 04:43 AST 13 Units/L (15-37) L 08/08/18 04:43 ALT 10 Units/L (12-78) L 08/08/18 04:43 Alkaline Phosphatase 49 Units/L (46-116) 08/08/18 04:43 Total Protein 5.5 g/dL (6.4-8.2) L 08/08/18 04:43 Albumin 2.2 g/dL (3.4-5.0) L 08/08/18 04:43 Globulin 3.3 g/dL (2.5-4.5) 08/08/18 04:43 Albumin/Globulin Ratio 0.7 Ratio (1.1-2.1) L 08/08/18 04:43 Specimen Type Catherized urine 08/03/18 21:50 Urine Color Red (YELLOW) 08/03/18 21:50 Urine Appearance Hazy (CLEAR) 08/03/18 21:50 Urine pH 7.0 (5.0 - 8.0) 08/03/18 21:50 Ur Specific [place] 1.010 (1.000-1.030) 08/03/18 21:50 Urine Protein 2+ (NEGATIVE) 08/03/18 21:50 Urine Glucose (UA) Negative (NEGATIVE) 08/03/18 21:50 Urine Ketones Negative (NEGATIVE) 08/03/18 21:50 Urine Occult Blood 5+ (NEGATIVE) 08/03/18 21:50 Urine Nitrite Positive (NEGATIVE) 08/03/18 21:50 Urine Bilirubin Negative (NEGATIVE) 08/03/18 21:50 Urine Urobilinogen Normal (NORMAL) 08/03/18 21:50 Ur Leukocyte Esterase 3+ (NEGATIVE) 08/03/18 21:50 Urine RBC Tntc /HPF (NONE SEEN) 08/03/18 21:50 Urine WBC Tntc /HPF (NONE SEEN) 08/03/18 21:50 Ur Squamous Epith Cells Negative /HPF (NEGATIVE) 08/03/18 21:50 Urine Bacteria 2+ /HPF (NEGATIVE) 08/03/18 21:50 Ur Culture Indicated? No/not indicated 08/03/18 21:50 Random Tobramycin 2.5 ug/mL 08/07/18 04:57 Tobramycin Trough 4.0 ug/mL (0-2) H* 08/06/18 21:32 - Plan (1) UTI (urinary tract infection) Status: Acute Qualifiers: Urinary tract infection type: catheter-associated UTI Indwelling urinary catheter type: indwelling urethral catheter Encounter type: subsequent en counter Qualified Code(s): T83.511D - Infection and inflammatory reaction due to indwelling urethral catheter, subsequent encounter; N39.0 - Urinary tract infection, site not specified Plan: TOBRAMYCIN 60MG IV BID, IV FLUIDS, CONTINUE TO MONITOR (2) Hematuria Status: Acute Qualifiers: Hematuria type: unspecified type Qualified Code(s): R31.9 - Hematuria, unspecified
== END 2018-08-08 13:20 | disposition home or self-care (01) | DRG 689 ==
LOC: MED/SURG 08-03 19:26
PROVIDERS: ADMIT Internal Medicine; ATTEND Internal Medicine
DX: F41.8 Other specified anxiety disorders; R31.9 Hematuria, unspecified; I87.2 Venous insufficiency (chronic) (peripheral); N39.0 Urinary tract infection, site not specified; B96.5 Pseudomonas (aeruginosa) (mallei) (pseudomallei) as the cause of diseases classified elsewhere; T83.511D Infection and inflammatory reaction due to indwelling urethral catheter, subsequent encounter; L89.159 Pressure ulcer of sacral region, unspecified stage; F32.89 Other specified depressive episodes; G82.50 Quadriplegia, unspecified
CPT/HCPCS: 36415; 71010; 71045; 76000; 80053; 80200; 81001; 82565; 83605; 85025; 87040; 87086; 87088; 87186; 94760; A4216; A4222; J3490; S0106; J0690; J1335; J1642; J2250; J2543; J2704; J3010; J3260; J7030; J7050; J7120; S0119; S0181

== ENCOUNTER 2018-10-06 00:11 | Inpatient (IN) ==
--- NOTE | 2018-10-06 00:21 | DR.N/VMALE ---
"HPI Time Seen Time Seen by Provider: 10/06/18 00:14 HPI Comment HPI Comment: Pt is a 53 yo quadriplegic male who presents for nausea and vomiting. He has had dark vomitus for the past 24hrs. He denies significant pain in his abdomen. He has lost a significant amount of weight on the past few months and he states that he is not eating like he used to. Per staff familiar with him, his appearance has drastically change. He has history of recurrent UTI's. PMH PMH Past Medical History: Anxiety, Depression and Sleep Apnea Past Medical History Comment: quadriplegic, bed bound, recurrent UTI's Surgical History: Tonsillectomy Social History Do you use any recreational Drugs:: No ROS Review of Systems Constitutional: No Symptoms Reported Eyes: No Symptoms Reported ENTM: No Symptoms Reported Respiratoy: No Symptoms Reported Cardiovascular: No Symptoms Reported Gastrointestinal/Abdominal: Abdominal Pain, Nausea, Vomiting and Food Intolerance Genitourinary: No Symptoms Reported Neurological: No Symptoms Reported Musculoskeletal: Other (quadriplegic immoblie ) Integumentary: No Symptoms Reported Hematologic/Lymphatic: No Symptoms Reported Endocrine: No Symptoms Reported Psychiatric: No Symptoms Reported All Other Systems: Reviewed and Negative PE Vital Signs Vitals: Temperature 98 F Pulse Rate [Right Posterior 78 Tibial] Pulse Rate 93 Respiratory Rate 17 Blood Pressure [Right Calf] 118/77 Blood Pressure [Right Arm] 112/68 Blood Pressure [Left Arm] 153/74 Blood Pressure 94/57 O2 Sat by Pulse Oximetry 95 General Limitations: Physical Limitation General Appearance: Alert and Cachectic Head Head Exam: Normal Inspection, Atraumatic and Normocephalic Eyes Eye exam: Normal Appearance, PERRL and EOMI ENT ENT Exam: Normal Exam Neck Neck Exam: Normal Inspection Chest Chest Inspection: Normal Inspection Respiratory Respiratory Exam: Normal Lung Sounds Bilat Respiratory Exam: Bilateral: Clear to Auscultation Abdominal Exam Abdominal Exam: Normal Inspection, Normal Bowel Sounds and Soft Rectal Rectal Exam: negative Normal Rectal Tone Exam: Male: Normal Inspection and Other (condom catheter on ) Extremities Extremities Exam: Other (skinny, no sign of skin break down ) Back Back Exam: Normal Inspection Neurologic Neurological Exam: Alert and Oriented X3; negative Normal Gait Psychiatric Psychiatric Exam: Flat Affect Skin Skin Exam: Warm, Dry and Intact MDM Additional Information Obtained Additional Information Obtained From: Old Records, Delivery Man and PCP Differential Diagnosis Differential Diagnosis: Considerations may Include:: Urinary Tract Infection Differential Diagnosis Comment: failure to thrive COURSE Treatment Treatment: IV antibiotic, IVF's Reevaluation 1st: Improved (BP increased to SBP 120) 2nd: Unchanged 3rd: Unchanged Education/Counseling Education/Counseling: Patient and Counseling Educated On: Treatment, Diagnosis and Needs for Follow Up ROR Labs Reviewed Laboratory Results Reviewed?: Yes Result Diagrams: 10/06/18 00:35 10/06/18 00:35 Laboratory: WBC 7.8 X10^3/uL (3.6-10.0) 10/06/18 00:35 RBC 4.05 X10^6/uL (4.7-6.0) L 10/06/18 00:35 Hgb 12.4 g/dL (13.5-18.0) L 10/06/18 00:35 Hct 37.5 % (42.0-54.0) L 10/06/18 00:35 MCV 92.5 fL (80.0-100.0) 10/06/18 00:35 MCH 30.7 pg (27.0-34.0) 10/06/18 00:35 MCHC 33.2 g/dL (33.0-35.0) 10/06/18 00:35 RDW 15.5 % (11.6-16.5) 10/06/18 00:35 Plt Count 196 X10^3/uL (150.0-450.0) 10/06/18 00:35 MPV 8.9 fL (7.4-11.0) 10/06/18 00:35 Neut % (Auto) 62.6 % (42.0-75.0) 10/06/18 00:35 Lymph % (Auto) 20.6 % (21.0-51.0) L 10/06/18 00:35 [place] % (Auto) 13.6 % (0.0-13.0) H 10/06/18 00:35 Eos % (Auto) 2.6 % (0.9-2.9) 10/06/18 00:35 Baso % (Auto) 0.6 % (0.2-1.0) 10/06/18 00:35 Neut # (Auto) 4.9 x10^3/uL (2.2-4.8) H 10/06/18 00:35 Lymph # (Auto) 1.6 X10^3/uL (1.3-2.9) 10/06/18 00:35 [place] # (Auto) 1.1 x10^3/uL (0.3-0.8) H 10/06/18 00:35 Eos # (Auto) 0.2 x10^3/uL (0.0-0.2) 10/06/18 00:35 Baso # (Auto) 0.0 X10^3/uL (0.0-0.1) 10/06/18 00:35 Absolute Nucleated RBC 0.0 /100WBC 10/06/18 00:35 Sodium 137 mmol/L (136-145) 10/06/18 00:35 Corrected Sodium TNP 10/06/18 00:35 Potassium 4.8 mmol/L (3.5-5.1) 10/06/18 00:35 Chloride 102 mmol/L (98-107) 10/06/18 00:35 Carbon Dioxide 27.7 mmol/L (21-32) 10/06/18 00:35 BUN 47 mg/dL (7-18) H 10/06/18 00:35 Creatinine 0.98 mg/dL (0.70-1.30) 10/06/18 00:35 Est GFR (MDRD) Af Amer > 60 (>60) 10/06/18 00:35 Est GFR (MDRD) Non-Af > 60 (>60) 10/06/18 00:35 Glucose 95 mg/dL (65-99) 10/06/18 00:35 Calcium 9.2 mg/dL (8.5-10.1) 10/06/18 00:35 Corrected Calcium 9.9 mg/dL (8.5-10.1) 10/06/18 00:35 Total Bilirubin 0.60 mg/dL (0.2-1.0) 10/06/18 00:35 AST 20 Units/L (15-37) 10/06/18 00:35 ALT 19 Units/L (12-78) 10/06/18 00:35 Alkaline Phosphatase 66 Units/L (46-116) 10/06/18 00:35 Total Protein 7.4 g/dL (6.4-8.2) 10/06/18 00:35 Albumin 3.1 g/dL (3.4-5.0) L 10/06/18 00:35 Globulin 4.3 g/dL (2.5-4.5) 10/06/18 00:35 Albumin/Globulin Ratio 0.7 Ratio (1.1-2.1) L 10/06/18 00:35 Specimen Type Catherized urine 10/06/18 01:55 Urine Color Yellow (YELLOW) 10/06/18 01:55 Urine Appearance Cloudy (CLEAR) 10/06/18 01:55 Urine pH 7.0 (5.0 - 8.0) 10/06/18 01:55 Ur Specific [place] 1.005 (1.000-1.030) 10/06/18 01:55 Urine Protein 2+ (NEGATIVE) 10/06/18 01:55 Urine Glucose (UA) Negative (NEGATIVE) 10/06/18 01:55 Urine Ketones Negative (NEGATIVE) 10/06/18 01:55 Urine Occult Blood 5+ (NEGATIVE) 10/06/18 01:55 Urine Nitrite Positive (NEGATIVE) 10/06/18 01:55 Urine Bilirubin Negative (NEGATIVE) 10/06/18 01:55 Urine Urobilinogen Normal (NORMAL) 10/06/18 01:55 Ur Leukocyte Esterase 3+ (NEGATIVE) 10/06/18 01:55 Urine RBC 30-50 /HPF (NONE SEEN) 10/06/18 01:55 Urine WBC 30-50 /HPF (NONE SEEN) 10/06/18 01:55 Ur Squamous Epith Cells Rare /HPF (NEGATIVE) 10/06/18 01:55 Urine Bacteria 2+ /HPF (NEGATIVE) 10/06/18 01:55 Ur Culture Indicated? Yes/culture set up 10/06/18 01:55 Other Results Comments: AP abdomen Indication: Vomiting UA | | | SPECIMEN TYPE | CATHERIZED URINE | | UR COLOR | YELLOW | | YELLOW UR APPEAR | CLOUDY | | CLEAR PH | 7.0 | | 5.0 - 8.0 SPEC GRAVITY | 1.005 | | 1.000-1.030 Protein | 2+ | | NEGATIVE GLUCOSE | NEGATIVE | | NEGATIVE KETONES | NEGATIVE | | NEGATIVE BLOOD | 5+ | | NEGATIVE NITRITE | POSITIVE | | NEGATIVE BILIRUBIN | NEGATIVE | | NEGATIVE UROBILINOGEN | NORMAL | | NORMAL [place] ESTERASE | 3+ | | NEGATIVE ADD MICROSCOPIC | YES | | | Urine microscopic performed UR RBC | 30-50 | | NONE SEEN /HPF UR WBC | 30-50 | | NONE SEEN /HPF UR SQUAM EPI | RARE | | NEGATIVE /HPF UR BACT | 2+ | | NEGATIVE /HPF UR CULT IND | YES/CULTURE SET UP | | Comparison: None Findings: Large amount of colonic stool. No marked small bowel dilatation is observed. No gross free air. There is age advanced osteopenia with degenerative changes of the hips. Impression: Findings of constipation. No acute abdominal process. Reported By: XRAY Interpreted by: Radiologist Diagnosis Narrative Support Text: Admitted to Dr. Oshea for UTI and failure to thrive."
[2018-10-06 00:42] LABS: BILIRUBIN,URINE NEGATIVE (NEGATIVE); BLOOD/HEMOGLOBIN,URINE 5+ (NEGATIVE); GLUCOSE, URINE NEGATIVE (NEGATIVE); KETONES,URINE NEGATIVE (NEGATIVE); LEUKOCYTE ESTERASE ,URINE 3+ (NEGATIVE); NITRITES,URINE POSITIVE (NEGATIVE); PROTEIN,URINE 2+ (NEGATIVE); UROBILINOGEN,URINE NORMAL (NORMAL)
[2018-10-06 00:43] LABS: BASOPHILS % (AUTO) 0.6 % (0.2-1.0); EOSINOPHILS # (AUTO) 0.2 x10^3/uL (0.0-0.2); EOSINOPHILS % (AUTO) 2.6 % (0.9-2.9); HEMATOCRIT 37.5 % (42.0-54.0); HEMOGLOBIN 12.4 g/dL (13.5-18.0); LYMPHOCYTES # (AUTO) 1.6 X10^3/uL (1.3-2.9); LYMPHOCYTES % (AUTO) 20.6 % (21.0-51.0); MEAN CORPUSCULAR HEMOGLOBIN 30.7 pg (27.0-34.0); MEAN CORPUSCULAR HGB CONC 33.2 g/dL (33.0-35.0); MEAN CORPUSCULAR VOLUME 92.5 fL (80.0-100.0); MEAN PLATELET VOLUME 8.9 fL (7.4-11.0); MONOCYTES # (AUTO) 1.1 x10^3/uL (0.3-0.8); MONOCYTES % (AUTO) 13.6 % (0.0-13.0); NEUTROPHILS # (AUTO) 4.9 x10^3/uL (2.2-4.8); NEUTROPHILS % (AUTO) 62.6 % (42.0-75.0); PLATELET COUNT 196 X10^3/uL (150.0-450.0); RED BLOOD COUNT 4.05 X10^6/uL (4.7-6.0); RED CELL DISTRIBUTION WIDTH 15.5 % (11.6-16.5); WHITE BLOOD COUNT 7.8 X10^3/uL (3.6-10.0)
[2018-10-06] MEDS ORDERED: NS 1000 ML 1,000 ML ONE (00:47)
[2018-10-06] MEDS ORDERED: NS 1000 ML 500 ML IV ONE (00:48)
[2018-10-06] MEDS ORDERED: STERILE WATER IRRIGATION ONE (01:02)
[2018-10-06 01:03] LABS: ALANINE AMINOTRANSFERASE 19 Units/L (12-78); ALBUMIN 3.1 g/dL (3.4-5.0); ALKALINE PHOSPHATASE 66 Units/L (46-116); ASPARTATE AMINO TRANSFERASE 20 Units/L (15-37); BLOOD UREA NITROGEN 47 mg/dL (7-18); CALCIUM 9.2 mg/dL (8.5-10.1); CARBON DIOXIDE 27.7 mmol/L (21-32); CHLORIDE 102 mmol/L (98-107); COR CA(FOR HYPOALB) 9.9 mg/dL (8.5-10.1); CREATININE 0.98 mg/dL (0.70-1.30); SODIUM 137 mmol/L (136-145); TOTAL PROTEIN 7.4 g/dL (6.4-8.2); eGFR NON BLACK RACES > 60 (>60)
[2018-10-06 02:04] LABS: APPEARANCE,URINE CLOUDY (CLEAR); COLOR,URINE YELLOW (YELLOW)
[2018-10-06 02:05] LABS: BACTERIA,URINE 2+ /HPF (NEGATIVE); RBC,URINE 30-50 /HPF (NONE SEEN); SQUAMOUS EPITHELIAL CELL,UR RARE /HPF (NEGATIVE)
[2018-10-06] MEDS ORDERED: NS 100 ML IV + SPIKE MINIBAG* 100 ML ONE (02:51)
[2018-10-06] MEDS: ZOSYN VIAL 3.375 GRAMS 3.375 G in NS 100 ML IV + SPIKE MINIBAG* 100 ML IV SCH ×4 (02:52→22:32)
[2018-10-06] MEDS ORDERED: ZOSYN VIAL 3.375 GRAMS IV ONE (02:52)
--- NOTE | 2018-10-06 03:34 | RAD ---
AP abdomen Indication: Vomiting Comparison: None Findings: Large amount of colonic stool. No marked small bowel dilatation is observed. No gross free air. There is age advanced osteopenia with degenerative changes of the hips. Impression: Findings of constipation. No acute abdominal process. Reported By:
[2018-10-06] MEDS ORDERED: ROXICODONE TAB 5 MG PO ONE (06:50)
[2018-10-06] MEDS ORDERED: TYLENOL 325 MG TAB PO PRN (07:16)
--- NOTE | 2018-10-06 07:50 | RAD ---
HISTORY: 53-year-old male does not feel good. Two episodes of vomiting. Study: Frontal view of the chest. Comparison: Chest radiograph 07/30/2018 Findings: Right IJ approach chemo port unchanged. Partially imaged ACDF. The trachea is midline. The cardiac silhouette is stable. The lungs are clear without focal consolidation, effusion or pneumothorax. Soft tissues are unremarkable. Osseous structures are unremarkable. IMPRESSION: 1. No acute cardiopulmonary disease. 2. Surgical devices unchanged. Reported By:
[2018-10-06 07:52] LABS: ALANINE AMINOTRANSFERASE 16 Units/L (12-78); ALBUMIN 2.7 g/dL (3.4-5.0); ALKALINE PHOSPHATASE 59 Units/L (46-116); ASPARTATE AMINO TRANSFERASE 30 Units/L (15-37); BLOOD UREA NITROGEN 53 mg/dL (7-18); CARBON DIOXIDE 27.1 mmol/L (21-32); CHLORIDE 103 mmol/L (98-107); CREATININE 0.99 mg/dL (0.70-1.30); SODIUM 137 mmol/L (136-145); TOTAL PROTEIN 6.9 g/dL (6.4-8.2); eGFR NON BLACK RACES > 60 (>60)
[2018-10-06 07:53] LABS: BASOPHILS # (AUTO) 0.1 X10^3/uL (0.0-0.1); BASOPHILS % (AUTO) 0.8 % (0.2-1.0); EOSINOPHILS # (AUTO) 0.1 x10^3/uL (0.0-0.2); EOSINOPHILS % (AUTO) 1.3 % (0.9-2.9); HEMATOCRIT 35.1 % (42.0-54.0); HEMOGLOBIN 11.6 g/dL (13.5-18.0); LYMPHOCYTES # (AUTO) 1.9 X10^3/uL (1.3-2.9); LYMPHOCYTES % (AUTO) 19.5 % (21.0-51.0); MEAN CORPUSCULAR HEMOGLOBIN 30.5 pg (27.0-34.0); MEAN CORPUSCULAR VOLUME 92.4 fL (80.0-100.0); MEAN PLATELET VOLUME 9.1 fL (7.4-11.0); MONOCYTES # (AUTO) 1.5 x10^3/uL (0.3-0.8); MONOCYTES % (AUTO) 15.5 % (0.0-13.0); NEUTROPHILS # (AUTO) 6.3 x10^3/uL (2.2-4.8); NEUTROPHILS % (AUTO) 62.9 % (42.0-75.0); PLATELET COUNT 161 X10^3/uL (150.0-450.0); RED CELL DISTRIBUTION WIDTH 15.7 % (11.6-16.5)
[2018-10-06] MEDS ORDERED: PHARMACY CONSULT - VANCOMYCIN XX SCH (08:00)
[2018-10-06 08:10] LABS: BAND NEUTROPHILS % 9 % (0-10); PLATELET MORPHOLOGY COMMENT NORMAL (NORMAL)
[2018-10-06] MEDS: VANCOMYCIN HCL 1 GM VIAL 1 G in D5W 250 ML IV 250 ML IV SCH ×2 (10:33→20:59)
[2018-10-06 11:20] VITALS: BMI 20.7
[2018-10-06] MEDS ORDERED: PHENERGAN SUPP 25 MG PR PRN (11:25)
[2018-10-06] MEDS ORDERED: [UNRECOGNIZED DRUG - OTHER] PO SCH (11:30)
--- NOTE | 2018-10-06 11:35 | DR.H&P ---
H&P - History & Physical for Day of: H&P Date: 10/06/18 - Chief Complaint Chief Complaint: NAUSEA, VOMITING, DECREASED APPETITE, WEAKNESS - History of Present Illness History of Present Illness: IS A 53 YEAR OLD PATIENT OF OURS WHO P RESENTED TO THE ER WITH COMPLAINTS OF NAUSEA AND VOMITING. HE REPORTS DARK VOMITUS FOR 24 HOURS PRIOR TO ARRIVAL. FAMILY REPORTS THAT HE HAS HAD DRASTIC WEIGHT LOSS OVER THE PAST FEW MONTHS. PATIENT REPORTS THAT HE DOES NOT HAVE AN APPETITE. HE DENIES ABDOMINAL PAIN, BUT DOES HAVE A HISTORY OF RECURRENT UTIs. HE IS A QUADRIPLEGIC AND IS BED BOUND. ON ARRIVAL, VITALS WERE 98.0-93-20-97%-94/57. LABS WERE OBTAINED. ABNORMAL LAB VALUES INCLUDE THE FOLLOWING: RBC 4.05, HGB 12.4, HCT 37.5, BUN 47, ALBUMIN 3.1. URINALYSIS REVEALED WBC 30-50, RBC 30-50, LEUKOCYTES 3+, BACTERIA 2+, NITRITES POSITIVE, O CCULT BLOOD 5+. A URINE CULTURE WAS SET UP. A KUB WAS OBTAINED AND REVEALED: Findings of constipation. No acute abdominal process. CHEST XRAY WAS OBTAINED AND REVEALED: No acute cardiopulmonary disease. Surgical devices unchanged. HE WAS ADMITTED FOR FURTHER EVALUATION AND TREATMENT OF FAILURE TO THRIVE AND UTI. HE WAS STARTED ON PROCALAMINE AT 40ML/HR, NORMAL SALINE AT 40ML/HR, ALBUMIN 25% IV DAILY, ZOFRAN 4MG IV Q4H PRN, IV ZOSYN, AND IV VANCOMYCIN. WE PLAN TO FOLLOW UP WITH AM LABS AND CONTINUE TO MONITOR. - Past Medical History Past Medical History: Depression, Anxiety, Sleep Apnea Additional Medical History: QUADRAPLEGIC, NEUROGENIC BOWEL, MUSCLE SPASMS, CONSTIPATION - Past Surgical History Surgical History: Tonsillectomy, Other Additional Surgical History: FUSION OF 3RD, 4TH, AND 5TH CERVICAL BERTEBRAE, ORBITAL FX, REPAIRED WITH PLATE - Social History Does patient currently use any type of tobacco product: No Have you used tobacco products in the last 12 months: No Type of Tobacco Use: None Does any household member use tobacco: No Alcohol Use: None Drug Use: None - Medications Home Medications: meperidine [From Demerol] Adverse Reaction (Verified 08/03/18 20:02) - Review of Systems Constitutional: Weakness Eyes: No Symptoms Reported ENT: No Symptoms Reported Respiratory: No Symptoms Reported Cardiovascular: No Symptoms Reported Gastrointestinal: See HPI, Nausea, Vomiting Genitourinary: No Symptoms Reported Musculoskeletal: No Symptoms Reported Skin: No Symptoms Reported Neurological: Weakness - Physical Exam Vital Signs: Temperature 98.9 F Pulse Rate [Right Posterior 81 Tibial] Pulse Rate 93 Respiratory Rate 18 Blood Pressure [Right Calf] 103/65 Blood Pressure [Right Arm] 111/63 Blood Pressure [Left Arm] 153/74 Blood Pressure 94/57 O2 Sat by Pulse Oximetry 94 Oriented: Normal Eyes: Normal Ear: Normal Nose: Normal Throat: Normal Respiratory: Diminished Throughout Cardiovascular: Normal : Normal Auscultation: Bowel Sounds: Normal Tenderness: Normal Skin: Normal Musculoskeletal: Normal (QUADRIPLEGIC) Psychiatric: Normal Mood Description: Calm Affect: Normal Speech Pattern: Clear - Assessment/Plan (1) Failure to thrive Qualifiers: Failure to thrive age range: in adult Qualified Code(s): R62.7 - Adult failure to thrive Status: Acute Plan: NORMAL SALINE, PROCAL AT 40ML/HR, IV ALBUMIN, CONTINUE TO MONITOR (2) UTI (urinary tract infection) Qualifiers: Urinary tract infection type: acute cystitis Hematuria presence: with hematuria Qualified Code(s): N30.01 - Acute cystitis with hematuria Status: Acute Plan: IV ZOSYN, IV VANCOMYCIN, IV FLUIDS, CONTINUE TO MONITOR - Allergies Allergies/Adverse Reactions: Allergies Allergy/AdvReac Type Severity Reaction Status Date / Time meperidine [From Demerol] AdvReac Verified 08/03/18 20:02
[2018-10-06] MEDS ORDERED: PHARMACY CONSULT - DOSE _____ XX SCH (12:00)
[2018-10-06] MEDS: ALBUMIN HUMAN 25%- 100 ML 100 ML IV SCH (14:18)
[2018-10-06] MEDS: NS 1000 ML 1,000 ML IV SCH (14:20)
[2018-10-06] MEDS: LIORESAL PO SCH ×3 (14:21→20:53)
[2018-10-06] MEDS: VITAMIN D3 PO SCH (14:22)
[2018-10-06] MEDS: PriLOSEC PO SCH (14:22)
[2018-10-06] MEDS: DULCOLAX SUPPOSITORY 10 MG PR SCH (14:22)
[2018-10-06] MEDS: FLONASE NASAL SPRAY ENOSTRIL SCH (14:26)
[2018-10-06] MEDS: PERCOCET TAB 5/325 MG PO PRN ×2 (14:35→20:57)
[2018-10-06] MEDS: PROCALAMINE 3 % 1,000 ML IV SCH (14:50)
[2018-10-06] MEDS: KLONOPIN TAB 1 MG PO SCH (20:53)
[2018-10-06] MEDS: ZANAFLEX PO SCH (20:54)
[2018-10-06] MEDS: NAPROSYN PO SCH (20:54)
[2018-10-06] MEDS: WELLBUTRIN XL 150 MG (DAILY) PO SCH (20:54)
[2018-10-06] MEDS: CYMBALTA PO SCH (20:57)
[2018-10-07] MEDS: ROXICODONE TAB 15 MG PO PRN ×2 (03:09→09:50)
[2018-10-07 05:21] LABS: BASOPHILS % (AUTO) 0.6 % (0.2-1.0); EOSINOPHILS # (AUTO) 0.1 x10^3/uL (0.0-0.2); EOSINOPHILS % (AUTO) 1.8 % (0.9-2.9); HEMATOCRIT 27.6 % (42.0-54.0); LYMPHOCYTES # (AUTO) 1.5 X10^3/uL (1.3-2.9); MEAN CORPUSCULAR HEMOGLOBIN 30.8 pg (27.0-34.0); MEAN CORPUSCULAR HGB CONC 33.3 g/dL (33.0-35.0); MEAN CORPUSCULAR VOLUME 92.5 fL (80.0-100.0); MEAN PLATELET VOLUME 8.7 fL (7.4-11.0); MONOCYTES # (AUTO) 0.8 x10^3/uL (0.3-0.8); MONOCYTES % (AUTO) 12.7 % (0.0-13.0); NEUTROPHILS # (AUTO) 4.1 x10^3/uL (2.2-4.8); NEUTROPHILS % (AUTO) 61.9 % (42.0-75.0); PLATELET COUNT 134 X10^3/uL (150.0-450.0); RED BLOOD COUNT 2.98 X10^6/uL (4.7-6.0); WHITE BLOOD COUNT 6.7 X10^3/uL (3.6-10.0)
[2018-10-07 05:29] LABS: HEMOGLOBIN 9.2 g/dL (13.5-18.0)
[2018-10-07 05:33] LABS: ALANINE AMINOTRANSFERASE 11 Units/L (12-78); ALBUMIN 2.6 g/dL (3.4-5.0); ALKALINE PHOSPHATASE 45 Units/L (46-116); ASPARTATE AMINO TRANSFERASE 16 Units/L (15-37); BLOOD UREA NITROGEN 56 mg/dL (7-18); CALCIUM 8.3 mg/dL (8.5-10.1); CARBON DIOXIDE 23.8 mmol/L (21-32); CHLORIDE 103 mmol/L (98-107); COR CA(FOR HYPOALB) 9.4 mg/dL (8.5-10.1); CREATININE 1.22 mg/dL (0.70-1.30); SODIUM 135 mmol/L (136-145); TOTAL PROTEIN 5.9 g/dL (6.4-8.2); eGFR NON BLACK RACES > 60 (>60)
[2018-10-07] MEDS: ZOSYN VIAL 3.375 GRAMS 3.375 G in NS 100 ML IV + SPIKE MINIBAG* 100 ML IV SCH ×3 (05:35→22:51)
--- NOTE | 2018-10-07 08:51 | RAD ---
History: Failure to thrive Study: KUB Comparison: Yesterday Findings: There is no significant change. The colon is packed full of formed stool mainly involving the transverse descending sigmoid colon and rectum. There is prominent gas in stomach and small bowel. Impression: Unchanged relatively severe constipation Reported By:
[2018-10-07] MEDS: NS 1000 ML 1,000 ML IV SCH ×2 (09:45→15:19)
[2018-10-07] MEDS: ALBUMIN HUMAN 25%- 100 ML 100 ML IV SCH (09:45)
[2018-10-07] MEDS: CHRONULAC PO SCH ×2 (09:50→21:30)
[2018-10-07] MEDS: LIORESAL PO SCH ×4 (09:50→22:52)
[2018-10-07] MEDS: VITAMIN D3 PO SCH (09:50)
[2018-10-07] MEDS: ZANAFLEX PO SCH ×2 (09:50→22:51)
[2018-10-07] MEDS: NAPROSYN PO SCH ×2 (09:50→22:52)
[2018-10-07] MEDS: PriLOSEC PO SCH (09:51)
[2018-10-07] MEDS: CYMBALTA PO SCH ×2 (09:55→22:50)
[2018-10-07] MEDS: VANCOMYCIN HCL 1 GM VIAL 1 G in D5W 250 ML IV 250 ML IV SCH (10:51)
[2018-10-07] MEDS: FLONASE NASAL SPRAY ENOSTRIL SCH (10:51)
[2018-10-07] MEDS ORDERED: CATAPRES-TTS-2 TD SCH (11:00)
[2018-10-07] MEDS: ATIVAN TAB 0.5 MG PO PRN (15:00)
[2018-10-07] MEDS: PERCOCET TAB 5/325 MG PO PRN (15:00)
[2018-10-07] MEDS: ZOFRAN INJ 4 MG VIAL IVP PRN (18:15)
[2018-10-07] MEDS ORDERED: PHARMACY COMMENT IV NR (20:30)
[2018-10-07 21:16] LABS: CREATININE 1.32 mg/dL (0.70-1.30)
[2018-10-07 21:19] LABS: VANCOMYCIN,TROUGH 33.9 ug/mL (15-20)
[2018-10-07] MEDS: KLONOPIN TAB 1 MG PO SCH (22:50)
[2018-10-07] MEDS: WELLBUTRIN XL 150 MG (DAILY) PO SCH (22:51)
[2018-10-08] MEDS: ZOSYN VIAL 3.375 GRAMS 3.375 G in NS 100 ML IV + SPIKE MINIBAG* 100 ML IV SCH ×3 (05:23→21:50)
[2018-10-08 05:29] LABS: BASOPHILS % (AUTO) 0.4 % (0.2-1.0); EOSINOPHILS # (AUTO) 0.1 x10^3/uL (0.0-0.2); EOSINOPHILS % (AUTO) 1.9 % (0.9-2.9); HEMATOCRIT 26.1 % (42.0-54.0); HEMOGLOBIN 8.7 g/dL (13.5-18.0); LYMPHOCYTES # (AUTO) 1.6 X10^3/uL (1.3-2.9); LYMPHOCYTES % (AUTO) 24.6 % (21.0-51.0); MEAN CORPUSCULAR HGB CONC 33.2 g/dL (33.0-35.0); MEAN CORPUSCULAR VOLUME 93.3 fL (80.0-100.0); MEAN PLATELET VOLUME 9.3 fL (7.4-11.0); MONOCYTES # (AUTO) 0.9 x10^3/uL (0.3-0.8); MONOCYTES % (AUTO) 13.7 % (0.0-13.0); NEUTROPHILS # (AUTO) 3.7 x10^3/uL (2.2-4.8); NEUTROPHILS % (AUTO) 59.4 % (42.0-75.0); PLATELET COUNT 116 X10^3/uL (150.0-450.0); WHITE BLOOD COUNT 6.3 X10^3/uL (3.6-10.0)
[2018-10-08 05:39] LABS: ALANINE AMINOTRANSFERASE 9 Units/L (12-78); ALBUMIN 2.6 g/dL (3.4-5.0); ALKALINE PHOSPHATASE 42 Units/L (46-116); ASPARTATE AMINO TRANSFERASE 15 Units/L (15-37); BLOOD UREA NITROGEN 55 mg/dL (7-18); CALCIUM 8.3 mg/dL (8.5-10.1); CARBON DIOXIDE 24.4 mmol/L (21-32); CHLORIDE 105 mmol/L (98-107); COR CA(FOR HYPOALB) 9.4 mg/dL (8.5-10.1); CREATININE 1.26 mg/dL (0.70-1.30); SODIUM 139 mmol/L (136-145); TOTAL PROTEIN 5.8 g/dL (6.4-8.2); eGFR NON BLACK RACES > 60 (>60)
[2018-10-08 05:59] LABS: VANCOMYCIN,TROUGH 28.8 ug/mL (15-20)
[2018-10-08] MEDS: ALBUMIN HUMAN 25%- 100 ML 100 ML IV SCH (09:30)
[2018-10-08] MEDS: ATIVAN TAB 0.5 MG PO PRN (09:31)
[2018-10-08] MEDS: ROXICODONE TAB 15 MG PO PRN (09:31)
[2018-10-08] MEDS: ZANAFLEX PO SCH ×2 (09:32→20:40)
[2018-10-08] MEDS: VITAMIN D3 PO SCH (09:32)
[2018-10-08] MEDS: NAPROSYN PO SCH ×2 (09:32→20:39)
[2018-10-08] MEDS: LIORESAL PO SCH ×4 (09:32→20:40)
[2018-10-08] MEDS: PriLOSEC PO SCH (09:32)
[2018-10-08] MEDS: CYMBALTA PO SCH ×2 (09:35→20:39)
[2018-10-08] MEDS: FLONASE NASAL SPRAY ENOSTRIL SCH (09:39)
[2018-10-08] MEDS ORDERED: NS 500 ML IV 500 ML IV ONE (10:26)
[2018-10-08] MEDS: PERCOCET TAB 5/325 MG PO PRN ×2 (17:10→22:07)
[2018-10-08] MEDS: KLONOPIN TAB 1 MG PO SCH (20:39)
[2018-10-08] MEDS: WELLBUTRIN XL 150 MG (DAILY) PO SCH (20:41)
[2018-10-08] MEDS ORDERED: VANCOMYCIN HCL 1 GM VIAL 1 G in D5W 250 ML IV 250 ML IV SCH (21:00)
[2018-10-08] MEDS: NS 1000 ML 1,000 ML IV SCH (22:09)
--- NOTE | 2018-10-08 22:25 | PCM.PROG ---
Progress Note - Progress Note for Day of Date of Exam: 10/07/18 - Subjective Subjective: WAS ADMITTED FOR FAILURE TO THRIVE AND A URINARY TRACT INFECTION. TODAY, HE IS ALERT AND ORIENTED, LYING IN BED ON MORNING ROUNDS. HE CONTINUES WITH COMPLAINTS OF NAUSEA AND DECREASED APPETITE TODAY. ON EXAMINATION, HEART IS REGULAR IN RATE AND RHYTHM. BILATERAL LUNGS ARE NOTED WITH DIMINISHED LUNG SOUNDS. ABDOMEN IS ROUND, SOFT, AND NOTED WITH NORMAL BOWEL SOUNDS IN ALL QUADRANTS. HIS VITALS THIS MORNING ARE 98.1-70+-16-99%-145/68. LABS WERE OBTAINED. ABNORMAL LAB VALUES INCLUDE THE FOLLOWING: RBC 2.98, HGB 9.2, HCT 27.6, PLT COUNT 134, SODIUM 135, BUN 56, CREATININE 1.32, CALCIUM 8.3, ALT 11, ALK PHOS 45, TOTAL PROTEIN 5.9, ALBUMIN 2.6. URINE CULTURE PENDING. HE IS CURRENTLY RECEIVING IV ZOSYN AND IV VANCOMYCIN. WE WILL CONTINUE WITH CURRENT PLAN OF ARE TODAY. OTHERWISE, WE WILL FOLLOW UP WITH AM LABS AND CONTINUE TO MONITOR. - Past Medical Family Social History Past Med/Fam/Surg Hx: No changes since H&P Allergies: Allergies meperidine [From Demerol] Adverse Reaction (Verified 08/03/18 20:02) - Review of Systems ROS: No change since H&P - Vital Signs and I&O's Vital Signs: Temperature 98.2 F Pulse Rate [Right Posterior 73 Tibial] Pulse Rate 93 Respiratory Rate 18 Blood Pressure [Right Calf] 159/80 Blood Pressure [Right Arm] 111/63 Blood Pressure [Left Arm] 153/74 Blood Pressure 94/57 O2 Sat by Pulse Oximetry 96 Intake and Output: Intake & Output 10/06/18 10/07/18 10/08/18 10/09/18 11:59 11:59 11:59 11:59 Intake Total 680 / 680 740 / 740 300 / 300 Output Total 460 / 460 2350 / 2350 1180 / 1180 Balance 220 / 220 -1610 / -1610 -880 / -880 - Physical Exam Oriented: Normal Eyes: Normal Ear: Normal Nose: Normal Throat: Normal Cardiovascular: Normal : Normal Auscultation: Bowel Sounds: Normal Palpation: Normal Tenderness: Normal Skin: Normal Musculoskeletal: Normal (QUADRIPLEGIC) Psychiatric: Normal Mood Description: Calm Affect: Normal Speech Pattern: Clear - Laboratory and Diagnostics Result Diagrams: 10/08/18 04:44 10/08/18 04:44 Labs: 10/06/18 01:55 Urine,Catheterized Urine Culture - Final Pseudomonas Aeruginosa Laboratory WBC 6.3 X10^3/uL (3.6-10.0) 10/08/18 04:44 RBC 2.80 X10^6/uL (4.7-6.0) L 10/08/18 04:44 Hgb 8.7 g/dL (13.5-18.0) L 10/08/18 04:44 Hct 26.1 % (42.0-54.0) L 10/08/18 04:44 MCV 93.3 fL (80.0-100.0) 10/08/18 04:44 MCH 31.0 pg (27.0-34.0) 10/08/18 04:44 MCHC 33.2 g/dL (33.0-35.0) 10/08/18 04:44 RDW 15.0 % (11.6-16.5) 10/08/18 04:44 Plt Count 116 X10^3/uL (150.0-450.0) L 10/08/18 04:44 Plt Count Comment Adequate (ADEQUATE) 10/06/18 07:32 MPV 9.3 fL (7.4-11.0) 10/08/18 04:44 Neut % (Auto) 59.4 % (42.0-75.0) 10/08/18 04:44 Lymph % (Auto) 24.6 % (21.0-51.0) 10/08/18 04:44 [place] % (Auto) 13.7 % (0.0-13.0) H 10/08/18 04:44 Eos % (Auto) 1.9 % (0.9-2.9) 10/08/18 04:44 Baso % (Auto) 0.4 % (0.2-1.0) 10/08/18 04:44 Neut # (Auto) 3.7 x10^3/uL (2.2-4.8) 10/08/18 04:44 Lymph # (Auto) 1.6 X10^3/uL (1.3-2.9) 10/08/18 04:44 [place] # (Auto) 0.9 x10^3/uL (0.3-0.8) H 10/08/18 04:44 Eos # (Auto) 0.1 x10^3/uL (0.0-0.2) 10/08/18 04:44 Baso # (Auto) 0.0 X10^3/uL (0.0-0.1) 10/08/18 04:44 Absolute Nucleated RBC 0.0 /100WBC 10/08/18 04:44 Total Counted 100 10/06/18 07:32 Neutrophils % (Manual) 58 % (39-76) 10/06/18 07:32 Band Neutrophils % 9 % (0-10) 10/06/18 07:32 Lymphocytes % (Manual) 30 % (13-43) 10/06/18 07:32 Monocytes % (Manual) 3 % (4-9) L 10/06/18 07:32 Plt Morphology Comment Normal (NORMAL) 10/06/18 07:32 RBC Morphology Normal (NORMAL) 10/06/18 07:32 Sodium 139 mmol/L (136-145) 10/08/18 04:44 Corrected Sodium TNP 10/08/18 04:44 Potassium 4.5 mmol/L (3.5-5.1) 10/08/18 04:44 Chloride 105 mmol/L (98-107) 10/08/18 04:44 Carbon Dioxide 24.4 mmol/L (21-32) 10/08/18 04:44 BUN 55 mg/dL (7-18) H 10/08/18 04:44 Creatinine 1.26 mg/dL (0.70-1.30) 10/08/18 04:44 Est GFR (MDRD) Af Amer > 60 (>60) 10/08/18 04:44 Est GFR (MDRD) Non-Af > 60 (>60) 10/08/18 04:44 Glucose 81 mg/dL (65-99) 10/08/18 04:44 Calcium 8.3 mg/dL (8.5-10.1) L 10/08/18 04:44 Corrected Calcium 9.4 mg/dL (8.5-10.1) 10/08/18 04:44 Total Bilirubin 0.50 mg/dL (0.2-1.0) 10/08/18 04:44 AST 15 Units/L (15-37) 10/08/18 04:44 ALT 9 Units/L (12-78) L 10/08/18 04:44 Alkaline Phosphatase 42 Units/L (46-116) L 10/08/18 04:44 Total Protein 5.8 g/dL (6.4-8.2) L 10/08/18 04:44 Albumin 2.6 g/dL (3.4-5.0) L 10/08/18 04:44 Globulin 3.2 g/dL (2.5-4.5) 10/08/18 04:44 Albumin/Globulin Ratio 0.8 Ratio (1.1-2.1) L 10/08/18 04:44 Specimen Type Catherized urine 10/06/18 01:55 Urine Color Yellow (YELLOW) 10/06/18 01:55 Urine Appearance Cloudy (CLEAR) 10/06/18 01:55 Urine pH 7.0 (5.0 - 8.0) 10/06/18 01:55 Ur Specific [place] 1.005 (1.000-1.030) 10/06/18 01:55 Urine Protein 2+ (NEGATIVE) 10/06/18 01:55 Urine Glucose (UA) Negative (NEGATIVE) 10/06/18 01:55 Urine Ketones Negative (NEGATIVE) 10/06/18 01:55 Urine Occult Blood 5+ (NEGATIVE) 10/06/18 01:55 Urine Nitrite Positive (NEGATIVE) 10/06/18 01:55 Urine Bilirubin Negative (NEGATIVE) 10/06/18 01:55 Urine Urobilinogen Normal (NORMAL) 10/06/18 01:55 Ur Leukocyte Esterase 3+ (NEGATIVE) 10/06/18 01:55 Urine RBC 30-50 /HPF (NONE SEEN) 10/06/18 01:55 Urine WBC 30-50 /HPF (NONE SEEN) 10/06/18 01:55 Ur Squamous Epith Cells Rare /HPF (NEGATIVE) 10/06/18 01:55 Urine Bacteria 2+ /HPF (NEGATIVE) 10/06/18 01:55 Ur Culture Indicated? Yes/culture set up 10/06/18 01:55 Vancomycin Trough 28.8 ug/mL (15-20) H* 10/08/18 04:44 Blood Type A POSITIVE 10/08/18 10:40 Antibody Screen Negative 10/08/18 10:40 Crossmatch See Detail 10/08/18 10:40 - Plan (1) Failure to thrive Status: Acute Qualifiers: Failure to thrive age range: in adult Qualified Code(s): R62.7 - Adult failure to thrive Plan: NORMAL SALINE, PROCAL AT 40ML/HR, IV ALBUMIN, CONTINUE TO MONITOR (2) UTI (urinary tract infection) Status: Acute Qualifiers: Urinary tract infection type: acute cystitis Hematuria presence: with hematuria Qualified Code(s): N30.01 - Acute cystitis with hematuria Plan: IV ZOSYN, IV VANCOMYCIN, IV FLUIDS, CONTINUE TO MONITOR
[2018-10-08] MEDS ORDERED: NS 250 ML IV 250 ML ONE (22:47)
[2018-10-09 05:32] LABS: BASOPHILS % (AUTO) 0.7 % (0.2-1.0); EOSINOPHILS # (AUTO) 0.2 x10^3/uL (0.0-0.2); EOSINOPHILS % (AUTO) 2.9 % (0.9-2.9); HEMATOCRIT 31.8 % (42.0-54.0); LYMPHOCYTES # (AUTO) 2.1 X10^3/uL (1.3-2.9); LYMPHOCYTES % (AUTO) 29.5 % (21.0-51.0); MEAN CORPUSCULAR HEMOGLOBIN 30.8 pg (27.0-34.0); MEAN CORPUSCULAR HGB CONC 34.2 g/dL (33.0-35.0); MEAN CORPUSCULAR VOLUME 90.1 fL (80.0-100.0); MEAN PLATELET VOLUME 9.2 fL (7.4-11.0); MONOCYTES # (AUTO) 0.9 x10^3/uL (0.3-0.8); MONOCYTES % (AUTO) 12.5 % (0.0-13.0); NEUTROPHILS # (AUTO) 3.8 x10^3/uL (2.2-4.8); NEUTROPHILS % (AUTO) 54.4 % (42.0-75.0); PLATELET COUNT 122 X10^3/uL (150.0-450.0); RED BLOOD COUNT 3.53 X10^6/uL (4.7-6.0); RED CELL DISTRIBUTION WIDTH 15.6 % (11.6-16.5)
[2018-10-09 05:46] LABS: ALANINE AMINOTRANSFERASE 9 Units/L (12-78); ALBUMIN 2.9 g/dL (3.4-5.0); ALKALINE PHOSPHATASE 45 Units/L (46-116); ASPARTATE AMINO TRANSFERASE 16 Units/L (15-37); BLOOD UREA NITROGEN 49 mg/dL (7-18); CALCIUM 8.7 mg/dL (8.5-10.1); CARBON DIOXIDE 19.8 mmol/L (21-32); CHLORIDE 106 mmol/L (98-107); COR CA(FOR HYPOALB) 9.6 mg/dL (8.5-10.1); CREATININE 1.11 mg/dL (0.70-1.30); SODIUM 138 mmol/L (136-145); TOTAL PROTEIN 6.1 g/dL (6.4-8.2); eGFR NON BLACK RACES > 60 (>60)
[2018-10-09] MEDS: ZOSYN VIAL 3.375 GRAMS 3.375 G in NS 100 ML IV + SPIKE MINIBAG* 100 ML IV SCH ×3 (05:49→21:08)
[2018-10-09 05:51] LABS: HEMOGLOBIN 10.9 g/dL (13.5-18.0)
[2018-10-09] MEDS: LIORESAL PO SCH ×4 (08:44→21:10)
[2018-10-09] MEDS: ALBUMIN HUMAN 25%- 100 ML 100 ML IV SCH (08:44)
[2018-10-09] MEDS: ZANAFLEX PO SCH ×2 (08:44→21:11)
[2018-10-09] MEDS: NAPROSYN PO SCH ×2 (08:45→21:11)
[2018-10-09] MEDS: VITAMIN D3 PO SCH (08:45)
[2018-10-09] MEDS: PriLOSEC PO SCH (08:45)
[2018-10-09] MEDS: FLONASE NASAL SPRAY ENOSTRIL SCH (08:46)
[2018-10-09] MEDS: CYMBALTA PO SCH ×2 (08:48→21:09)
[2018-10-09] MEDS: PROCALAMINE 3 % 1,000 ML IV SCH (12:38)
[2018-10-09] MEDS ORDERED: BUTT CREAM (COMPOUND) ONE (14:14)
[2018-10-09] MEDS: DULCOLAX SUPPOSITORY 10 MG PR SCH (14:52)
[2018-10-09] MEDS: PERCOCET TAB 5/325 MG PO PRN (17:40)
[2018-10-09] MEDS: NS 1000 ML 1,000 ML IV SCH (17:42)
[2018-10-09] MEDS: KLONOPIN TAB 1 MG PO SCH (21:10)
[2018-10-09] MEDS: WELLBUTRIN XL 150 MG (DAILY) PO SCH (21:10)
--- NOTE | 2018-10-09 21:41 | PCM.PROG ---
Progress Note - Progress Note for Day of Date of Exam: 10/08/18 - Subjective Subjective: WAS ADMITTED FOR FAILURE TO THRIVE AND A URINARY TRACT INFECTION. TODAY, HE IS ALERT AND ORIENTED, LYING IN BED ON MORNING ROUNDS. HE CONTINUES WITH COMPLAINTS OF NAUSEA AND DECREASED APPETITE TODAY. ON EXAMINATION, HEART IS REGULAR IN RATE AND RHYTHM. BILATERAL LUNGS ARE NOTED WITH DIMINISHED LUNG SOUNDS. ABDOMEN IS ROUND, SOFT, AND NOTED WITH NORMAL BOWEL SOUNDS IN ALL QUADRANTS. HIS VITALS THIS MORNING ARE 98.7-80-18-96%-109/61. LABS WERE OBTAINED. ABNORMAL LAB VALUES INCLUDE THE FOLLOWING: RBC 2.80, HGB 8.7, HCT 26.1, PLT COUNT 116, BUN 55, CALCIUM 8.3, ALT 9, ALK PHOS 42, TOTAL PROTEIN 5.8, ALBUMIN 2.6. URINE CULTURE REPORTS GROWTH OF PSEUDOMONAS AERUGINOSA. HE IS CURRE NTLY RECEIVING IV ZOSYN AND IV VANCOMYCIN. WE WILL DISCONTINUE THE VANCOMYCIN TODAY. OTHERWISE, WE WILL FOLLOW UP WITH AM LABS AND CONTINUE TO MONITOR. - Past Medical Family Social History Past Med/Fam/Surg Hx: No changes since H&P Allergies: Allergies meperidine [From Demerol] Adverse Reaction (Verified 08/03/18 20:02) - Review of Systems ROS: No change since H&P - Vital Signs and I&O's Vital Signs: Temperature 99.1 F Pulse Rate [Left Brachial] 73 Pulse Rate [Right Posterior 78 Tibial] Pulse Rate 93 Respiratory Rate 18 Blood Pressure [Right Calf] 151/79 Blood Pressure [Right Arm] 111/63 Blood Pressure [Left Arm] 164/83 Blood Pressure 94/57 O2 Sat by Pulse Oximetry 94 Intake and Output: Intake & Output 10/07/18 10/08/18 10/09/18 10/10/18 11:59 11:59 11:59 11:59 Intake Total 680 / 680 740 / 740 1610 / 1610 1350 / 1350 Output Total 460 / 460 2350 / 2350 2805 / 2805 1600 / 1600 Balance 220 / 220 -1610 / -1610 -1195 / -1195 -250 / -250 - Physical Exam Oriented: Normal Eyes: Normal Ear: Normal Nose: Normal Throat: Normal Respiratory: Generalized, Diminished Cardiovascular: Normal : Normal Auscultation: Bowel Sounds: Normal Palpation: Normal Tenderness: Normal Skin: Normal Musculoskeletal: Normal (QUADRIPLEGIC) Psychiatric: Normal Mood Description: Calm Affect: Normal Speech Pattern: Clear, Appropriate - Laboratory and Diagnostics Result Diagrams: 10/09/18 04:44 10/09/18 04:44 Labs: 10/06/18 01:55 Urine,Catheterized Urine Culture - Final Pseudomonas Aeruginosa Laboratory WBC 7.0 X10^3/uL (3.6-10.0) 10/09/18 04:44 RBC 3.53 X10^6/uL (4.7-6.0) L 10/09/18 04:44 Hgb 10.9 g/dL (13.5-18.0) L D 10/09/18 04:44 Hct 31.8 % (42.0-54.0) L 10/09/18 04:44 MCV 90.1 fL (80.0-100.0) 10/09/18 04:44 MCH 30.8 pg (27.0-34.0) 10/09/18 04:44 MCHC 34.2 g/dL (33.0-35.0) 10/09/18 04:44 RDW 15.6 % (11.6-16.5) 10/09/18 04:44 Plt Count 122 X10^3/uL (150.0-450.0) L 10/09/18 04:44 Plt Count Comment Adequate (ADEQUATE) 10/06/18 07:32 MPV 9.2 fL (7.4-11.0) 10/09/18 04:44 Neut % (Auto) 54.4 % (42.0-75.0) 10/09/18 04:44 Lymph % (Auto) 29.5 % (21.0-51.0) 10/09/18 04:44 [place] % (Auto) 12.5 % (0.0-13.0) 10/09/18 04:44 Eos % (Auto) 2.9 % (0.9-2.9) 10/09/18 04:44 Baso % (Auto) 0.7 % (0.2-1.0) 10/09/18 04:44 Neut # (Auto) 3.8 x10^3/uL (2.2-4.8) 10/09/18 04:44 Lymph # (Auto) 2.1 X10^3/uL (1.3-2.9) 10/09/18 04:44 [place] # (Auto) 0.9 x10^3/uL (0.3-0.8) H 10/09/18 04:44 Eos # (Auto) 0.2 x10^3/uL (0.0-0.2) 10/09/18 04:44 Baso # (Auto) 0.0 X10^3/uL (0.0-0.1) 10/09/18 04:44 Absolute Nucleated RBC 0.0 /100WBC 10/09/18 04:44 Total Counted 100 10/06/18 07:32 Neutrophils % (Manual) 58 % (39-76) 10/06/18 07:32 Band Neutrophils % 9 % (0-10) 10/06/18 07:32 Lymphocytes % (Manual) 30 % (13-43) 10/06/18 07:32 Monocytes % (Manual) 3 % (4-9) L 10/06/18 07:32 Plt Morphology Comment Normal (NORMAL) 10/06/18 07:32 RBC Morphology Normal (NORMAL) 10/06/18 07:32 Sodium 138 mmol/L (136-145) 10/09/18 04:44 Corrected Sodium TNP 10/09/18 04:44 Potassium 4.9 mmol/L (3.5-5.1) 10/09/18 04:44 Chloride 106 mmol/L (98-107) 10/09/18 04:44 Carbon Dioxide 19.8 mmol/L (21-32) L 10/09/18 04:44 BUN 49 mg/dL (7-18) H 10/09/18 04:44 Creatinine 1.11 mg/dL (0.70-1.30) 10/09/18 04:44 Est GFR (MDRD) Af Amer > 60 (>60) 10/09/18 04:44 Est GFR (MDRD) Non-Af > 60 (>60) 10/09/18 04:44 Glucose 84 mg/dL (65-99) 10/09/18 04:44 Calcium 8.7 mg/dL (8.5-10.1) 10/09/18 04:44 Corrected Calcium 9.6 mg/dL (8.5-10.1) 10/09/18 04:44 Total Bilirubin 0.70 mg/dL (0.2-1.0) 10/09/18 04:44 AST 16 Units/L (15-37) 10/09/18 04:44 ALT 9 Units/L (12-78) L 10/09/18 04:44 Alkaline Phosphatase 45 Units/L (46-116) L 10/09/18 04:44 Total Protein 6.1 g/dL (6.4-8.2) L 10/09/18 04:44 Albumin 2.9 g/dL (3.4-5.0) L 10/09/18 04:44 Globulin 3.2 g/dL (2.5-4.5) 10/09/18 04:44 Albumin/Globulin Ratio 0.9 Ratio (1.1-2.1) L 10/09/18 04:44 Specimen Type Catherized urine 10/06/18 01:55 Urine Color Yellow (YELLOW) 10/06/18 01:55 Urine Appearance Cloudy (CLEAR) 10/06/18 01:55 Urine pH 7.0 (5.0 - 8.0) 10/06/18 01:55 Ur Specific [place] 1.005 (1.000-1.030) 10/06/18 01:55 Urine Protein 2+ (NEGATIVE) 10/06/18 01:55 Urine Glucose (UA) Negative (NEGATIVE) 10/06/18 01:55 Urine Ketones Negative (NEGATIVE) 10/06/18 01:55 Urine Occult Blood 5+ (NEGATIVE) 10/06/18 01:55 Urine Nitrite Positive (NEGATIVE) 10/06/18 01:55 Urine Bilirubin Negative (NEGATIVE) 10/06/18 01:55 Urine Urobilinogen Normal (NORMAL) 10/06/18 01:55 Ur Leukocyte Esterase 3+ (NEGATIVE) 10/06/18 01:55 Urine RBC 30-50 /HPF (NONE SEEN) 10/06/18 01:55 Urine WBC 30-50 /HPF (NONE SEEN) 10/06/18 01:55 Ur Squamous Epith Cells Rare /HPF (NEGATIVE) 10/06/18 01:55 Urine Bacteria 2+ /HPF (NEGATIVE) 10/06/18 01:55 Ur Culture Indicated? Yes/culture set up 10/06/18 01:55 Vancomycin Trough 28.8 ug/mL (15-20) H* 10/08/18 04:44 Blood Type A POSITIVE 10/08/18 10:40 Antibody Screen Negative 10/08/18 10:40 Crossmatch See Detail 10/08/18 10:40 - Plan (1) Failure to thrive Status: Acute Qualifiers: Failure to thrive age range: in adult Qualified Code(s): R62.7 - Adult failure to thrive Plan: NORMAL SALINE, PROCAL AT 40ML/HR, IV ALBUMIN, CONTINUE TO MONITOR (2) UTI (urinary tract infection) Status: Acute Qualifiers: Urinary tract infection type: acute cystitis Hematuria presence: with hematuria Qualified Code(s): N30.01 - Acute cystitis with hematuria Plan: IV ZOSYN, IV VANCOMYCIN, IV FLUIDS, CONTINUE TO MONITOR
[2018-10-10] MEDS: ZOFRAN INJ 4 MG VIAL IVP PRN (01:13)
[2018-10-10] MEDS: NS 1000 ML 1,000 ML IV SCH (01:14)
[2018-10-10] MEDS: ATIVAN TAB 0.5 MG PO PRN (02:46)
[2018-10-10] MEDS: ZOSYN VIAL 3.375 GRAMS 3.375 G in NS 100 ML IV + SPIKE MINIBAG* 100 ML IV SCH (06:20)
[2018-10-10 06:37] LABS: BASOPHILS # (AUTO) 0.1 X10^3/uL (0.0-0.1); BASOPHILS % (AUTO) 0.6 % (0.2-1.0); EOSINOPHILS # (AUTO) 0.3 x10^3/uL (0.0-0.2); EOSINOPHILS % (AUTO) 3.5 % (0.9-2.9); HEMOGLOBIN 11.5 g/dL (13.5-18.0); LYMPHOCYTES # (AUTO) 1.9 X10^3/uL (1.3-2.9); LYMPHOCYTES % (AUTO) 20.2 % (21.0-51.0); MEAN CORPUSCULAR HEMOGLOBIN 30.2 pg (27.0-34.0); MEAN CORPUSCULAR HGB CONC 33.7 g/dL (33.0-35.0); MEAN CORPUSCULAR VOLUME 89.6 fL (80.0-100.0); MEAN PLATELET VOLUME 8.3 fL (7.4-11.0); MONOCYTES % (AUTO) 10.1 % (0.0-13.0); NEUTROPHILS # (AUTO) 6.2 x10^3/uL (2.2-4.8); NEUTROPHILS % (AUTO) 65.6 % (42.0-75.0); PLATELET COUNT 126 X10^3/uL (150.0-450.0); RED BLOOD COUNT 3.79 X10^6/uL (4.7-6.0); WHITE BLOOD COUNT 9.4 X10^3/uL (3.6-10.0)
[2018-10-10 06:42] LABS: ALANINE AMINOTRANSFERASE 9 Units/L (12-78); ALBUMIN 3.2 g/dL (3.4-5.0); ALKALINE PHOSPHATASE 48 Units/L (46-116); ASPARTATE AMINO TRANSFERASE 19 Units/L (15-37); BLOOD UREA NITROGEN 43 mg/dL (7-18); CARBON DIOXIDE 17.1 mmol/L (21-32); CHLORIDE 109 mmol/L (98-107); COR CA(FOR HYPOALB) 9.6 mg/dL (8.5-10.1); CREATININE 1.07 mg/dL (0.70-1.30); SODIUM 140 mmol/L (136-145); TOTAL PROTEIN 6.6 g/dL (6.4-8.2); eGFR NON BLACK RACES > 60 (>60)
[2018-10-10] MEDS: NAPROSYN PO SCH (09:58)
[2018-10-10] MEDS: VITAMIN D3 PO SCH (09:58)
[2018-10-10] MEDS: ALBUMIN HUMAN 25%- 100 ML 100 ML IV SCH (09:58)
[2018-10-10] MEDS: LIORESAL PO SCH (09:58)
[2018-10-10] MEDS: ZANAFLEX PO SCH (09:58)
[2018-10-10] MEDS: PriLOSEC PO SCH (09:58)
[2018-10-10] MEDS: CHRONULAC PO SCH (09:59)
[2018-10-10] MEDS: FLONASE NASAL SPRAY ENOSTRIL SCH (09:59)
[2018-10-10] MEDS: CYMBALTA PO SCH (10:01)
[2018-10-10 10:56] VITALS: BP 166/89
== END 2018-10-10 12:33 | disposition home health service (06) | DRG 689 ==
LOC: ER 00:11 → MED/SURG 00:11
PROVIDERS: ADMIT Internal Medicine; ATTEND Internal Medicine
DX: R63.0 Anorexia; D64.89 Other specified anemias; Z87.440 Personal history of urinary (tract) infections; G82.50 Quadriplegia, unspecified; R11.2 Nausea with vomiting, unspecified; N30.01 Acute cystitis with hematuria; Z66 Do not resuscitate; B96.5 Pseudomonas (aeruginosa) (mallei) (pseudomallei) as the cause of diseases classified elsewhere; R62.7 Adult failure to thrive; R53.1 Weakness
CPT/HCPCS: 36415; 36430; 51702; 71010; 71045; 74000; 74018; 80053; 80202; 81001; 82565; 85025; 86850; 86900; 86901; 86922; 87086; 87088; 87150; 87186; 96365; 96374; 99284; A4217; A4222; B5200; P9016; P9047; S0106; G0378; J2405; J2543; J3370; J7030; J7040; J7050; J7060

== ENCOUNTER 2019-05-26 10:56 | Inpatient (IN) ==
--- NOTE | 2019-05-26 11:33 | DR.SOBA ---
HPI Time Seen Time Seen by Provider: 05/26/19 11:15 Primary Care Physician Primary Care Physician: MICKEY LORA HPI Comment HPI Comment: PATIENT IS 53YR OLD WHITE MALE, PARAPLEGIC ON HOME OXYGEN IN ER WITH INCREASING SOB. PATIENT SAID HE IS PRONE TO ASPIRATION PNEUMONIA. COUGHING, PRODUCTIVE CLEAR SPUTUM. NO FEVER. IN ER VIA EMS. HAVE CONDOM CATHETER C URRENTLY. Complaints Chief Complaint Doctors Comments: INCREASING SOB AND COUGH NOTED TODAY. Chief Complaint:: PT C/O SOB,,, PT HAS EXP RHONCHI ,, PT HAS HOME 02 2 LPM,, PT IS ALERT AND ORIENTED NO DISTRESS NOTED ,BR Reviewed Nurses Notes Reviewed: Yes Source History Provided: Patient and EMS Mode of Arrival Mode of Arrival: Stretcher Timing Onset of Chief Complaint: 05/26/19 Duration Duration: Hours Context Onset:: At Rest PE Risk Factors:: None History of:: None (PARAPLEGIA,) Currently on:: Inhaled Bronchodilators Prehospital Care:: O2 and Inhaled B2 Modifying Factors Worsens:: Exertion Improves:: Sitting Up Associated Signs and Symptoms Associated Signs and Symptoms: Wheeze, Cough, Numbness (PARAPLEGIA), Perioral Numbness, Hands Numbness and Feet Numbness If Cough Cough: Productive and Clear Other History Other History: PATIENT IS PARAPLEGIC PMH PMH Past Medical History: Yes Past Medical History Comment: PARAPLEGIC , Past Surgical History: No Family History History of Family Medical Conditions: No Social History Does patient currently use any type of tobacco product: Yes Have you used tobacco products in the last 12 months: Yes Type of Tobacco Use: None Does any household member use tobacco: No Alcohol Use: None Do you use any recreational Drugs:: No Lives With: Family Lives Where: Home infectious screening In the last 2 months have you had wt loss of >10#?: NO Have you had fever, night sweats or hemotysis?: No Have you traveled outside the country in the last 6 months?: No Isolation: Standard ROS Review of Systems Constitutional: See HPI and Weakness (PARAPLEGIA.); negative Fever Eyes: See HPI; negative Eye Pain and Blurred Vision ENTM: No Symptoms Reported and See HPI Respiratoy: See HPI, Productive Cough, Short of Breath and Wheezing Cardiovascular: See HPI and Other (PARAPLEGIA.); negative Chest Pain Gastrointestinal/Abdominal: See HPI and Other (PARAPLEGIA.); negative Abdominal Pain, Diarrhea, Nausea and Vomiting Genitourinary: No Symptoms Reported and Other (PARAPLEGIA.) Neurological: No Symptoms Reported, See HPI and Other (PARAPLEGIA.) Musculoskeletal: See HPI and Foot (PARAPLEGIA.) Integumentary: See HPI and Change in Color; negative Rash and Juandice Hematologic/Lymphatic: No Symptoms Reported and See HPI Endocrine: No Symptoms Reported and See HPI; negative Increased Thirst and Increased Urine Psychiatric: No Symptoms Reported and See HPI All Other Systems: Reviewed and Negative PE Vital Signs Vitals: Temperature 97.6 F Pulse Rate [Left Brachial] 94 Pulse Rate [Right Brachial] 84 Pulse Rate 81 Respiratory Rate 16 Blood Pressure [Right Calf] 151/79 Blood Pressure [Right Arm] 158/80 Blood Pressure [Left Arm] 146/86 Blood Pressure 110/82 O2 Sat by Pulse Oximetry 97 General Limitations: No Limitations General Appearance: Alert and In Distress Head Head Exam: Normal Inspection and Atraumatic Eyes Eye exam: Normal Appearance and PERRL; negative Scleral Icterus and Conjunctival Injection ENT ENT Exam: Normal Exam, Normal Oropharynx, Normal External Ear Exam and TM's Normal Bilaterally Neck Neck Exam: Normal Inspection and Trachea Midline; negative Tenderness and Lymphadenopathy Chest Chest Inspection: Normal Inspection and Symmetric Chest Wall Rise; negative Tenderness Respiratory Respiratory Exam: Prolonged Expiratory Phase and Respiratory Distress; negative Accessory Muscle Use and Chest Wall Tenderness Respiratory Exam: Bilateral: Wheezing and Bilateral: Rhonchi and Lower: Wheezing and Lower: Rhonchi Cardiovascular Cardiovascular Exam: Regular Rate, Normal Rhythm and Normal Heart Sounds; negative Systolic Murmur and Diastolic Murmur Abdominal Exam Abdominal Exam: Normal Inspection, Normal Bowel Sounds and Soft; negative Tenderness Extremities Extremities Exam: Other (PARAPLEGIA.) Back Back Exam: Other (PARAPLEGIA.) Neurologic Neurological Exam: Alert, Oriented X3 and Motor Sensory Deficit Psychiatric Psychiatric Exam: Normal Affect and Normal Mood Skin Skin Exam: Warm, Dry and Intact MDM Differential Diagnosis Differential Diagnosis: Bronchitis, CHF, COPD, Dysrhythmia, Hyponatremia, Mycardial Infarction, Pneumonia (ASPIRATION.), Pneumothorax and Respiratory Insu fficiency COURSE Treatment Treatment: SEE ORDERS. DILAUDID 2MG IV AND ZOFRAN 4MG IV. LEVAQUIN, 750MG IVPB. Reevaluation 1st: Improved (PAIN IMPROVED.) Consultation Consultation Comments: DISCUSSED PATIENT WITH DR. AREVALO. WILL ADMIT TO HOSPITAL. Education/Counseling Education/Counseling: Patient Educated On: Diagnosis ROR Labs Reviewed Laboratory Results Reviewed?: Yes Result Diagrams: 05/30/19 02:44 05/30/19 02:44 Laboratory: 05/26/19 11:05 Blood Blood Culture - Final 05/26/19 11:00 Blood Blood Culture - Final 05/26/19 15:45 Urine,Clean Catch Urine Culture - Final Pseudomonas Aeruginosa WBC 9.0 X10^3/uL (3.6-10.0) 05/28/19 04:33 RBC 4.00 X10^6/uL (4.7-6.0) L 05/28/19 04:33 Hgb 11.4 g/dL (13.5-18.0) L 05/28/19 04:33 Hct 35.1 % (42.0-54.0) L 05/28/19 04:33 MCV 87.7 fL (80.0-100.0) 05/28/19 04:33 MCH 28.6 pg (27.0-34.0) 05/28/19 04:33 MCHC 32.6 g/dL (33.0-35.0) L 05/28/19 04:33 RDW 15.0 % (11.6-16.5) 05/28/19 04:33 Plt Count 172 X10^3/uL (150.0-450.0) 05/28/19 04:33 MPV 8.0 fL (7.4-11.0) 05/28/19 04:33 Neut % (Auto) 67.7 % (42.0-75.0) 05/28/19 04:33 Lymph % (Auto) 14.6 % (21.0-51.0) L 05/28/19 04:33 [place] % (Auto) 15.1 % (0.0-13.0) H 05/28/19 04:33 Eos % (Auto) 2.1 % (0.9-2.9) 05/28/19 04:33 Baso % (Auto) 0.5 % (0.2-1.0) 05/28/19 04:33 Neut # (Auto) 6.1 x10^3/uL (2.2-4.8) H 05/28/19 04:33 Lymph # (Auto) 1.3 X10^3/uL (1.3-2.9) 05/28/19 04:33 [place] # (Auto) 1.4 x10^3/uL (0.3-0.8) H 05/28/19 04:33 Eos # (Auto) 0.2 x10^3/uL (0.0-0.2) 05/28/19 04:33 Baso # (Auto) 0.0 X10^3/uL (0.0-0.1) 05/28/19 04:33 Absolute Nucleated RBC 0.0 /100WBC 05/28/19 04:33 Sodium 141 mmol/L (136-145) 05/28/19 04:33 Corrected Sodium TNP 05/28/19 04:33 Potassium 3.8 mmol/L (3.5-5.1) 05/28/19 04:33 Chloride 106 mmol/L (98-107) 05/28/19 04:33 Carbon Dioxide 28.0 mmol/L (21-32) 05/28/19 04:33 BUN 18 mg/dL (7-18) 05/28/19 04:33 Creatinine 0.85 mg/dL (0.70-1.30) 05/28/19 04:33 Est GFR (MDRD) Af Amer > 60 (>60) 05/28/19 04:33 Est GFR (MDRD) Non-Af > 60 (>60) 05/28/19 04:33 Glucose 104 mg/dL (65-99) H 05/28/19 04:33 Lactic Acid 0.9 mmol/L (0.4-2.0) 05/26/19 11:00 Calcium 8.1 mg/dL (8.5-10.1) L 05/28/19 04:33 Corrected Calcium 9.2 mg/dL (8.5-10.1) 05/28/19 04:33 Total Bilirubin 0.20 mg/dL (0.2-1.0) 05/28/19 04:33 AST 9 Units/L (15-37) L 05/28/19 04:33 ALT 16 Units/L (12-78) 05/28/19 04:33 Alkaline Phosphatase 79 Units/L (46-116) 05/28/19 04:33 Creatine Kinase 74 Units/L (39-308) 05/26/19 11:00 CK-MB (CK-2) 1.9 ng/mL (0-4.0) 05/26/19 11:00 CK/CKMB % Calc 2.6 % (<4) 05/26/19 11:00 Troponin I < 0.02 ng/mL (0-1.5) 05/26/19 11:00 Total Protein 6.7 g/dL (6.4-8.2) 05/28/19 04:33 Albumin 2.6 g/dL (3.4-5.0) L 05/28/19 04:33 Globulin 4.1 g/dL (2.5-4.5) 05/28/19 04:33 Albumin/Globulin Ratio 0.6 Ratio (1.1-2.1) L 05/28/19 04:33 Specimen Type Clean catch urine 05/26/19 15:45 Urine Color Yellow (YELLOW) 05/26/19 15:45 Urine Appearance Cloudy (CLEAR) 05/26/19 15:45 Urine pH 6.5 (5.0 - 8.0) 05/26/19 15:45 Ur Specific [place] 1.010 (1.000-1.030) 05/26/19 15:45 Urine Protein 1+ (NEGATIVE) 05/26/19 15:45 Urine Glucose (UA) Negative (NEGATIVE) 05/26/19 15:45 Urine Ketones Negative (NEGATIVE) 05/26/19 15:45 Urine Occult Blood 3+ (NEGATIVE) 05/26/19 15:45 Urine Nitrite Negative (NEGATIVE) 05/26/19 15:45 Urine Bilirubin Negative (NEGATIVE) 05/26/19 15:45 Urine Urobilinogen Normal (NORMAL) 05/26/19 15:45 Ur Leukocyte Esterase 3+ (NEGATIVE) 05/26/19 15:45 Urine RBC 10-20 /HPF (0-3) A 05/26/19 15:45 Urine WBC Tntc /HPF (0-5) A 05/26/19 15:45 Ur Squamous Epith Cells Few /HPF (NEGATIVE) 05/26/19 15:45 Urine Bacteria 2+ /HPF (NEGATIVE) 05/26/19 15:45 Ur Culture Indicated? Yes/culture set up 05/26/19 15:45 XRAY XRAY Interpreted by: Radiologist XRAY Findings: REPORT NOTED. EKG [place]: Normal Rhythm: NSR Block: AVB and LBBB (LAFB.) Hypertrophy: LAE ST: Old, Ant, Lat and Infarct Opioid Opioid Risk Tool Age (Bear box if 16-45): No History of Preadolescent Sexual Abuse: No Total: 0 Total Score Risk Category: Low Risk Copyright: Ortega predicting aberrant behaviors Diagnosis Discharge Problem: Antibiotics started per pneumonia protocol, Acute respiratory distress, Paraplegia Pneumonia Qualifiers: Aspiration pneumonia type: unspecified Instructions Instructions: Anemia Dehydration, Adult, [id number] Upper Respiratory Infection, Adult, Mpvi-[id number] Urinary Tract Infection, Adult Hypertension, Msos-[id number] Community-Acquired Pneumonia, Adult Forms: Patient Portal
[2019-05-26 11:43] LABS: BASOPHILS # (AUTO) 0.1 X10^3/uL (0.0-0.1); BASOPHILS % (AUTO) 0.7 % (0.2-1.0); EOSINOPHILS # (AUTO) 0.4 x10^3/uL (0.0-0.2); HEMATOCRIT 38.4 % (42.0-54.0); HEMOGLOBIN 12.6 g/dL (13.5-18.0); LYMPHOCYTES # (AUTO) 1.9 X10^3/uL (1.3-2.9); LYMPHOCYTES % (AUTO) 24.2 % (21.0-51.0); MEAN CORPUSCULAR HEMOGLOBIN 28.9 pg (27.0-34.0); MEAN CORPUSCULAR HGB CONC 32.9 g/dL (33.0-35.0); MEAN PLATELET VOLUME 8.2 fL (7.4-11.0); MONOCYTES # (AUTO) 0.9 x10^3/uL (0.3-0.8); NEUTROPHILS # (AUTO) 4.6 x10^3/uL (2.2-4.8); NEUTROPHILS % (AUTO) 59.1 % (42.0-75.0); PLATELET COUNT 195 X10^3/uL (150.0-450.0); RED BLOOD COUNT 4.37 X10^6/uL (4.7-6.0); RED CELL DISTRIBUTION WIDTH 15.6 % (11.6-16.5); WHITE BLOOD COUNT 7.8 X10^3/uL (3.6-10.0)
[2019-05-26 11:55] LABS: LACTIC ACID 0.9 mmol/L (0.4-2.0)
[2019-05-26 11:57] LABS: BLOOD UREA NITROGEN 32 mg/dL (7-18); CALCIUM 8.8 mg/dL (8.5-10.1); CARBON DIOXIDE 30.9 mmol/L (21-32); CHLORIDE 102 mmol/L (98-107); COR NA(FOR HYPERGLY) 138 mmol/L (136-145); CREATININE 0.94 mg/dL (0.70-1.30); SODIUM 137 mmol/L (136-145); TROPONIN I < 0.02 ng/mL (0-1.5); eGFR NON BLACK RACES > 60 (>60)
[2019-05-26 12:02] LABS: ALANINE AMINOTRANSFERASE 19 Units/L (12-78); ALBUMIN 3.1 g/dL (3.4-5.0); ALKALINE PHOSPHATASE 88 Units/L (46-116); ASPARTATE AMINO TRANSFERASE 12 Units/L (15-37); CKMB % 2.6 % (<4); COR CA(FOR HYPOALB) 9.5 mg/dL (8.5-10.1); CREATINE KINASE 74 Units/L (39-308); CREATINE KINASE MB 1.9 ng/mL (0-4.0); TOTAL PROTEIN 7.5 g/dL (6.4-8.2)
--- NOTE | 2019-05-26 12:17 | RAD ---
HISTORYDyspnea and chest pain.STUDYCHEST, 1 VIEWCOMPARISONMay 2018.FINDINGSThe trachea is midline. The cardiac silhouette is unremarkable. Findings of COPD remain. The lungs are clear without focal infiltrate or effusion. The bony thorax is unremarkable. There is right-sided CVL observed in place whose tip overlies the SVC.IMPRESSIONNo acute cardiopulmonary changes or acute disease. COPD suggested. Please medically correlate.Electronically signed by: FAHEEM COLÓN III (May 26, 2019 12:15:10)
[2019-05-26] MEDS ORDERED: LEVAQUIN PREMIX IV 750 MG 750 MG/150 ML BAG IV ONE ×2 (13:53→14:20)
[2019-05-26] MEDS ORDERED: NS 1/2 1000 ML IV 1,000 ML IV ONE (14:20)
[2019-05-26] MEDS ORDERED: ZOFRAN INJ 4 MG VIAL IVP ONE (14:28)
[2019-05-26] MEDS ORDERED: DILAUDID INJ IVP ONE (14:28)
[2019-05-26] MEDS ORDERED: DILAUDID INJ ONE (14:30)
[2019-05-26] MEDS ORDERED: ZOFRAN INJ 4 MG VIAL ONE (14:30)
[2019-05-26] MEDS ORDERED: NS 1/2 1000 ML IV 1,000 ML IV SCH (15:00)
[2019-05-26 15:49] VITALS: BMI 20.7
[2019-05-26 16:03] LABS: BILIRUBIN,URINE NEGATIVE (NEGATIVE); BLOOD/HEMOGLOBIN,URINE 3+ (NEGATIVE); GLUCOSE, URINE NEGATIVE (NEGATIVE); KETONES,URINE NEGATIVE (NEGATIVE); LEUKOCYTE ESTERASE ,URINE 3+ (NEGATIVE); NITRITES,URINE NEGATIVE (NEGATIVE); PH,URINE 6.5 (5.0 - 8.0); PROTEIN,URINE 1+ (NEGATIVE); UROBILINOGEN,URINE NORMAL (NORMAL)
[2019-05-26 16:04] LABS: APPEARANCE,URINE CLOUDY (CLEAR); COLOR,URINE YELLOW (YELLOW)
[2019-05-26 16:09] LABS: BACTERIA,URINE 2+ /HPF (NEGATIVE); SQUAMOUS EPITHELIAL CELL,UR FEW /HPF (NEGATIVE)
[2019-05-26] MEDS ORDERED: LACTULOSE PO SCH (16:12)
[2019-05-26] MEDS ORDERED: ZOFRAN TAB 4 MG PO PRN (16:12)
[2019-05-26] MEDS ORDERED: TUSSIONEX PENNKINETIC SUSP PO PRN (16:12)
[2019-05-26] MEDS ORDERED: SALINE 3% 15 ML NEB TX NEB ONE (17:00)
[2019-05-26] MEDS: VSL#3 PO SCH (17:44)
[2019-05-26] MEDS: LIORESAL PO SCH ×2 (17:45→20:14)
[2019-05-26] MEDS: ROBITUSSIN DM PO SCH ×2 (17:45→20:14)
[2019-05-26] MEDS: FORTAZ or TAZICEF VIAL INJ 1 G in NS 100 ML IV + SPIKE MINIBAG* 100 ML IV SCH ×2 (17:45→22:58)
[2019-05-26] MEDS: NS 1/2 1000 ML IV 1,000 ML IV SCH (17:48)
[2019-05-26] MEDS: CHRONULAC PO SCH ×2 (20:00→20:24)
[2019-05-26] MEDS: KLONOPIN TAB 1 MG PO SCH (20:14)
[2019-05-26] MEDS: ZANAFLEX PO SCH (20:14)
[2019-05-26] MEDS: CYMBALTA PO SCH (20:16)
[2019-05-26] MEDS: DUONEB 0.5 MG/3 MG (3 mL) NEB SCH (20:50)
[2019-05-26] MEDS ORDERED: DUONEB 0.5 MG/3 MG (3 mL) NEB SCH (21:00)
[2019-05-26] MEDS: ROXICODONE TAB 15 MG PO PRN (21:14)
[2019-05-27] MEDS ORDERED: NS 1/2 1000 ML IV 1,000 ML IV ONE ×2 (03:08→16:22)
[2019-05-27] MEDS: ROXICODONE TAB 15 MG PO PRN ×4 (03:11→22:37)
[2019-05-27] MEDS: NS 1/2 1000 ML IV 1,000 ML IV SCH ×4 (03:36→22:34)
[2019-05-27] MEDS: FORTAZ or TAZICEF VIAL INJ 1 G in NS 100 ML IV + SPIKE MINIBAG* 100 ML IV SCH ×3 (05:27→21:31)
[2019-05-27 06:07] LABS: BASOPHILS # (AUTO) 0.1 X10^3/uL (0.0-0.1); BASOPHILS % (AUTO) 0.7 % (0.2-1.0); EOSINOPHILS # (AUTO) 0.3 x10^3/uL (0.0-0.2); EOSINOPHILS % (AUTO) 4.1 % (0.9-2.9); HEMATOCRIT 35.1 % (42.0-54.0); HEMOGLOBIN 11.5 g/dL (13.5-18.0); LYMPHOCYTES # (AUTO) 1.8 X10^3/uL (1.3-2.9); LYMPHOCYTES % (AUTO) 21.5 % (21.0-51.0); MEAN CORPUSCULAR HEMOGLOBIN 28.8 pg (27.0-34.0); MEAN CORPUSCULAR HGB CONC 32.9 g/dL (33.0-35.0); MEAN CORPUSCULAR VOLUME 87.7 fL (80.0-100.0); MEAN PLATELET VOLUME 8.3 fL (7.4-11.0); MONOCYTES # (AUTO) 0.8 x10^3/uL (0.3-0.8); MONOCYTES % (AUTO) 9.8 % (0.0-13.0); NEUTROPHILS # (AUTO) 5.5 x10^3/uL (2.2-4.8); NEUTROPHILS % (AUTO) 63.9 % (42.0-75.0); PLATELET COUNT 179 X10^3/uL (150.0-450.0); RED CELL DISTRIBUTION WIDTH 15.3 % (11.6-16.5); WHITE BLOOD COUNT 8.5 X10^3/uL (3.6-10.0)
[2019-05-27 06:20] LABS: ALANINE AMINOTRANSFERASE 17 Units/L (12-78); ALBUMIN 2.9 g/dL (3.4-5.0); ALKALINE PHOSPHATASE 78 Units/L (46-116); ASPARTATE AMINO TRANSFERASE 13 Units/L (15-37); BLOOD UREA NITROGEN 29 mg/dL (7-18); CARBON DIOXIDE 29.1 mmol/L (21-32); CHLORIDE 102 mmol/L (98-107); COR CA(FOR HYPOALB) 8.9 mg/dL (8.5-10.1); COR NA(FOR HYPERGLY) 138 mmol/L (136-145); CREATININE 0.77 mg/dL (0.70-1.30); SODIUM 138 mmol/L (136-145); TOTAL PROTEIN 6.6 g/dL (6.4-8.2); eGFR NON BLACK RACES > 60 (>60)
--- NOTE | 2019-05-27 08:45 | DR.H&P ---
H&P - History & Physical for Day of: H&P Date: 05/26/19 - Chief Complaint Chief Complaint: SOB, COUGH, HEADACHE, LOW OXYGEN SATURATIONS - History of Present Illness History of Present Illness: IS A 53 YEAR OLD PATIENT OF OURS WHO PRE SENTED TO THE ER WITH COMPLAINTS OF SHORTNESS OF BREATH, PRODUCTIVE COUGH, HEADACHE, AND LOW OXYGEN SATURATIONS. FAMILY REPORTS THAT HIS OXYGEN SATURATIONS HAVE FELL INTO THE 80s ON ROOM AIR OVER THE PAST FEW DAYS. HE HAS HOME 02 THAT HE WEARS NEEDED. PATIENTS SISTER REPORTS THAT HE HAS ALSO BEEN TAKING AUGMENTIN 875/125 BID FOR THE PAST WEEK AND RESPIRATORY TREATMENTS QID. PATIENT IS A PARAPLEGIC AND HAS A HISTORY OF GERD, PUD, HTN, ANEMIA, AND CHRONIC UTIs. ON ARRIVAL, VITALS WERE 97.7-82-18-94%-114/69. LABS WERE OBTAINED. ABNORMAL LAB VALUES INCLUDE THE FOLLOWING: RBC 4.37, HGB 12.6, HCT 38.4, BUN 32, GLUCOSE 145, AST 12, ALBUMIN 3.1. CARDIAC ENZYMES WITHIN NORMAL LIMITS. A URINALYSIS WAS OBTAINED AND REVEALED: WBC TNTC, RBC 10-20, LEUKOCYTES 3+, BACTERIA 2+. A URINE CULTURE WAS SET UP. BLOOD CULTURES WERE ALSO OBTAINED. A CHEST XRAY WAS OBTAINED AND REVEALED: No acute cardiopulmonary changes or acute disease. COPD suggested. EKG REVEALED: SINUS RHYTHM WITH HR 81. HE WAS GIVEN A RESPIRATORY TREATMENT, ZOFRAN 4MG IV X 1, DILAUDID 1MG IV X 1, AND LEVAQUIN 750MG IV X 1 IN THE ER. HE WAS ADMITTED FOR FURTHER EVALUATION AND TREATMENT OF BRONCHOPNEUMONIA, RESPIRATORY DISTRESS, COPD EXACERBATION, AND URINARY TRACT INFECTION. WE WILL START 1/2NS AT 75 ML/HR, FORTAZ 1G IV Q8H, RESPIRATORY TREATMENTS, AND RESUME HOME MEDS. OTHERWISE, WE PLAN TO FOLLOW UP WITH AM LABS AND CONTINUE TO MONITOR. - Past Medical History Past Medical History: Depression Additional Medical History: PARAPLEGIC, NEUROGENIC BOWEL, MUSCLE SPASMS, CONSTIPATION, CHRONIC UTIs. - Past Surgical History Surgical History: Tonsillectomy Additional Surgical History: FUSION OF 3RD, 4TH, AND 5TH CERVICAL BERTEBRAE, ORBITAL FX, REPAIRED WITH PLATE - Family History Family Medical History: Cancer - Social History Does patient currently use any type of tobacco product: Yes Have you used tobacco products in the last 12 months: Yes Type of Tobacco Use: Cigarettes How many years tobacco product used: 20 Does any household member use tobacco: No Alcohol Use: Occasionally Drug Use: None - Medications Home Medications: meperidine [From Demerol] Adverse Reaction (Verified 05/26/19 11:53) CONTINUE taking the following medications Lactobac. rhamnosus GG-inulin [[facility]] 1 cap PO DAILY 05/26/19 [History] amoxicillin-pot clavulanate 1 tab PO BID 05/26/19 [History] bisacodyl [Dulcolax (bisacodyl)] 10 mg MS 2XW 05/26/19 [History] bupropion HCl 300 mg PO DAILYHS 05/26/19 [History] cholecalciferol (vitamin D3) [Vitamin D3] 2,000 unit DAILY 05/26/19 [History] cranberry conc-ascorbic acid [Cranberry Plus Vitamin C] 2 cap PO DAILY 05/26/19 [History] docusate sodium 100 mg PO DAILY 05/26/19 [History] docusate sodium [Enemeez] 283 mg MS 2XW 05/26/19 [History] ppesvplfefa-bogygipbj-kwj C-Mn [Glucosamine Chondroitin MaxStr] 1 cap PO DAILY 05/26/19 [History] lorazepam 0.5 mg PO Q6HR PRN 05/26/19 [History] oxycodone 30 mg PO Q6HR PRN 05/26/19 [History] - Review of Systems Constitutional: Fever, Weakness Eyes: No Symptoms Reported ENT: No Symptoms Reported Respiratory: See HPI, Cough, Shortness of Breath Cardiovascular: No Symptoms Reported Gastrointestinal: No Symptoms Reported Genitourinary: No Symptoms Reported Musculoskeletal: No Symptoms Reported Skin: No Symptoms Reported Neurological: Weakness - Physical Exam Vital Signs: Temperature 97.6 F Pulse Rate [Right Brachial] 75 Pulse Rate 78 Respiratory Rate 14 Blood Pressure [Right Calf] 151/79 Blood Pressure [Right Arm] 114/68 Blood Pressure [Left Arm] 166/89 Blood Pressure 110/82 O2 Sat by Pulse Oximetry 97 Oriented: Normal Eyes: Normal Ear: Normal Nose: Normal Throat: Normal Respiratory: Rhonchi Throughout Cardiovascular: Normal. negative: S3, S4, Murmur : Normal Auscultation: Bowel Sounds: Normal Palpation: Normal Tenderness: Normal Skin: Normal Musculoskeletal: Normal Psychiatric: Normal Mood Description: Calm Affect: Normal Speech Pattern: Clear - Assessment/Plan (1) Bronchopneumonia Status: Acute Plan: IV FLUIDS, FORTAZ 1G IV Q8H, RESPIRATORY TX, SUPPLEMENTAL OXYGEN, CONTINUE TO MONITOR (2) COPD exacerbation Status: Acute (3) Respiratory distress Status: Acute (4) UTI (urinary tract infection) Qualifiers: Urinary tract infection type: acute cystitis Hematuria presence: with hematuria Qualified Code(s): N30.01 - Acute cystitis with hematuria Status: Acute Plan: FORTAZ 1G IV Q8H, IV FLUIDS, CONTINUE TO MONITOR - Allergies Allergies/Adverse Reactions: Allergies Allergy/AdvReac Type Severity Reaction Status Date / Time meperidine [From Demerol] AdvReac Verified 05/26/19 11:53
[2019-05-27] MEDS: DUONEB 0.5 MG/3 MG (3 mL) NEB SCH ×4 (08:51→20:30)
[2019-05-27] MEDS: FLONASE NASAL SPRAY ENOSTRIL SCH (09:57)
[2019-05-27] MEDS: CYMBALTA PO SCH ×2 (09:57→21:30)
[2019-05-27] MEDS: PriLOSEC PO SCH (09:57)
[2019-05-27] MEDS: LIORESAL PO SCH ×4 (09:58→21:30)
[2019-05-27] MEDS: VSL#3 PO SCH (09:59)
[2019-05-27] MEDS: ROBITUSSIN DM PO SCH ×4 (10:00→21:30)
[2019-05-27] MEDS: ZANAFLEX PO SCH ×2 (10:00→21:30)
[2019-05-27] MEDS ORDERED: OXYCODONE 30 MG PO PRN (10:36)
[2019-05-27] MEDS ORDERED: CRANBERRY ASCORBIC ACID PO SCH (10:45)
[2019-05-27] MEDS ORDERED: PATIENT'S HOME MEDICATION (Glucosamine-Chondroit-Vit C-Mn [Glucosamine Chondroitin Maxstr] PO SCH (10:45)
[2019-05-27] MEDS ORDERED: [UNRECOGNIZED DRUG - OTHER] PO SCH (10:45)
[2019-05-27] MEDS ORDERED: DULCOLAX SUPPOSITORY 10 MG PR SCH (11:00)
[2019-05-27] MEDS: VITAMIN D3 PO SCH (13:58)
[2019-05-27] MEDS: COLACE CAP 100 MG PO SCH (13:59)
[2019-05-27] MEDS: ATIVAN TAB 0.5 MG PO PRN (21:30)
[2019-05-27] MEDS: KLONOPIN TAB 1 MG PO SCH (21:30)
[2019-05-27] MEDS: WELLBUTRIN XL 300 MG (DAILY) PO SCH (21:30)
[2019-05-28] MEDS: ROXICODONE TAB 15 MG PO PRN (03:58)
[2019-05-28] MEDS ORDERED: NS 1/2 1000 ML IV 1,000 ML IV ONE (04:48)
[2019-05-28] MEDS: FORTAZ or TAZICEF VIAL INJ 1 G in NS 100 ML IV + SPIKE MINIBAG* 100 ML IV SCH ×3 (05:20→21:08)
[2019-05-28] MEDS: NS 1/2 1000 ML IV 1,000 ML IV SCH ×2 (05:20→12:56)
[2019-05-28 05:27] LABS: BASOPHILS % (AUTO) 0.5 % (0.2-1.0); EOSINOPHILS # (AUTO) 0.2 x10^3/uL (0.0-0.2); EOSINOPHILS % (AUTO) 2.1 % (0.9-2.9); HEMATOCRIT 35.1 % (42.0-54.0); HEMOGLOBIN 11.4 g/dL (13.5-18.0); LYMPHOCYTES # (AUTO) 1.3 X10^3/uL (1.3-2.9); LYMPHOCYTES % (AUTO) 14.6 % (21.0-51.0); MEAN CORPUSCULAR HEMOGLOBIN 28.6 pg (27.0-34.0); MEAN CORPUSCULAR HGB CONC 32.6 g/dL (33.0-35.0); MEAN CORPUSCULAR VOLUME 87.7 fL (80.0-100.0); MONOCYTES # (AUTO) 1.4 x10^3/uL (0.3-0.8); MONOCYTES % (AUTO) 15.1 % (0.0-13.0); NEUTROPHILS # (AUTO) 6.1 x10^3/uL (2.2-4.8); NEUTROPHILS % (AUTO) 67.7 % (42.0-75.0); PLATELET COUNT 172 X10^3/uL (150.0-450.0)
[2019-05-28 05:37] LABS: ALANINE AMINOTRANSFERASE 16 Units/L (12-78); ALBUMIN 2.6 g/dL (3.4-5.0); ALKALINE PHOSPHATASE 79 Units/L (46-116); ASPARTATE AMINO TRANSFERASE 9 Units/L (15-37); BLOOD UREA NITROGEN 18 mg/dL (7-18); CALCIUM 8.1 mg/dL (8.5-10.1); CHLORIDE 106 mmol/L (98-107); COR CA(FOR HYPOALB) 9.2 mg/dL (8.5-10.1); CREATININE 0.85 mg/dL (0.70-1.30); SODIUM 141 mmol/L (136-145); TOTAL PROTEIN 6.7 g/dL (6.4-8.2); eGFR NON BLACK RACES > 60 (>60)
--- NOTE | 2019-05-28 06:31 | RAD ---
HISTORYShortness of breathSTUDYCHEST, 1 [id number]/14/2020FINDINGSHeart is within normal limits in size. The nga are normal. The lungs are well inflated and free of acute alveolar infiltrates. No pleural effusions are identified. The bony thorax is unremarkable. There is a right-sided port present.IMPRESSIONLungs clearElectronically signed by: KAREN SANDOVAL (May 28, 2019 06:30:35)
[2019-05-28] MEDS ORDERED: TYLENOL 325 MG TAB PO ONE ×2 (08:36→08:40)
[2019-05-28] MEDS: ZANAFLEX PO SCH ×2 (08:56→21:08)
[2019-05-28] MEDS: VITAMIN D3 PO SCH (08:56)
[2019-05-28] MEDS: COLACE CAP 100 MG PO SCH (08:56)
[2019-05-28] MEDS: ROBITUSSIN DM PO SCH ×4 (08:56→21:06)
[2019-05-28] MEDS: LIORESAL PO SCH ×4 (08:56→21:06)
[2019-05-28] MEDS: VSL#3 PO SCH (08:56)
[2019-05-28] MEDS: PriLOSEC PO SCH (08:56)
[2019-05-28] MEDS: FLONASE NASAL SPRAY ENOSTRIL SCH (08:57)
[2019-05-28] MEDS: CYMBALTA PO SCH ×2 (09:00→21:12)
[2019-05-28] MEDS: DUONEB 0.5 MG/3 MG (3 mL) NEB SCH ×4 (09:20→21:05)
[2019-05-28] MEDS: OxyCONTIN CR 30 MG PO SCH ×2 (12:55→21:07)
[2019-05-28] MEDS: PROTONIX INJ 40 MG VIAL IVP SCH ×2 (12:56→21:09)
[2019-05-28] MEDS: TORADOL 30 MG VIAL IVP PRN (16:24)
--- NOTE | 2019-05-28 18:19 | PCM.PROG ---
Progress Note - Progress Note for Day of Date of Exam: 05/28/19 - Subjective Subjective: WAS ADMITTED FOR BRONCHOPNEUMONIA, COPD EXACERBATION, AND UTI. TODAY, HE IS ALERT AND ORIENTED, LYING IN BED ON MORNING ROUNDS. HE CONTINUES WITH COMPLAINTS OF SHORTNESS OF BREATH, COUGH, AND GENERALIZED PAIN. ON EXAMINATION, HEART IS REGULAR IN RATE AND RHYTHM. BILATERAL LUNGS ARE NOTED WITH RHONCHI THROUGHOUT. ABDOMEN IS ROUND, SOFT, AND NON-TENDER. NORMAL BOWEL SOUNDS ARE NOTED IN ALL QUADRANTS. HIS VITALS THIS MORNING ARE: 97.6-94-20-97%-158/80. LABS WERE OBTAINED. ABNORMAL LAB VALUES INCLUDE THE FOLLOWING: RBC 4.00, HGB 11.4, HCT 35.1, GLUCOSE 104, CALCIUM 8.1, AST 9, ALB UMIN 2.6. URINALYSIS WAS OBTAINED. ABNORMAL LAB VALUES INCLUDE THE FOLLOWING: WBC TNTC, RBC 10-20, LEUKOCYTES 3+, BACTERIA 2+. URINE CULTURE IS PENDING. BLOOD CULTURES ARE ALSO PENDING. A CHEST XRAY WAS OBTAINED AND REVEALED: LUNGS CLEAR. HE IS CURRENTLY RECEIVING 1/2NS AT 75ML/HR, FORTAZ 1G IV Q8H, RESPIRATORY TX, AND HOME MEDICATIONS WERE RESUMED. TODAY, WE WILL START TORADOL 30MG IV Q8H PRN AND PROTONIX 40MG PO BID. OTHERWISE, WE WILL FOLLOW UP WITH AM LABS AND CONTINUE TO MONITOR. - Past Medical Family Social History Past Med/Fam/Surg Hx: No changes since H&P Allergies: Allergies meperidine [From Demerol] Adverse Reaction (Verified 05/26/19 11:53) - Review of Systems ROS: No change since H&P - Vital Signs and I&O's Vital Signs: Temperature 97.7 F Pulse Rate [Left Brachial] 94 Pulse Rate [Right Brachial] 65 Pulse Rate 71 Respiratory Rate 19 Blood Pressure [Right Calf] 151/79 Blood Pressure [Right Arm] 163/77 Blood Pressure [Left Arm] 146/86 Blood Pressure 110/82 O2 Sat by Pulse Oximetry 99 Intake and Output: Intake & Output 05/26/19 05/27/19 05/28/19 05/29/19 11:59 11:59 11:59 11:59 Intake Total 2240 / 2240 1979 / 1979 360 / 360 Output Total 2175 / 2175 5025 / 5025 1800 / 1800 Balance 65 / 65 -3045 / -3045 -1440 / -1440 - Physical Exam Oriented: Normal Eyes: Normal Ear: Normal Nose: Normal Throat: Normal Respiratory: Generalized, Rhonchi Cardiovascular: Normal. negative: S3, S4, Murmur : Normal Auscultation: Bowel Sounds: Normal Palpation: Normal Tenderness: Normal Skin: Normal Musculoskeletal: Normal Psychiatric: Normal Mood Description: Calm Affect: Normal Speech Pattern: Clear, Appropriate - Laboratory and Diagnostics Result Diagrams: 05/28/19 04:33 05/28/19 04:33 Labs: 05/26/19 11:05 Blood Blood Culture - Preliminary 05/26/19 11:00 Blood Blood Culture - Preliminary 05/26/19 15:45 Urine,Clean Catch Urine Culture - Final Pseudomonas Aeruginosa Laboratory WBC 9.0 X10^3/uL (3.6-10.0) 05/28/19 04:33 RBC 4.00 X10^6/uL (4.7-6.0) L 05/28/19 04:33 Hgb 11.4 g/dL (13.5-18.0) L 05/28/19 04:33 Hct 35.1 % (42.0-54.0) L 05/28/19 04:33 MCV 87.7 fL (80.0-100.0) 05/28/19 04:33 MCH 28.6 pg (27.0-34.0) 05/28/19 04:33 MCHC 32.6 g/dL (33.0-35.0) L 05/28/19 04:33 RDW 15.0 % (11.6-16.5) 05/28/19 04:33 Plt Count 172 X10^3/uL (150.0-450.0) 05/28/19 04:33 MPV 8.0 fL (7.4-11.0) 05/28/19 04:33 Neut % (Auto) 67.7 % (42.0-75.0) 05/28/19 04:33 Lymph % (Auto) 14.6 % (21.0-51.0) L 05/28/19 04:33 [place] % (Auto) 15.1 % (0.0-13.0) H 05/28/19 04:33 Eos % (Auto) 2.1 % (0.9-2.9) 05/28/19 04:33 Baso % (Auto) 0.5 % (0.2-1.0) 05/28/19 04:33 Neut # (Auto) 6.1 x10^3/uL (2.2-4.8) H 05/28/19 04:33 Lymph # (Auto) 1.3 X10^3/uL (1.3-2.9) 05/28/19 04:33 [place] # (Auto) 1.4 x10^3/uL (0.3-0.8) H 05/28/19 04:33 Eos # (Auto) 0.2 x10^3/uL (0.0-0.2) 05/28/19 04:33 Baso # (Auto) 0.0 X10^3/uL (0.0-0.1) 05/28/19 04:33 Absolute Nucleated RBC 0.0 /100WBC 05/28/19 04:33 Sodium 141 mmol/L (136-145) 05/28/19 04:33 Corrected Sodium TNP 05/28/19 04:33 Potassium 3.8 mmol/L (3.5-5.1) 05/28/19 04:33 Chloride 106 mmol/L (98-107) 05/28/19 04:33 Carbon Dioxide 28.0 mmol/L (21-32) 05/28/19 04:33 BUN 18 mg/dL (7-18) 05/28/19 04:33 Creatinine 0.85 mg/dL (0.70-1.30) 05/28/19 04:33 Est GFR (MDRD) Af Amer > 60 (>60) 05/28/19 04:33 Est GFR (MDRD) Non-Af > 60 (>60) 05/28/19 04:33 Glucose 104 mg/dL (65-99) H 05/28/19 04:33 Lactic Acid 0.9 mmol/L (0.4-2.0) 05/26/19 11:00 Calcium 8.1 mg/dL (8.5-10.1) L 05/28/19 04:33 Corrected Calcium 9.2 mg/dL (8.5-10.1) 05/28/19 04:33 Total Bilirubin 0.20 mg/dL (0.2-1.0) 05/28/19 04:33 AST 9 Units/L (15-37) L 05/28/19 04:33 ALT 16 Units/L (12-78) 05/28/19 04:33 Alkaline Phosphatase 79 Units/L (46-116) 05/28/19 04:33 Creatine Kinase 74 Units/L (39-308) 05/26/19 11:00 CK-MB (CK-2) 1.9 ng/mL (0-4.0) 05/26/19 11:00 CK/CKMB % Calc 2.6 % (<4) 05/26/19 11:00 Troponin I < 0.02 ng/mL (0-1.5) 05/26/19 11:00 Total Protein 6.7 g/dL (6.4-8.2) 05/28/19 04:33 Albumin 2.6 g/dL (3.4-5.0) L 05/28/19 04:33 Globulin 4.1 g/dL (2.5-4.5) 05/28/19 04:33 Albumin/Globulin Ratio 0.6 Ratio (1.1-2.1) L 05/28/19 04:33 Specimen Type Clean catch urine 05/26/19 15:45 Urine Color Yellow (YELLOW) 05/26/19 15:45 Urine Appearance Cloudy (CLEAR) 05/26/19 15:45 Urine pH 6.5 (5.0 - 8.0) 05/26/19 15:45 Ur Specific [place] 1.010 (1.000-1.030) 05/26/19 15:45 Urine Protein 1+ (NEGATIVE) 05/26/19 15:45 Urine Glucose (UA) Negative (NEGATIVE) 05/26/19 15:45 Urine Ketones Negative (NEGATIVE) 05/26/19 15:45 Urine Occult Blood 3+ (NEGATIVE) 05/26/19 15:45 Urine Nitrite Negative (NEGATIVE) 05/26/19 15:45 Urine Bilirubin Negative (NEGATIVE) 05/26/19 15:45 Urine Urobilinogen Normal (NORMAL) 05/26/19 15:45 Ur Leukocyte Esterase 3+ (NEGATIVE) 05/26/19 15:45 Urine RBC 10-20 /HPF (0-3) A 05/26/19 15:45 Urine WBC Tntc /HPF (0-5) A 05/26/19 15:45 Ur Squamous Epith Cells Few /HPF (NEGATIVE) 05/26/19 15:45 Urine Bacteria 2+ /HPF (NEGATIVE) 05/26/19 15:45 Ur Culture Indicated? Yes/culture set up 05/26/19 15:45 - Plan (1) Bronchopneumonia Status: Acute Plan: IV FLUIDS, FORTAZ 1G IV Q8H, RESPIRATORY TX, SUPPLEMENTAL OXYGEN, CONTINUE TO MONITOR (2) COPD exacerbation Status: Acute (3) Respiratory distress Status: Acute (4) UTI (urinary tract infection) Status: Acute Qualifiers: Urinary tract infection type: acute cystitis Hematuria presence: with hematuria Qualified Code(s): N30.01 - Acute cystitis with hematuria Plan: FORTAZ 1G IV Q8H, IV FLUIDS, CONTINUE TO MONITOR
[2019-05-28] MEDS: KLONOPIN TAB 1 MG PO SCH (21:07)
[2019-05-28] MEDS: WELLBUTRIN XL 300 MG (DAILY) PO SCH (21:08)
[2019-05-29] MEDS: ATIVAN TAB 0.5 MG PO PRN (01:44)
[2019-05-29] MEDS ORDERED: NS 1/2 1000 ML IV 1,000 ML IV ONE ×2 (04:41→16:39)
[2019-05-29] MEDS: ROXICODONE TAB 15 MG PO PRN (04:56)
[2019-05-29] MEDS: NS 1/2 1000 ML IV 1,000 ML IV SCH ×2 (05:01→16:40)
[2019-05-29] MEDS: FORTAZ or TAZICEF VIAL INJ 1 G in NS 100 ML IV + SPIKE MINIBAG* 100 ML IV SCH ×3 (05:01→21:41)
[2019-05-29 06:10] LABS: BASOPHILS # (AUTO) 0.1 X10^3/uL (0.0-0.1); BASOPHILS % (AUTO) 0.9 % (0.2-1.0); EOSINOPHILS # (AUTO) 0.3 x10^3/uL (0.0-0.2); EOSINOPHILS % (AUTO) 5.2 % (0.9-2.9); HEMOGLOBIN 10.8 g/dL (13.5-18.0); LYMPHOCYTES % (AUTO) 33.6 % (21.0-51.0); MEAN CORPUSCULAR HEMOGLOBIN 28.7 pg (27.0-34.0); MEAN CORPUSCULAR HGB CONC 32.8 g/dL (33.0-35.0); MEAN CORPUSCULAR VOLUME 87.3 fL (80.0-100.0); MEAN PLATELET VOLUME 7.9 fL (7.4-11.0); MONOCYTES # (AUTO) 0.7 x10^3/uL (0.3-0.8); NEUTROPHILS # (AUTO) 2.8 x10^3/uL (2.2-4.8); NEUTROPHILS % (AUTO) 48.3 % (42.0-75.0); PLATELET COUNT 178 X10^3/uL (150.0-450.0); RED BLOOD COUNT 3.79 X10^6/uL (4.7-6.0); RED CELL DISTRIBUTION WIDTH 15.3 % (11.6-16.5); WHITE BLOOD COUNT 5.9 X10^3/uL (3.6-10.0)
[2019-05-29 06:21] LABS: ALANINE AMINOTRANSFERASE 16 Units/L (12-78); ALBUMIN 2.5 g/dL (3.4-5.0); ALKALINE PHOSPHATASE 73 Units/L (46-116); ASPARTATE AMINO TRANSFERASE 12 Units/L (15-37); BLOOD UREA NITROGEN 15 mg/dL (7-18); CALCIUM 8.4 mg/dL (8.5-10.1); CARBON DIOXIDE 27.9 mmol/L (21-32); CHLORIDE 106 mmol/L (98-107); COR CA(FOR HYPOALB) 9.6 mg/dL (8.5-10.1); CREATININE 0.63 mg/dL (0.70-1.30); SODIUM 141 mmol/L (136-145); TOTAL PROTEIN 6.5 g/dL (6.4-8.2); eGFR NON BLACK RACES > 60 (>60)
--- NOTE | 2019-05-29 06:36 | RAD ---
HISTORYShortness of breathSTUDYCHEST, 1 [id number]/16/2020FINDINGSThere is a right-sided port present. The heart is within normal limits in size. The nga are normal. The lungs are free of acute infiltrates. No pleural effusions are identified. The bony thorax is unremarkable.IMPRESSIONLungs remain clearElectronically signed by: KAREN SANDOVAL (May 29, 2019 06:35:27)
[2019-05-29] MEDS ORDERED: CATAPRES-TTS-2 TD SCH (09:00)
[2019-05-29] MEDS: DUONEB 0.5 MG/3 MG (3 mL) NEB SCH ×4 (09:18→20:45)
[2019-05-29] MEDS: PROTONIX INJ 40 MG VIAL IVP SCH ×2 (09:35→21:41)
[2019-05-29] MEDS: VITAMIN D3 PO SCH (09:36)
[2019-05-29] MEDS: COLACE CAP 100 MG PO SCH (09:37)
[2019-05-29] MEDS: ZANAFLEX PO SCH ×2 (09:37→21:41)
[2019-05-29] MEDS: CYMBALTA PO SCH ×2 (09:37→22:09)
[2019-05-29] MEDS: OxyCONTIN CR 30 MG PO SCH ×2 (09:37→21:44)
[2019-05-29] MEDS: VSL#3 PO SCH (09:37)
[2019-05-29] MEDS: LIORESAL PO SCH ×4 (09:38→21:41)
[2019-05-29] MEDS: ROBITUSSIN DM PO SCH ×4 (09:38→21:40)
[2019-05-29] MEDS: FLONASE NASAL SPRAY ENOSTRIL SCH (09:42)
[2019-05-29] MEDS ORDERED: DOCUSATE SODIUM 283 MG PR SCH (11:34)
[2019-05-29] MEDS ORDERED: NS IV NR (13:00)
[2019-05-29] MEDS ORDERED: GENTAMICIN IV NR (13:00)
[2019-05-29] MEDS: TORADOL 30 MG VIAL IVP PRN (14:38)
[2019-05-29] MEDS: CHRONULAC PO SCH ×2 (19:13→19:25)
--- NOTE | 2019-05-29 21:05 | PCM.PROG ---
Progress Note - Progress Note for Day of Date of Exam: 05/29/19 - Subjective Subjective: WAS ADMITTED FOR BRONCHOPNEUMONIA, COPD EXACERBATION, AND UTI. TODAY, HE IS ALERT AND ORIENTED, LYING IN BED ON MORNING ROUNDS. HE CONTINUES WITH COMPLAINTS OF SHORTNESS OF BREATH, COUGH, AND GENERALIZED PAIN. ON EXAMINATION, HEART IS REGULAR IN RATE AND RHYTHM. BILATERAL LUNGS ARE NOTED WITH RHONCHI THROUGHOUT. ABDOMEN IS ROUND, SOFT, AND NON-TENDER. NORMAL BOWEL SOUNDS ARE NOTED IN ALL QUADRANTS. HIS VITALS THIS MORNING ARE: 97.5-71-18-99%-175/88. LABS WERE OBTAINED. ABNORMAL LAB VALUES INCLUDE THE FOLLOWING: RBC 3.79, HGB 10.8, HCT 33.0, CREATININE 0.63, CALCIUM 8.4, AST 12, ALBUMIN 2.5. URINE CULTURE REPORTS GROWTH OF PSEUDOMONAS AERUGINOSA. BLOOD CULTURES ARE PENDING. A CHEST XRAY WAS OBTAINED AND REVEALED: LUNGS CLEAR. HE IS CURRENTLY RECEIVING 1/2NS AT 75ML/HR, FORTAZ 1G IV Q8H, RESPIRATORY TX, AND HOME MEDICATIONS WERE RESUMED. TODAY, WE WILL START GENTAMICIN 340MG IV DAILY. WE WILL OBTAIN A TROUGH 12 HOURS AFTER THE FIRST DOSE AND ADJUST FUTURE DOSES ACCORDINGLY. OTHERWISE, WE WILL FOLLOW UP WITH AM LABS AND CONTINUE TO MONITOR. - Past Medical Family Social History Past Med/Fam/Surg Hx: No changes since H&P Allergies: Allergies meperidine [From Demerol] Adverse Reaction (Verified 05/26/19 11:53) - Review of Systems ROS: No change since H&P - Vital Signs and I&O's Vital Signs: Temperature 97.5 F Pulse Rate [Left Brachial] 84 Pulse Rate [Right Brachial] 85 Pulse Rate 82 Respiratory Rate 18 Blood Pressure [Right Calf] 151/79 Blood Pressure [Right Arm] 129/70 Blood Pressure [Left Arm] 133/74 Blood Pressure 110/82 O2 Sat by Pulse Oximetry 98 Intake and Output: Intake & Output 05/27/19 05/28/19 05/29/19 05/30/19 11:59 11:59 11:59 11:59 Intake Total 2240 / 2240 1979 / 1979 1950 / 1950 1220 / 1220 Output Total 2175 / 2175 5025 / 5025 3425 / 3425 1400 / 1400 Balance 65 / 65 -3045 / -3045 -1475 / -1475 -180 / -180 - Physical Exam Oriented: Normal Eyes: Normal Ear: Normal Nose: Normal Throat: Normal Respiratory: Generalized, Rhonchi Cardiovascular: Normal. negative: S3, S4, Murmur : Normal Auscultation: Bowel Sounds: Normal Tenderness: Normal Skin: Normal Musculoskeletal: Normal Psychiatric: Normal Mood Description: Calm Affect: Normal Speech Pattern: Clear, Appropriate - Laboratory and Diagnostics Result Diagrams: 05/29/19 05:32 05/29/19 05:32 Labs: 05/26/19 11:05 Blood Blood Culture - Preliminary 05/26/19 11:00 Blood Blood Culture - Preliminary 05/26/19 15:45 Urine,Clean Catch Urine Culture - Final Pseudomonas Aeruginosa Laboratory WBC 5.9 X10^3/uL (3.6-10.0) 05/29/19 05:32 RBC 3.79 X10^6/uL (4.7-6.0) L 05/29/19 05:32 Hgb 10.8 g/dL (13.5-18.0) L 05/29/19 05:32 Hct 33.0 % (42.0-54.0) L 05/29/19 05:32 MCV 87.3 fL (80.0-100.0) 05/29/19 05:32 MCH 28.7 pg (27.0-34.0) 05/29/19 05:32 MCHC 32.8 g/dL (33.0-35.0) L 05/29/19 05:32 RDW 15.3 % (11.6-16.5) 05/29/19 05:32 Plt Count 178 X10^3/uL (150.0-450.0) 05/29/19 05:32 MPV 7.9 fL (7.4-11.0) 05/29/19 05:32 Neut % (Auto) 48.3 % (42.0-75.0) 05/29/19 05:32 Lymph % (Auto) 33.6 % (21.0-51.0) 05/29/19 05:32 [place] % (Auto) 12.0 % (0.0-13.0) 05/29/19 05:32 Eos % (Auto) 5.2 % (0.9-2.9) H 05/29/19 05:32 Baso % (Auto) 0.9 % (0.2-1.0) 05/29/19 05:32 Neut # (Auto) 2.8 x10^3/uL (2.2-4.8) 05/29/19 05:32 Lymph # (Auto) 2.0 X10^3/uL (1.3-2.9) 05/29/19 05:32 [place] # (Auto) 0.7 x10^3/uL (0.3-0.8) 05/29/19 05:32 Eos # (Auto) 0.3 x10^3/uL (0.0-0.2) H 05/29/19 05:32 Baso # (Auto) 0.1 X10^3/uL (0.0-0.1) 05/29/19 05:32 Absolute Nucleated RBC 0.0 /100WBC 05/29/19 05:32 Sodium 141 mmol/L (136-145) 05/29/19 05:32 Corrected Sodium TNP 05/29/19 05:32 Potassium 4.0 mmol/L (3.5-5.1) 05/29/19 05:32 Chloride 106 mmol/L (98-107) 05/29/19 05:32 Carbon Dioxide 27.9 mmol/L (21-32) 05/29/19 05:32 BUN 15 mg/dL (7-18) 05/29/19 05:32 Creatinine 0.63 mg/dL (0.70-1.30) L 05/29/19 05:32 Est GFR (MDRD) Af Amer > 60 (>60) 05/29/19 05:32 Est GFR (MDRD) Non-Af > 60 (>60) 05/29/19 05:32 Glucose 90 mg/dL (65-99) 05/29/19 05:32 Lactic Acid 0.9 mmol/L (0.4-2.0) 05/26/19 11:00 Calcium 8.4 mg/dL (8.5-10.1) L 05/29/19 05:32 Corrected Calcium 9.6 mg/dL (8.5-10.1) 05/29/19 05:32 Total Bilirubin 0.20 mg/dL (0.2-1.0) 05/29/19 05:32 AST 12 Units/L (15-37) L 05/29/19 05:32 ALT 16 Units/L (12-78) 05/29/19 05:32 Alkaline Phosphatase 73 Units/L (46-116) 05/29/19 05:32 Creatine Kinase 74 Units/L (39-308) 05/26/19 11:00 CK-MB (CK-2) 1.9 ng/mL (0-4.0) 05/26/19 11:00 CK/CKMB % Calc 2.6 % (<4) 05/26/19 11:00 Troponin I < 0.02 ng/mL (0-1.5) 05/26/19 11:00 Total Protein 6.5 g/dL (6.4-8.2) 05/29/19 05:32 Albumin 2.5 g/dL (3.4-5.0) L 05/29/19 05:32 Globulin 4.0 g/dL (2.5-4.5) 05/29/19 05:32 Albumin/Globulin Ratio 0.6 Ratio (1.1-2.1) L 05/29/19 05:32 Specimen Type Clean catch urine 05/26/19 15:45 Urine Color Yellow (YELLOW) 05/26/19 15:45 Urine Appearance Cloudy (CLEAR) 05/26/19 15:45 Urine pH 6.5 (5.0 - 8.0) 05/26/19 15:45 Ur Specific [place] 1.010 (1.000-1.030) 05/26/19 15:45 Urine Protein 1+ (NEGATIVE) 05/26/19 15:45 Urine Glucose (UA) Negative (NEGATIVE) 05/26/19 15:45 Urine Ketones Negative (NEGATIVE) 05/26/19 15:45 Urine Occult Blood 3+ (NEGATIVE) 05/26/19 15:45 Urine Nitrite Negative (NEGATIVE) 05/26/19 15:45 Urine Bilirubin Negative (NEGATIVE) 05/26/19 15:45 Urine Urobilinogen Normal (NORMAL) 05/26/19 15:45 Ur Leukocyte Esterase 3+ (NEGATIVE) 05/26/19 15:45 Urine RBC 10-20 /HPF (0-3) A 05/26/19 15:45 Urine WBC Tntc /HPF (0-5) A 05/26/19 15:45 Ur Squamous Epith Cells Few /HPF (NEGATIVE) 05/26/19 15:45 Urine Bacteria 2+ /HPF (NEGATIVE) 05/26/19 15:45 Ur Culture Indicated? Yes/culture set up 05/26/19 15:45 - Plan (1) Bronchopneumonia Status: Acute Plan: IV FLUIDS, FORTAZ 1G IV Q8H, RESPIRATORY TX, SUPPLEMENTAL OXYGEN, CONTINUE TO MONITOR (2) COPD exacerbation Status: Acute (3) Respiratory distress Status: Acute (4) UTI (urinary tract infection) Status: Acute Qualifiers: Urinary tract infection type: acute cystitis Hematuria presence: with hematuria Qualified Code(s): N30.01 - Acute cystitis with hematuria Plan: GENTAMICIN 340MG IV DAILY, FORTAZ 1G IV Q8H, IV FLUIDS, CONTINUE TO MONITOR
[2019-05-29] MEDS: KLONOPIN TAB 1 MG PO SCH (21:41)
[2019-05-29] MEDS: WELLBUTRIN XL 300 MG (DAILY) PO SCH (21:43)
[2019-05-30] MEDS ORDERED: PHARMACY COMMENT IV NR (02:00)
[2019-05-30 03:06] LABS: BASOPHILS % (AUTO) 0.9 % (0.2-1.0); EOSINOPHILS # (AUTO) 0.2 x10^3/uL (0.0-0.2); EOSINOPHILS % (AUTO) 4.4 % (0.9-2.9); HEMATOCRIT 32.9 % (42.0-54.0); HEMOGLOBIN 10.8 g/dL (13.5-18.0); LYMPHOCYTES # (AUTO) 1.5 X10^3/uL (1.3-2.9); LYMPHOCYTES % (AUTO) 29.9 % (21.0-51.0); MEAN CORPUSCULAR HEMOGLOBIN 28.7 pg (27.0-34.0); MEAN CORPUSCULAR HGB CONC 32.9 g/dL (33.0-35.0); MEAN CORPUSCULAR VOLUME 87.3 fL (80.0-100.0); MEAN PLATELET VOLUME 7.8 fL (7.4-11.0); MONOCYTES # (AUTO) 0.5 x10^3/uL (0.3-0.8); MONOCYTES % (AUTO) 9.5 % (0.0-13.0); NEUTROPHILS # (AUTO) 2.8 x10^3/uL (2.2-4.8); NEUTROPHILS % (AUTO) 55.3 % (42.0-75.0); PLATELET COUNT 192 X10^3/uL (150.0-450.0); RED BLOOD COUNT 3.77 X10^6/uL (4.7-6.0); WHITE BLOOD COUNT 5.1 X10^3/uL (3.6-10.0)
[2019-05-30 03:15] LABS: ALANINE AMINOTRANSFERASE 16 Units/L (12-78); ALBUMIN 2.4 g/dL (3.4-5.0); ALKALINE PHOSPHATASE 77 Units/L (46-116); ASPARTATE AMINO TRANSFERASE 11 Units/L (15-37); BLOOD UREA NITROGEN 21 mg/dL (7-18); CALCIUM 8.4 mg/dL (8.5-10.1); CARBON DIOXIDE 28.4 mmol/L (21-32); CHLORIDE 109 mmol/L (98-107); COR CA(FOR HYPOALB) 9.7 mg/dL (8.5-10.1); CREATININE 0.79 mg/dL (0.70-1.30); SODIUM 145 mmol/L (136-145); TOTAL PROTEIN 6.5 g/dL (6.4-8.2); eGFR NON BLACK RACES > 60 (>60)
[2019-05-30] MEDS: ROXICODONE TAB 15 MG PO PRN (04:22)
[2019-05-30] MEDS: FORTAZ or TAZICEF VIAL INJ 1 G in NS 100 ML IV + SPIKE MINIBAG* 100 ML IV SCH ×2 (05:53→14:26)
--- NOTE | 2019-05-30 06:16 | RAD ---
HISTORYSOB, quadriplegiaSTUDYAP [id number]/17/2020FINDINGSContinued normal heart size with essentially clear lungs. There is n o evidence for developing consolidation, edema or pleural fluid. Stable position of right IJ injectio n port.IMPRESSIONNo change; no acute chest findings.Electronically signed by: BENIGNO ARAYA (May 30, 2019 06:15:19)
[2019-05-30] MEDS: DUONEB 0.5 MG/3 MG (3 mL) NEB SCH (09:00)
[2019-05-30] MEDS: LIORESAL PO SCH ×2 (09:15→14:00)
[2019-05-30] MEDS: COLACE CAP 100 MG PO SCH (09:15)
[2019-05-30] MEDS: VSL#3 PO SCH (09:15)
[2019-05-30] MEDS: ROBITUSSIN DM PO SCH ×2 (09:15→14:29)
[2019-05-30] MEDS: PROTONIX INJ 40 MG VIAL IVP SCH (09:16)
[2019-05-30] MEDS: FLONASE NASAL SPRAY ENOSTRIL SCH (09:17)
[2019-05-30] MEDS: VITAMIN D3 PO SCH (09:24)
[2019-05-30] MEDS: CYMBALTA PO SCH (09:26)
[2019-05-30] MEDS: ZANAFLEX PO SCH (09:34)
[2019-05-30 12:35] VITALS: BP 178/97
[2019-05-30] MEDS: OxyCONTIN CR 30 MG PO SCH (14:37)
== END 2019-05-30 14:50 | disposition home health service (06) | DRG 194 ==
LOC: EDBD → ER 10:56 → MERGE 10:56 → ICU 10:56 → MED/SURG 05-27 13:35
PROVIDERS: ADMIT Internal Medicine; ATTEND Internal Medicine
DX: I10 Essential (primary) hypertension; B96.5 Pseudomonas (aeruginosa) (mallei) (pseudomallei) as the cause of diseases classified elsewhere; K21.9 Gastro-esophageal reflux disease without esophagitis; R94.31 Abnormal electrocardiogram [ECG] [EKG]; J18.0 Bronchopneumonia, unspecified organism; R51 Headache; N30.01 Acute cystitis with hematuria; R73.09 Other abnormal glucose; R06.02 Shortness of breath; J44.9 Chronic obstructive pulmonary disease, unspecified; J44.1 Chronic obstructive pulmonary disease with (acute) exacerbation; G82.20 Paraplegia, unspecified; Z87.440 Personal history of urinary (tract) infections; R07.89 Other chest pain
CPT/HCPCS: 36415; 71010; 71045; 80053; 80170; 81001; 82550; 82553; 83605; 84484; 85025; 87040; 87086; 87088; 87186; 93005; 94640; 94669; 96365; 96367; 96374; 96375; 99284; A4222; C9113; G0378; J0713; J1170; J1580; J1642; J1885; J1956; J2405; J3490; J7050; J7620

== ENCOUNTER 2020-10-01 20:51 | Observation (INO) ==
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
[2020-10-01 21:36] LABS: BASOPHILS # (AUTO) 0.1 X10^3/uL (0.0-0.1); EOSINOPHILS # (AUTO) 0.1 x10^3/uL (0.0-0.2); EOSINOPHILS % (AUTO) 0.9 % (0.9-2.9); HEMATOCRIT 37.6 % (42.0-54.0); HEMOGLOBIN 12.2 g/dL (13.5-18.0); LYMPHOCYTES # (AUTO) 1.6 X10^3/uL (1.3-2.9); LYMPHOCYTES % (AUTO) 19.5 % (21.0-51.0); MEAN CORPUSCULAR HEMOGLOBIN 27.4 pg (27.0-34.0); MEAN CORPUSCULAR HGB CONC 32.6 g/dL (33.0-35.0); MEAN CORPUSCULAR VOLUME 84.2 fL (80.0-100.0); MEAN PLATELET VOLUME 7.2 fL (7.4-11.0); MONOCYTES # (AUTO) 0.7 x10^3/uL (0.3-0.8); MONOCYTES % (AUTO) 8.1 % (0.0-13.0); NEUTROPHILS # (AUTO) 5.8 x10^3/uL (2.2-4.8); NEUTROPHILS % (AUTO) 70.5 % (42.0-75.0); PLATELET COUNT 299 X10^3/uL (150.0-450.0); RED BLOOD COUNT 4.47 X10^6/uL (4.7-6.0); RED CELL DISTRIBUTION WIDTH 15.4 % (11.6-16.5); WHITE BLOOD COUNT 8.3 X10^3/uL (3.6-10.0)
[2020-10-01 21:45] LABS: ALANINE AMINOTRANSFERASE 38 Units/L (12-78); ALBUMIN 3.3 g/dL (3.4-5.0); ALKALINE PHOSPHATASE 85 Units/L (46-116); ASPARTATE AMINO TRANSFERASE 26 Units/L (15-37); BLOOD UREA NITROGEN 34 mg/dL (7-18); CALCIUM 8.9 mg/dL (8.5-10.1); CARBON DIOXIDE 20.9 mmol/L (21-32); CHLORIDE 100 mmol/L (98-107); COR CA(FOR HYPOALB) 9.5 mg/dL (8.5-10.1); CREATININE 0.99 mg/dL (0.70-1.30); SODIUM 133 mmol/L (136-145); TOTAL PROTEIN 7.7 g/dL (6.4-8.2); eGFR NON BLACK RACES > 60 (>60)
[2020-10-01 21:49] LABS: LACTIC ACID 0.6 mmol/L (0.4-2.0)
--- NOTE | 2020-10-01 21:54 | CT ---
EXAM: HEAD CT WITHOUT INTRAVENOUS CONTRASTHISTORY: Altered mental status.TECHNIQUE: Spiral axial CT images are obtained through the brain without the administration of intravenous contrast. Additional sagittal and coronal reformatted images are reconstructed.DOSIMETRY: Total DLP 1256.3 mGycm; CTDI 67.4 mGyCOMPARISON: None available.FINDINGS:The centrum semiovale, basal ganglia, cerebellum, and brainstem are grossly unremarkable for a noncontrast CT scan. There is atherosclerotic disease of the right carotid siphon. Nonspecific pineal gland calcification is seen.There is no acute intracranial hemorrhage, discernible acute infarction, mass lesion, midline shift, or hydrocephalus seen. No extra-axial mass or abnormal fluid collection is seen.The calvarium is intact. There is chronic bilateral maxillary and ethmoid sinusitis marked by mucoperiosteal thickening. The partially imaged paranasal sinuses, middle ear cavities, and mastoid air cells are otherwise clear.IMPRESSION:1. No intracranial hemorrhage, discernible acute infarction, mass lesions, midline shift, mass effect or hydrocephalus seen.2. 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 Consider followup evaluation with MRI /MRA imaging for further assessment as clinically warranted.4. Mild chronic ethmoid and maxillary sinusitis.Electronically signed by: Christiano Pena (October 01, 2020 21:52:32)
[2020-10-01 23:08] LABS: BILIRUBIN,URINE NEGATIVE (NEGATIVE); BLOOD/HEMOGLOBIN,URINE 4+ (NEGATIVE); GLUCOSE, URINE NEGATIVE (NEGATIVE); KETONES,URINE 1+ (NEGATIVE); LEUKOCYTE ESTERASE ,URINE 3+ (NEGATIVE); NITRITES,URINE POSITIVE (NEGATIVE); PROTEIN,URINE 2+ (NEGATIVE); UROBILINOGEN,URINE NORMAL (NORMAL)
[2020-10-01 23:15] LABS: APPEARANCE,URINE CLEAR (CLEAR); COLOR,URINE YELLOW (YELLOW)
[2020-10-01 23:20] LABS: RBC,URINE 20-30 /HPF (0-3); SQUAMOUS EPITHELIAL CELL,UR FEW /HPF (NEGATIVE)
[2020-10-01 23:21] LABS: AMORPHOUS SEDIMENT,UR 4+ /HPF (NEGATIVE); BACTERIA,URINE 2+ /HPF (NEGATIVE); MUCUS,URINE NUMEROUS /HPF (NEGATIVE)
[2020-10-01] MEDS ORDERED: NS 1000 ML 1,000 ML IV ONE (23:28)
[2020-10-01] MEDS ORDERED: ROCEPHIN 1 GRAM IV PREMIX 1 G/50 ML IV.SOLN. IV ONE ×2 (23:29→23:50)
[2020-10-01] MEDS ORDERED: NS 1000 ML 1,000 ML ONE (23:49)
[2020-10-02] MEDS ORDERED: TORADOL 30 MG VIAL IVP ONE (00:23)
[2020-10-02] MEDS ORDERED: ROCEPHIN VIAL 1 GRAM 1 G in NS 100 ML IV + SPIKE MINIBAG* 100 ML IV SCH ×2 (00:27→21:00)
[2020-10-02] MEDS ORDERED: TORADOL 30 MG VIAL ONE (00:35)
[2020-10-02] MEDS ORDERED: NS 1000 ML 1,000 ML ONE (02:20)
[2020-10-02] MEDS: NS 1000 ML 1,000 ML IV SCH ×4 (03:21→19:36)
[2020-10-02] MEDS ORDERED: MILK OF MAGNESIA PO ONE (03:42)
[2020-10-02] MEDS ORDERED: COLACE CAP 100 MG PO ONE ×2 (03:42→03:58)
[2020-10-02] MEDS ORDERED: CHRONULAC PO ONE (03:42)
[2020-10-02] MEDS ORDERED: SENOKOT PO ONE ×2 (03:43→03:59)
[2020-10-02] MEDS ORDERED: CHRONULAC ONE (03:59)
[2020-10-02] MEDS ORDERED: MILK OF MAGNESIA ONE (03:59)
[2020-10-02 04:08] VITALS: BMI 21.3
[2020-10-02 06:21] LABS: BASOPHILS # (AUTO) 0.1 X10^3/uL (0.0-0.1); BASOPHILS % (AUTO) 0.8 % (0.2-1.0); EOSINOPHILS # (AUTO) 0.1 x10^3/uL (0.0-0.2); EOSINOPHILS % (AUTO) 1.1 % (0.9-2.9); HEMOGLOBIN 11.9 g/dL (13.5-18.0); LYMPHOCYTES # (AUTO) 1.6 X10^3/uL (1.3-2.9); LYMPHOCYTES % (AUTO) 21.7 % (21.0-51.0); MEAN CORPUSCULAR HEMOGLOBIN 28.1 pg (27.0-34.0); MEAN CORPUSCULAR HGB CONC 33.2 g/dL (33.0-35.0); MEAN CORPUSCULAR VOLUME 84.5 fL (80.0-100.0); MEAN PLATELET VOLUME 7.6 fL (7.4-11.0); MONOCYTES # (AUTO) 0.6 x10^3/uL (0.3-0.8); MONOCYTES % (AUTO) 7.6 % (0.0-13.0); NEUTROPHILS # (AUTO) 5.2 x10^3/uL (2.2-4.8); NEUTROPHILS % (AUTO) 68.8 % (42.0-75.0); PLATELET COUNT 269 X10^3/uL (150.0-450.0); RED BLOOD COUNT 4.25 X10^6/uL (4.7-6.0); RED CELL DISTRIBUTION WIDTH 15.2 % (11.6-16.5); WHITE BLOOD COUNT 7.5 X10^3/uL (3.6-10.0)
[2020-10-02 06:27] LABS: ALANINE AMINOTRANSFERASE 38 Units/L (12-78); ALBUMIN 3.1 g/dL (3.4-5.0); ALKALINE PHOSPHATASE 80 Units/L (46-116); ASPARTATE AMINO TRANSFERASE 28 Units/L (15-37); BLOOD UREA NITROGEN 39 mg/dL (7-18); CALCIUM 8.7 mg/dL (8.5-10.1); CARBON DIOXIDE 19.6 mmol/L (21-32); CHLORIDE 103 mmol/L (98-107); COR CA(FOR HYPOALB) 9.4 mg/dL (8.5-10.1); SODIUM 137 mmol/L (136-145); TOTAL PROTEIN 7.4 g/dL (6.4-8.2); eGFR NON BLACK RACES > 60 (>60)
[2020-10-02] MEDS ORDERED: DULCOLAX SUPPOSITORY 10 MG RECTAL PRN (06:36)
[2020-10-02] MEDS: NS IV SCH (12:47)
[2020-10-02] MEDS: GENTAMICIN IV SCH (12:47)
[2020-10-02] MEDS ORDERED: ADVIL SUSP 100 MG/5 ML PO PRN (16:41)
[2020-10-02] MEDS: ZANAFLEX PO SCH (23:00)
[2020-10-02] MEDS: NEURONTIN CAP 100 MG PO SCH (23:00)
--- NOTE | 2020-10-02 23:45 | DR.H&P ---
H&P - History & Physical for Day of: H&P Date: 10/02/20 - Chief Complaint Chief Complaint: HALLUCINATIONS, UT CONSTIPATION - History of Present Illness History of Present Illness: CHELLE IS A 52 YEAR OLD PATIENT OF OURS. HE PRESENTED TO THE EMERGENCY ROOM VIA EMS. PATIENTS FAMILY MEMBER REPORTS THAT PATIENT HAS BEEN HAVING HALLUCINATIONS. PATIENT WAS RECENTLY DIAGNOSED WITH A URINARY TRACT INFECTION AND HAS BEEN TAKING BACTRIM DS BID. HE WAS CHANGES TO MACROBID ON SATURDAY, BUT REPORTS THAT HE HAS NOT STARTED TAKING IT YET. HE HAS ALSO HAD FEVER, CONSTIPATION, AND DECREASED APPETITE. MEDICAL HISTORY INCLUDES QUADRAPLEGIA, HTN, SLEEP APNEA, GERD, NEUROGENIC BOWEL, CHRONIC UTIs, ANEMIA, ANXIETY, DEPRESSION, TONSILLECTOMY, CERVICAL FUSION, AND ORBITAL FX REPAIR. ON ARRIVAL, VITALS WERE 98.1-92-20-97%-135/89. LABS WERE OBTAINED. ABNORMAL LABS INCLUDE THE FOLLOWING: RBC 4.47, HGB 12.2, HCT 37.6, SODIUM 133, POTASSIUM 5.5, CARBON DIOXIDE 20.9, BUN 34, ALBUMIN 3.3. URINALYSIS REVEALED: WBC 30-50, RBC 20-30, LEUKOCYTES 3+, BACTERIEA 2+, NITRITES POSITIVE, PROTEIN 2+. COVID-19 NEGATIVE. URINE AND BLOOD CULTURES WERE SET UP. A BRAIN CT WAS OBTAINED AND REVEALED: 1. No intracranial hemorrhage, discernible acute infarction, mass lesions, midline shift, mass effect or hydrocephalus seen. 2. 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 3. Consider followup evaluation with MRI /MRA imaging for further assessment as clinically warranted. 4. Mild chronic ethmoid and maxillary sinusitis. IN THE ER, HE WAS GIVEN A NORMAL SALINE BOLUS, ROCEPHIN 1G IV DAILY, TORADOL 30MG IV X 1 DOSE, CHRONULAC 60MG PO X 1, COLACE 200MG PO X 1, MILK OF MAGNESIA 30ML PO X 1, SENOKOT 3TAB PO X 1. HE WAS ADMITTED TO THE HOSPITAL FOR FURTHER EVALUATION AND TREATMENT OF A URINARY TRACT INFECTION. HE WAS STARTED ON NORMAL SALINE AT 125 ML/HR, GENTAMICIN 320MG PO DAILY, DULCOLOX 10MG IN PRN, GABAPENTIN 100MG PO TID, IBUPROFEN 600MG PO Q6H PRN, AND ZANAFLEX 4MG PO BID. OTHERWISE, WE WILL FOLLOW UP WITH AM LABS AND CONTINUE TO MONITOR. TIME SPENT ON CLINICAL ASSESSMENT, REVIEWING LABS AND IMAGING, DECISION MAKING, AND DOCUMENTATION WAS GREATER THAN 75 MINUTES. - Past Medical History Past Medical History: Depression Additional Medical History: PARAPLEGIC, NEUROGENIC BOWEL, MUSCLE SPASMS, CONSTIPATION, CHRONIC UTIs. - Past Surgical History Surgical History: Tonsillectomy Additional Surgical History: FUSION OF 3RD, 4TH, AND 5TH CERVICAL BERTEBRAE, ORBITAL FX, REPAIRED WITH PLATE - Family History Family Medical History: Cancer - Social History Does patient currently use any type of tobacco product: No Have you used tobacco products in the last 12 months: No Type of Tobacco Use: Cigarettes How many years tobacco product used: 20 Does any household member use tobacco: No Alcohol Use: None - Medications Home Medications: meperidine [From Demerol] Adverse Reaction (Verified 04/27/20 09:51) oxycodone [From Percocet] Adverse Reaction (Verified 10/02/20 04:10) CONTINUE taking the following medications bupropion HCl 300 mg PO QHS 10/01/20 [History] clonazepam 1 mg PO HS 10/01/20 [History] clonidine 0.2 mg TRANSDERMAL QWEEK 10/01/20 [History] cranberry conc-ascorbic acid 1 cap PO DAILY 10/01/20 [History] docusate sodium [Colace] 200 mg PO BID 10/01/20 [History] fluticasone propionate [Flonase Allergy Relief] 1 spray INTRANASAL Q12H 10/01/20 [History] gabapentin 100 mg PO TID 10/01/20 [History] nitrofurantoin monohyd/m-cryst 100 mg PO BID 10/01/20 [History] oxycodone 20 mg PO QID PRN 10/01/20 [History] promethazine [Promethegan] 25 mg IN PRN PRN 10/01/20 [History] sennosides [senna] 25.8 mg PO QHS 10/01/20 [History] - Review of Systems Constitutional: Fever, Weakness Eyes: No Symptoms Reported ENT: No Symptoms Reported Respiratory: No Symptoms Reported Cardiovascular: No Symptoms Reported Gastrointestinal: No Symptoms Reported Genitourinary: No Symptoms Reported Musculoskeletal: No Symptoms Reported Skin: No Symptoms Reported Neurological: See HPI, Weakness, Confusion - Physical Exam Vital Signs: Temperature 98.2 F Pulse Rate [Left Radial] 97 Pulse Rate 92 Respiratory Rate 22 Blood Pressure [Left Arm] 161/79 Blood Pressure [Right Calf] 151/79 Blood Pressure [Right Arm] 102/67 Blood Pressure 135/89 O2 Sat by Pulse Oximetry 98 Oriented: Not Oriented Eyes: Normal Ear: Normal Nose: Normal Throat: Normal Respiratory: Diminished Throughout Cardiovascular: Normal : Normal Auscultation: Bowel Sounds: Normal Palpation: Normal Tenderness: Normal Skin: Normal Musculoskeletal: Normal Psychiatric: Normal Mood Description: Calm Affect: Normal Speech Pattern: Clear - Assessment/Plan (1) UTI (urinary tract infection) Qualifiers: Urinary tract infection type: acute cystitis Hematuria presence: with hematuria Qualified Code(s): N30.01 - Acute cystitis with hematuria Status: Acute Plan: ADMIT, NORMAL SALINE AT 125 ML/HR, GENTAMICIN 320MG PO DAILY, DULCOLOX 10MG IN PRN, GABAPENTIN 100MG PO TID, IBUPROFEN 600MG PO Q6H PRN, AND ZANAFLEX 4MG PO BID. - Allergies Allergies/Adverse Reactions: Allergies Allergy/AdvReac Type Severity Reaction Status Date / Time meperidine [From Demerol] AdvReac Verified 04/27/20 09:51 oxycodone [From Percocet] AdvReac Verified 10/02/20 04:10
[2020-10-03] MEDS: NS 1000 ML 1,000 ML IV SCH ×2 (02:37→08:31)
[2020-10-03 05:49] LABS: BASOPHILS # (AUTO) 0.1 X10^3/uL (0.0-0.1); EOSINOPHILS % (AUTO) 0.4 % (0.9-2.9); HEMATOCRIT 32.9 % (42.0-54.0); HEMOGLOBIN 10.8 g/dL (13.5-18.0); LYMPHOCYTES # (AUTO) 1.7 X10^3/uL (1.3-2.9); LYMPHOCYTES % (AUTO) 15.8 % (21.0-51.0); MEAN CORPUSCULAR HEMOGLOBIN 27.8 pg (27.0-34.0); MEAN CORPUSCULAR HGB CONC 32.9 g/dL (33.0-35.0); MEAN CORPUSCULAR VOLUME 84.5 fL (80.0-100.0); MEAN PLATELET VOLUME 7.8 fL (7.4-11.0); MONOCYTES % (AUTO) 9.6 % (0.0-13.0); NEUTROPHILS % (AUTO) 73.2 % (42.0-75.0); PLATELET COUNT 259 X10^3/uL (150.0-450.0); RED CELL DISTRIBUTION WIDTH 15.3 % (11.6-16.5); WHITE BLOOD COUNT 10.9 X10^3/uL (3.6-10.0)
[2020-10-03 06:12] LABS: ALANINE AMINOTRANSFERASE 37 Units/L (12-78); ALBUMIN 2.9 g/dL (3.4-5.0); ALKALINE PHOSPHATASE 69 Units/L (46-116); ASPARTATE AMINO TRANSFERASE 31 Units/L (15-37); BLOOD UREA NITROGEN 26 mg/dL (7-18); CALCIUM 8.2 mg/dL (8.5-10.1); CARBON DIOXIDE 16.1 mmol/L (21-32); CHLORIDE 106 mmol/L (98-107); COR CA(FOR HYPOALB) 9.1 mg/dL (8.5-10.1); CREATININE 0.88 mg/dL (0.70-1.30); SODIUM 138 mmol/L (136-145); TOTAL PROTEIN 6.8 g/dL (6.4-8.2); eGFR NON BLACK RACES > 60 (>60)
[2020-10-03] MEDS: NEURONTIN CAP 100 MG PO SCH (06:39)
[2020-10-03] MEDS: ZANAFLEX PO SCH (08:35)
[2020-10-03] MEDS: GENTAMICIN IV SCH (08:50)
[2020-10-03] MEDS: NS IV SCH (08:50)
[2020-10-03 12:31] VITALS: BP 187/94
[2020-10-03] MEDS ORDERED: CATAPRES-TTS-2 TD SCH (13:00)
[2020-10-04] MEDS ORDERED: PHARMACY COMMENT IV ONE ×2 (08:30→10:30)
== END 2020-10-03 13:25 | disposition home health service (06) ==
LOC: MED/SURG 20:51 → ER 20:51 → MED/SURG 10-02 02:55
PROVIDERS: ADMIT Internal Medicine; ATTEND Internal Medicine
DX: K21.9 Gastro-esophageal reflux disease without esophagitis; G82.50 Quadriplegia, unspecified; E87.5 Hyperkalemia; B96.5 Pseudomonas (aeruginosa) (mallei) (pseudomallei) as the cause of diseases classified elsewhere; B96.4 Proteus (mirabilis) (morganii) as the cause of diseases classified elsewhere; R44.3 Hallucinations, unspecified; Z20.822 Contact with and (suspected) exposure to COVID-19; K59.09 Other constipation; I10 Essential (primary) hypertension; N30.01 Acute cystitis with hematuria; R41.82 Altered mental status, unspecified

== ENCOUNTER 2020-10-06 07:12 | Inpatient (IN) ==
[2020-10-06] MEDS ORDERED: ROMAZICON INJ 1 MG IVP ONE ×3 (07:14→07:29)
[2020-10-06 07:28] VITALS: BMI 33.9
[2020-10-06] MEDS ORDERED: NS 1000 ML 1,000 ML IV ONE ×2 (07:29→08:27)
[2020-10-06 07:34] LABS: BASOPHILS # (AUTO) 0.1 X10^3/uL (0.0-0.1); BASOPHILS % (AUTO) 0.9 % (0.2-1.0); EOSINOPHILS # (AUTO) 0.1 x10^3/uL (0.0-0.2); HEMATOCRIT 36.1 % (42.0-54.0); HEMOGLOBIN 11.4 g/dL (13.5-18.0); LYMPHOCYTES # (AUTO) 1.3 X10^3/uL (1.3-2.9); LYMPHOCYTES % (AUTO) 10.9 % (21.0-51.0); MEAN CORPUSCULAR HEMOGLOBIN 27.4 pg (27.0-34.0); MEAN CORPUSCULAR HGB CONC 31.6 g/dL (33.0-35.0); MEAN CORPUSCULAR VOLUME 86.6 fL (80.0-100.0); MEAN PLATELET VOLUME 7.3 fL (7.4-11.0); MONOCYTES % (AUTO) 8.7 % (0.0-13.0); NEUTROPHILS # (AUTO) 9.3 x10^3/uL (2.2-4.8); NEUTROPHILS % (AUTO) 78.5 % (42.0-75.0); PLATELET COUNT 214 X10^3/uL (150.0-450.0); RED BLOOD COUNT 4.17 X10^6/uL (4.7-6.0); RED CELL DISTRIBUTION WIDTH 15.9 % (11.6-16.5); WHITE BLOOD COUNT 11.8 X10^3/uL (3.6-10.0)
[2020-10-06] MEDS ORDERED: NS 1000 ML 1,000 ML ONE (07:36)
--- NOTE | 2020-10-06 07:40 | DR.AMS ---
[facility] Last Filed: 10/06/20 22:36> Time Seen Time Seen by Provider: 10/06/20 07:18 PCP Primary Care Physician: MICKEY HPI Comment HPI Comment: A 55 y/o quad. pt. brought in via EMS as the family called EMS. Up on arrival to the house, he was noted lethargic and with apnea pea periods. I was informed of his recent admission and subsequent d/c form the hospital. He went home on 10/03/2020. At presentation, the pt. himself is not able to provide information. Later, I spoke with family who informed me that he had UTI (Proteus Mirabilis & Pseudomonas) was sent home on Gentamycin. He didn't sleep well for the 3 days following his arrival at home. and was noted with really low U/O yesterday. Complaint Chief Complaint:: SISTER CALLS EMS WITH C/O AMS. PT. WAS RECENTLY DISCHARGED FROM THE HOSPITAL. PT. IS RECEIVING IV ANTIBIOTICS @ HOME FOR UTI. SISTER INFORMS EMS THAT THE ANTIBIOTICS ARE NOT WORKING PROPERLY BECAUSE PT. IS NOT GETTING BETTER. UPON ARRIVAL TO THE ER, PT. IS LETHARGIC AND NOTED TO BE HAVING PERIODS OF APNEA. COVID-19 Coronavirus risk:travel/contact w/high risk person: No Has patient experienced Coronavirus symptoms: No Reviewed Nurses Notes Reviewed: Yes Source History Provided: EMS Mode of Arrival Mode of Arrival: EMS Timing Onset of Chief Complaint: 10/06/20 Associated Signs and Symptoms Associated Signs and Symptoms: None PMH <[facility] - Last Filed: 10/06/20 22:36> PMH Past Medical History: Yes Past Medical History: Anemia, COPD, Depression and GERD Past Medical History Comment: UTI, QUADRIPLEGIA Past Surgical History: Yes Surgical History: Tonsillectomy Family History History of Family Medical Conditions: Yes Family Medical History: Cancer Social History Does patient currently use any type of tobacco product: No Have you used tobacco products in the last 12 months: No Type of Tobacco Use: None Does any household member use tobacco: No Alcohol Use: None Do you use any recreational Drugs:: No Lives With: Family Lives Where: Home Travel Risk Coronavirus risk:travel/contact w/high risk person: No Has patient experienced Coronavirus symptoms: No Infectious screening In the last 2 months have you had wt loss of >10#?: NO Have you had fever, night sweats or hemotysis?: No Have you traveled outside the country in the last 6 months?: No Isolation: Standard ROS <[facility] - Last Filed: 10/06/20 22:36> Review of Systems Constitutional: No Symptoms Reported Eyes: No Symptoms Reported ENTM: No Symptoms Reported Respiratoy: No Symptoms Reported Cardiovascular: No Symptoms Reported Gastrointestinal/Abdominal: No Symptoms Reported Genitourinary: No Symptoms Reported Neurological: Other (Decreased LOC) Musculoskeletal: No Symptoms Reported Integumentary: No Symptoms Reported Hematologic/Lymphatic: No Symptoms Reported Endocrine: No Symptoms Reported Psychiatric: No Symptoms Reported PE <[facility] - Last Filed: 10/06/20 22:36> Vitals Vital Signs: Temp Pulse Resp BP BP Pulse Ox 10/06/20 10:30 98 H 24 148/84 99 10/06/20 10:15 86 20 171/84 99 10/06/20 10:00 84 23 177/79 100 10/06/20 09:45 87 23 166/90 100 10/06/20 09:30 86 33 H 170/96 100 10/06/20 09:15 85 30 H 124/81 100 10/06/20 09:14 83 31 H 120/62 100 10/06/20 09:00 77 22 85/50 99 10/06/20 08:45 77 29 H 84/51 98 10/06/20 08:30 77 19 99 10/06/20 08:24 76 15 100 10/06/20 08:00 74 13 84/51 98 10/06/20 07:45 76 16 80/53 97 10/06/20 07:44 76 17 97 10/06/20 07:30 77 25 H 79/50 97 10/06/20 07:26 78 27 H 99 10/06/20 07:13 97.7 F 79 15 82/51 97 10/03/20 12:00 187/94 General Limitations: No Limitations General Appearance: Lethargic Head Head Exam: Normal Inspection, Atraumatic and Normocephalic Eyes Eye exam: Normal Appearance and EOMI ENT ENT Exam: Normal Exam, Normal External Ear Exam, Mucous Membranes Dry, TM's Normal Bilaterally and Other (soft /crusty yellow crusty on lips and tongue,) Neck Neck Exam: Normal Inspection and Trachea Midline Chest Chest Inspection: Normal Inspection and Symmetric Chest Wall Rise Respiratory Respiratory Exam: Normal Lung Sounds Bilat and Other (He has periods of apnea. ) Cardiovascular Cardiovascular Exam: Regular Rate, Normal Rhythm, Normal Heart Sounds, +S1 and +S2 Abdominal Exam Abdominal Exam: Normal Inspection, Normal Bowel Sounds and Soft Extremities Extremities Exam: Other (extended and flaccid extremities) Back Back Exam: Normal Inspection Neurological Neurological Exam: Other (He is lethargic) Skin Skin Exam: Dry and Normal Color <Paul Carrasquillo - Last Filed: 10/06/20 09:57> Vitals Vital Signs: Temp Pulse Resp BP BP Pulse Ox 10/06/20 10:30 98 H 24 148/84 99 10/06/20 10:15 86 20 171/84 99 10/06/20 10:00 84 23 177/79 100 10/06/20 09:45 87 23 166/90 100 10/06/20 09:30 86 33 H 170/96 100 10/06/20 09:15 85 30 H 124/81 100 10/06/20 09:14 83 31 H 120/62 100 10/06/20 09:00 77 22 85/50 99 10/06/20 08:45 77 29 H 84/51 98 10/06/20 08:30 77 19 99 10/06/20 08:24 76 15 100 10/06/20 08:00 74 13 84/51 98 10/06/20 07:45 76 16 80/53 97 10/06/20 07:44 76 17 97 10/06/20 07:30 77 25 H 79/50 97 10/06/20 07:26 78 27 H 99 10/06/20 07:13 97.7 F 79 15 82/51 97 10/03/20 12:00 187/94 <Paul Carrasquillo - Last Filed: 10/06/20 09:57> Differential Diagnosis Metabolic: Dehydration Toxicologic: Drug Overdose Infectious: UTI COURSE <KRISTAN PÉRZE - Last Filed: 10/06/20 22:36> Treatment Treatment: I endorsed the pt. over to Dr. Crump at shift change. <Paul Carrasquillo - Last Filed: 10/06/20 09:57> Treatment Treatment: PATIENT CARE ENDORSED TO MY SERVICE DR CARRASQUILLO AT 0800, PATIENT ADMINISTERED ROMAZICON 0.2MG AND 0.4MG IV AT 0714 AND 0729 REMAINS LETHARGIC. ADMINISTERED NARCAN 1 MG IV, MARKED IMPROVEMENT IN MENTAL STATUS Reevaluation 1st: Improved Consultation Call Returned: 09:10 Consultation Comments: DISCUSSED FINDINGS WITH DR AREVALO AND WILL ADMIT TO INPATIENT ROR <KRISTAN PÉREZ - Last Filed: 10/06/20 22:36> Labs Reviewed Result Diagrams: 10/06/20 07:27 10/06/20 07:27 Laboratory: WBC 11.8 X10^3/uL (3.6-10.0) H 10/06/20 07: RBC 4.17 X10^6/uL (4.7-6.0) L 10/06/20 07: Hgb 11.4 g/dL (13.5-18.0) L 10/06/20 07: Hct 36.1 % (42.0-54.0) L 10/06/20 07: MCV 86.6 fL (80.0-100.0) 10/06/20 07: MCH 27.4 pg (27.0-34.0) 10/06/20 07: MCHC 31.6 g/dL (33.0-35.0) L 10/06/20 07: RDW 15.9 % (11.6-16.5) 10/06/20 07: Plt Count 214 X10^3/uL (150.0-450.0) 10/06/20 07: MPV 7.3 fL (7.4-11.0) L 10/06/20 07: Neut % (Auto) 78.5 % (42.0-75.0) H 10/06/20 07: Lymph % (Auto) 10.9 % (21.0-51.0) L 10/06/20 07: Ralls % (Auto) 8.7 % (0.0-13.0) 10/06/20 07: Eos % (Auto) 1.0 % (0.9-2.9) 10/06/20 07: Baso % (Auto) 0.9 % (0.2-1.0) 10/06/20 07: Neut # (Auto) 9.3 x10^3/uL (2.2-4.8) H 10/06/20 07:27 Lymph # (Auto) 1.3 X10^3/uL (1.3-2.9) 10/06/20 07:27 Ralls # (Auto) 1.0 x10^3/uL (0.3-0.8) H 10/06/20 07:27 Eos # (Auto) 0.1 x10^3/uL (0.0-0.2) 10/06/20 07:27 Baso # (Auto) 0.1 X10^3/uL (0.0-0.1) 10/06/20 07:27 Absolute Nucleated RBC 0.0 /100WBC 10/06/20 07:[address] [facility] 10/06/20 08:43 ABG pH 7.130 (7.35-7.45) L* 10/06/20 08:43 ABG pCO2 45.0 mmHg (35.0-45.0) 10/06/20 08:43 ABG pO2 88.0 mmHg (80.0-100.0) 10/06/20 08:43 ABG HCO3 15.0 mmol/L (22-26) L* 10/06/20 08:43 ABG O2 Saturation 93.0 % (90-100) 10/06/20 08:43 ABG Base Excess -13.8 mmol/L (-2.0-2.0) L 10/06/20 08:43 Chiki Test N/a 10/06/20 08:43 A-a Gradient 84.0 mmHg 10/06/20 08:43 FiO2 32.0 10/06/20 08:43 Blood Gas Comments Pt brandi well elj 10/06/20 08:43 Sodium 137 mmol/L (136-145) 10/06/20 07:27 Corrected Sodium TNP 10/06/20 07:27 Potassium 4.7 mmol/L (3.5-5.1) 10/06/20 07:27 Chloride 105 mmol/L (98-107) 10/06/20 07:27 Carbon Dioxide 19.0 mmol/L (21-32) L 10/06/20 07:27 BUN 42 mg/dL (7-18) H 10/06/20 07:27 Creatinine 1.22 mg/dL (0.70-1.30) 10/06/20 07:27 Est GFR (MDRD) Af Amer > 60 (>60) 10/06/20 07:27 Est GFR (MDRD) Non-Af > 60 (>60) 10/06/20 07:27 Glucose 61 mg/dL (65-99) L 10/06/20 07:27 Calcium 7.9 mg/dL (8.5-10.1) L 10/06/20 07:27 Corrected Calcium 8.9 mg/dL (8.5-10.1) 10/06/20 07:27 Total Bilirubin 0.30 mg/dL (0.2-1.0) 10/06/20 07:27 AST 17 Units/L (15-37) 10/06/20 07:27 ALT 26 Units/L (12-78) 10/06/20 07:27 Alkaline Phosphatase 66 Units/L (46-116) 10/06/20 07:27 Creatine Kinase 79 Units/L (39-308) 10/06/20 07:27 CK-MB (CK-2) 8.6 ng/mL (0-4.0) H* 10/06/20 07:27 CK/CKMB % Calc 10.9 % (<4) 10/06/20 07:27 Troponin I < 0.02 ng/mL (0-1.5) 10/06/20 07:27 Total Protein 6.4 g/dL (6.4-8.2) 10/06/20 07:27 Albumin 2.7 g/dL (3.4-5.0) L 10/06/20 07:27 Globulin 3.7 g/dL (2.5-4.5) 10/06/20 07:27 Albumin/Globulin Ratio 0.7 Ratio (1.1-2.1) L 10/06/20 07:27 EKG Rate: 78 [place]: Normal Rhythm: NSR Block: IVCD Hypertrophy: LVH ST: Normal <Paul Carrasquillo - Last Filed: 10/06/20 09:57> Labs Reviewed Laboratory: WBC 11.8 X10^3/uL (3.6-10.0) H 10/06/20 07:27 RBC 4.17 X10^6/uL (4.7-6.0) L 10/06/20 07: Hgb 11.4 g/dL (13.5-18.0) L 10/06/20 07: Hct 36.1 % (42.0-54.0) L 10/06/20 07: MCV 86.6 fL (80.0-100.0) 10/06/20 07: MCH 27.4 pg (27.0-34.0) 10/06/20 07: MCHC 31.6 g/dL (33.0-35.0) L 10/06/20 07: RDW 15.9 % (11.6-16.5) 10/06/20 07: Plt Count 214 X10^3/uL (150.0-450.0) 10/06/20 07: MPV 7.3 fL (7.4-11.0) L 10/06/20 07: Neut % (Auto) 78.5 % (42.0-75.0) H 10/06/20 07: Lymph % (Auto) 10.9 % (21.0-51.0) L 10/06/20 07: Ralls % (Auto) 8.7 % (0.0-13.0) 10/06/20 07: Eos % (Auto) 1.0 % (0.9-2.9) 10/06/20 07: Baso % (Auto) 0.9 % (0.2-1.0) 10/06/20 07: Neut # (Auto) 9.3 x10^3/uL (2.2-4.8) H 10/06/20 07: Lymph # (Auto) 1.3 X10^3/uL (1.3-2.9) 10/06/20 07: Ralls # (Auto) 1.0 x10^3/uL (0.3-0.8) H 10/06/20 07: Eos # (Auto) 0.1 x10^3/uL (0.0-0.2) 10/06/20 07: Baso # (Auto) 0.1 X10^3/uL (0.0-0.1) 10/06/20 07: Absolute Nucleated RBC 0.0 /100WBC 10/06/20 07:27 Sample Site Rbra 10/06/20 08:43 ABG pH 7.130 (7.35-7.45) L* 10/06/20 08:43 ABG pCO2 45.0 mmHg (35.0-45.0) 10/06/20 08:43 ABG pO2 88.0 mmHg (80.0-100.0) 10/06/20 08:43 ABG HCO3 15.0 mmol/L (22-26) L* 10/06/20 08:43 ABG O2 Saturation 93.0 % (90-100) 10/06/20 08:43 ABG Base Excess -13.8 mmol/L (-2.0-2.0) L 10/06/20 08:43 Chiki Test N/a 10/06/20 08:43 A-a Gradient 84.0 mmHg 10/06/20 08:43 FiO2 32.0 10/06/20 08:43 Blood Gas Comments Pt brandi well elj 10/06/20 08:43 Sodium 137 mmol/L (136-145) 10/06/20 07:27 Corrected Sodium TNP 10/06/20 07:27 Potassium 4.7 mmol/L (3.5-5.1) 10/06/20 07:27 Chloride 105 mmol/L (98-107) 10/06/20 07:27 Carbon Dioxide 19.0 mmol/L (21-32) L 10/06/20 07:27 BUN 42 mg/dL (7-18) H 10/06/20 07:27 Creatinine 1.22 mg/dL (0.70-1.30) 10/06/20 07:27 Est GFR (MDRD) Af Amer > 60 (>60) 10/06/20 07:27 Est GFR (MDRD) Non-Af > 60 (>60) 10/06/20 07:27 Glucose 61 mg/dL (65-99) L 10/06/20 07:27 Calcium 7.9 mg/dL (8.5-10.1) L 10/06/20 07:27 Corrected Calcium 8.9 mg/dL (8.5-10.1) 10/06/20 07:27 Total Bilirubin 0.30 mg/dL (0.2-1.0) 10/06/20 07:27 AST 17 Units/L (15-37) 10/06/20 07:27 ALT 26 Units/L (12-78) 10/06/20 07:27 Alkaline Phosphatase 66 Units/L (46-116) 10/06/20 07:27 Creatine Kinase 79 Units/L (39-308) 10/06/20 07:27 CK-MB (CK-2) 8.6 ng/mL (0-4.0) H* 10/06/20 07:27 CK/CKMB % Calc 10.9 % (<4) 10/06/20 07:27 Troponin I < 0.02 ng/mL (0-1.5) 10/06/20 07:27 Total Protein 6.4 g/dL (6.4-8.2) 10/06/20 07:27 Albumin 2.7 g/dL (3.4-5.0) L 10/06/20 07:27 Globulin 3.7 g/dL (2.5-4.5) 10/06/20 07:27 Albumin/Globulin Ratio 0.7 Ratio (1.1-2.1) L 10/06/20 07:27 Opioid <ADEWUNMI SOBOWALE - Last Filed: 10/06/20 22:36> Opioid Risk Tool Age (Bear box if 16-45): No History of Preadolescent Sexual Abuse: No Total: 0 Total Score Risk Category: Low Risk Copyright: Jordan SOMERS predicting aberrant behaviors <Paul Carrasquillo - Last Filed: 10/06/20 09:57> Opioid Risk Tool Total: 0 Total Score Risk Category: Low Risk <ADEWUNMI SOBOWALE - Last Filed: 10/06/20 22:36> Diagnosis Discharge Problem: Lethargy, Accidental drug overdose
--- NOTE | 2020-10-06 07:55 | RAD ---
HISTORYApneaSTUDYChest AP [id number]/2020FINDINGSThere is a port present on the right. The heart is within normal limits in size. The gna are normal. The lung nicolas are clear. No pleural effusions are identified. Bony thorax is unremarkable.IMPRESSIONLungs clearElectronically signed by: KAREN SANDOVAL (October 06 1 07:53:16)
[2020-10-06 08:14] LABS: ALANINE AMINOTRANSFERASE 26 Units/L (12-78); ALBUMIN 2.7 g/dL (3.4-5.0); ALKALINE PHOSPHATASE 66 Units/L (46-116); ASPARTATE AMINO TRANSFERASE 17 Units/L (15-37); BLOOD UREA NITROGEN 42 mg/dL (7-18); CALCIUM 7.9 mg/dL (8.5-10.1); CHLORIDE 105 mmol/L (98-107); COR CA(FOR HYPOALB) 8.9 mg/dL (8.5-10.1); CREATINE KINASE 79 Units/L (39-308); CREATININE 1.22 mg/dL (0.70-1.30); SODIUM 137 mmol/L (136-145); TOTAL PROTEIN 6.4 g/dL (6.4-8.2); TROPONIN I < 0.02 ng/mL (0-1.5); eGFR NON BLACK RACES > 60 (>60)
[2020-10-06 08:17] LABS: CKMB % 10.9 % (<4); CREATINE KINASE MB 8.6 ng/mL (0-4.0)
[2020-10-06] MEDS ORDERED: D50W ABBOJECT SYR IV ONE (08:27)
[2020-10-06] MEDS ORDERED: D50W ABBOJECT SYR ONE (08:29)
[2020-10-06 08:49] LABS: ABG BASE EXCESS -13.8 mmol/L (-2.0-2.0)
--- NOTE | 2020-10-06 08:52 | CT ---
HISTORYAMS, LETHARGYSTUDYHead CT without contrastCOMPARISONPrevious head CT from 10/01/2020TECHNIQUEAxial imaging was performed from the vertex to the base of skull without intravenous contrast being administered. Sagittal and coronal reformations were generated. Automated exposure control techniques were used with this exam.FINDINGSThe posterior fossa and supratentorial region demonstrate no evidence of intracranial hemorrhage or extracerebral fluid collections. Ventricles are symmetric in size and position with no mass effect seen. Normal howard-white matter differentiation is maintained. On the bone windows, no acute bony abnormality is identified. Mild degree of ethmoid and maxillary sinus disease is present. Otherwise visualized aspect of the paranasal sinuses and mastoid air cells are predominantly clear.IMPRESSIONNo acute intracranial abnormality is seen on this exam. No significant interval change since previous CT from 1Electronically signed by: SANTIAGO BISHOP (October 06, 2020 08:50:02)
[2020-10-06] MEDS ORDERED: NARCAN INJ IVP ONE (09:05)
[2020-10-06] MEDS ORDERED: NARCAN INJ ONE (09:09)
[2020-10-06] MEDS ORDERED: ZOFRAN TAB 4 MG PO PRN (10:21)
[2020-10-06] MEDS ORDERED: PHENERGAN SUPP 25 MG PR PRN (10:21)
[2020-10-06] MEDS ORDERED: FLONASE NASAL SPRAY ENOSTRIL SCH ×2 (11:00→21:00)
[2020-10-06] MEDS: LEVAQUIN PREMIX IV 750 MG 750 MG/150 ML BAG IV SCH ×2 (11:40→11:56)
[2020-10-06] MEDS: NS 1000 ML 1,000 ML IV SCH (11:56)
[2020-10-06] MEDS: NEURONTIN CAP 100 MG PO SCH ×2 (13:37→21:33)
[2020-10-06 15:23] LABS: CKMB % 9.8 % (<4); CREATINE KINASE 84 Units/L (39-308); TROPONIN I < 0.02 ng/mL (0-1.5)
[2020-10-06 15:26] LABS: CREATINE KINASE MB 8.2 ng/mL (0-4.0)
[2020-10-06 16:49] LABS: BILIRUBIN,URINE NEGATIVE (NEGATIVE); BLOOD/HEMOGLOBIN,URINE 5+ (NEGATIVE); GLUCOSE, URINE NEGATIVE (NEGATIVE); KETONES,URINE 2+ (NEGATIVE); LEUKOCYTE ESTERASE ,URINE 3+ (NEGATIVE); NITRITES,URINE NEGATIVE (NEGATIVE); PROTEIN,URINE 2+ (NEGATIVE); UROBILINOGEN,URINE NORMAL (NORMAL)
[2020-10-06 17:28] LABS: APPEARANCE,URINE CLOUDY (CLEAR); COLOR,URINE YELLOW (YELLOW)
[2020-10-06 17:29] LABS: AMORPHOUS SEDIMENT,UR 2+ /HPF (NEGATIVE); BACTERIA,URINE 1+ /HPF (NEGATIVE); RBC,URINE TNTC /HPF (0-3); SQUAMOUS EPITHELIAL CELL,UR MODERATE /HPF (NEGATIVE)
[2020-10-06 17:30] LABS: MUCUS,URINE MANY /HPF (NEGATIVE)
[2020-10-06 19:14] LABS: LACTIC ACID 0.5 mmol/L (0.4-2.0)
[2020-10-06 19:21] LABS: CKMB % 9.8 % (<4); CREATINE KINASE 80 Units/L (39-308); TROPONIN I < 0.02 ng/mL (0-1.5)
[2020-10-06 19:23] LABS: CREATINE KINASE MB 7.8 ng/mL (0-4.0)
[2020-10-06] MEDS: COLACE CAP 100 MG PO SCH (21:15)
[2020-10-06] MEDS: SENOKOT PO SCH (21:16)
[2020-10-06] MEDS: ZANAFLEX PO SCH (21:16)
[2020-10-06] MEDS: CYMBALTA PO SCH (21:16)
[2020-10-06 23:02] LABS: CKMB % 8.5 % (<4); CREATINE KINASE 86 Units/L (39-308); TROPONIN I < 0.02 ng/mL (0-1.5)
[2020-10-06 23:07] LABS: CREATINE KINASE MB 7.3 ng/mL (0-4.0)
[2020-10-07 05:04] LABS: BASOPHILS # (AUTO) 0.1 X10^3/uL (0.0-0.1); BASOPHILS % (AUTO) 0.7 % (0.2-1.0); EOSINOPHILS # (AUTO) 0.1 x10^3/uL (0.0-0.2); EOSINOPHILS % (AUTO) 0.5 % (0.9-2.9); HEMATOCRIT 33.8 % (42.0-54.0); HEMOGLOBIN 10.8 g/dL (13.5-18.0); LYMPHOCYTES # (AUTO) 1.1 X10^3/uL (1.3-2.9); LYMPHOCYTES % (AUTO) 6.9 % (21.0-51.0); MEAN CORPUSCULAR HEMOGLOBIN 27.5 pg (27.0-34.0); MEAN CORPUSCULAR HGB CONC 31.9 g/dL (33.0-35.0); MEAN CORPUSCULAR VOLUME 86.1 fL (80.0-100.0); MEAN PLATELET VOLUME 8.2 fL (7.4-11.0); MONOCYTES % (AUTO) 6.3 % (0.0-13.0); NEUTROPHILS # (AUTO) 13.5 x10^3/uL (2.2-4.8); NEUTROPHILS % (AUTO) 85.6 % (42.0-75.0); PLATELET COUNT 195 X10^3/uL (150.0-450.0); RED BLOOD COUNT 3.92 X10^6/uL (4.7-6.0); RED CELL DISTRIBUTION WIDTH 16.1 % (11.6-16.5); WHITE BLOOD COUNT 15.8 X10^3/uL (3.6-10.0)
[2020-10-07 05:23] LABS: ALANINE AMINOTRANSFERASE 23 Units/L (12-78); ALBUMIN 2.5 g/dL (3.4-5.0); ALKALINE PHOSPHATASE 63 Units/L (46-116); ASPARTATE AMINO TRANSFERASE 19 Units/L (15-37); BLOOD UREA NITROGEN 37 mg/dL (7-18); CALCIUM 7.8 mg/dL (8.5-10.1); CARBON DIOXIDE 17.4 mmol/L (21-32); CHLORIDE 104 mmol/L (98-107); CREATININE 0.99 mg/dL (0.70-1.30); SODIUM 135 mmol/L (136-145); TOTAL PROTEIN 6.3 g/dL (6.4-8.2); eGFR NON BLACK RACES > 60 (>60)
[2020-10-07] MEDS: NEURONTIN CAP 100 MG PO SCH ×3 (05:54→22:56)
[2020-10-07] MEDS: NS 1000 ML 1,000 ML IV SCH ×3 (05:54→22:59)
[2020-10-07] MEDS ORDERED: ZOFRAN INJ 4 MG VIAL ONE (06:50)
[2020-10-07] MEDS: ZOFRAN INJ 4 MG VIAL IVP PRN (07:12)
[2020-10-07] MEDS ORDERED: ROXICODONE TAB 5 MG PO PRN (07:53)
--- NOTE | 2020-10-07 08:02 | RAD ---
HISTORYSOBSTUDYCHEST, 1 [id number]/27/2021FINDINGSOpacity in the left apex is unchanged. This could be chronic pleural thickening or effusion layering dependently on a supine film.Lungs are clear.Heart size is normal.Bones are unremarkable.Right jugular central venous catheter is in the expected location of the superior vena cava. EKG leads are noted.IMPRESSION1. Unchanged left apical effusion or pleural scarringElectronically signed by: Heri Barry (October 07, 2020 07:59:44)
[2020-10-07] MEDS: ZANAFLEX PO SCH ×2 (08:20→21:08)
[2020-10-07] MEDS: LIORESAL PO SCH ×4 (08:20→21:07)
[2020-10-07] MEDS ORDERED: SODIUM CHLORIDE IV SCH (09:00)
[2020-10-07] MEDS ORDERED: GENTAMICIN IV SCH (09:00)
[2020-10-07] MEDS: PriLOSEC PO SCH (09:08)
[2020-10-07] MEDS: LEVAQUIN PREMIX IV 750 MG 750 MG/150 ML BAG IV SCH (09:08)
[2020-10-07] MEDS: CYMBALTA PO SCH ×2 (09:08→21:07)
[2020-10-07] MEDS: COLACE CAP 100 MG PO SCH ×2 (09:09→21:07)
--- NOTE | 2020-10-07 10:03 | RAD ---
HISTORYPOSSIBLE ASPIRATIONSTUDYCHEST, 1 [id number]/28/2021.TECHNIQUEAP view of the chestFINDINGSRight chest wall port with tip in good position. Patient is rotated. There is new airspace opacity in the left lower lobe and medial segment of the right lower lobe. The cardiac and mediastinal contours are within normal limits. No definite pleural effusion or pneumothorax. Right costophrenic sulcus not completely visualized.IMPRESSIONBilateral lower lobe airspace opacities consistent with aspiration pneumonia.Electronically signed by: Mu Dale (October 07, 2020 10:02:32)
--- NOTE | 2020-10-07 10:20 | DR.UPDATE ---
H&P Update History and Physical Update: History and Physical reviewed and patient examined. Changes noted: Yes with the following: TIME SPENT ON CLINICAL ASSESSMENT, REVIEWING LABS AND IMAGING, DECISION MAKING, AND DOCUMENTATION GREATER THAN 75 MINUTES. WAS DISCHARGED HOME FROM THE HOSPITAL ON 10/03/20 AFTER BEING TREATED FOR A URINARY TRACT INFECTION. CULTURE GREW PROTEUS MIRABILIS AND PSEUDOMONAS AERUGINOSA. HE WAS DISCHARGED HOME ON IV GENTAMICIN X 10 DAYS. PATIENT RETURNED TO THE ER TODAY VIA EMS WITH FAMILY REPORTING THAT PATIENT HAS BEEN LETHARGIC AND HAD PERIODS OF APNEA. THEY REPORT THAT THEY BELIEVE SOMEONE AT HOME HAS GIVEN HIM TOO MUCH MEDICATION. ON ARRIVAL TO THE ER, HE WAS LETHARGIC, BUT DID AWAKEN TO VERBAL STIMULI. PATIENT HAS A ARENAS CATHETER TO BEDSIDE DRAINAGE ON ARRIVAL. MEDICAL HISTORY INCLUDES QUADRAPLEGIA, HTN, SLEEP APNEA, GERD, NEUROGENIC BOWEL, CHRONIC UTIs, ANEMIA, ANXIETY, DEPRESSION, TONSILLECTOMY, CERVICAL FUSION, AND ORBITAL FX REPAIR. HIS VITALS ON ARRIVAL WERE 97.7-79-15-97%-82/51. HE WAS PLACED ON NASAL CANNULA AT 3 LPM. LABS WERE OBTAINED. ABNORMAL LAB VALUES INCLUDE THE FOLLOWING: WBC 11.8, RBC 4.17, HGB 11.4, HCT 36.1, CARBON DIOXIDE 19.0, BUN 42, GLUCOSE 61, CK-MB 8.6, ALBUMIN 2.7. URINALYSIS WAS REPEATED AND REVEALED: WBC TNTC, RBC TNTC, LEUKOCYTES 3+, BACTE BARBARA 1+. URINE AND BLOOD CULTURES WERE SET UP. A CHEST XRAY WAS OBTAINED AND REVEALED: LUNGS CLEAR. BRAIN CT OBTAINED AND REVEALED: No acute intracranial abnormality is seen on this exam. No significant interval change since previous CT from 10/01/2020. IN THE ER, HE WAS GIVEN ROMAZICON 0.4MG IV X 1 DOSE, THEN ROMAZICON 0.2MG IV X 1 DOSE, A NORMAL SALINE BOLUS, AN AMP OF D50, NARCAN 1 MG IV X 1 DOSE. HE DID HAVE INCREASED ALERTNESS AFTER ROMAZICON AND NARCAN. HE WAS ADMITTED TO THE HOSPITAL FOR FURTHER EVALUATION AND TREATMENT OF UTI, HYPOTENSION, MEDICATION OVERDOSE, AND LETHARGY. HE WAS STARTED ON NORMAL SALINE AT 75 ML/HR, LEVAQUIN 750MG IV DAILY, ZANAFLEX 4MG PO BID, SENOKOT 1 TAB PO HS, PHENERGAN 25MG CO PRN, ROXICODONE 20MG PO Q6H PRN, ZOFRAN 4MG IV Q8H PRN NAUSEA, OMEPRAZOLE 20MG PO DAILY, LACTULOSE 60ML PO Q3D, NEURONTIN 100MG PO TID, CYMBALTA 30MG PO BID, COLACE 200MG PO BID, AND LIORESAL 20MG PO QID. WE WILL OBTAIN SERIAL CARDIAC ENZYMES AND EKGS. WE WILL PLACE HIM ON THE HEMP FIBER TAKER OFF. OTHERWISE, WE PLAN TO FOLLOW UP WITH AM LABS AND CONTINUE TO MONITOR. TIME SPENT ON CLINICAL ASSESSMENT, REVIEWING LABS AND IMAGING, DECISION MAKING, AND DOCUMENTATION GREATER THAN 75 MINUTES. Prescription drug monitoring program results: PDMP was not reviewed H&P Reviewed: Yes Patient was examined?: Yes
--- NOTE | 2020-10-07 10:33 | PCM.PROG ---
Progress Note - Progress Note for Day of Date of Exam: 10/07/20 - Subjective Subjective: IS BEING TREATED FOR UTI AND HYPOTENSION. STAFF REPORTS THAT EARLY THIS MORNING, PATIENT BEGAN EXCESSIVELY COUGHING AFTER DRINKING ENSURE. THEY BELIEVE THAT HE MAY HAS ASPIRATED. ON MORNING ROUNDS, PATIENT IS LYING IN BED WITH EYES CLOSED. HIS SISTER IS AT BEDSIDE. HE AWAKENS AND RESPONDS TO VERBAL STIMULI. ON EXAMINATION, HEART IS REGULAR IN RATE AND RHYTHM. BILATERAL LUNGS ARE NOTED WITH DIMINISHED LUNG SOUNDS THROUGHOUT. ABDOMEN IS ROUND, SOFT, AND NON-TENDER WITH NORMAL BOWEL SOUNDS NOTED IN ALL QUADRANTS. ARENAS CATHETER NOTED TO BEDSIDE DRAINAGE. HIS VITALS THIS MORNING ARE: 97.8-118-27-94%-100/54. LABS WERE OBTAINED. ABNORMAL LAB VALUES INCLUDE THE FOLLOWING: WBC 15.8, RBC 3.92, HGB 10.8, HCT 33.8, SODIUM 135, CARBON DIOXIDE 17.4, BUN 37, GLUCOSE 62, CALCIUM 7.8, TOTAL PROTEIN 6.3, ALBUMIN 2.5. URINE AND BLOOD CULTURES ARE PENDING. A CHEST XRAY WAS OBTAINED AFTER PATIENTS COUGHING EPISODE THIS MORNING. IT REVEALED: Bilateral lower lobe airspace opacities consistent with aspiration pneumonia. HE IS CURRENTLY RECEIVING NORMAL SALINE AT 75 ML/HR, LEVAQUIN 750MG IV DAILY, ZANAFLEX 4MG PO BID, SENOKOT 1 TAB PO HS, PHENERGAN 25MG NE PRN, ROXICODONE 20MG PO Q6H PRN, ZOFRAN 4MG IV Q8H PRN NAUSEA, OMEPRAZOLE 20MG PO DAILY, LACTULOSE 60ML PO Q3D, NEURONTIN 100MG PO TID, CYMBALTA 30MG PO BID, COLACE 200MG PO BID, AND LIORESAL 20MG PO QID. TODAY, WE WILL ADD NEB TREATMENTS AND WILL REVIEW HIS OTHER HOME MEDICATIONS. OTHERWISE, WE PLAN TO FOLLOW UP WITH AM LABS AND CHEST XRAY AND CONTINUE TO MONITOR. TIME SPENT ON CLINICAL ASSESSMENT, REVIEWING LABS AND IMAGING, DECISION MAKING, AND DOCUMENTATION GREATER THAN 45 MINUTES. - Past Medical Family Social History Past Med/Fam/Surg Hx: No changes since H&P Allergies: Allergies meperidine [From Demerol] Adverse Reaction (Verified 04/27/20 09:51) oxycodone [From Percocet] Adverse Reaction (Verified 10/02/20 04:10) - Review of Systems ROS: No change since H&P - Vital Signs and I&O's Vital Signs: Temperature 97.8 F Pulse Rate 118 Respiratory Rate 27 Blood Pressure [Left Arm] 187/94 Blood Pressure 100/54 O2 Sat by Pulse Oximetry 94 Intake and Output: Intake & Output 10/04/20 10/05/20 10/06/20 10/07/20 11:59 11:59 11:59 11:59 Intake Total 4658 / 4658 Output Total 500 / 500 Balance 4158 / 4158 - Physical Exam Oriented: Person, Place Eyes: Normal Ear: Normal Nose: Normal Throat: Normal Respiratory: Generalized, Diminished Cardiovascular: Tachycardia : Normal Auscultation: Bowel Sounds: Normal Palpation: Normal Tenderness: Diffuse Skin: Normal Musculoskeletal: Normal Psychiatric: Normal Mood Description: Calm Affect: Normal Speech Pattern: Appropriate, Unclear, Slurred - Laboratory and Diagnostics Result Diagrams: 10/07/20 04:36 10/07/20 04:36 Labs: Laboratory WBC 15.8 X10^3/uL (3.6-10.0) H 10/07/20 04:36 RBC 3.92 X10^6/uL (4.7-6.0) L 10/07/20 04:36 Hgb 10.8 g/dL (13.5-18.0) L 10/07/20 04:36 Hct 33.8 % (42.0-54.0) L 10/07/20 04:36 MCV 86.1 fL (80.0-100.0) 10/07/20 04:36 MCH 27.5 pg (27.0-34.0) 10/07/20 04:36 MCHC 31.9 g/dL (33.0-35.0) L 10/07/20 04:36 RDW 16.1 % (11.6-16.5) 10/07/20 04:36 Plt Count 195 X10^3/uL (150.0-450.0) 10/07/20 04:36 MPV 8.2 fL (7.4-11.0) 10/07/20 04:36 Neut % (Auto) 85.6 % (42.0-75.0) H 10/07/20 04:36 Lymph % (Auto) 6.9 % (21.0-51.0) L 10/07/20 04:36 [place] % (Auto) 6.3 % (0.0-13.0) 10/07/20 04:36 Eos % (Auto) 0.5 % (0.9-2.9) L 10/07/20 04:36 Baso % (Auto) 0.7 % (0.2-1.0) 10/07/20 04:36 Neut # (Auto) 13.5 x10^3/uL (2.2-4.8) H 10/07/20 04:36 Lymph # (Auto) 1.1 X10^3/uL (1.3-2.9) L 10/07/20 04:36 [place] # (Auto) 1.0 x10^3/uL (0.3-0.8) H 10/07/20 04:36 Eos # (Auto) 0.1 x10^3/uL (0.0-0.2) 10/07/20 04:36 Baso # (Auto) 0.1 X10^3/uL (0.0-0.1) 10/07/20 04:36 Absolute Nucleated RBC 0.1 /100WBC 10/07/20 04:36 Sample Site Rbra 10/06/20 08:43 ABG pH 7.130 (7.35-7.45) L* 10/06/20 08:43 ABG pCO2 45.0 mmHg (35.0-45.0) 10/06/20 08:43 ABG pO2 88.0 mmHg (80.0-100.0) 10/06/20 08:43 ABG HCO3 15.0 mmol/L (22-26) L* 10/06/20 08:43 ABG O2 Saturation 93.0 % (90-100) 10/06/20 08:43 ABG Base Excess -13.8 mmol/L (-2.0-2.0) L 10/06/20 08:43 [place] Test N/a 10/06/20 08:43 A-a Gradient 84.0 mmHg 10/06/20 08:43 FiO2 32.0 10/06/20 08:43 Blood Gas Comments Pt brandi well elj 10/06/20 08:43 Sodium 135 mmol/L (136-145) L 10/07/20 04:36 Corrected Sodium TNP 10/07/20 04:36 Potassium 4.1 mmol/L (3.5-5.1) 10/07/20 04:36 Chloride 104 mmol/L (98-107) 10/07/20 04:36 Carbon Dioxide 17.4 mmol/L (21-32) L 10/07/20 04:36 BUN 37 mg/dL (7-18) H 10/07/20 04:36 Creatinine 0.99 mg/dL (0.70-1.30) 10/07/20 04:36 Est GFR (MDRD) Af Amer > 60 (>60) 10/07/20 04:36 Est GFR (MDRD) Non-Af > 60 (>60) 10/07/20 04:36 Glucose 62 mg/dL (65-99) L 10/07/20 04:36 POC Glucose (mg/dL) 78 mg/dL (65-99) 10/07/20 06:48 Lactic Acid 0.5 mmol/L (0.4-2.0) 10/06/20 17:56 Calcium 7.8 mg/dL (8.5-10.1) L 10/07/20 04:36 Corrected Calcium 9.0 mg/dL (8.5-10.1) 10/07/20 04:36 Total Bilirubin 0.20 mg/dL (0.2-1.0) 10/07/20 04:36 AST 19 Units/L (15-37) 10/07/20 04:36 ALT 23 Units/L (12-78) 10/07/20 04:36 Alkaline Phosphatase 63 Units/L (46-116) 10/07/20 04:36 Creatine Kinase 86 Units/L (39-308) 10/06/20 22:12 CK-MB (CK-2) 7.3 ng/mL (0-4.0) H* 10/06/20 22:12 CK/CKMB % Calc 8.5 % (<4) 10/06/20 22:12 Troponin I < 0.02 ng/mL (0-1.5) 10/06/20 22:12 Total Protein 6.3 g/dL (6.4-8.2) L 10/07/20 04:36 Albumin 2.5 g/dL (3.4-5.0) L 10/07/20 04:36 Globulin 3.8 g/dL (2.5-4.5) 10/07/20 04:36 Albumin/Globulin Ratio 0.7 Ratio (1.1-2.1) L 10/07/20 04:36 Specimen Type Catherized urine 10/06/20 16:30 Urine Color Yellow (YELLOW) 10/06/20 16:30 Urine Appearance Cloudy (CLEAR) 10/06/20 16:30 Urine pH 7.0 (5.0 - 8.0) 10/06/20 16:30 Ur Specific [place] 1.010 (1.000-1.030) 10/06/20 16:30 Urine Protein 2+ (NEGATIVE) 10/06/20 16:30 Urine Glucose (UA) Negative (NEGATIVE) 10/06/20 16: Urine Ketones 2+ (NEGATIVE) 10/06/20 16:30 Urine Occult Blood 5+ (NEGATIVE) 10/06/20 16:30 Urine Nitrite Negative (NEGATIVE) 10/06/20 16: Urine Bilirubin Negative (NEGATIVE) 10/06/20 16:30 Urine Urobilinogen Normal (NORMAL) 10/06/20 16:30 Ur Leukocyte Esterase 3+ (NEGATIVE) 10/06/20 16:30 Urine RBC Tntc /HPF (0-3) A 10/06/20 16:30 Urine WBC Tntc /HPF (0-5) A 10/06/20 16:30 Ur Squamous Epith Cells Moderate /HPF (NEGATIVE) 10/06/20 16:30 Amorphous Sediment 2+ /HPF (NEGATIVE) 10/06/20 16:30 Urine Bacteria 1+ /HPF (NEGATIVE) 10/06/20 16:30 Urine Mucus Many /HPF (NEGATIVE) 10/06/20 16:30 Ur Culture Indicated? Yes/culture set up 10/06/20 16:30 Urine Opiates Screen Negative (NEG=<300) 10/06/20 16:30 Urine Methadone Screen Negative (NEG=<300) 10/06/20 16:30 Ur Barbiturates Screen Negative (NEG=<200) 10/06/20 16:30 Ur Phencyclidine Scrn Negative (NEG=<25) 10/06/20 16:30 Ur Amphetamines Screen Negative (NEG=<1000) 10/06/20 16:30 U Benzodiazepines Scrn Negative (NEG=<200) 10/06/20 16:30 Urine Cocaine Screen Negative (NEG=<300) 10/06/20 16:30 U Marijuana (THC) Screen Negative (NEG=<50) 10/06/20 16:30 - Plan (1) Aspiration pneumonia Status: Acute Qualifiers: Aspiration pneumonia type: unspecified Laterality: bilateral Lung location: lower lobe of lung Qualified Code(s): J69.0 - Pneumonitis due to inhalation of food and vomit Plan: SUPPLEMENTAL OXYGEN, NORMAL SALINE AT 75 ML/HR, LEVAQUIN 750MG IV DAILY, N EB TX, ZANAFLEX 4MG PO BID, SENOKOT 1 TAB PO HS, PHENERGAN 25MG NE PRN, ROXICODONE 20MG PO Q6H PRN, ZOFRAN 4MG IV Q8H PRN NAUSEA, OMEPRAZOLE 20MG PO DAILY, LACTULOSE 60ML PO Q3D, NEURONTIN 100MG PO TID, CYMBALTA 30MG PO BID, COLACE 200MG PO BID, AND LIORESAL 20MG PO QID. RESUME OTHER HOME MEDICATIONS (2) UTI (urinary tract infection) Status: Acute Qualifiers: Urinary tract infection type: acute cystitis Hematuria presence: with hematuria Qualified Code(s): N30.01 - Acute cystitis with hematuria (3) Proteus mirabilis infection Status: Acute (4) Pseudomonas urinary tract infection Status: Acute (5) Hypotension Status: Acute Qualifiers: Hypotension type: unspecified hypotension type Qualified Code(s): I95.9 - Hypotension, unspecified
[2020-10-07] MEDS: XOPENEX 1.25 MG/3 ML NEBULE NEB SCH ×2 (12:15→17:00)
[2020-10-07] MEDS ORDERED: NARCAN INJ IVP ONE (14:55)
[2020-10-07 15:02] LABS: ABG BASE EXCESS -13.6 mmol/L (-2.0-2.0)
[2020-10-07] MEDS: OFIRMEV IV 1000 MG VIAL 1,000 MG/100 ML VIAL IV PRN (15:30)
[2020-10-07] MEDS: ZOSYN VIAL 3.375 GRAMS 3.375 G in NS 100 ML IV + SPIKE MINIBAG* 100 ML IV SCH ×2 (15:30→22:59)
[2020-10-07 15:54] LABS: CKMB % 5.6 % (<4); CREATINE KINASE 55 Units/L (39-308); CREATINE KINASE MB 3.1 ng/mL (0-4.0); TROPONIN I < 0.02 ng/mL (0-1.5)
--- NOTE | 2020-10-07 16:03 | RAD ---
HISTORYUNRESPONSIVESTUDYCHEST, 1 [id number]/28/2021FINDINGSThe cardiomediastinal silhouette is stable. Right chest port unchanged. Similar bibasilar opacities. No pneumothorax. The bony thorax appears intact.IMPRESSIONNo significant change.Electronically signed by: KAREN SANDOVAL (October 07, 2020 16:01:09)
[2020-10-07] MEDS ORDERED: D5W 250 ML IV 250 ML IV ONE (16:18)
[2020-10-07] MEDS ORDERED: LEVOPHED INJ ONE (16:18)
[2020-10-07] MEDS ORDERED: LEVOPHED INJ 8 MG in D5W 250 ML IV 242 ML IV PRN ×2 (16:27→16:30)
[2020-10-07 16:44] LABS: ABG BASE EXCESS -11.5 mmol/L (-2.0-2.0)
[2020-10-07] MEDS: PULMICORT NEB TX 0.5 MG NEB SCH (21:04)
[2020-10-07] MEDS: CHRONULAC PO SCH (21:07)
[2020-10-07] MEDS: SENOKOT PO SCH (21:08)
[2020-10-07 21:33] LABS: CKMB % 4.9 % (<4); CREATINE KINASE MB 2.9 ng/mL (0-4.0); TROPONIN I 0.02 ng/mL (0-1.5)
[2020-10-08] MEDS: XOPENEX 1.25 MG/3 ML NEBULE NEB SCH ×4 (00:13→17:18)
[2020-10-08 03:31] LABS: EOSINOPHILS % (AUTO) 0.1 % (0.9-2.9); LYMPHOCYTES # (AUTO) 0.7 X10^3/uL (1.3-2.9); MEAN PLATELET VOLUME 8.2 fL (7.4-11.0); MONOCYTES # (AUTO) 0.7 x10^3/uL (0.3-0.8)
[2020-10-08 03:37] LABS: BASOPHILS % (AUTO) 0.1 % (0.2-1.0); HEMATOCRIT 35.5 % (42.0-54.0); HEMOGLOBIN 11.5 g/dL (13.5-18.0); LYMPHOCYTES % (AUTO) 7.4 % (21.0-51.0); MEAN CORPUSCULAR HEMOGLOBIN 27.9 pg (27.0-34.0); MEAN CORPUSCULAR HGB CONC 32.3 g/dL (33.0-35.0); MEAN CORPUSCULAR VOLUME 86.3 fL (80.0-100.0); MONOCYTES % (AUTO) 7.1 % (0.0-13.0); NEUTROPHILS % (AUTO) 85.3 % (42.0-75.0); PLATELET COUNT 196 X10^3/uL (150.0-450.0); RED BLOOD COUNT 4.11 X10^6/uL (4.7-6.0); RED CELL DISTRIBUTION WIDTH 16.4 % (11.6-16.5); WHITE BLOOD COUNT 9.4 X10^3/uL (3.6-10.0)
[2020-10-08 03:40] LABS: ALANINE AMINOTRANSFERASE 18 Units/L (12-78); ALBUMIN 2.1 g/dL (3.4-5.0); ALKALINE PHOSPHATASE 49 Units/L (46-116); ASPARTATE AMINO TRANSFERASE 16 Units/L (15-37); BLOOD UREA NITROGEN 39 mg/dL (7-18); CALCIUM 7.6 mg/dL (8.5-10.1); CARBON DIOXIDE 19.1 mmol/L (21-32); CHLORIDE 108 mmol/L (98-107); COR CA(FOR HYPOALB) 9.1 mg/dL (8.5-10.1); CREATININE 1.49 mg/dL (0.70-1.30); SODIUM 140 mmol/L (136-145); TOTAL PROTEIN 5.7 g/dL (6.4-8.2); eGFR NON BLACK RACES 52 (>60)
[2020-10-08 03:48] LABS: CKMB % 3.2 % (<4); CREATINE KINASE MB 2.6 ng/mL (0-4.0); TROPONIN I 0.02 ng/mL (0-1.5)
[2020-10-08 03:57] LABS: METAMYELOCYTES % 7; PLATELET MORPHOLOGY COMMENT NORMAL (NORMAL)
--- NOTE | 2020-10-08 05:52 | RAD ---
HISTORYSOB quadriplegiaSTUDYPortable AP [id number]/28/2020FINDINGSStable cardiomegaly, and bibasal airspace disease, right lower lobe greater than left. Injection port again noted. No developing pleural fluid or pneumothorax.IMPRESSIONNo significant change.Electronically signed by: BENIGNO ARAYA (October 08, 2020 05:50:54)
[2020-10-08] MEDS: ZOSYN VIAL 3.375 GRAMS 3.375 G in NS 100 ML IV + SPIKE MINIBAG* 100 ML IV SCH ×3 (06:00→21:26)
[2020-10-08 06:17] LABS: ABG ALLEN TEST POS; ABG BASE EXCESS -12.1 mmol/L (-2.0-2.0); ABG HCO3 14.7 mmol/L (22-26)
[2020-10-08] MEDS: NEURONTIN CAP 100 MG PO SCH (07:06)
[2020-10-08] MEDS: NS 1000 ML 1,000 ML IV SCH ×2 (08:00→19:24)
[2020-10-08] MEDS: LEVAQUIN PREMIX IV 750 MG 750 MG/150 ML BAG IV SCH (09:02)
[2020-10-08] MEDS: PULMICORT NEB TX 0.5 MG NEB SCH ×2 (09:16→20:15)
[2020-10-08] MEDS ORDERED: ROMAZICON INJ 1 MG IVP ONE (09:22)
[2020-10-08] MEDS ORDERED: NS 100 ML IV 100 ML IV ONE (10:01)
--- NOTE | 2020-10-08 10:07 | PCM.PROG ---
Progress Note Progress Note for Day of Date of Exam: 10/07/20 Subjective Subjective: Called by patient's nurse that patient had event of acute respiratory failure with signs of cyanosis on face and lips, pulse ox rapidly declined to 70s. Immediately went to examine patient, pt with dyspnea and altered mental status. He was placed on BiPAP, ABG was obtained and revealed PH 7.06, PC02 60, P02 65, HC03 17, 02 SAT 81, FI02 60%. Bipap increased to FiO2 100%, which O2 sat responded to, next ABG: PH 7.24, PC02 35, P02 227, HC03 15, 02 SAT 100, FI02 100%. Will continue and adjust BiPAP settings per RT. Labs: Wbc 15.8, Hgb 10.8, Plt 195, Na 135, K 4.1, Creatinine 0.99, Glucose 62, LA 1.0, Troponin negative x3, Ekg sinus tachycardia D-dimer 2.68, Blood cultures pending, Urine culture gram negative rods >100K. CXR no significant change in bibasilar opacities. Pt was given narcan x1 dose that he responded to. Received call that patient became acute hypotensive and vasopressor support started with Levophed gtt, titration per protocol. Add zosyn. Will order CTA chest due to respiratory symptoms with elevated d-dimer. Continue to closely monitor patient. Critical care time spent 30-74 minutes in clinical assessment, reviewing labs/imaging, decision making, and documentation. Past Medical Family Social History Past Med/Fam/Surg Hx: No changes since H&P Allergies: Allergies meperidine [From Demerol] Adverse Reaction (Verified 04/27/20 09:51) oxycodone [From Percocet] Adverse Reaction (Verified 10/02/20 04:10) Review of Systems ROS: No change since H&P Vital Signs and I&O's Vital Signs: Temperature 100.3 F Pulse Rate 125 Respiratory Rate 20 Blood Pressure [Left Arm] 187/94 Blood Pressure 124/60 O2 Sat by Pulse Oximetry 97 Intake and Output: Intake & Output 10/05/20 10/06/20 10/07/20 10/08/20 23:59 23:59 23:59 23:59 Intake Total 3588 / 3588 3740 / 3740 584 / 584 Output Total 450 / 450 900 / 900 240 / 240 Balance 3138 / 3138 2840 / 2840 344 / 344 Physical Exam Oriented: Not Oriented Eyes: Normal Ear: Normal Nose: Normal Throat: Normal Respiratory: Generalized and Diminished Cardiovascular: Tachycardia : Normal Auscultation: Bowel Sounds: Normal Tenderness: Diffuse Skin: Normal Musculoskeletal: Normal Speech Pattern: Unclear Laboratory and Diagnostics Result Diagrams: 10/08/20 03:00 10/08/20 03:00 Labs: 10/06/20 16:30 Urine,Clean Catch Urine Culture - Preliminary Laboratory WBC 9.4 X10^3/uL (3.6-10.0) 10/08/20 03:00 RBC 4.11 X10^6/uL (4.7-6.0) L 10/08/20 03:00 Hgb 11.5 g/dL (13.5-18.0) L 10/08/20 03:00 Hct 35.5 % (42.0-54.0) L 10/08/20 03:00 MCV 86.3 fL (80.0-100.0) 10/08/20 03:00 MCH 27.9 pg (27.0-34.0) 10/08/20 03:00 MCHC 32.3 g/dL (33.0-35.0) L 10/08/20 03:00 RDW 16.4 % (11.6-16.5) 10/08/20 03:00 Plt Count 196 X10^3/uL (150.0-450.0) 10/08/20 03:00 Plt Count Comment Adequate (ADEQUATE) 10/08/20 03:00 MPV 8.2 fL (7.4-11.0) 10/08/20 03:00 Neut % (Auto) 85.3 % (42.0-75.0) H 10/08/20 03:00 Lymph % (Auto) 7.4 % (21.0-51.0) L 10/08/20 03:00 [place] % (Auto) 7.1 % (0.0-13.0) 10/08/20 03:00 Eos % (Auto) 0.1 % (0.9-2.9) L 10/08/20 03:00 Baso % (Auto) 0.1 % (0.2-1.0) L 10/08/20 03:00 Neut # (Auto) 8.0 x10^3/uL (2.2-4.8) H 10/08/20 03:00 Lymph # (Auto) 0.7 X10^3/uL (1.3-2.9) L 10/08/20 03:00 [place] # (Auto) 0.7 x10^3/uL (0.3-0.8) 10/08/20 03:00 Eos # (Auto) 0.0 x10^3/uL (0.0-0.2) 10/08/20 03:00 Baso # (Auto) 0.0 X10^3/uL (0.0-0.1) 10/08/20 03:00 Absolute Nucleated RBC 0.1 /100WBC 10/08/20 03:00 Total Counted 100 10/08/20 03:00 Neutrophils % (Manual) 75 % (39-76) 10/08/20 03:00 Lymphocytes % (Manual) 15 % (13-43) 10/08/20 03:00 Monocytes % (Manual) 3 % (4-9) L 10/08/20 03:00 Metamyelocytes % 7 10/08/20 03:00 Plt Morphology Comment Normal (NORMAL) 10/08/20 03:00 RBC Morphology Normal (NORMAL) 10/08/20 03:00 D-Dimer 2.68 ug/ml (0.0-0.57) H* 10/07/20 15:17 Sample Site Rr 10/08/20 06:01 ABG pH 7.220 (7.35-7.45) L 10/08/20 06:01 ABG pCO2 36.0 mmHg (35.0-45.0) 10/08/20 06:01 ABG pO2 96.0 mmHg (80.0-100.0) 10/08/20 06:01 ABG HCO3 14.7 mmol/L (22-26) L* 10/08/20 06:01 ABG O2 Saturation 96.0 % (90-100) 10/08/20 06:01 ABG Base Excess -12.1 mmol/L (-2.0-2.0) L 10/08/20 06:01 [place] Test Pos 10/08/20 06:01 A-a Gradient 287.0 mmHg 10/08/20 06:01 FiO2 60.0 10/08/20 06:01 Blood Gas Comments Serge well sw 10/08/20 06:01 Sodium 140 mmol/L (136-145) 10/08/20 03:00 Corrected Sodium TNP 10/08/20 03:00 Potassium 3.7 mmol/L (3.5-5.1) 10/08/20 03:00 Chloride 108 mmol/L (98-107) H 10/08/20 03:00 Carbon Dioxide 19.1 mmol/L (21-32) L 10/08/20 03:00 BUN 39 mg/dL (7-18) H 10/08/20 03:00 Creatinine 1.49 mg/dL (0.70-1.30) H 10/08/20 03:00 Est GFR (MDRD) Af Amer > 60 (>60) 10/08/20 03:00 Est GFR (MDRD) Non-Af 52 (>60) L 10/08/20 03:00 Glucose 84 mg/dL (65-99) 10/08/20 03:00 POC Glucose (mg/dL) 106 mg/dL (65-99) H 10/07/20 14:39 Lactic Acid 1.0 mmol/L (0.4-2.0) 10/07/20 16:30 Calcium 7.6 mg/dL (8.5-10.1) L 10/08/20 03:00 Corrected Calcium 9.1 mg/dL (8.5-10.1) 10/08/20 03:00 Total Bilirubin 0.20 mg/dL (0.2-1.0) 10/08/20 03:00 AST 16 Units/L (15-37) 10/08/20 03:00 ALT 18 Units/L (12-78) 10/08/20 03:00 Alkaline Phosphatase 49 Units/L (46-116) 10/08/20 03:00 Creatine Kinase 81 Units/L (39-308) 10/08/20 03:00 CK-MB (CK-2) 2.6 ng/mL (0-4.0) 10/08/20 03:00 CK/CKMB % Calc 3.2 % (<4) 10/08/20 03:00 Troponin I 0.02 ng/mL (0-1.5) 10/08/20 03:00 Total Protein 5.7 g/dL (6.4-8.2) L 10/08/20 03:00 Albumin 2.1 g/dL (3.4-5.0) L 10/08/20 03:00 Globulin 3.6 g/dL (2.5-4.5) 10/08/20 03:00 Albumin/Globulin Ratio 0.6 Ratio (1.1-2.1) L 10/08/20 03:00 Specimen Type Catherized urine 10/06/20 16:30 Urine Color Yellow (YELLOW) 10/06/20 16:30 Urine Appearance Cloudy (CLEAR) 10/06/20 16:30 Urine pH 7.0 (5.0 - 8.0) 10/06/20 16:30 Ur Specific [place] 1.010 (1.000-1.030) 10/06/20 16:30 Urine Protein 2+ (NEGATIVE) 10/06/20 16:30 Urine Glucose (UA) Negative (NEGATIVE) 10/06/20 16: Urine Ketones 2+ (NEGATIVE) 10/06/20 16:30 Urine Occult Blood 5+ (NEGATIVE) 10/06/20 16:30 Urine Nitrite Negative (NEGATIVE) 10/06/20 16: Urine Bilirubin Negative (NEGATIVE) 10/06/20 16:30 Urine Urobilinogen Normal (NORMAL) 10/06/20 16:30 Ur Leukocyte Esterase 3+ (NEGATIVE) 10/06/20 16:30 Urine RBC Tntc /HPF (0-3) A 10/06/20 16:30 Urine WBC Tntc /HPF (0-5) A 10/06/20 16:30 Ur Squamous Epith Cells Moderate /HPF (NEGATIVE) 10/06/20 16:30 Amorphous Sediment 2+ /HPF (NEGATIVE) 10/06/20 16:30 Urine Bacteria 1+ /HPF (NEGATIVE) 10/06/20 16:30 Urine Mucus Many /HPF (NEGATIVE) 10/06/20 16:30 Ur Culture Indicated? Yes/culture set up 10/06/20 16:30 Urine Opiates Screen Negative (NEG=<300) 10/06/20 16:30 Urine Methadone Screen Negative (NEG=<300) 10/06/20 16:30 Ur Barbiturates Screen Negative (NEG=<200) 10/06/20 16:30 Ur Phencyclidine Scrn Negative (NEG=<25) 10/06/20 16:30 Ur Amphetamines Screen Negative (NEG=<1000) 10/06/20 16:30 U Benzodiazepines Scrn Negative (NEG=<200) 10/06/20 16:30 Urine Cocaine Screen Negative (NEG=<300) 10/06/20 16:30 U Marijuana (THC) Screen Negative (NEG=<50) 10/06/20 16:30 Plan (1) Aspiration pneumonia: Status: Acute Qualifiers: Aspiration pneumonia type: unspecified Laterality: bilateral Lung location: lower lobe of lung Qualified Code(s): J69.0 - Pneumonitis due to inhalation of food and vomit Plan: SUPPLEMENTAL OXYGEN, NORMAL SALINE AT 75 ML/HR, LEVAQUIN 750MG IV DAILY, NEB TX, ZANAFLEX 4MG PO BID, SENOKOT 1 TAB PO HS, PHENERGAN 25MG [place] PRN, ROXICODONE 20MG PO Q6H PRN, ZOFRAN 4MG IV Q8H PRN NAUSEA, OMEPRAZOLE 20MG PO DAILY, LACTULOSE 60ML PO Q3D, NEURONTIN 100MG PO TID, CYMBALTA 30MG PO BID, COLACE 200MG PO BID, AND LIORESAL 20MG PO QID. RESUME OTHER HOME MEDICATIONS (2) UTI (urinary tract infection): Status: Acute Qualifiers: Hematuria presence: with hematuria Urinary tract infection type: acute cystitis Qualified Code(s): N30.01 - Acute cystitis with hematuria (3) Proteus mirabilis infection: Status: Acute (4) Pseudomonas urinary tract infection: Status: Acute (5) Hypotension: Status: Acute Qualifiers: Hypotension type: unspecified hypotension type Qualified Code(s): I95.9 - Hypotension, unspecified (6) Acute respiratory failure: Status: Acute
--- NOTE | 2020-10-08 10:24 | PCM.PROG ---
Progress Note Progress Note for Day of Date of Exam: 10/08/20 Subjective Subjective: PT IS A 55 YEAR OLD MALE PAST MEDICAL HISTORY OF QUADRAPLEGIC ADMITTED FOR ASPIRATION PNEUMONIA, ACUTE RESPIRATORY FAILURE, UROSEPSIS, AND ALTERED MENTAL STATUS. THIS MORNING HE REMAINS ON BIPAP SUPPORT. HE IS AWAKE AND RESPONDS TO VERBAL STIMULI HOWEVER DIFFICULTY TO DETERMINE IF APPROPRIATE. ON EXAMINATION, HEART IS TACHYCARDIC. BILATERAL LUNGS ARE NOTED WITH DIMINISHED LUNG SOUNDS THROUGHOUT. ABDOMEN IS ROUND, SOFT, AND NON-TENDER WITH NORMAL BOWEL SOUNDS NOTED IN ALL QUADRANTS. ARENAS CATHETER NOTED TO BEDSIDE DRAINAGE. HE WAS ABLE TO BE WEANED OFF LEVOPHED GTT THIS MORNING AND BLOOD PRESSURE HAS STABILIZED. LABS/IMAGING: WBC 9.4, HGB 11.5, PLT 196, NA 140, K 3.7, CREATININE 1.49, GLUCOSE 84, ABG: PH 7.22, PC02 36, P02 96, HC03 14.7, 02 SAT 96, FI02 60%. URINE CULTURE GRAM NEGATIVE RODS >100K AND BLOOD CULTURES ARE PENDING. A CHEST XRAY WAS OBTAINED THAT REVEALED: NO SIGNIFICANT CHANGE IN BILATERAL LOWER LOBE OPACITIES. HE IS CURRENTLY RECEIVING NORMAL SALINE AT 75 ML/HR, WILL INCREASE TO 125ML/H, ANTIBIOTICS: LEVAQUIN, ZOSYN. HOLD PAIN MEDICATION AND OTHER SEDATING MEDICATIONS. CTA CHEST PENDING, ORDER CT HEAD DUE TO DILATED AND SLUGGISH PUPILLARY RESPONSE, WILL GIVE ONE DOSE OF FLUMAZENIL TO SEE IF ANY RESPONSE, OTHERWISE CONSIDER ANOTHER DOSE OF NARCAN AND ASSESS MENTAL RESPONSE. CONTINUE TO MONITOR PATIENT CLOSELY. TIME SPENT ON CLINICAL ASSESSMENT, REVIEWING LABS AND IMAGING, DECISION MAKING, AND DOCUMENTATION GREATER THAN 75 MINUTES. CRITICAL CARE TIME SPENT 30-74 MINUTES IN CLINCAL ASSESSMENT, REVIEWING LABS/IMAGING, DECISION MAKING, AND DOCUMENTATION. Past Medical Family Social History Past Med/Fam/Surg Hx: No changes since H&P Allergies: Allergies meperidine [From Demerol] Adverse Reaction (Verified 04/27/20 09:51) oxycodone [From Percocet] Adverse Reaction (Verified 10/02/20 04:10) Review of Systems ROS: No change since H&P Vital Signs and I&O's Vital Signs: Temperature 100.3 F Pulse Rate 125 Respiratory Rate 20 Blood Pressure [Left Arm] 187/94 Blood Pressure 124/60 O2 Sat by Pulse Oximetry 97 Intake and Output: Intake & Output 10/05/20 10/06/20 10/07/20 10/08/20 23:59 23:59 23:59 23:59 Intake Total 3588 / 3588 3740 / 3740 584 / 584 Output Total 450 / 450 900 / 900 240 / 240 Balance 3138 / 3138 2840 / 2840 344 / 344 Physical Exam Oriented: Not Oriented Eyes: Normal Ear: Normal Nose: Normal Throat: Normal Respiratory: Generalized and Diminished Cardiovascular: Tachycardia : Normal Auscultation: Bowel Sounds: Normal Tenderness: Diffuse Skin: Normal Musculoskeletal: Normal Psychiatric: Normal Mood Description: Calm Affect: Normal Speech Pattern: Unclear Laboratory and Diagnostics Result Diagrams: 10/08/20 03:00 10/08/20 03:00 Labs: 10/06/20 16:30 Urine,Clean Catch Urine Culture - Preliminary Laboratory WBC 9.4 X10^3/uL (3.6-10.0) 10/08/20 03:00 RBC 4.11 X10^6/uL (4.7-6.0) L 10/08/20 03:00 Hgb 11.5 g/dL (13.5-18.0) L 10/08/20 03:00 Hct 35.5 % (42.0-54.0) L 10/08/20 03:00 MCV 86.3 fL (80.0-100.0) 10/08/20 03:00 MCH 27.9 pg (27.0-34.0) 10/08/20 03:00 MCHC 32.3 g/dL (33.0-35.0) L 10/08/20 03:00 RDW 16.4 % (11.6-16.5) 10/08/20 03:00 Plt Count 196 X10^3/uL (150.0-450.0) 10/08/20 03:00 Plt Count Comment Adequate (ADEQUATE) 10/08/20 03:00 MPV 8.2 fL (7.4-11.0) 10/08/20 03:00 Neut % (Auto) 85.3 % (42.0-75.0) H 10/08/20 03:00 Lymph % (Auto) 7.4 % (21.0-51.0) L 10/08/20 03:00 [place] % (Auto) 7.1 % (0.0-13.0) 10/08/20 03:00 Eos % (Auto) 0.1 % (0.9-2.9) L 10/08/20 03:00 Baso % (Auto) 0.1 % (0.2-1.0) L 10/08/20 03:00 Neut # (Auto) 8.0 x10^3/uL (2.2-4.8) H 10/08/20 03:00 Lymph # (Auto) 0.7 X10^3/uL (1.3-2.9) L 10/08/20 03:00 [place] # (Auto) 0.7 x10^3/uL (0.3-0.8) 10/08/20 03:00 Eos # (Auto) 0.0 x10^3/uL (0.0-0.2) 10/08/20 03:00 Baso # (Auto) 0.0 X10^3/uL (0.0-0.1) 10/08/20 03:00 Absolute Nucleated RBC 0.1 /100WBC 10/08/20 03:00 Total Counted 100 10/08/20 03:00 Neutrophils % (Manual) 75 % (39-76) 10/08/20 03:00 Lymphocytes % (Manual) 15 % (13-43) 10/08/20 03:00 Monocytes % (Manual) 3 % (4-9) L 10/08/20 03:00 Metamyelocytes % 7 10/08/20 03:00 Plt Morphology Comment Normal (NORMAL) 10/08/20 03:00 RBC Morphology Normal (NORMAL) 10/08/20 03:00 D-Dimer 2.68 ug/ml (0.0-0.57) H* 10/07/20 15:17 Sample Site Rr 10/08/20 06:01 ABG pH 7.220 (7.35-7.45) L 10/08/20 06:01 ABG pCO2 36.0 mmHg (35.0-45.0) 10/08/20 06:01 ABG pO2 96.0 mmHg (80.0-100.0) 10/08/20 06:01 ABG HCO3 14.7 mmol/L (22-26) L* 10/08/20 06:01 ABG O2 Saturation 96.0 % (90-100) 10/08/20 06:01 ABG Base Excess -12.1 mmol/L (-2.0-2.0) L 10/08/20 06:01 [place] Test Pos 10/08/20 06:01 A-a Gradient 287.0 mmHg 10/08/20 06:01 FiO2 60.0 10/08/20 06:01 Blood Gas Comments Serge well sw 10/08/20 06:01 Sodium 140 mmol/L (136-145) 10/08/20 03:00 Corrected Sodium TNP 10/08/20 03:00 Potassium 3.7 mmol/L (3.5-5.1) 10/08/20 03:00 Chloride 108 mmol/L (98-107) H 10/08/20 03:00 Carbon Dioxide 19.1 mmol/L (21-32) L 10/08/20 03:00 BUN 39 mg/dL (7-18) H 10/08/20 03:00 Creatinine 1.49 mg/dL (0.70-1.30) H 10/08/20 03:00 Est GFR (MDRD) Af Amer > 60 (>60) 10/08/20 03:00 Est GFR (MDRD) Non-Af 52 (>60) L 10/08/20 03:00 Glucose 84 mg/dL (65-99) 10/08/20 03:00 POC Glucose (mg/dL) 106 mg/dL (65-99) H 10/07/20 14:39 Lactic Acid 1.0 mmol/L (0.4-2.0) 10/07/20 16:30 Calcium 7.6 mg/dL (8.5-10.1) L 10/08/20 03:00 Corrected Calcium 9.1 mg/dL (8.5-10.1) 10/08/20 03:00 Total Bilirubin 0.20 mg/dL (0.2-1.0) 10/08/20 03:00 AST 16 Units/L (15-37) 10/08/20 03:00 ALT 18 Units/L (12-78) 10/08/20 03:00 Alkaline Phosphatase 49 Units/L (46-116) 10/08/20 03:00 Creatine Kinase 81 Units/L (39-308) 10/08/20 03:00 CK-MB (CK-2) 2.6 ng/mL (0-4.0) 10/08/20 03:00 CK/CKMB % Calc 3.2 % (<4) 10/08/20 03:00 Troponin I 0.02 ng/mL (0-1.5) 10/08/20 03:00 Total Protein 5.7 g/dL (6.4-8.2) L 10/08/20 03:00 Albumin 2.1 g/dL (3.4-5.0) L 10/08/20 03:00 Globulin 3.6 g/dL (2.5-4.5) 10/08/20 03:00 Albumin/Globulin Ratio 0.6 Ratio (1.1-2.1) L 10/08/20 03:00 Specimen Type Catherized urine 10/06/20 16:30 Urine Color Yellow (YELLOW) 10/06/20 16:30 Urine Appearance Cloudy (CLEAR) 10/06/20 16:30 Urine pH 7.0 (5.0 - 8.0) 10/06/20 16:30 Ur Specific [place] 1.010 (1.000-1.030) 10/06/20 16:30 Urine Protein 2+ (NEGATIVE) 10/06/20 16:30 Urine Glucose (UA) Negative (NEGATIVE) 10/06/20 16:30 Urine Ketones 2+ (NEGATIVE) 10/06/20 16:30 Urine Occult Blood 5+ (NEGATIVE) 10/06/20 16:30 Urine Nitrite Negative (NEGATIVE) 10/06/20 16: Urine Bilirubin Negative (NEGATIVE) 10/06/20 16:30 Urine Urobilinogen Normal (NORMAL) 10/06/20 16:30 Ur Leukocyte Esterase 3+ (NEGATIVE) 10/06/20 16:30 Urine RBC Tntc /HPF (0-3) A 10/06/20 16:30 Urine WBC Tntc /HPF (0-5) A 10/06/20 16:30 Ur Squamous Epith Cells Moderate /HPF (NEGATIVE) 10/06/20 16:30 Amorphous Sediment 2+ /HPF (NEGATIVE) 10/06/20 16:30 Urine Bacteria 1+ /HPF (NEGATIVE) 10/06/20 16:30 Urine Mucus Many /HPF (NEGATIVE) 10/06/20 16:30 Ur Culture Indicated? Yes/culture set up 10/06/20 16:30 Urine Opiates Screen Negative (NEG=<300) 10/06/20 16:30 Urine Methadone Screen Negative (NEG=<300) 10/06/20 16:30 Ur Barbiturates Screen Negative (NEG=<200) 10/06/20 16:30 Ur Phencyclidine Scrn Negative (NEG=<25) 10/06/20 16:30 Ur Amphetamines Screen Negative (NEG=<1000) 10/06/20 16:30 U Benzodiazepines Scrn Negative (NEG=<200) 10/06/20 16:30 Urine Cocaine Screen Negative (NEG=<300) 10/06/20 16:30 U Marijuana (THC) Screen Negative (NEG=<50) 10/06/20 16:30 Plan (1) Aspiration pneumonia: Status: Acute Qualifiers: Aspiration pneumonia type: unspecified Laterality: bilateral Lung location: lower lobe of lung Qualified Code(s): J69.0 - Pneumonitis due to inhalation of food and vomit Plan: SUPPLEMENTAL OXYGEN, NORMAL SALINE AT 75 ML/HR, LEVAQUIN 750MG IV DAILY, NEB TX, ZANAFLEX 4MG PO BID, SENOKOT 1 TAB PO HS, PHENERGAN 25MG [place] PRN, ROXICODONE 20MG PO Q6H PRN, ZOFRAN 4MG IV Q8H PRN NAUSEA, OMEPRAZOLE 20MG PO DAILY, LACTULOSE 60ML PO Q3D, NEURONTIN 100MG PO TID, CYMBALTA 30MG PO BID, COLACE 200MG PO BID, AND LIORESAL 20MG PO QID. RESUME OTHER HOME MEDICATIONS (2) UTI (urinary tract infection): Status: Acute Qualifiers: Hematuria presence: with hematuria Urinary tract infection type: acute cystitis Qualified Code(s): N30.01 - Acute cystitis with hematuria (3) Proteus mirabilis infection: Status: Acute (4) Pseudomonas urinary tract infection: Status: Acute (5) Hypotension: Status: Acute Qualifiers: Hypotension type: unspecified hypotension type Qualified Code(s): I95.9 - Hypotension, unspecified (6) Acute respiratory failure: Status: Acute
[2020-10-08] MEDS ORDERED: NARCAN INJ IVP ONE (11:13)
[2020-10-08] MEDS ORDERED: LOPRESSOR INJ 5 MG AMP IVP ONE (12:16)
[2020-10-08] MEDS ORDERED: LOPRESSOR INJ 5 MG AMP ONE (12:24)
[2020-10-08] MEDS: CYMBALTA PO SCH ×2 (12:28→20:43)
[2020-10-08] MEDS: COLACE CAP 100 MG PO SCH ×2 (12:28→20:43)
[2020-10-08] MEDS: PriLOSEC PO SCH (12:29)
[2020-10-08] MEDS: LIORESAL PO SCH (12:29)
[2020-10-08] MEDS: ZANAFLEX PO SCH (12:29)
[2020-10-08] MEDS: MORPHINE SULFATE INJ 2 MG INJ IVP PRN ×2 (15:32→23:33)
[2020-10-08] MEDS ORDERED: ROBITUSSIN DM PO PRN (20:35)
[2020-10-08] MEDS: SENOKOT PO SCH (20:42)
[2020-10-08] MEDS: CHRONULAC PO SCH (20:48)
[2020-10-09] MEDS: NS 1000 ML 1,000 ML IV SCH ×3 (03:50→23:00)
[2020-10-09] MEDS: XOPENEX 1.25 MG/3 ML NEBULE NEB SCH ×4 (05:45→17:38)
--- NOTE | 2020-10-09 06:06 | RAD ---
HISTORYSOBSTUDYPortable AP [id number]-stable heart size and contour. No change in appearance of th e right basal infiltrate. However there is interval increase in a similar airspace process in the lef t lower lung. The upper lobes remain clear. Stable position of injection port.IMPRESSIONBibasal infil trates/pneumonia, increasing in the left lower lobe since 1 day prior.Electronically signed by: LOPEZ ARAYA (October 09, 2020 06:04:18)
[2020-10-09] MEDS: ZOSYN VIAL 3.375 GRAMS 3.375 G in NS 100 ML IV + SPIKE MINIBAG* 100 ML IV SCH ×3 (06:08→22:00)
[2020-10-09 06:16] LABS: BASOPHILS # (AUTO) 0.1 X10^3/uL (0.0-0.1); BASOPHILS % (AUTO) 0.9 % (0.2-1.0); EOSINOPHILS % (AUTO) 0.2 % (0.9-2.9); HEMATOCRIT 30.3 % (42.0-54.0); HEMOGLOBIN 10.2 g/dL (13.5-18.0); LYMPHOCYTES # (AUTO) 0.8 X10^3/uL (1.3-2.9); LYMPHOCYTES % (AUTO) 7.8 % (21.0-51.0); MEAN CORPUSCULAR HEMOGLOBIN 28.4 pg (27.0-34.0); MEAN CORPUSCULAR HGB CONC 33.7 g/dL (33.0-35.0); MEAN CORPUSCULAR VOLUME 84.4 fL (80.0-100.0); MEAN PLATELET VOLUME 8.3 fL (7.4-11.0); MONOCYTES # (AUTO) 0.7 x10^3/uL (0.3-0.8); MONOCYTES % (AUTO) 6.9 % (0.0-13.0); NEUTROPHILS # (AUTO) 9.1 x10^3/uL (2.2-4.8); NEUTROPHILS % (AUTO) 84.2 % (42.0-75.0); PLATELET COUNT 209 X10^3/uL (150.0-450.0); RED BLOOD COUNT 3.59 X10^6/uL (4.7-6.0); RED CELL DISTRIBUTION WIDTH 16.6 % (11.6-16.5); WHITE BLOOD COUNT 10.8 X10^3/uL (3.6-10.0)
[2020-10-09 06:21] LABS: ALANINE AMINOTRANSFERASE 17 Units/L (12-78); ALBUMIN 1.9 g/dL (3.4-5.0); ALKALINE PHOSPHATASE 48 Units/L (46-116); ASPARTATE AMINO TRANSFERASE 17 Units/L (15-37); BLOOD UREA NITROGEN 39 mg/dL (7-18); CARBON DIOXIDE 15.2 mmol/L (21-32); CHLORIDE 108 mmol/L (98-107); COR CA(FOR HYPOALB) 9.7 mg/dL (8.5-10.1); CREATININE 1.38 mg/dL (0.70-1.30); SODIUM 140 mmol/L (136-145); TOTAL PROTEIN 5.5 g/dL (6.4-8.2); eGFR NON BLACK RACES 57 (>60)
[2020-10-09] MEDS ORDERED: K-DUR TAB 20 MEQ PO PRN ×2 (06:25→07:39)
[2020-10-09] MEDS ORDERED: POTASSIUM CHLORIDE LIQ 20 MEQ UDC PO PRN (06:25)
[2020-10-09] MEDS ORDERED: MICRO K EXTEN CAP 10 MEQ PO PRN (06:25)
[2020-10-09] MEDS ORDERED: POTASSIUM CHL 60 MEQ/NS 0.45% 500 ML IV PRN (06:25)
[2020-10-09] MEDS ORDERED: POTASSIUM CHL 40 MEQ/NS 0.45% 500 ML IV PRN (06:25)
[2020-10-09] MEDS ORDERED: KLOR-CON ONE (06:41)
[2020-10-09] MEDS: KLOR-CON PO PRN (06:44)
[2020-10-09] MEDS: MORPHINE SULFATE INJ 2 MG INJ IVP PRN ×2 (06:47→11:52)
[2020-10-09 07:30] LABS: BAND NEUTROPHILS % 10 % (0-10); PLATELET MORPHOLOGY COMMENT NORMAL (NORMAL)
[2020-10-09] MEDS: CYMBALTA PO SCH ×2 (08:00→20:00)
[2020-10-09] MEDS: LEVAQUIN PREMIX IV 750 MG 750 MG/150 ML BAG IV SCH (08:00)
[2020-10-09] MEDS: PriLOSEC PO SCH (08:00)
[2020-10-09] MEDS: COLACE CAP 100 MG PO SCH ×2 (08:00→20:00)
[2020-10-09] MEDS: MAGNESIUM SULFATE 1 GRAM/100 mL PREMIX 1 GM/100 ML BAG IV PRN ×2 (08:01→11:04)
[2020-10-09] MEDS: PULMICORT NEB TX 0.5 MG NEB SCH ×2 (09:17→21:05)
[2020-10-09] MEDS ORDERED: ROXICODONE TAB 5 MG PO PRN ×2 (09:44→09:51)
--- NOTE | 2020-10-09 10:23 | PCM.PROG ---
Progress Note Progress Note for Day of Date of Exam: 10/09/20 Subjective Subjective: PT IS A 55 YEAR OLD MALE PAST MEDICAL HISTORY OF QUADRAPLEGIC ADMITTED FOR ASPIRATION PNEUMONIA, ACUTE RESPIRATORY FAILURE, UROSEPSIS, AND ALTERED MENTAL STATUS. YESTERDAY PATIENT RECEIVED NARCAN AND IMMEDIATELY AFTER STARTED HAVING SOME IMPROVEMENT IN MENTAL STATUS. THIS MORNING HE SHOWS SI GNIFICANT IMPROVEMENT IN ALERTNESS AND RESPIRATORY STATUS. HE IS AWAKE AND CONVERSATIONAL. HE NO LONGER REQUIRES BIPAP SUPPORT AND IS CURRENTLY ON 2L NASAL CANNULA. LABS/IMAGING: WBC 10.8, HGB 10.2, PLT 209, NA 140, K 2.6, CREATININE 1.38, GLUCOSE 79. URINE CULTURE GRAM NEGATIVE RODS >100K AND BLOOD CULTURES ARE PENDING. A CHEST XRAY WAS OBTAINED THAT REVEALED: Bibasal infiltrates/pneumonia, increasing in the left lower lobe since 1 day prior. HE IS CURRENTLY RECEIVING NORMAL SALINE AT 125ML/H, ANTIBIOTICS: LEVAQUIN, ZOSYN. PATIENT IS COMPLAINING OF PAIN, WILL RESTART OXYCODONE BUT AT HALF OF HIS HOME DOSE AND HOLD ALL OTHER SEDATING MEDICATIONS. REPLETE HYPOKALEMIA. CONTINUE TO MONITOR PATIENT CLOSELY. TIME SPENT ON CLINICAL ASSESSMENT, REVIEWING LABS AND IMAGING, DECISION MAKING, AND DOCUMENTATION GREATER THAN 45 MINUTES. Past Medical Family Social History Past Med/Fam/Surg Hx: No changes since H&P Allergies: Allergies meperidine [From Demerol] Adverse Reaction (Verified 04/27/20 09:51) oxycodone [From Percocet] Adverse Reaction (Verified 10/02/20 04:10) Review of Systems ROS: No change since H&P Vital Signs and I&O's Vital Signs: Temperature 99.3 F Pulse Rate 102 Respiratory Rate 23 Blood Pressure [Left Arm] 187/94 Blood Pressure 117/58 O2 Sat by Pulse Oximetry 96 Intake and Output: Intake & Output 10/06/20 10/07/20 10/08/20 10/09/20 23:59 23:59 23:59 23:59 Intake Total 3588 / 3588 3740 / 3740 2633 / 2633 917 / 917 Output Total 450 / 450 900 / 900 715 / 715 275 / 275 Balance 3138 / 3138 2840 / 2840 1918 / 1918 642 / 642 Physical Exam Oriented: Normal Eyes: Normal Ear: Normal Nose: Normal Throat: Normal Respiratory: Generalized and Diminished Cardiovascular: Normal : Normal Auscultation: Bowel Sounds: Normal Tenderness: Diffuse Skin: Normal Musculoskeletal: Normal Psychiatric: Normal Mood Description: Calm Affect: Normal Speech Pattern: Appropriate Laboratory and Diagnostics Result Diagrams: 10/09/20 05:40 10/09/20 05:40 Labs: 10/06/20 14:25 Blood Blood Culture - Preliminary 10/06/20 14:17 Blood Blood Culture - Preliminary 10/06/20 16:30 Urine,Clean Catch Urine Culture - Preliminary Laboratory WBC 10.8 X10^3/uL (3.6-10.0) H 10/09/20 05:40 RBC 3.59 X10^6/uL (4.7-6.0) L 10/09/20 05:40 Hgb 10.2 g/dL (13.5-18.0) L 10/09/20 05:40 Hct 30.3 % (42.0-54.0) L 10/09/20 05:40 MCV 84.4 fL (80.0-100.0) 10/09/20 05:40 MCH 28.4 pg (27.0-34.0) 10/09/20 05:40 MCHC 33.7 g/dL (33.0-35.0) 10/09/20 05:40 RDW 16.6 % (11.6-16.5) H 10/09/20 05:40 Plt Count 209 X10^3/uL (150.0-450.0) 10/09/20 05:40 Plt Count Comment Adequate (ADEQUATE) 10/09/20 05:40 MPV 8.3 fL (7.4-11.0) 10/09/20 05:40 Neut % (Auto) 84.2 % (42.0-75.0) H 10/09/20 05:40 Lymph % (Auto) 7.8 % (21.0-51.0) L 10/09/20 05:40 [place] % (Auto) 6.9 % (0.0-13.0) 10/09/20 05:40 Eos % (Auto) 0.2 % (0.9-2.9) L 10/09/20 05:40 Baso % (Auto) 0.9 % (0.2-1.0) 10/09/20 05:40 Neut # (Auto) 9.1 x10^3/uL (2.2-4.8) H 10/09/20 05:40 Lymph # (Auto) 0.8 X10^3/uL (1.3-2.9) L 10/09/20 05:40 [place] # (Auto) 0.7 x10^3/uL (0.3-0.8) 10/09/20 05:40 Eos # (Auto) 0.0 x10^3/uL (0.0-0.2) 10/09/20 05:40 Baso # (Auto) 0.1 X10^3/uL (0.0-0.1) 10/09/20 05:40 Absolute Nucleated RBC 0.0 /100WBC 10/09/20 05:40 Total Counted 100 10/09/20 05:40 Neutrophils % (Manual) 74 % (39-76) 10/09/20 05:40 Band Neutrophils % 10 % (0-10) 10/09/20 05:40 Lymphocytes % (Manual) 10 % (13-43) L 10/09/20 05:40 Monocytes % (Manual) 6 % (4-9) 10/09/20 05:40 Metamyelocytes % 7 10/08/20 03:00 Plt Morphology Comment Normal (NORMAL) 10/09/20 05:40 RBC Morphology Normal (NORMAL) 10/09/20 05:40 D-Dimer 2.68 ug/ml (0.0-0.57) H* 10/07/20 15:17 Sample Site Rr 10/08/20 06:01 ABG pH 7.220 (7.35-7.45) L 10/08/20 06:01 ABG pCO2 36.0 mmHg (35.0-45.0) 10/08/20 06:01 ABG pO2 96.0 mmHg (80.0-100.0) 10/08/20 06:01 ABG HCO3 14.7 mmol/L (22-26) L* 10/08/20 06:01 ABG O2 Saturation 96.0 % (90-100) 10/08/20 06:01 ABG Base Excess -12.1 mmol/L (-2.0-2.0) L 10/08/20 06:01 [place] Test Pos 10/08/20 06:01 A-a Gradient 287.0 mmHg 10/08/20 06:01 FiO2 60.0 10/08/20 06:01 Blood Gas Comments Serge well sw 10/08/20 06:01 Sodium 140 mmol/L (136-145) 10/09/20 05:40 Corrected Sodium TNP 10/09/20 05:40 Potassium 2.6 mmol/L (3.5-5.1) L* 10/09/20 05:40 Chloride 108 mmol/L (98-107) H 10/09/20 05:40 Carbon Dioxide 15.2 mmol/L (21-32) L 10/09/20 05:40 BUN 39 mg/dL (7-18) H 10/09/20 05:40 Creatinine 1.38 mg/dL (0.70-1.30) H 10/09/20 05:40 Est GFR (MDRD) Af Amer > 60 (>60) 10/09/20 05:40 Est GFR (MDRD) Non-Af 57 (>60) L 10/09/20 05:40 Glucose 79 mg/dL (65-99) 10/09/20 05:40 POC Glucose (mg/dL) 106 mg/dL (65-99) H 10/07/20 14:39 Lactic Acid 1.0 mmol/L (0.4-2.0) 10/07/20 16:30 Calcium 8.0 mg/dL (8.5-10.1) L 10/09/20 05:40 Corrected Calcium 9.7 mg/dL (8.5-10.1) 10/09/20 05:40 Magnesium 1.5 mg/dL (1.7-2.9) L 10/09/20 05:40 Total Bilirubin 0.20 mg/dL (0.2-1.0) 10/09/20 05:40 AST 17 Units/L (15-37) 10/09/20 05:40 ALT 17 Units/L (12-78) 10/09/20 05:40 Alkaline Phosphatase 48 Units/L (46-116) 10/09/20 05:40 Creatine Kinase 81 Units/L (39-308) 10/08/20 03:00 CK-MB (CK-2) 2.6 ng/mL (0-4.0) 10/08/20 03:00 CK/CKMB % Calc 3.2 % (<4) 10/08/20 03:00 Troponin I 0.02 ng/mL (0-1.5) 10/08/20 03:00 Total Protein 5.5 g/dL (6.4-8.2) L 10/09/20 05:40 Albumin 1.9 g/dL (3.4-5.0) L 10/09/20 05:40 Globulin 3.6 g/dL (2.5-4.5) 10/09/20 05:40 Albumin/Globulin Ratio 0.5 Ratio (1.1-2.1) L 10/09/20 05:40 Specimen Type Catherized urine 10/06/20 16:30 Urine Color Yellow (YELLOW) 10/06/20 16:30 Urine Appearance Cloudy (CLEAR) 10/06/20 16:30 Urine pH 7.0 (5.0 - 8.0) 10/06/20 16:30 Ur Specific [place] 1.010 (1.000-1.030) 10/06/20 16:30 Urine Protein 2+ (NEGATIVE) 10/06/20 16:30 Urine Glucose (UA) Negative (NEGATIVE) 10/06/20 16:30 Urine Ketones 2+ (NEGATIVE) 10/06/20 16:30 Urine Occult Blood 5+ (NEGATIVE) 10/06/20 16:30 Urine Nitrite Negative (NEGATIVE) 10/06/20 16:30 Urine Bilirubin Negative (NEGATIVE) 10/06/20 16:30 Urine Urobilinogen Normal (NORMAL) 10/06/20 16:30 Ur Leukocyte Esterase 3+ (NEGATIVE) 10/06/20 16:30 Urine RBC Tntc /HPF (0-3) A 10/06/20 16:30 Urine WBC Tntc /HPF (0-5) A 10/06/20 16:30 Ur Squamous Epith Cells Moderate /HPF (NEGATIVE) 10/06/20 16:30 Amorphous Sediment 2+ /HPF (NEGATIVE) 10/06/20 16:30 Urine Bacteria 1+ /HPF (NEGATIVE) 10/06/20 16:30 Urine Mucus Many /HPF (NEGATIVE) 10/06/20 16:30 Ur Culture Indicated? Yes/culture set up 10/06/20 16:30 Urine Opiates Screen Negative (NEG=<300) 10/06/20 16:30 Urine Methadone Screen Negative (NEG=<300) 10/06/20 16:30 Ur Barbiturates Screen Negative (NEG=<200) 10/06/20 16:30 Ur Phencyclidine Scrn Negative (NEG=<25) 10/06/20 16:30 Ur Amphetamines Screen Negative (NEG=<1000) 10/06/20 16:30 U Benzodiazepines Scrn Negative (NEG=<200) 10/06/20 16:30 Urine Cocaine Screen Negative (NEG=<300) 10/06/20 16:30 U Marijuana (THC) Screen Negative (NEG=<50) 10/06/20 16:30 Plan (1) Aspiration pneumonia: Status: Acute Qualifiers: Aspiration pneumonia type: unspecified Laterality: bilateral Lung location: lower lobe of lung Qualified Code(s): J69.0 - Pneumonitis due to inhalation of food and vomit Plan: SUPPLEMENTAL OXYGEN, NORMAL SALINE AT 75 ML/HR, LEVAQUIN 750MG IV DAILY, NEB TX, ZANAFLEX 4MG PO BID, SENOKOT 1 TAB PO HS, PHENERGAN 25MG CT PRN, ROXICODONE 20MG PO Q6H PRN, ZOFRAN 4MG IV Q8H PRN NAUSEA, OMEPRAZOLE 20MG PO DAILY, LACTULOSE 60ML PO Q3D, NEURONTIN 100MG PO TID, CYMBALTA 30MG PO BID, COLACE 200MG PO BID, AND LIORESAL 20MG PO QID. RESUME OTHER HOME MEDICATIONS (2) UTI (urinary tract infection): Status: Acute Qualifiers: Hematuria presence: with hematuria Urinary tract infection type: acute cystitis Qualified Code(s): N30.01 - Acute cystitis with hematuria (3) Proteus mirabilis infection: Status: Acute (4) Pseudomonas urinary tract infection: Status: Acute (5) Hypotension: Status: Acute Qualifiers: Hypotension type: unspecified hypotension type Qualified Code(s): I95.9 - Hypotension, unspecified (6) Acute respiratory failure: Status: Acute
[2020-10-09] MEDS: NEURONTIN CAP 100 MG PO SCH ×2 (14:46→22:00)
[2020-10-09] MEDS: SENOKOT PO SCH (20:00)
[2020-10-09] MEDS: ROXICODONE TAB 5 MG PO PRN (20:01)
[2020-10-09] MEDS: ZOFRAN INJ 4 MG VIAL IVP PRN (21:10)
[2020-10-10] MEDS: XOPENEX 1.25 MG/3 ML NEBULE NEB SCH ×4 (00:55→17:00)
[2020-10-10] MEDS: NS 1000 ML 1,000 ML IV SCH ×2 (01:07→13:33)
[2020-10-10 05:17] LABS: BASOPHILS # (AUTO) 0.1 X10^3/uL (0.0-0.1); BASOPHILS % (AUTO) 0.4 % (0.2-1.0); EOSINOPHILS # (AUTO) 0.3 x10^3/uL (0.0-0.2); EOSINOPHILS % (AUTO) 2.3 % (0.9-2.9); HEMATOCRIT 28.9 % (42.0-54.0); HEMOGLOBIN 9.7 g/dL (13.5-18.0); LYMPHOCYTES # (AUTO) 1.2 X10^3/uL (1.3-2.9); LYMPHOCYTES % (AUTO) 8.9 % (21.0-51.0); MEAN CORPUSCULAR HEMOGLOBIN 28.1 pg (27.0-34.0); MEAN CORPUSCULAR HGB CONC 33.6 g/dL (33.0-35.0); MEAN CORPUSCULAR VOLUME 83.5 fL (80.0-100.0); MEAN PLATELET VOLUME 8.4 fL (7.4-11.0); MONOCYTES # (AUTO) 1.1 x10^3/uL (0.3-0.8); NEUTROPHILS # (AUTO) 10.6 x10^3/uL (2.2-4.8); NEUTROPHILS % (AUTO) 80.4 % (42.0-75.0); PLATELET COUNT 232 X10^3/uL (150.0-450.0); RED BLOOD COUNT 3.46 X10^6/uL (4.7-6.0); RED CELL DISTRIBUTION WIDTH 16.5 % (11.6-16.5); WHITE BLOOD COUNT 13.2 X10^3/uL (3.6-10.0)
[2020-10-10 05:22] LABS: ALANINE AMINOTRANSFERASE 16 Units/L (12-78); ALBUMIN 1.7 g/dL (3.4-5.0); ALKALINE PHOSPHATASE 57 Units/L (46-116); ASPARTATE AMINO TRANSFERASE 14 Units/L (15-37); BLOOD UREA NITROGEN 34 mg/dL (7-18); CALCIUM 7.8 mg/dL (8.5-10.1); CHLORIDE 111 mmol/L (98-107); COR CA(FOR HYPOALB) 9.6 mg/dL (8.5-10.1); CREATININE 1.34 mg/dL (0.70-1.30); MAGNESIUM 1.7 mg/dL (1.7-2.9); SODIUM 141 mmol/L (136-145); TOTAL PROTEIN 5.2 g/dL (6.4-8.2); eGFR NON BLACK RACES 59 (>60)
[2020-10-10 05:26] LABS: CARBON DIOXIDE 14.9 mmol/L (21-32)
[2020-10-10] MEDS: NEURONTIN CAP 100 MG PO SCH ×3 (05:41→21:00)
[2020-10-10] MEDS: ZOSYN VIAL 3.375 GRAMS 3.375 G in NS 100 ML IV + SPIKE MINIBAG* 100 ML IV SCH ×3 (05:41→21:45)
[2020-10-10 05:42] LABS: PLATELET MORPHOLOGY COMMENT NORMAL (NORMAL)
[2020-10-10] MEDS: K-RIDER 10 MEQ/NS 100 ML 10 MEQ/100 ML BAG IV PRN ×2 (05:50→07:04)
--- NOTE | 2020-10-10 08:21 | RAD ---
HISTORYSOBSTUDYCHEST, 1 [id number] chest wall MediPort is unchanged position. Heart size is stable. Moderate increased consolidation within the right lung base. Improved aeration with decreasing consolidation within the left lung base. No pleural effusion or pneumothorax. No acute osseous abnormality.IMPRESSIONIncreasing consolidation within the right lung base consistent with worsening pneumonia and/or aspiration.Slightly improved aeration and decreasing consolidation within the left lung base.Electronically signed by: AZEEM CROCKETT (October 10, 2020 08:19:23)
[2020-10-10] MEDS: MAGNESIUM SULFATE 1 GRAM/100 mL PREMIX 1 GM/100 ML BAG IV PRN ×2 (09:00→10:00)
[2020-10-10] MEDS: COLACE CAP 100 MG PO SCH ×2 (09:09→20:47)
[2020-10-10] MEDS: LEVAQUIN PREMIX IV 750 MG 750 MG/150 ML BAG IV SCH (09:09)
[2020-10-10] MEDS: CYMBALTA PO SCH ×2 (09:09→20:47)
[2020-10-10] MEDS: PriLOSEC PO SCH (09:10)
[2020-10-10] MEDS: PULMICORT NEB TX 0.5 MG NEB SCH ×2 (09:28→20:41)
[2020-10-10] MEDS: ROXICODONE TAB 5 MG PO PRN (09:49)
[2020-10-10] MEDS: LOVENOX INJ 40 MG SYR SC SCH (09:49)
[2020-10-10] MEDS: VANCOMYCIN IV *PREMIX 1.25 G/250 ML BAG 1.25 G/250 ML PIGGYBACK IV SCH ×2 (10:56→20:05)
[2020-10-10] MEDS ORDERED: PHARMACY CONSULT - VANCOMYCIN XX SCH (11:00)
--- NOTE | 2020-10-10 11:10 | PCM.PROG ---
Progress Note Progress Note for Day of Date of Exam: 10/10/20 Subjective Subjective: PT IS A 55 YEAR OLD MALE PAST MEDICAL HISTORY OF QUADRAPLEGIC ADMITTED FOR ASPIRATION PNEUMONIA, ACUTE RESPIRATORY FAILURE, UROSEPSIS, AND ALTERED MENTAL STATUS. THIS MORNING PATIENT REPORTS IMPROVEMENT, HE IS ALERT IN BED. NO ACUTE CONCERNS OVERNIGHT. LABS/IMAGING: WBC 13.2, HGB 9.7, PLT 232, NA 141, K 3.4, CREATININE 1.34, GLUCOSE 89. URINE CULTURE GRAM NEGATIVE RODS >100K AND BLOOD CULTURES ARE PENDING. A CHEST XRAY WAS OBTAINED THAT REVEALED: Increasing consolidation within the right lung base consistent with worsening pneumonia and/or aspiration. Slightly improved aeration and decreasing consolidation within the left lung base. HE IS CURRENTLY RECEIVING NORMAL SALINE AT 125ML/H, ANTIBIOTICS: LEVAQUIN, ZOSYN. PT WITH GRADUAL INCREASING LEUKOCYTOSIS AND RIGHT LUNG BASE CONSOLIDATION, WILL D/C LEVAQUIN AND START ON VANCOMYCIN. HOME MEDICATIONS RESTARTED AT DECREASED DOSE. OTHERWISE CONTINUE CURRENT TREATMENT PLAN. MONITOR AND FOLLOW UP LABS/IMAGING IN THE MORNING. Past Medical Family Social History Past Med/Fam/Surg Hx: No changes since H&P Allergies: Allergies meperidine [From Demerol] Adverse Reaction (Verified 04/27/20 09:51) oxycodone [From Percocet] Adverse Reaction (Verified 10/02/20 04:10) Review of Systems ROS: No change since H&P Vital Signs and I&O's Vital Signs: Temperature 98.8 F Pulse Rate 99 Respiratory Rate 96 Blood Pressure [Left Arm] 187/94 Blood Pressure 112/57 O2 Sat by Pulse Oximetry 98 Intake and Output: Intake & Output 10/07/20 10/08/20 10/09/20 10/10/20 23:59 23:59 23:59 23:59 Intake Total 3740 / 3740 2633 / 2633 2267 / 2267 1103 / 1103 Output Total 900 / 900 715 / 715 2325 / 2325 1000 / 1000 Balance 2840 / 2840 1918 / 1918 -58 / -58 103 / 103 Physical Exam Oriented: Normal Eyes: Normal Ear: Normal Nose: Normal Throat: Normal Respiratory: Generalized and Diminished Cardiovascular: Normal : Normal Auscultation: Bowel Sounds: Normal Tenderness: Normal Skin: Normal Musculoskeletal: Normal Psychiatric: Normal Mood Description: Calm Affect: Normal Speech Pattern: Appropriate Laboratory and Diagnostics Result Diagrams: 10/10/20 04:25 10/10/20 04:25 Labs: 10/06/20 16:30 Urine,Clean Catch Urine Culture - Final Stenotrophomonas Maltophilia Methicillin Resis Staph Aureus 10/07/20 15:17 Blood Blood Culture - Preliminary 10/07/20 15:10 Blood Blood Culture - Preliminary 10/06/20 14:25 Blood Blood Culture - Preliminary 10/06/20 14:17 Blood Blood Culture - Preliminary Laboratory WBC 13.2 X10^3/uL (3.6-10.0) H 10/10/20 04:25 RBC 3.46 X10^6/uL (4.7-6.0) L 10/10/20 04:25 Hgb 9.7 g/dL (13.5-18.0) L 10/10/20 04:25 Hct 28.9 % (42.0-54.0) L 10/10/20 04:25 MCV 83.5 fL (80.0-100.0) 10/10/20 04:25 MCH 28.1 pg (27.0-34.0) 10/10/20 04:25 MCHC 33.6 g/dL (33.0-35.0) 10/10/20 04:25 RDW 16.5 % (11.6-16.5) 10/10/20 04:25 Plt Count 232 X10^3/uL (150.0-450.0) 10/10/20 04:25 Plt Count Comment Adequate (ADEQUATE) 10/10/20 04:25 MPV 8.4 fL (7.4-11.0) 10/10/20 04:25 Neut % (Auto) 80.4 % (42.0-75.0) H 10/10/20 04:25 Lymph % (Auto) 8.9 % (21.0-51.0) L 10/10/20 04:25 [place] % (Auto) 8.0 % (0.0-13.0) 10/10/20 04:25 Eos % (Auto) 2.3 % (0.9-2.9) 10/10/20 04:25 Baso % (Auto) 0.4 % (0.2-1.0) 10/10/20 04:25 Neut # (Auto) 10.6 x10^3/uL (2.2-4.8) H 10/10/20 04:25 Lymph # (Auto) 1.2 X10^3/uL (1.3-2.9) L 10/10/20 04:25 [place] # (Auto) 1.1 x10^3/uL (0.3-0.8) H 10/10/20 04:25 Eos # (Auto) 0.3 x10^3/uL (0.0-0.2) H 10/10/20 04:25 Baso # (Auto) 0.1 X10^3/uL (0.0-0.1) 10/10/20 04:25 Absolute Nucleated RBC 0.0 /100WBC 10/10/20 04:25 Total Counted 100 10/10/20 04:25 Neutrophils % (Manual) 82 % (39-76) H 10/10/20 04:25 Band Neutrophils % 10 % (0-10) 10/09/20 05:40 Lymphocytes % (Manual) 13 % (13-43) 10/10/20 04:25 Monocytes % (Manual) 2 % (4-9) L 10/10/20 04:25 Eosinophils % (Manual) 3 % (0-6) 10/10/20 04:25 Metamyelocytes % 7 10/08/20 03:00 Plt Morphology Comment Normal (NORMAL) 10/10/20 04:25 RBC Morphology Normal (NORMAL) 10/10/20 04:25 D-Dimer 2.68 ug/ml (0.0-0.57) H* 10/07/20 15:17 Sample Site Rr 10/08/20 06:01 ABG pH 7.220 (7.35-7.45) L 10/08/20 06:01 ABG pCO2 36.0 mmHg (35.0-45.0) 10/08/20 06:01 ABG pO2 96.0 mmHg (80.0-100.0) 10/08/20 06:01 ABG HCO3 14.7 mmol/L (22-26) L* 10/08/20 06:01 ABG O2 Saturation 96.0 % (90-100) 10/08/20 06:01 ABG Base Excess -12.1 mmol/L (-2.0-2.0) L 10/08/20 06:01 [place] Test Pos 10/08/20 06:01 A-a Gradient 287.0 mmHg 10/08/20 06:01 FiO2 60.0 10/08/20 06:01 Blood Gas Comments Serge well sw 10/08/20 06:01 Sodium 141 mmol/L (136-145) 10/10/20 04:25 Corrected Sodium TNP 10/10/20 04:25 Potassium 3.4 mmol/L (3.5-5.1) L 10/10/20 04:25 Chloride 111 mmol/L (98-107) H 10/10/20 04:25 Carbon Dioxide 14.9 mmol/L (21-32) L* 10/10/20 04:25 BUN 34 mg/dL (7-18) H 10/10/20 04:25 Creatinine 1.34 mg/dL (0.70-1.30) H 10/10/20 04:25 Est GFR (MDRD) Af Amer > 60 (>60) 10/10/20 04:25 Est GFR (MDRD) Non-Af 59 (>60) 10/10/20 04:25 Glucose 89 mg/dL (65-99) 10/10/20 04:25 POC Glucose (mg/dL) 106 mg/dL (65-99) H 10/07/20 14:39 Lactic Acid 1.0 mmol/L (0.4-2.0) 10/07/20 16:30 Calcium 7.8 mg/dL (8.5-10.1) L 10/10/20 04:25 Corrected Calcium 9.6 mg/dL (8.5-10.1) 10/10/20 04:25 Magnesium 1.7 mg/dL (1.7-2.9) 10/10/20 04:25 Total Bilirubin 0.30 mg/dL (0.2-1.0) 10/10/20 04:25 AST 14 Units/L (15-37) L 10/10/20 04:25 ALT 16 Units/L (12-78) 10/10/20 04:25 Alkaline Phosphatase 57 Units/L (46-116) 10/10/20 04:25 Creatine Kinase 81 Units/L (39-308) 10/08/20 03:00 CK-MB (CK-2) 2.6 ng/mL (0-4.0) 10/08/20 03:00 CK/CKMB % Calc 3.2 % (<4) 10/08/20 03:00 Troponin I 0.02 ng/mL (0-1.5) 10/08/20 03:00 Total Protein 5.2 g/dL (6.4-8.2) L 10/10/20 04:25 Albumin 1.7 g/dL (3.4-5.0) L 10/10/20 04:25 Globulin 3.5 g/dL (2.5-4.5) 10/10/20 04:25 Albumin/Globulin Ratio 0.5 Ratio (1.1-2.1) L 10/10/20 04:25 Specimen Type Catherized urine 10/06/20 16:30 Urine Color Yellow (YELLOW) 10/06/20 16:30 Urine Appearance Cloudy (CLEAR) 10/06/20 16:30 Urine pH 7.0 (5.0 - 8.0) 10/06/20 16:30 Ur Specific [place] 1.010 (1.000-1.030) 10/06/20 16:30 Urine Protein 2+ (NEGATIVE) 10/06/20 16:30 Urine Glucose (UA) Negative (NEGATIVE) 10/06/20 16:30 Urine Ketones 2+ (NEGATIVE) 10/06/20 16:30 Urine Occult Blood 5+ (NEGATIVE) 10/06/20 16:30 Urine Nitrite Negative (NEGATIVE) 10/06/20 16:30 Urine Bilirubin Negative (NEGATIVE) 10/06/20 16:30 Urine Urobilinogen Normal (NORMAL) 10/06/20 16:30 Ur Leukocyte Esterase 3+ (NEGATIVE) 10/06/20 16:30 Urine RBC Tntc /HPF (0-3) A 10/06/20 16:30 Urine WBC Tntc /HPF (0-5) A 10/06/20 16:30 Ur Squamous Epith Cells Moderate /HPF (NEGATIVE) 10/06/20 16:30 Amorphous Sediment 2+ /HPF (NEGATIVE) 10/06/20 16:30 Urine Bacteria 1+ /HPF (NEGATIVE) 10/06/20 16:30 Urine Mucus Many /HPF (NEGATIVE) 10/06/20 16:30 Ur Culture Indicated? Yes/culture set up 10/06/20 16:30 Urine Opiates Screen Negative (NEG=<300) 10/06/20 16:30 Urine Methadone Screen Negative (NEG=<300) 10/06/20 16:30 Ur Barbiturates Screen Negative (NEG=<200) 10/06/20 16:30 Ur Phencyclidine Scrn Negative (NEG=<25) 10/06/20 16:30 Ur Amphetamines Screen Negative (NEG=<1000) 10/06/20 16:30 U Benzodiazepines Scrn Negative (NEG=<200) 10/06/20 16:30 Urine Cocaine Screen Negative (NEG=<300) 10/06/20 16:30 U Marijuana (THC) Screen Negative (NEG=<50) 10/06/20 16:30 Plan (1) Aspiration pneumonia: Status: Acute Qualifiers: Aspiration pneumonia type: unspecified Laterality: bilateral Lung location: lower lobe of lung Qualified Code(s): J69.0 - Pneumonitis due to inhalation of food and vomit Plan: SUPPLEMENTAL OXYGEN, NORMAL SALINE AT 75 ML/HR, LEVAQUIN 750MG IV DAILY, NEB TX, ZANAFLEX 4MG PO BID, SENOKOT 1 TAB PO HS, PHENERGAN 25MG GA PRN, ROXICODONE 20MG PO Q6H PRN, ZOFRAN 4MG IV Q8H PRN NAUSEA, OMEPRAZOLE 20MG PO DAILY, LACTULOSE 60ML PO Q3D, NEURONTIN 100MG PO TID, CYMBALTA 30MG PO BID, COLACE 200MG PO BID, AND LIORESAL 20MG PO QID. RESUME OTHER HOME MEDICATIONS (2) UTI (urinary tract infection): Status: Acute Qualifiers: Hematuria presence: with hematuria Urinary tract infection type: acute cystitis Qualified Code(s): N30.01 - Acute cystitis with hematuria (3) Proteus mirabilis infection: Status: Acute (4) Pseudomonas urinary tract infection: Status: Acute (5) Hypotension: Status: Acute Qualifiers: Hypotension type: unspecified hypotension type Qualified Code(s): I95.9 - Hypotension, unspecified (6) Acute respiratory failure: Status: Acute
[2020-10-10] MEDS: ARTIFICIAL TEARS DROPS AFFEYE PRN (14:04)
[2020-10-10] MEDS: ZOFRAN INJ 4 MG VIAL IVP PRN (14:59)
[2020-10-10] MEDS: CHRONULAC PO SCH (20:47)
[2020-10-10] MEDS: SENOKOT PO SCH (20:47)
[2020-10-11] MEDS: NS 1000 ML 1,000 ML IV SCH ×5 (00:45→21:36)
[2020-10-11] MEDS: XOPENEX 1.25 MG/3 ML NEBULE NEB SCH ×4 (00:49→16:20)
[2020-10-11 05:04] LABS: ALANINE AMINOTRANSFERASE 15 Units/L (12-78); ALBUMIN 1.6 g/dL (3.4-5.0); ALKALINE PHOSPHATASE 60 Units/L (46-116); ASPARTATE AMINO TRANSFERASE 11 Units/L (15-37); BLOOD UREA NITROGEN 32 mg/dL (7-18); CALCIUM 7.8 mg/dL (8.5-10.1); CARBON DIOXIDE 15.2 mmol/L (21-32); CHLORIDE 111 mmol/L (98-107); COR CA(FOR HYPOALB) 9.7 mg/dL (8.5-10.1); SODIUM 140 mmol/L (136-145); eGFR NON BLACK RACES 56 (>60)
[2020-10-11 05:16] LABS: BASOPHILS # (AUTO) 0.1 X10^3/uL (0.0-0.1); BASOPHILS % (AUTO) 0.6 % (0.2-1.0); EOSINOPHILS # (AUTO) 0.4 x10^3/uL (0.0-0.2); EOSINOPHILS % (AUTO) 3.9 % (0.9-2.9); HEMATOCRIT 28.1 % (42.0-54.0); HEMOGLOBIN 9.3 g/dL (13.5-18.0); LYMPHOCYTES # (AUTO) 1.3 X10^3/uL (1.3-2.9); MEAN CORPUSCULAR HEMOGLOBIN 27.8 pg (27.0-34.0); MEAN CORPUSCULAR HGB CONC 32.9 g/dL (33.0-35.0); MEAN CORPUSCULAR VOLUME 84.5 fL (80.0-100.0); MEAN PLATELET VOLUME 7.9 fL (7.4-11.0); MONOCYTES # (AUTO) 1.3 x10^3/uL (0.3-0.8); NEUTROPHILS # (AUTO) 8.5 x10^3/uL (2.2-4.8); NEUTROPHILS % (AUTO) 73.5 % (42.0-75.0); PLATELET COUNT 223 X10^3/uL (150.0-450.0); RED BLOOD COUNT 3.33 X10^6/uL (4.7-6.0); RED CELL DISTRIBUTION WIDTH 17.6 % (11.6-16.5); WHITE BLOOD COUNT 11.5 X10^3/uL (3.6-10.0)
[2020-10-11] MEDS: ZOSYN VIAL 3.375 GRAMS 3.375 G in NS 100 ML IV + SPIKE MINIBAG* 100 ML IV SCH (05:18)
[2020-10-11] MEDS: NEURONTIN CAP 100 MG PO SCH ×3 (05:18→21:36)
[2020-10-11] MEDS: KLOR-CON PO PRN (06:12)
[2020-10-11] MEDS: MORPHINE SULFATE INJ 2 MG INJ IVP PRN ×3 (08:19→22:45)
--- NOTE | 2020-10-11 08:34 | RAD ---
HISTORYSOBSTUDYCHEST x-ray, 1 VIEWCOMPARISONX-ray 10/11/2019FINDINGSCentral venous catheter terminates in the region of the mid SVC. Mild improvement of vague infiltrate in the right middle lobe region. Persistent mild fullness of soft tissues in the superior mediastinum. No tracheal deviation. Borderline cardiomegaly without pulmonary venous congestion. Possible small right pleural effusion. No pneumothorax is seen.IMPRESSIONLikely mild improvement of right middle lobe infiltrate.Electronically signed by: Meño Reed (Oct 11, 2020 08:32:55)
[2020-10-11] MEDS: PULMICORT NEB TX 0.5 MG NEB SCH ×2 (08:38→20:10)
[2020-10-11] MEDS: COLACE CAP 100 MG PO SCH ×2 (09:16→21:35)
[2020-10-11] MEDS: LOVENOX INJ 40 MG SYR SC SCH (09:17)
[2020-10-11] MEDS: VANCOMYCIN IV *PREMIX 1.25 G/250 ML BAG 1.25 G/250 ML PIGGYBACK IV SCH ×2 (09:17→21:28)
[2020-10-11] MEDS: PriLOSEC PO SCH (09:17)
[2020-10-11] MEDS: CYMBALTA PO SCH ×2 (09:17→21:35)
[2020-10-11] MEDS: INVANZ INJ 1 GM VIAL 1 GM in NS 100 ML IV + SPIKE MINIBAG* 100 ML IV SCH (11:09)
[2020-10-11] MEDS: K-RIDER 10 MEQ/NS 100 ML 10 MEQ/100 ML BAG IV PRN ×2 (14:41→16:38)
--- NOTE | 2020-10-11 15:59 | PCM.PROG ---
Progress Note - Progress Note for Day of Date of Exam: 10/11/20 - Subjective Subjective: IS BEING TREATED FOR ASPITATION PNEUMONIA, UTI, AND HYPOTENSION. APPARENTLY, HE HAD AN EVENT OF ACUTE RESPIRATORY FAILURE WITH SIGNS OF CYANOSIS OVER THE WEEKEND. HIS SATURATIONS DECLINED TO THE 70s. HE WAS PLACE ON THE BIPAP AND LEVOPHED DRIP AT THAT TIME. HE DID SHOW SLIGHT IMPROVEMENT OVER THE WEEKEND AND HE WAS PLACED BACK ON NASAL CANNULA. ON MORNING ROUNDS, PATIENT IS LYING IN BED WITH EYES CLOSED. HE AWAKENS AND RESPONDS TO VERBAL STIMULI. ON EXAMINATION, HEART IS REGULAR IN RATE AND RHYTHM. BILATERAL LUNGS ARE NOTED WITH DIMINISHED LUNG SOUNDS THROUGHOUT. ABDOMEN IS ROUND, SOFT, AND NON-TENDER WITH NORMAL BOWEL SOUNDS NOTED IN ALL QUADRANTS. ARENAS CATHETER NOTED TO BEDSIDE DRAINAGE. HIS VITALS THIS MORNING ARE: 97.9-86-18-97%-116/60. LABS WERE OBTAINED. ABNORMAL LAB VALUES INCLUDE THE FOLLOWING: WBC 11.5, RBC 3.33, HGB 9.3, HCT 28.1, POTASSIUM 3.3, CHLORIDE 111, CARBON DIOXIDE 15.2, CREATININE 1.40, CALCIUM 7.8, AST 11, TOTAL PROTEIN 5.0, ALBUMIN 1.6. URINE CULTURE REVEALS GROWTH OF STENOTROPHOMNAS MALTOPHILIA NAD MRSA. A CHEST XRAY WAS OBTAINED THIS MORNING. IT REVEALED: Likely mild improvement of right middle lobe infiltrate. HE IS CURRENTLY RECEIVING NORMAL SALINE AT 75 ML/HR, ZOSYN IV TID, VANCOMYCIN 1.25G IV Q12H, NEB TX, ROBITUSSIN DM Q4H PRN, 2MG IV Q6H PRN, ZANAFLEX 4MG PO BID, SENOKOT 1 TAB PO HS, PHENERGAN 25MG CT PRN, ROXICODONE 20MG PO Q6H PRN, ZOFRAN 4MG IV Q8H PRN NAUSEA, OMEPRAZOLE 20MG PO DAILY, LACTULOSE 60ML PO Q3D, NEURONTIN 100MG PO TID, CYMBALTA 30MG PO BID, COLACE 200MG PO BID, AND LIORESAL 20MG PO QID. TODAY, WE WILL DISCONTINUE THE ZOSYN AND ADD INVANZ 1G IV DAILY. OTHERWISE, WE PLAN TO FOLLOW UP WITH AM LABS AND CHEST XRAY AND CONTINUE TO MONITOR. TIME SPENT ON CLINICAL ASSESSMENT, REVIEWING LABS AND IMAGING, DECISION MAKING, AND DOCUMENTATION GREATER THAN 45 MINUTES. - Past Medical Family Social History Past Med/Fam/Surg Hx: No changes since H&P Allergies: Allergies meperidine [From Demerol] Adverse Reaction (Verified 04/27/20 09:51) oxycodone [From Percocet] Adverse Reaction (Verified 10/02/20 04:10) - Review of Systems ROS: No change since H&P - Vital Signs and I&O's Vital Signs: Temperature 98.6 F Pulse Rate 95 Respiratory Rate 17 Blood Pressure [Left Arm] 187/94 Blood Pressure 130/71 O2 Sat by Pulse Oximetry 96 Intake and Output: Intake & Output 10/09/20 10/10/20 10/11/20 10/12/20 11:59 11:59 11:59 11:59 Intake Total 2966 / 2966 2453 / 2453 4457 / 4457 1315 / 1315 Output Total 750 / 750 3050 / 3050 2400 / 2400 Balance 2216 / 2216 -597 / -597 2056 / 2056 1315 / 1315 - Physical Exam Oriented: Normal Eyes: Normal Ear: Normal Nose: Normal Throat: Normal Respiratory: Generalized, Diminished Cardiovascular: Normal : Normal Auscultation: Bowel Sounds: Normal Tenderness: Normal Skin: Normal Musculoskeletal: Normal Psychiatric: Normal Mood Description: Calm Affect: Normal Speech Pattern: Clear, Appropriate - Laboratory and Diagnostics Result Diagrams: 10/11/20 05:05 10/11/20 14:24 Labs: 10/06/20 16:30 Urine,Clean Catch Urine Culture - Final Stenotrophomonas Maltophilia Methicillin Resis Staph Aureus 10/07/20 15:17 Blood Blood Culture - Preliminary 10/07/20 15:10 Blood Blood Culture - Preliminary 10/06/20 14:25 Blood Blood Culture - Preliminary 10/06/20 14:17 Blood Blood Culture - Preliminary Laboratory WBC 11.5 X10^3/uL (3.6-10.0) H 10/11/20 05:05 RBC 3.33 X10^6/uL (4.7-6.0) L 10/11/20 05:05 Hgb 9.3 g/dL (13.5-18.0) L 10/11/20 05:05 Hct 28.1 % (42.0-54.0) L 10/11/20 05:05 MCV 84.5 fL (80.0-100.0) 10/11/20 05:05 MCH 27.8 pg (27.0-34.0) 10/11/20 05:05 MCHC 32.9 g/dL (33.0-35.0) L 10/11/20 05:05 RDW 17.6 % (11.6-16.5) H 10/11/20 05:05 Plt Count 223 X10^3/uL (150.0-450.0) 10/11/20 05:05 Plt Count Comment Adequate (ADEQUATE) 10/10/20 04:25 MPV 7.9 fL (7.4-11.0) 10/11/20 05:05 Neut % (Auto) 73.5 % (42.0-75.0) 10/11/20 05:05 Lymph % (Auto) 11.0 % (21.0-51.0) L 10/11/20 05:05 [place] % (Auto) 11.0 % (0.0-13.0) 10/11/20 05:05 Eos % (Auto) 3.9 % (0.9-2.9) H 10/11/20 05:05 Baso % (Auto) 0.6 % (0.2-1.0) 10/11/20 05:05 Neut # (Auto) 8.5 x10^3/uL (2.2-4.8) H 10/11/20 05:05 Lymph # (Auto) 1.3 X10^3/uL (1.3-2.9) 10/11/20 05:05 [place] # (Auto) 1.3 x10^3/uL (0.3-0.8) H 10/11/20 05:05 Eos # (Auto) 0.4 x10^3/uL (0.0-0.2) H 10/11/20 05:05 Baso # (Auto) 0.1 X10^3/uL (0.0-0.1) 10/11/20 05:05 Absolute Nucleated RBC 0.0 /100WBC 10/11/20 05:05 Total Counted 100 10/10/20 04:25 Neutrophils % (Manual) 82 % (39-76) H 10/10/20 04:25 Band Neutrophils % 10 % (0-10) 10/09/20 05:40 Lymphocytes % (Manual) 13 % (13-43) 10/10/20 04:25 Monocytes % (Manual) 2 % (4-9) L 10/10/20 04:25 Eosinophils % (Manual) 3 % (0-6) 10/10/20 04:25 Metamyelocytes % 7 10/08/20 03:00 Plt Morphology Comment Normal (NORMAL) 10/10/20 04:25 RBC Morphology Normal (NORMAL) 10/10/20 04:25 D-Dimer 2.68 ug/ml (0.0-0.57) H* 10/07/20 15:17 Sample Site Rr 10/08/20 06:01 ABG pH 7.220 (7.35-7.45) L 10/08/20 06:01 ABG pCO2 36.0 mmHg (35.0-45.0) 10/08/20 06:01 ABG pO2 96.0 mmHg (80.0-100.0) 10/08/20 06:01 ABG HCO3 14.7 mmol/L (22-26) L* 10/08/20 06:01 ABG O2 Saturation 96.0 % (90-100) 10/08/20 06:01 ABG Base Excess -12.1 mmol/L (-2.0-2.0) L 10/08/20 06:01 Chiki Test Pos 10/08/20 06:01 A-a Gradient 287.0 mmHg 10/08/20 06:01 FiO2 60.0 10/08/20 06:01 Blood Gas Comments Serge well sw 10/08/20 06:01 Sodium 140 mmol/L (136-145) 10/11/20 04:10 Corrected Sodium TNP 10/11/20 04:10 Potassium 3.4 mmol/L (3.5-5.1) L 10/11/20 14:24 Chloride 111 mmol/L (98-107) H 10/11/20 04:10 Carbon Dioxide 15.2 mmol/L (21-32) L 10/11/20 04:10 BUN 32 mg/dL (7-18) H 10/11/20 04:10 Creatinine 1.40 mg/dL (0.70-1.30) H 10/11/20 04:10 Est GFR (MDRD) Af Amer > 60 (>60) 10/11/20 04:10 Est GFR (MDRD) Non-Af 56 (>60) L 10/11/20 04:10 Glucose 94 mg/dL (65-99) 10/11/20 04:10 POC Glucose (mg/dL) 106 mg/dL (65-99) H 10/07/20 14:39 Lactic Acid 1.0 mmol/L (0.4-2.0) 10/07/20 16:30 Calcium 7.8 mg/dL (8.5-10.1) L 10/11/20 04:10 Corrected Calcium 9.7 mg/dL (8.5-10.1) 10/11/20 04:10 Magnesium 2.0 mg/dL (1.7-2.9) 10/11/20 04:10 Total Bilirubin 0.30 mg/dL (0.2-1.0) 10/11/20 04:10 AST 11 Units/L (15-37) L 10/11/20 04:10 ALT 15 Units/L (12-78) 10/11/20 04:10 Alkaline Phosphatase 60 Units/L (46-116) 10/11/20 04:10 Creatine Kinase 81 Units/L (39-308) 10/08/20 03:00 CK-MB (CK-2) 2.6 ng/mL (0-4.0) 10/08/20 03:00 CK/CKMB % Calc 3.2 % (<4) 10/08/20 03:00 Troponin I 0.02 ng/mL (0-1.5) 10/08/20 03:00 Total Protein 5.0 g/dL (6.4-8.2) L 10/11/20 04:10 Albumin 1.6 g/dL (3.4-5.0) L 10/11/20 04:10 Globulin 3.4 g/dL (2.5-4.5) 10/11/20 04:10 Albumin/Globulin Ratio 0.5 Ratio (1.1-2.1) L 10/11/20 04:10 Specimen Type Catherized urine 10/06/20 16:30 Urine Color Yellow (YELLOW) 10/06/20 16:30 Urine Appearance Cloudy (CLEAR) 10/06/20 16:30 Urine pH 7.0 (5.0 - 8.0) 10/06/20 16:30 Ur Specific [place] 1.010 (1.000-1.030) 10/06/20 16:30 Urine Protein 2+ (NEGATIVE) 10/06/20 16:30 Urine Glucose (UA) Negative (NEGATIVE) 10/06/20 16:30 Urine Ketones 2+ (NEGATIVE) 10/06/20 16:30 Urine Occult Blood 5+ (NEGATIVE) 10/06/20 16:30 Urine Nitrite Negative (NEGATIVE) 10/06/20 16:30 Urine Bilirubin Negative (NEGATIVE) 10/06/20 16:30 Urine Urobilinogen Normal (NORMAL) 10/06/20 16:30 Ur Leukocyte Esterase 3+ (NEGATIVE) 10/06/20 16:30 Urine RBC Tntc /HPF (0-3) A 10/06/20 16:30 Urine WBC Tntc /HPF (0-5) A 10/06/20 16:30 Ur Squamous Epith Cells Moderate /HPF (NEGATIVE) 10/06/20 16:30 Amorphous Sediment 2+ /HPF (NEGATIVE) 10/06/20 16:30 Urine Bacteria 1+ /HPF (NEGATIVE) 10/06/20 16:30 Urine Mucus Many /HPF (NEGATIVE) 10/06/20 16:30 Ur Culture Indicated? Yes/culture set up 10/06/20 16:30 Urine Opiates Screen Negative (NEG=<300) 10/06/20 16:30 Urine Methadone Screen Negative (NEG=<300) 10/06/20 16:30 Ur Barbiturates Screen Negative (NEG=<200) 10/06/20 16:30 Ur Phencyclidine Scrn Negative (NEG=<25) 10/06/20 16:30 Ur Amphetamines Screen Negative (NEG=<1000) 10/06/20 16:30 U Benzodiazepines Scrn Negative (NEG=<200) 10/06/20 16:30 Urine Cocaine Screen Negative (NEG=<300) 10/06/20 16:30 U Marijuana (THC) Screen Negative (NEG=<50) 10/06/20 16:30 - Plan (1) Aspiration pneumonia Status: Acute Qualifiers: Aspiration pneumonia type: unspecified Laterality: bilateral Lung location: lower lobe of lung Qualified Code(s): J69.0 - Pneumonitis due to inhalation of food and vomit Plan: NORMAL SALINE AT 75 ML/HR, INVANZ 1G IV DAILY, VANCOMYCIN 1.25G IV Q12H, NEB TX, ROBITUSSIN DM Q4H PRN, 2MG IV Q6H PRN, ZANAFLEX 4MG PO BID, SENOKOT 1 TAB PO HS, PHENERGAN 25MG CT PRN, ROXICODONE 20MG PO Q6H PRN, ZOFRAN 4MG IV Q8H PRN NAUSEA, OMEPRAZOLE 20MG PO DAILY, LACTULOSE 60ML PO Q3D, NEURONTIN 100MG PO TID, CYMBALTA 30MG PO BID, COLACE 200MG PO BID, AND LIORESAL 20MG PO QID. (2) UTI (urinary tract infection) Status: Acute Qualifiers: Urinary tract infection type: acute cystitis Hematuria presence: with hematuria Qualified Code(s): N30.01 - Acute cystitis with hematuria (3) Proteus mirabilis infection Status: Acute (4) Pseudomonas urinary tract infection Status: Acute (5) Hypotension Status: Acute Qualifiers: Hypotension type: unspecified hypotension type Qualified Code(s): I95.9 - Hypotension, unspecified
[2020-10-11] MEDS: ZOFRAN INJ 4 MG VIAL IVP PRN (16:54)
[2020-10-11] MEDS ORDERED: PHARMACY COMMENT IV SCH (20:00)
[2020-10-11 21:23] LABS: CREATININE 1.4 mg/dL (0.70-1.30)
[2020-10-11 21:24] LABS: VANCOMYCIN,TROUGH 40.8 ug/mL (15-20)
[2020-10-11] MEDS: SENOKOT PO SCH (21:35)
[2020-10-11] MEDS: ARTIFICIAL TEARS DROPS AFFEYE PRN (21:36)
[2020-10-12] MEDS: XOPENEX 1.25 MG/3 ML NEBULE NEB SCH ×4 (00:05→17:10)
[2020-10-12] MEDS: ROXICODONE TAB 5 MG PO PRN (03:56)
[2020-10-12] MEDS: NEURONTIN CAP 100 MG PO SCH ×3 (05:00→22:26)
--- NOTE | 2020-10-12 06:03 | RAD ---
HISTORYSOBSTUDYCHEST, 1 [id number]/01/2021.TECHNIQUEAP view of the chestFINDINGSRight chest wall port with tip in good position. Patient is tilted within the scanner.The cardiac and mediastinal contours appear stable. No significant change in bilateral perihilar and lower lung airspace opacities. No definite pleural effusion or pneumothorax.IMPRESSIONNo significant change in bilateral perihilar and lower lung airspace opacities.Electronically signed by: Mu Dlae (Oct 12, 2020 06:01:20)
[2020-10-12 06:41] LABS: BASOPHILS % (AUTO) 0.3 % (0.2-1.0); EOSINOPHILS % (AUTO) 0.3 % (0.9-2.9); HEMATOCRIT 29.9 % (42.0-54.0); HEMOGLOBIN 9.7 g/dL (13.5-18.0); LYMPHOCYTES % (AUTO) 6.8 % (21.0-51.0); MEAN CORPUSCULAR HEMOGLOBIN 27.6 pg (27.0-34.0); MEAN CORPUSCULAR HGB CONC 32.5 g/dL (33.0-35.0); MEAN CORPUSCULAR VOLUME 84.7 fL (80.0-100.0); MEAN PLATELET VOLUME 7.8 fL (7.4-11.0); MONOCYTES # (AUTO) 2.6 x10^3/uL (0.3-0.8); MONOCYTES % (AUTO) 17.6 % (0.0-13.0); NEUTROPHILS # (AUTO) 10.9 x10^3/uL (2.2-4.8); PLATELET COUNT 248 X10^3/uL (150.0-450.0); RED BLOOD COUNT 3.53 X10^6/uL (4.7-6.0); RED CELL DISTRIBUTION WIDTH 17.1 % (11.6-16.5); WHITE BLOOD COUNT 14.6 X10^3/uL (3.6-10.0)
[2020-10-12 06:53] LABS: ALANINE AMINOTRANSFERASE 13 Units/L (12-78); ALBUMIN 1.6 g/dL (3.4-5.0); ALKALINE PHOSPHATASE 64 Units/L (46-116); ASPARTATE AMINO TRANSFERASE 9 Units/L (15-37); BLOOD UREA NITROGEN 28 mg/dL (7-18); CALCIUM 7.8 mg/dL (8.5-10.1); CHLORIDE 110 mmol/L (98-107); COR CA(FOR HYPOALB) 9.7 mg/dL (8.5-10.1); CREATININE 1.48 mg/dL (0.70-1.30); SODIUM 140 mmol/L (136-145); TOTAL PROTEIN 5.1 g/dL (6.4-8.2); eGFR NON BLACK RACES 52 (>60)
[2020-10-12 07:02] LABS: CARBON DIOXIDE 13.9 mmol/L (21-32)
[2020-10-12 07:21] LABS: ANISOCYTOSIS SLIGHT; BAND NEUTROPHILS % 1 % (0-10); PLATELET MORPHOLOGY COMMENT NORMAL (NORMAL)
[2020-10-12] MEDS: PULMICORT NEB TX 0.5 MG NEB SCH ×2 (08:24→20:35)
[2020-10-12] MEDS: LOVENOX INJ 40 MG SYR SC SCH (08:48)
[2020-10-12] MEDS: NS 1000 ML 1,000 ML IV SCH ×2 (08:48→22:26)
[2020-10-12] MEDS: COLACE CAP 100 MG PO SCH ×2 (08:49→20:45)
[2020-10-12] MEDS: CYMBALTA PO SCH ×2 (08:49→20:42)
[2020-10-12] MEDS: PriLOSEC PO SCH (08:49)
[2020-10-12] MEDS: INVANZ INJ 1 GM VIAL 1 GM in NS 100 ML IV + SPIKE MINIBAG* 100 ML IV SCH (08:50)
[2020-10-12] MEDS: LEVAQUIN PREMIX IV 500 MG 500 MG/100 ML BAG IV SCH (10:05)
--- NOTE | 2020-10-12 10:47 | PCM.PROG ---
Progress Note - Progress Note for Day of Date of Exam: 10/12/20 - Subjective Subjective: IS BEING TREATED FOR ASPITATION PNEUMONIA, UTI, AND HYPOTENSION. HE REMAINS ON OXYGEN VIA NASAL CANNULA AT 3 LPM THIS MORNING. HE HAS NOT HAD ANY OVERNIGHT EVENTS. ON MORNING ROUNDS, PATIENT IS LYING IN BED WITH EYES CLOSED. HE AWAKENS AND RESPONDS TO VERBAL STIMULI. HE DOES ADMIT TO RIGHT SIDE RIB PAIN. ON EXAMINATION, HEART IS REGULAR IN RATE AND RHYTHM. BILATERAL LUNGS ARE NOTED WITH DIMINISHED LUNG SOUNDS THROUGHOUT. ABDOMEN IS ROUND, SOFT, AND NON-TENDER WITH NORMAL BOWEL SOUNDS NOTED IN ALL QUADRANTS. ARENAS CATHETER NOTED TO BEDSIDE DRAINAGE. SCATTERED BRUISING NOTED. HIS VITALS THIS MORNING ARE: 98.0-107-20-97%-128/63. LABS WERE OBTAINED. ABNORMAL LAB VALUES INCLUDE THE FOLLOWING: WBC 14.6, RBC 3.53, HGB 9.7, HCT 29.9, POTASSIUM 3.2, CHLORIDE 110, CARBON DIOXIDE 13.9, BUN 28, CREATININE 1.48, CALCIUM 7.8, AST 9, TOTAL PROTEIN 5.1, ALBUMIN 1.6. URINE CULTURE REVEALS GROWTH OF STENOTROPHOMNAS MALTOPHILIA NAD MRSA. A CHEST XRAY WAS OBTAINED THIS MORNING. IT REVEALED: No significant change in bilateral perihilar and lower lung airspace opacities. HE IS CURRENTLY RECEIVING NORMAL SALINE AT 75 ML/HR, INVANZ 1G IV DAILY, VANCOMYCIN 1.25G IV Q12H, NEB TX, ROBITUSSIN DM Q4H PRN, 2MG IV Q6H PRN, ZANAFLEX 4MG PO BID, SENOKOT 1 TAB PO HS, PHENERGAN 25MG ID PRN, ROXICODONE 20MG PO Q6H PRN, ZOFRAN 4MG IV Q8H PRN NAUSEA, OMEPRAZOLE 20MG PO DAILY, LACTULOSE 60ML PO Q3D, NEURONTIN 100MG PO TID, CYMBALTA 30MG PO BID, COLACE 200MG PO BID, AND LIORESAL 20MG PO QID. TODAY, WE WILL ADD LEVAQUIN 500MG IV DAILY. OTHERWISE, WE PLAN TO FOLLOW UP WITH AM LABS AND CHEST XRAY AND CONTINUE TO MONITOR. TIME SPENT ON CLINICAL ASSESSMENT, REVIEWING LABS AND IMAGING, DECISION MAKING, AND DOCUMENTATION GREATER THAN 45 MINUTES. - Past Medical Family Social History Past Med/Fam/Surg Hx: No changes since H&P Allergies: Allergies meperidine [From Demerol] Adverse Reaction (Verified 04/27/20 09:51) oxycodone [From Percocet] Adverse Reaction (Verified 10/02/20 04:10) - Review of Systems ROS: No change since H&P - Vital Signs and I&O's Vital Signs: Temperature 98.0 F Pulse Rate 104 Respiratory Rate 20 Blood Pressure [Left Arm] 187/94 Blood Pressure 128/63 O2 Sat by Pulse Oximetry 97 Intake and Output: Intake & Output 10/09/20 10/10/20 10/11/20 10/12/20 11:59 11:59 11:59 11:59 Intake Total 2966 / 2966 2453 / 2453 4457 / 4457 4655 / 4655 Output Total 750 / 750 3050 / 3050 2400 / 2400 4100 / 4100 Balance 2216 / 2216 -597 / -597 2057 / 2056 555 / 555 - Physical Exam Oriented: Normal Eyes: Normal Ear: Normal Nose: Normal Throat: Normal Respiratory: Generalized, Diminished Cardiovascular: Normal : Normal Auscultation: Bowel Sounds: Normal Palpation: Normal Tenderness: Normal Skin: Normal Musculoskeletal: Normal Psychiatric: Normal Mood Description: Calm Affect: Normal Speech Pattern: Clear, Appropriate - Laboratory and Diagnostics Result Diagrams: 10/12/20 06:13 10/12/20 06:13 Labs: 10/06/20 14:25 Blood Blood Culture - Final 10/06/20 14:17 Blood Blood Culture - Final 10/06/20 16:30 Urine,Clean Catch Urine Culture - Final Stenotrophomonas Maltophilia Methicillin Resis Staph Aureus 10/07/20 15:17 Blood Blood Culture - Preliminary 10/07/20 15:10 Blood Blood Culture - Preliminary Laboratory WBC 14.6 X10^3/uL (3.6-10.0) H 10/12/20 06:13 RBC 3.53 X10^6/uL (4.7-6.0) L 10/12/20 06:13 Hgb 9.7 g/dL (13.5-18.0) L 10/12/20 06:13 Hct 29.9 % (42.0-54.0) L 10/12/20 06:13 MCV 84.7 fL (80.0-100.0) 10/12/20 06:13 MCH 27.6 pg (27.0-34.0) 10/12/20 06:13 MCHC 32.5 g/dL (33.0-35.0) L 10/12/20 06:13 RDW 17.1 % (11.6-16.5) H 10/12/20 06:13 Plt Count 248 X10^3/uL (150.0-450.0) 10/12/20 06:13 Plt Count Comment Adequate (ADEQUATE) 10/12/20 06:13 MPV 7.8 fL (7.4-11.0) 10/12/20 06:13 Neut % (Auto) 75.0 % (42.0-75.0) 10/12/20 06:13 Lymph % (Auto) 6.8 % (21.0-51.0) L 10/12/20 06:13 [place] % (Auto) 17.6 % (0.0-13.0) H 10/12/20 06:13 Eos % (Auto) 0.3 % (0.9-2.9) L 10/12/20 06:13 Baso % (Auto) 0.3 % (0.2-1.0) 10/12/20 06:13 Neut # (Auto) 10.9 x10^3/uL (2.2-4.8) H 10/12/20 06:13 Lymph # (Auto) 1.0 X10^3/uL (1.3-2.9) L 10/12/20 06:13 [place] # (Auto) 2.6 x10^3/uL (0.3-0.8) H 10/12/20 06:13 Eos # (Auto) 0.0 x10^3/uL (0.0-0.2) 10/12/20 06:13 Baso # (Auto) 0.0 X10^3/uL (0.0-0.1) 10/12/20 06:13 Absolute Nucleated RBC 0.0 /100WBC 10/12/20 06:13 Total Counted 100 10/12/20 06:13 Neutrophils % (Manual) 75 % (39-76) 10/12/20 06:13 Band Neutrophils % 1 % (0-10) 10/12/20 06:13 Lymphocytes % (Manual) 7 % (13-43) L 10/12/20 06:13 Monocytes % (Manual) 17 % (4-9) H 10/12/20 06:13 Eosinophils % (Manual) 3 % (0-6) 10/10/20 04:25 Metamyelocytes % 7 10/08/20 03:00 Plt Morphology Comment Normal (NORMAL) 10/12/20 06:13 RBC Morphology Abnormal (NORMAL) 10/12/20 06:13 Anisocytosis Slight A 10/12/20 06:13 D-Dimer 2.68 ug/ml (0.0-0.57) H* 10/07/20 15:17 Sample Site Rr 10/08/20 06:01 ABG pH 7.220 (7.35-7.45) L 10/08/20 06:01 ABG pCO2 36.0 mmHg (35.0-45.0) 10/08/20 06:01 ABG pO2 96.0 mmHg (80.0-100.0) 10/08/20 06:01 ABG HCO3 14.7 mmol/L (22-26) L* 10/08/20 06:01 ABG O2 Saturation 96.0 % (90-100) 10/08/20 06:01 ABG Base Excess -12.1 mmol/L (-2.0-2.0) L 10/08/20 06:01 Chiki Test Pos 10/08/20 06:01 A-a Gradient 287.0 mmHg 10/08/20 06:01 FiO2 60.0 10/08/20 06:01 Blood Gas Comments Serge well sw 10/08/20 06:01 Sodium 140 mmol/L (136-145) 10/12/20 06:13 Corrected Sodium TNP 10/12/20 06:13 Potassium 3.2 mmol/L (3.5-5.1) L 10/12/20 06:13 Chloride 110 mmol/L (98-107) H 10/12/20 06:13 Carbon Dioxide 13.9 mmol/L (21-32) L* 10/12/20 06:13 BUN 28 mg/dL (7-18) H 10/12/20 06:13 Creatinine 1.48 mg/dL (0.70-1.30) H 10/12/20 06:13 Est GFR (MDRD) Af Amer > 60 (>60) 10/12/20 06:13 Est GFR (MDRD) Non-Af 52 (>60) L 10/12/20 06:13 Glucose 95 mg/dL (65-99) 10/12/20 06:13 POC Glucose (mg/dL) 106 mg/dL (65-99) H 10/07/20 14:39 Lactic Acid 1.0 mmol/L (0.4-2.0) 10/07/20 16:30 Calcium 7.8 mg/dL (8.5-10.1) L 10/12/20 06:13 Corrected Calcium 9.7 mg/dL (8.5-10.1) 10/12/20 06:13 Magnesium 2.0 mg/dL (1.7-2.9) 10/11/20 04:10 Total Bilirubin 0.30 mg/dL (0.2-1.0) 10/12/20 06:13 AST 9 Units/L (15-37) L 10/12/20 06:13 ALT 13 Units/L (12-78) 10/12/20 06:13 Alkaline Phosphatase 64 Units/L (46-116) 10/12/20 06:13 Creatine Kinase 81 Units/L (39-308) 10/08/20 03:00 CK-MB (CK-2) 2.6 ng/mL (0-4.0) 10/08/20 03:00 CK/CKMB % Calc 3.2 % (<4) 10/08/20 03:00 Troponin I 0.02 ng/mL (0-1.5) 10/08/20 03:00 Total Protein 5.1 g/dL (6.4-8.2) L 10/12/20 06:13 Albumin 1.6 g/dL (3.4-5.0) L 10/12/20 06:13 Globulin 3.5 g/dL (2.5-4.5) 10/12/20 06:13 Albumin/Globulin Ratio 0.5 Ratio (1.1-2.1) L 10/12/20 06:13 Specimen Type Catherized urine 10/06/20 16:30 Urine Color Yellow (YELLOW) 10/06/20 16:30 Urine Appearance Cloudy (CLEAR) 10/06/20 16:30 Urine pH 7.0 (5.0 - 8.0) 10/06/20 16:30 Ur Specific [place] 1.010 (1.000-1.030) 10/06/20 16:30 Urine Protein 2+ (NEGATIVE) 10/06/20 16:30 Urine Glucose (UA) Negative (NEGATIVE) 10/06/20 16:30 Urine Ketones 2+ (NEGATIVE) 10/06/20 16:30 Urine Occult Blood 5+ (NEGATIVE) 10/06/20 16:30 Urine Nitrite Negative (NEGATIVE) 10/06/20 16:30 Urine Bilirubin Negative (NEGATIVE) 10/06/20 16:30 Urine Urobilinogen Normal (NORMAL) 10/06/20 16:30 Ur Leukocyte Esterase 3+ (NEGATIVE) 10/06/20 16:30 Urine RBC Tntc /HPF (0-3) A 10/06/20 16:30 Urine WBC Tntc /HPF (0-5) A 10/06/20 16:30 Ur Squamous Epith Cells Moderate /HPF (NEGATIVE) 10/06/20 16:30 Amorphous Sediment 2+ /HPF (NEGATIVE) 10/06/20 16:30 Urine Bacteria 1+ /HPF (NEGATIVE) 10/06/20 16:30 Urine Mucus Many /HPF (NEGATIVE) 10/06/20 16:30 Ur Culture Indicated? Yes/culture set up 10/06/20 16:30 Vancomycin Trough 40.8 ug/mL (15-20) H* 10/11/20 20:40 Random Vancomycin 36.6 ug/mL 10/12/20 06:13 Urine Opiates Screen Negative (NEG=<300) 10/06/20 16:30 Urine Methadone Screen Negative (NEG=<300) 10/06/20 16:30 Ur Barbiturates Screen Negative (NEG=<200) 10/06/20 16:30 Ur Phencyclidine Scrn Negative (NEG=<25) 10/06/20 16:30 Ur Amphetamines Screen Negative (NEG=<1000) 10/06/20 16:30 U Benzodiazepines Scrn Negative (NEG=<200) 10/06/20 16:30 Urine Cocaine Screen Negative (NEG=<300) 10/06/20 16:30 U Marijuana (THC) Screen Negative (NEG=<50) 10/06/20 16:30 - Plan (1) Aspiration pneumonia Status: Acute Qualifiers: Aspiration pneumonia type: unspecified Laterality: bilateral Lung location: lower lobe of lung Qualified Code(s): J69.0 - Pneumonitis due to inhalation of food and vomit Plan: NORMAL SALINE AT 75 ML/HR, INVANZ 1G IV DAILY, VANCOMYCIN 1.25G IV Q12H, LEVAQUIN 500MG IV DAILY, NEB TX, ROBITUSSIN DM Q4H PRN, 2MG IV Q6H PRN, ZANAFLEX 4MG PO BID, SENOKOT 1 TAB PO HS, PHENERGAN 25MG ID PRN, ROXICODONE 20MG PO Q6H PRN, ZOFRAN 4MG IV Q8H PRN NAUSEA, OMEPRAZOLE 20MG PO DAILY, LACTULOSE 60ML PO Q3D, NEURONTIN 100MG PO TID, CYMBALTA 30MG PO BID, COLACE 200MG PO BID, AND LIORESAL 20MG PO QID. (2) UTI (urinary tract infection) Status: Acute Qualifiers: Urinary tract infection type: acute cystitis Hematuria presence: with hematuria Qualified Code(s): N30.01 - Acute cystitis with hematuria (3) Proteus mirabilis infection Status: Acute (4) Pseudomonas urinary tract infection Status: Acute (5) Hypotension Status: Acute Qualifiers: Hypotension type: unspecified hypotension type Qualified Code(s): I95.9 - Hypotension, unspecified
[2020-10-12] MEDS: K-RIDER 10 MEQ/NS 100 ML 10 MEQ/100 ML BAG IV PRN ×4 (11:12→14:47)
[2020-10-12] MEDS: ZOFRAN INJ 4 MG VIAL IVP PRN (13:55)
[2020-10-12] MEDS ORDERED: CHLORASEPTIC SPRAY MT PRN (17:00)
[2020-10-12] MEDS ORDERED: LASIX IVP ONE (17:58)
[2020-10-12] MEDS: MORPHINE SULFATE INJ 2 MG INJ IVP PRN ×2 (20:42→22:48)
[2020-10-12] MEDS: SENOKOT PO SCH (20:45)
[2020-10-13] MEDS: XOPENEX 1.25 MG/3 ML NEBULE NEB SCH ×4 (00:10→17:19)
[2020-10-13] MEDS: NS 1000 ML 1,000 ML IV SCH ×3 (00:41→19:24)
[2020-10-13] MEDS: NEURONTIN CAP 100 MG PO SCH ×3 (05:54→21:30)
[2020-10-13] MEDS: ROXICODONE TAB 5 MG PO PRN (05:55)
--- NOTE | 2020-10-13 06:12 | RAD ---
HISTORYSOBSTUDYCHEST, 1 [id number]/2021TECHNIQUEAP view of the chestFINDINGSRight chest wall port with tip in good position.The cardiac and mediastinal contours appear stable. No significant change in mid to lower bilateral airspace opacities, worse on the right. Patient is tilted. Blunting of the right costophrenic sulcus likely a small pleural effusion. No discernible pneumothorax.IMPRESSIONNo significant change.Electronically signed by: Mu Dale (Oct 13, 2020 06:10:46)
[2020-10-13 06:14] LABS: BASOPHILS % (AUTO) 0.2 % (0.2-1.0); EOSINOPHILS # (AUTO) 0.1 x10^3/uL (0.0-0.2); EOSINOPHILS % (AUTO) 0.7 % (0.9-2.9); HEMATOCRIT 30.2 % (42.0-54.0); LYMPHOCYTES # (AUTO) 1.5 X10^3/uL (1.3-2.9); LYMPHOCYTES % (AUTO) 11.8 % (21.0-51.0); MEAN CORPUSCULAR HEMOGLOBIN 27.6 pg (27.0-34.0); MEAN CORPUSCULAR HGB CONC 32.9 g/dL (33.0-35.0); MEAN CORPUSCULAR VOLUME 83.8 fL (80.0-100.0); MEAN PLATELET VOLUME 7.5 fL (7.4-11.0); MONOCYTES # (AUTO) 2.1 x10^3/uL (0.3-0.8); MONOCYTES % (AUTO) 16.9 % (0.0-13.0); NEUTROPHILS # (AUTO) 8.8 x10^3/uL (2.2-4.8); NEUTROPHILS % (AUTO) 70.4 % (42.0-75.0); PLATELET COUNT 257 X10^3/uL (150.0-450.0); RED BLOOD COUNT 3.61 X10^6/uL (4.7-6.0); RED CELL DISTRIBUTION WIDTH 17.2 % (11.6-16.5); WHITE BLOOD COUNT 12.6 X10^3/uL (3.6-10.0)
[2020-10-13 06:47] LABS: ALANINE AMINOTRANSFERASE 12 Units/L (12-78); ALBUMIN 1.6 g/dL (3.4-5.0); ALKALINE PHOSPHATASE 70 Units/L (46-116); ASPARTATE AMINO TRANSFERASE 14 Units/L (15-37); BLOOD UREA NITROGEN 28 mg/dL (7-18); CALCIUM 8.2 mg/dL (8.5-10.1); CHLORIDE 110 mmol/L (98-107); COR CA(FOR HYPOALB) 10.1 mg/dL (8.5-10.1); CREATININE 1.48 mg/dL (0.70-1.30); SODIUM 139 mmol/L (136-145); TOTAL PROTEIN 5.4 g/dL (6.4-8.2); eGFR NON BLACK RACES 52 (>60)
[2020-10-13 06:57] LABS: CARBON DIOXIDE 13.9 mmol/L (21-32)
[2020-10-13] MEDS: PULMICORT NEB TX 0.5 MG NEB SCH ×2 (08:43→20:58)
[2020-10-13] MEDS: PriLOSEC PO SCH (10:03)
[2020-10-13] MEDS: COLACE CAP 100 MG PO SCH ×2 (10:04→20:44)
[2020-10-13] MEDS: CYMBALTA PO SCH ×2 (10:04→20:44)
[2020-10-13] MEDS: INVANZ INJ 1 GM VIAL 1 GM in NS 100 ML IV + SPIKE MINIBAG* 100 ML IV SCH (10:05)
[2020-10-13] MEDS: LOVENOX INJ 40 MG SYR SC SCH (10:07)
[2020-10-13] MEDS: LEVAQUIN PREMIX IV 500 MG 500 MG/100 ML BAG IV SCH (10:07)
--- NOTE | 2020-10-13 10:31 | PCM.PROG ---
Progress Note - Progress Note for Day of Date of Exam: 10/13/20 - Subjective Subjective: IS BEING TREATED FOR ASPITATION PNEUMONIA, UTI, AND HYPOTENSION. HE REMAINS ON OXYGEN VIA NASAL CANNULA AT 3 LPM THIS MORNING. HE HAS NOT HAD ANY OVERNIGHT EVENTS. ON MORNING ROUNDS, PATIENT IS LYING IN BED WITH EYES CLOSED. HE AWAKENS AND RESPONDS TO VERBAL STIMULI. HE CONTINUES WITH COMPLAINTS OF SHORTNESS OF BREATH AND COUGH AT TIMES. ON EXAMINATION, HEART IS REGULAR IN RATE AND RHYTHM. BILATERAL LUNGS ARE NOTED WITH DIMINISHED LUNG SOUNDS THROUGHOUT. ABDOMEN IS ROUND, SOFT, AND NON-TENDER WITH NORMAL BOWEL SOUNDS NOTED IN ALL QUADRANTS. ARENAS CATHETER NOTED TO BEDSIDE DRAINAGE. SCATTERED BRUISING NOTED. HIS VITALS THIS MORNING ARE: 98.3-105-20-99%-145/89. LABS WERE OBTAINED. ABNORMAL LAB VALUES INCLUDE THE FOLLOWING: WBC 12.6, RBC 3.61, HGB 10, HCT 30.2, CHLORIDE 110, CARBON DIOXIDE 13.9, BUN 28, CREATININE 1.48, CALCIUM 8.2, AST 14, TOTAL PROTEIN 5.4, ALBUMIN 1.6. URINE CULTURE REVEALS GROWTH OF STENOTROPHOMNAS MALTOPHILIA AND MRSA. SPUTUM CULTURE ALSO GREW OUT MR GARSIA. A CHEST XRAY WAS OBTAINED THIS MORNING. IT REVEALED: Right chest wall port with tip in good position. The cardiac and mediastinal contours appear stable. No significant change in mid to lower bilateral airspace opacities, worse on the right. Patient is tilted. Blunting of the right costophrenic sulcus likely a small pleural effusion. No discernible pneumothorax. HE IS CURRENTLY RECEIVING NORMAL SALINE AT 75 ML/HR, INVANZ 1G IV DAILY, LEVAQUIN 500MG IV DAILY, VANCOMYCIN 1.25G IV Q12H, NEB TX, ROBITUSSIN DM Q4H PRN, 2MG IV Q6H PRN, ZANAFLEX 4MG PO BID, SENOKOT 1 TAB PO HS, PHENERGAN 25MG DC PRN, ROXICODONE 20MG PO Q6H PRN, ZOFRAN 4MG IV Q8H PRN NAUSEA, OMEPRAZOLE 20MG PO DAILY, LACTULOSE 60ML PO Q3D, NEURONTIN 100MG PO TID, CYMBALTA 30MG PO BID, COLACE 200MG PO BID, AND LIORESAL 20MG PO QID. OTHERWISE, WE PLAN TO FOLLOW UP WITH AM LABS AND CHEST XRAY AND CONTINUE TO MONITOR. TIME SPENT ON CLINICAL ASSESSMENT, REVIEWING LABS AND IMAGING, DECISION MAKING, AND DOCUMENTATION GREATER THAN 45 MINUTES. - Past Medical Family Social History Past Med/Fam/Surg Hx: No changes since H&P Allergies: Allergies meperidine [From Demerol] Adverse Reaction (Verified 04/27/20 09:51) oxycodone [From Percocet] Adverse Reaction (Verified 10/02/20 04:10) - Review of Systems ROS: No change since H&P - Vital Signs and I&O's Vital Signs: Temperature 98.3 F Pulse Rate 99 Respiratory Rate 24 Blood Pressure [Left Arm] 187/94 Blood Pressure 145/89 O2 Sat by Pulse Oximetry 98 Intake and Output: Intake & Output 10/10/20 10/11/20 10/12/20 10/13/20 11:59 11:59 11:59 11:59 Intake Total 2453 / 2453 4457 / 4457 4655 / 4655 3635 / 3635 Output Total 3050 / 3050 2400 / 2400 4100 / 4100 2600 / 2600 Balance -597 / -597 2057 / 2057 555 / 555 1035 / 1035 - Physical Exam Oriented: Normal Eyes: Normal Ear: Normal Nose: Normal Throat: Normal Respiratory: Generalized, Diminished Cardiovascular: Normal : Normal Auscultation: Bowel Sounds: Normal Tenderness: Normal Skin: Normal Musculoskeletal: Normal Psychiatric: Normal Mood Description: Calm Affect: Normal Speech Pattern: Clear, Appropriate - Laboratory and Diagnostics Result Diagrams: 10/13/20 05:23 10/13/20 05:23 Labs: 10/11/20 12:01 Sputum - Expectorated Sputum Sputum Culture - Preliminary Methicillin Resis Staph Aureus 10/11/20 12:01 Sputum - Expectorated Sputum - Final 10/06/20 14:25 Blood Blood Culture - Final 10/06/20 14:17 Blood Blood Culture - Final 10/06/20 16:30 Urine,Clean Catch Urine Culture - Final Stenotrophomonas Maltophilia Methicillin Resis Staph Aureus 10/07/20 15:17 Blood Blood Culture - Preliminary 10/07/20 15:10 Blood Blood Culture - Preliminary Laboratory WBC 12.6 X10^3/uL (3.6-10.0) H 10/13/20 05:23 RBC 3.61 X10^6/uL (4.7-6.0) L 10/13/20 05:23 Hgb 10.0 g/dL (13.5-18.0) L 10/13/20 05:23 Hct 30.2 % (42.0-54.0) L 10/13/20 05:23 MCV 83.8 fL (80.0-100.0) 10/13/20 05:23 MCH 27.6 pg (27.0-34.0) 10/13/20 05:23 MCHC 32.9 g/dL (33.0-35.0) L 10/13/20 05:23 RDW 17.2 % (11.6-16.5) H 10/13/20 05:23 Plt Count 257 X10^3/uL (150.0-450.0) 10/13/20 05:23 Plt Count Comment Adequate (ADEQUATE) 10/12/20 06:13 MPV 7.5 fL (7.4-11.0) 10/13/20 05:23 Neut % (Auto) 70.4 % (42.0-75.0) 10/13/20 05:23 Lymph % (Auto) 11.8 % (21.0-51.0) L 10/13/20 05:23 [place] % (Auto) 16.9 % (0.0-13.0) H 10/13/20 05:23 Eos % (Auto) 0.7 % (0.9-2.9) L 10/13/20 05:23 Baso % (Auto) 0.2 % (0.2-1.0) 10/13/20 05:23 Neut # (Auto) 8.8 x10^3/uL (2.2-4.8) H 10/13/20 05:23 Lymph # (Auto) 1.5 X10^3/uL (1.3-2.9) 10/13/20 05:23 [place] # (Auto) 2.1 x10^3/uL (0.3-0.8) H 10/13/20 05:23 Eos # (Auto) 0.1 x10^3/uL (0.0-0.2) 10/13/20 05:23 Baso # (Auto) 0.0 X10^3/uL (0.0-0.1) 10/13/20 05:23 Absolute Nucleated RBC 0.0 /100WBC 10/13/20 05:23 Total Counted 100 10/12/20 06:13 Neutrophils % (Manual) 75 % (39-76) 10/12/20 06:13 Band Neutrophils % 1 % (0-10) 10/12/20 06:13 Lymphocytes % (Manual) 7 % (13-43) L 10/12/20 06:13 Monocytes % (Manual) 17 % (4-9) H 10/12/20 06:13 Eosinophils % (Manual) 3 % (0-6) 10/10/20 04:25 Metamyelocytes % 7 10/08/20 03:00 Plt Morphology Comment Normal (NORMAL) 10/12/20 06:13 RBC Morphology Abnormal (NORMAL) 10/12/20 06:13 Anisocytosis Slight A 10/12/20 06:13 D-Dimer 2.68 ug/ml (0.0-0.57) H* 10/07/20 15:17 Sample Site Rr 10/08/20 06:01 ABG pH 7.220 (7.35-7.45) L 10/08/20 06:01 ABG pCO2 36.0 mmHg (35.0-45.0) 10/08/20 06:01 ABG pO2 96.0 mmHg (80.0-100.0) 10/08/20 06:01 ABG HCO3 14.7 mmol/L (22-26) L* 10/08/20 06:01 ABG O2 Saturation 96.0 % (90-100) 10/08/20 06:01 ABG Base Excess -12.1 mmol/L (-2.0-2.0) L 10/08/20 06:01 Chiki Test Pos 10/08/20 06:01 A-a Gradient 287.0 mmHg 10/08/20 06:01 FiO2 60.0 10/08/20 06:01 Blood Gas Comments Esrge well sw 10/08/20 06:01 Sodium 139 mmol/L (136-145) 10/13/20 05:23 Corrected Sodium TNP 10/13/20 05:23 Potassium 3.8 mmol/L (3.5-5.1) 10/13/20 05:23 Chloride 110 mmol/L (98-107) H 10/13/20 05:23 Carbon Dioxide 13.9 mmol/L (21-32) L* 10/13/20 05:23 BUN 28 mg/dL (7-18) H 10/13/20 05:23 Creatinine 1.48 mg/dL (0.70-1.30) H 10/13/20 05:23 Est GFR (MDRD) Af Amer > 60 (>60) 10/13/20 05:23 Est GFR (MDRD) Non-Af 52 (>60) L 10/13/20 05:23 Glucose 85 mg/dL (65-99) 10/13/20 05:23 POC Glucose (mg/dL) 106 mg/dL (65-99) H 10/07/20 14:39 Lactic Acid 1.0 mmol/L (0.4-2.0) 10/07/20 16:30 Calcium 8.2 mg/dL (8.5-10.1) L 10/13/20 05:23 Corrected Calcium 10.1 mg/dL (8.5-10.1) 10/13/20 05:23 Magnesium 2.0 mg/dL (1.7-2.9) 10/11/20 04:10 Total Bilirubin 0.30 mg/dL (0.2-1.0) 10/13/20 05:23 AST 14 Units/L (15-37) L 10/13/20 05:23 ALT 12 Units/L (12-78) 10/13/20 05:23 Alkaline Phosphatase 70 Units/L (46-116) 10/13/20 05:23 Creatine Kinase 81 Units/L (39-308) 10/08/20 03:00 CK-MB (CK-2) 2.6 ng/mL (0-4.0) 10/08/20 03:00 CK/CKMB % Calc 3.2 % (<4) 10/08/20 03:00 Troponin I 0.02 ng/mL (0-1.5) 10/08/20 03:00 Total Protein 5.4 g/dL (6.4-8.2) L 10/13/20 05:23 Albumin 1.6 g/dL (3.4-5.0) L 10/13/20 05:23 Globulin 3.8 g/dL (2.5-4.5) 10/13/20 05: Albumin/Globulin Ratio 0.4 Ratio (1.1-2.1) L 10/13/20 05:23 Specimen Type Catherized urine 10/06/20 16:30 Urine Color Yellow (YELLOW) 10/06/20 16:30 Urine Appearance Cloudy (CLEAR) 10/06/20 16:30 Urine pH 7.0 (5.0 - 8.0) 10/06/20 16:30 Ur Specific [place] 1.010 (1.000-1.030) 10/06/20 16:30 Urine Protein 2+ (NEGATIVE) 10/06/20 16: Urine Glucose (UA) Negative (NEGATIVE) 10/06/20 16: Urine Ketones 2+ (NEGATIVE) 10/06/20 16: Urine Occult Blood 5+ (NEGATIVE) 10/06/20 16: Urine Nitrite Negative (NEGATIVE) 10/06/20 16: Urine Bilirubin Negative (NEGATIVE) 10/06/20 16:30 Urine Urobilinogen Normal (NORMAL) 10/06/20 16:30 Ur Leukocyte Esterase 3+ (NEGATIVE) 10/06/20 16:30 Urine RBC Tntc /HPF (0-3) A 10/06/20 16:30 Urine WBC Tntc /HPF (0-5) A 10/06/20 16:30 Ur Squamous Epith Cells Moderate /HPF (NEGATIVE) 10/06/20 16:30 Amorphous Sediment 2+ /HPF (NEGATIVE) 10/06/20 16:30 Urine Bacteria 1+ /HPF (NEGATIVE) 10/06/20 16:30 Urine Mucus Many /HPF (NEGATIVE) 10/06/20 16:30 Ur Culture Indicated? Yes/culture set up 10/06/20 16:30 Vancomycin Trough 40.8 ug/mL (15-20) H* 10/11/20 20:40 Random Vancomycin 26.6 ug/mL 10/13/20 05: Urine Opiates Screen Negative (NEG=<300) 10/06/20 16:30 Urine Methadone Screen Negative (NEG=<300) 10/06/20 16:30 Ur Barbiturates Screen Negative (NEG=<200) 10/06/20 16: Ur Phencyclidine Scrn Negative (NEG=<25) 10/06/20 16:30 Ur Amphetamines Screen Negative (NEG=<1000) 10/06/20 16:30 U Benzodiazepines Scrn Negative (NEG=<200) 10/06/20 16:30 Urine Cocaine Screen Negative (NEG=<300) 10/06/20 16:30 U Marijuana (THC) Screen Negative (NEG=<50) 10/06/20 16:30 - Plan (1) Aspiration pneumonia Status: Acute Qualifiers: Aspiration pneumonia type: unspecified Laterality: bilateral Lung location: lower lobe of lung Qualified Code(s): J69.0 - Pneumonitis due to inhalation of food and vomit Plan: NORMAL SALINE AT 75 ML/HR, INVANZ 1G IV DAILY, VANCOMYCIN 1.25G IV Q12H, LEVAQUIN 500MG IV DAILY, NEB TX, ROBITUSSIN DM Q4H PRN, 2MG IV Q6H PRN, ZANAFLEX 4MG PO BID, SENOKOT 1 TAB PO HS, PHENERGAN 25MG DC PRN, ROXICODONE 20MG PO Q6H PRN, ZOFRAN 4MG IV Q8H PRN NAUSEA, OMEPRAZOLE 20MG PO DAILY, LACTULOSE 60ML PO Q3D, NEURONTIN 100MG PO TID, CYMBALTA 30MG PO BID, COLACE 200MG PO BID, AND LIORESAL 20MG PO QID. (2) UTI (urinary tract infection) Status: Acute Qualifiers: Urinary tract infection type: acute cystitis Hematuria presence: with hematuria Qualified Code(s): N30.01 - Acute cystitis with hematuria (3) Proteus mirabilis infection Status: Acute (4) Pseudomonas urinary tract infection Status: Acute (5) Hypotension Status: Acute Qualifiers: Hypotension type: unspecified hypotension type Qualified Code(s): I95.9 - Hypotension, unspecified
[2020-10-13] MEDS: ALBUMIN HUMAN 25%- 100 ML 100 ML IV SCH (11:09)
[2020-10-13] MEDS: CHRONULAC PO SCH (20:44)
[2020-10-13] MEDS: SENOKOT PO SCH (20:44)
[2020-10-14] MEDS: XOPENEX 1.25 MG/3 ML NEBULE NEB SCH ×4 (00:50→17:00)
[2020-10-14] MEDS: NS 1000 ML 1,000 ML IV SCH ×2 (06:08→18:06)
[2020-10-14] MEDS: OFIRMEV IV 1000 MG VIAL 1,000 MG/100 ML VIAL IV PRN (06:08)
--- NOTE | 2020-10-14 06:23 | RAD ---
HISTORYSOBSTUDYCHEST, 1 [id number]/03/2021.TECHNIQUEAP view of the chestFINDINGSRight chest wall port with tip in good position. The cardiac silhouette is stably enlarged. Mediastinal contours appear stable. Mild worsening in bilateral mid and lower lung airspace opacities. Suspect small pleural effusions. No discernible pneumothorax.IMPRESSIONMild worsening in bilateral airspace opacities which may represent pulmonary edema or pneumonia.Electronically signed by: Mu Dale (Oct 14, 2020 06:21:10)
[2020-10-14 06:26] LABS: BASOPHILS % (AUTO) 0.3 % (0.2-1.0); EOSINOPHILS % (AUTO) 0.3 % (0.9-2.9); HEMATOCRIT 27.3 % (42.0-54.0); HEMOGLOBIN 9.1 g/dL (13.5-18.0); LYMPHOCYTES # (AUTO) 1.5 X10^3/uL (1.3-2.9); LYMPHOCYTES % (AUTO) 11.1 % (21.0-51.0); MEAN CORPUSCULAR HEMOGLOBIN 27.7 pg (27.0-34.0); MEAN CORPUSCULAR HGB CONC 33.2 g/dL (33.0-35.0); MEAN CORPUSCULAR VOLUME 83.4 fL (80.0-100.0); MEAN PLATELET VOLUME 7.3 fL (7.4-11.0); MONOCYTES # (AUTO) 1.4 x10^3/uL (0.3-0.8); MONOCYTES % (AUTO) 10.6 % (0.0-13.0); NEUTROPHILS # (AUTO) 10.4 x10^3/uL (2.2-4.8); NEUTROPHILS % (AUTO) 77.7 % (42.0-75.0); PLATELET COUNT 231 X10^3/uL (150.0-450.0); RED BLOOD COUNT 3.27 X10^6/uL (4.7-6.0); RED CELL DISTRIBUTION WIDTH 17.3 % (11.6-16.5); WHITE BLOOD COUNT 13.4 X10^3/uL (3.6-10.0)
[2020-10-14] MEDS: NEURONTIN CAP 100 MG PO SCH ×3 (06:36→21:00)
[2020-10-14 06:44] LABS: ALANINE AMINOTRANSFERASE 10 Units/L (12-78); ALBUMIN 1.9 g/dL (3.4-5.0); ALKALINE PHOSPHATASE 62 Units/L (46-116); ASPARTATE AMINO TRANSFERASE 15 Units/L (15-37); BLOOD UREA NITROGEN 26 mg/dL (7-18); CHLORIDE 113 mmol/L (98-107); COR CA(FOR HYPOALB) 9.7 mg/dL (8.5-10.1); CREATININE 1.54 mg/dL (0.70-1.30); SODIUM 142 mmol/L (136-145); TOTAL PROTEIN 5.3 g/dL (6.4-8.2); eGFR NON BLACK RACES 50 (>60)
[2020-10-14 06:53] LABS: CARBON DIOXIDE 10.3 mmol/L (21-32)
[2020-10-14] MEDS: ALBUMIN HUMAN 25%- 100 ML 100 ML IV SCH (08:57)
[2020-10-14] MEDS: COLACE CAP 100 MG PO SCH ×2 (08:58→21:01)
[2020-10-14] MEDS: INVANZ INJ 1 GM VIAL 1 GM in NS 100 ML IV + SPIKE MINIBAG* 100 ML IV SCH (08:58)
[2020-10-14] MEDS: CYMBALTA PO SCH ×2 (08:58→21:01)
[2020-10-14] MEDS: LEVAQUIN PREMIX IV 500 MG 500 MG/100 ML BAG IV SCH (08:59)
[2020-10-14] MEDS: PriLOSEC PO SCH (08:59)
[2020-10-14] MEDS: LOVENOX INJ 40 MG SYR SC SCH (09:00)
[2020-10-14] MEDS: PULMICORT NEB TX 0.5 MG NEB SCH ×2 (09:30→21:15)
[2020-10-14] MEDS: VIBRAMYCIN 100 MG in D5W 250 ML IV 250 ML IV SCH (20:58)
[2020-10-14] MEDS: ROXICODONE TAB 5 MG PO PRN (20:59)
[2020-10-14] MEDS: SENOKOT PO SCH (21:00)
[2020-10-15] MEDS: XOPENEX 1.25 MG/3 ML NEBULE NEB SCH ×5 (00:20→18:11)
[2020-10-15] MEDS: OFIRMEV IV 1000 MG VIAL 1,000 MG/100 ML VIAL IV PRN (03:31)
[2020-10-15] MEDS: NEURONTIN CAP 100 MG PO SCH ×3 (05:54→21:59)
--- NOTE | 2020-10-15 06:12 | RAD ---
HISTORYShortness of breathSTUDYCHEST, 1 VIEWCOMPARISONChest x-ray single viewTECHNIQUESingle AP view of the chestFINDINGSStable cardiomegaly noted. Increased density seen within the medial aspect of the left lung base obscuring anatomic detail of the left diaphragm. Retrocardiac opacity is noted and there is blunting of the adjacent left costophrenic sulcus. Hazy airspace consolidation is demonstrated within the right mid to lower lung field and there is marginal blunting of the right costophrenic sulcus. Clustered components of nodularity are seen in the right lower lung. Chest port appears adequately position with catheter tip terminating in the SVC. The lung apices are clear.IMPRESSIONAccounting for differences in technique, there is no significant overall changeResidual left basilar pleural parenchymal opacity with obscured anatomic detail the diaphragm representing any combination of pleural effusion, pneumonia, and/or atelectasisHazy consolidation of the right mid to lower lung field most likely representing pneumonia. Clustered nodularity noted within the right lower lung field may be inflammatory. Follow-up is recommendedSmall right-sided pleural effusion also suspectedStable cardiomegalyElectronically signed by: KASIA WOODS (Oct 15, 2020 06:13:52)
[2020-10-15 06:46] LABS: BASOPHILS # (AUTO) 0.1 X10^3/uL (0.0-0.1); BASOPHILS % (AUTO) 0.9 % (0.2-1.0); EOSINOPHILS # (AUTO) 0.1 x10^3/uL (0.0-0.2); EOSINOPHILS % (AUTO) 0.8 % (0.9-2.9); HEMATOCRIT 28.8 % (42.0-54.0); HEMOGLOBIN 9.7 g/dL (13.5-18.0); LYMPHOCYTES # (AUTO) 1.2 X10^3/uL (1.3-2.9); LYMPHOCYTES % (AUTO) 8.4 % (21.0-51.0); MEAN CORPUSCULAR HEMOGLOBIN 27.6 pg (27.0-34.0); MEAN CORPUSCULAR HGB CONC 33.7 g/dL (33.0-35.0); MEAN CORPUSCULAR VOLUME 81.9 fL (80.0-100.0); MEAN PLATELET VOLUME 6.7 fL (7.4-11.0); MONOCYTES # (AUTO) 1.1 x10^3/uL (0.3-0.8); MONOCYTES % (AUTO) 7.4 % (0.0-13.0); NEUTROPHILS # (AUTO) 12.2 x10^3/uL (2.2-4.8); NEUTROPHILS % (AUTO) 82.5 % (42.0-75.0); PLATELET COUNT 252 X10^3/uL (150.0-450.0); RED BLOOD COUNT 3.52 X10^6/uL (4.7-6.0); RED CELL DISTRIBUTION WIDTH 17.3 % (11.6-16.5); WHITE BLOOD COUNT 14.8 X10^3/uL (3.6-10.0)
[2020-10-15 06:47] LABS: ALANINE AMINOTRANSFERASE 12 Units/L (12-78); ALBUMIN 2.3 g/dL (3.4-5.0); ALKALINE PHOSPHATASE 67 Units/L (46-116); ASPARTATE AMINO TRANSFERASE 20 Units/L (15-37); BLOOD UREA NITROGEN 26 mg/dL (7-18); CALCIUM 8.1 mg/dL (8.5-10.1); CHLORIDE 112 mmol/L (98-107); COR CA(FOR HYPOALB) 9.5 mg/dL (8.5-10.1); CREATININE 1.63 mg/dL (0.70-1.30); SODIUM 143 mmol/L (136-145); TOTAL PROTEIN 5.6 g/dL (6.4-8.2); eGFR NON BLACK RACES 47 (>60)
[2020-10-15 06:52] LABS: CARBON DIOXIDE 13.7 mmol/L (21-32)
[2020-10-15] MEDS: NS 1000 ML 1,000 ML IV SCH (07:37)
[2020-10-15] MEDS: ALBUMIN HUMAN 25%- 100 ML 100 ML IV SCH (08:34)
[2020-10-15] MEDS: CYMBALTA PO SCH ×2 (08:41→21:57)
[2020-10-15] MEDS: LOVENOX INJ 40 MG SYR SC SCH (08:42)
[2020-10-15] MEDS: PriLOSEC PO SCH (08:43)
[2020-10-15] MEDS: COLACE CAP 100 MG PO SCH ×2 (08:47→21:57)
[2020-10-15] MEDS: PULMICORT NEB TX 0.5 MG NEB SCH ×2 (08:59→20:35)
[2020-10-15] MEDS: LEVAQUIN PREMIX IV 500 MG 500 MG/100 ML BAG IV SCH (09:37)
[2020-10-15] MEDS: INVANZ INJ 1 GM VIAL 1 GM in NS 100 ML IV + SPIKE MINIBAG* 100 ML IV SCH (10:41)
[2020-10-15] MEDS: VIBRAMYCIN 100 MG in D5W 250 ML IV 250 ML IV SCH ×2 (12:24→22:00)
[2020-10-15 13:29] LABS: ABG BASE EXCESS -12.7 mmol/L (-2.0-2.0)
[2020-10-15 13:30] LABS: ABG HCO3 13.8 mmol/L (22-26)
[2020-10-15] MEDS ORDERED: LASIX IVP ONE (14:20)
[2020-10-15] MEDS ORDERED: NS 1/2 1000 ML IV 1,000 ML IV ONE (14:40)
[2020-10-15] MEDS ORDERED: SODIUM BICARBONATE 8.4% INJ ADULT ONE (14:40)
[2020-10-15] MEDS ORDERED: SODIUM BICARBONATE IV SCH ×2 (15:00)
[2020-10-15] MEDS ORDERED: NS IV SCH ×2 (15:00)
[2020-10-15] MEDS: MORPHINE SULFATE INJ 2 MG INJ IVP PRN (15:02)
[2020-10-15] MEDS: K-RIDER 10 MEQ/NS 100 ML 10 MEQ/100 ML BAG IV PRN ×2 (16:20→17:29)
[2020-10-15 18:32] LABS: ABG ALLEN TEST POS; ABG BASE EXCESS -12.1 mmol/L (-2.0-2.0)
[2020-10-15] MEDS ORDERED: SODIUM BICARBONATE 8.4% INJ ADULT IVP ONE (19:30)
[2020-10-15] MEDS ORDERED: ZEMURON 50 MG VIAL ONE ×2 (19:34→19:47)
[2020-10-15] MEDS ORDERED: DIPRIVAN VIAL ONE (19:34)
[2020-10-15] MEDS ORDERED: BRIDION ONE (19:46)
[2020-10-15 20:40] LABS: ABG BASE EXCESS -9.4 mmol/L (-2.0-2.0)
[2020-10-15 20:41] LABS: ABG HCO3 15.5 mmol/L (22-26)
[2020-10-15] MEDS: DIPRIVAN PREMIX 1 GRAM IV 1,000 MG/100 ML VIAL IV PRN (20:47)
[2020-10-15] MEDS: ARTIFICIAL TEARS DROPS AFFEYE PRN (20:48)
--- NOTE | 2020-10-15 20:49 | RAD ---
PROCEDURE: Chest X-ray 1 View .HISTORY: Endotracheal tube placement.TECHNIQUE: AP view .COMPARISON: 10/15/2020 chest x-ray done at 5:50 a.m..TECHNICAL QUALITY: Satisfactory .FINDINGS:Endotracheal tube tip 4 cm above the gavin. Unchanged right internal jugular Port-A-Cath.Unremarkable cardio mediastinal silhouette.Normal central vascularity.Unchanged consolidation both lung nicolas allowing for technique with bilateral pleural effusions. No pneumothorax.IMPRESSION:1. Good endotracheal tube placement.2. Unchanged pneumonia and pleural fluid.Electronically signed by: Shay Hernandez (Oct 15, 2020 20:47:14)
[2020-10-15] MEDS: SENOKOT PO SCH (21:57)
[2020-10-16] MEDS: XOPENEX 1.25 MG/3 ML NEBULE NEB SCH ×2 (00:25→12:37)
[2020-10-16] MEDS ORDERED: SALINE 0.9% 3 ML NEB TX ONE (01:18)
[2020-10-16] MEDS: DIPRIVAN PREMIX 1 GRAM IV 1,000 MG/100 ML VIAL IV PRN ×2 (01:28→09:33)
[2020-10-16] MEDS ORDERED: SALINE 3% 15 ML NEB TX ONE ×2 (01:36→12:42)
[2020-10-16] MEDS: K-RIDER 10 MEQ/NS 100 ML 10 MEQ/100 ML BAG IV PRN ×3 (02:10→08:27)
[2020-10-16 05:24] LABS: ABG BASE EXCESS -7.2 mmol/L (-2.0-2.0)
[2020-10-16 05:25] LABS: ABG HCO3 16.6 mmol/L (22-26)
[2020-10-16 06:23] LABS: BASOPHILS % (AUTO) 0.2 % (0.2-1.0); EOSINOPHILS % (AUTO) 0.4 % (0.9-2.9); HEMATOCRIT 23.4 % (42.0-54.0); HEMOGLOBIN 7.9 g/dL (13.5-18.0); LYMPHOCYTES # (AUTO) 1.7 X10^3/uL (1.3-2.9); LYMPHOCYTES % (AUTO) 13.7 % (21.0-51.0); MEAN CORPUSCULAR HEMOGLOBIN 27.4 pg (27.0-34.0); MEAN CORPUSCULAR HGB CONC 33.7 g/dL (33.0-35.0); MEAN CORPUSCULAR VOLUME 81.5 fL (80.0-100.0); MEAN PLATELET VOLUME 6.9 fL (7.4-11.0); MONOCYTES % (AUTO) 7.7 % (0.0-13.0); NEUTROPHILS # (AUTO) 9.7 x10^3/uL (2.2-4.8); PLATELET COUNT 234 X10^3/uL (150.0-450.0); RED BLOOD COUNT 2.86 X10^6/uL (4.7-6.0); WHITE BLOOD COUNT 12.4 X10^3/uL (3.6-10.0)
[2020-10-16 06:25] LABS: ALANINE AMINOTRANSFERASE 11 Units/L (12-78); ALKALINE PHOSPHATASE 50 Units/L (46-116); ASPARTATE AMINO TRANSFERASE 16 Units/L (15-37); BLOOD UREA NITROGEN 26 mg/dL (7-18); CALCIUM 7.9 mg/dL (8.5-10.1); CARBON DIOXIDE 18.2 mmol/L (21-32); CHLORIDE 112 mmol/L (98-107); COR CA(FOR HYPOALB) 9.5 mg/dL (8.5-10.1); CREATININE 1.57 mg/dL (0.70-1.30); SODIUM 146 mmol/L (136-145); TOTAL PROTEIN 5.2 g/dL (6.4-8.2); eGFR NON BLACK RACES 49 (>60)
[2020-10-16] MEDS: NEURONTIN CAP 100 MG PO SCH (06:38)
--- NOTE | 2020-10-16 07:15 | RAD ---
HISTORYSOBSTUDYCHEST, 1 VIEWCOMPARISONJune 5thTECHNIQUEThe chest x-rayFINDINGSET tube position is unchanged, approximately 4 cm above the gavin. Right sided CT compatible chest port is observed with catheter terminating in the SVC. There are residual hazy airspace opacities associated with the mid to lower lung nicolas with obscured anatomic detail of the costophrenic sulci. A moderate left-sided pleural effusion is suspected and there is a probably a small to moderate right-sided pleural effusion as well. The lung apices are clear. The heart size is stable, enlarged for technique. No pneumothorax is demonstrated.IMPRESSIONBibasilar pleural parenchymal opacities likely representing combination of pleural effusions and atelectasis without or with superimposed pneumonia. See above for complete detailsElectronically signed by: KASIA WOODS (Oct 16, 2020 07:07:01)
[2020-10-16] MEDS: PULMICORT NEB TX 0.5 MG NEB SCH (09:23)
[2020-10-16] MEDS: VIBRAMYCIN 100 MG in D5W 250 ML IV 250 ML IV SCH (10:19)
[2020-10-16] MEDS: LEVAQUIN PREMIX IV 500 MG 500 MG/100 ML BAG IV SCH (10:19)
[2020-10-16] MEDS: ALBUMIN HUMAN 25%- 100 ML 100 ML IV SCH (10:19)
[2020-10-16] MEDS: LOVENOX INJ 40 MG SYR SC SCH (10:20)
[2020-10-16] MEDS: INVANZ INJ 1 GM VIAL 1 GM in NS 100 ML IV + SPIKE MINIBAG* 100 ML IV SCH (10:20)
[2020-10-16] MEDS: PriLOSEC PO SCH (10:25)
[2020-10-16] MEDS: COLACE CAP 100 MG PO SCH (10:25)
[2020-10-16] MEDS: CYMBALTA PO SCH (10:25)
[2020-10-16] MEDS ORDERED: NS IV SCH ×3 (11:00)
[2020-10-16] MEDS ORDERED: SODIUM BICARBONATE IV SCH ×3 (11:00)
[2020-10-16] MEDS ORDERED: [UNRECOGNIZED DRUG - OTHER] IV SCH ×3 (11:00)
[2020-10-16] MEDS ORDERED: LASIX IVP ONE (11:28)
[2020-10-16 13:42] VITALS: BP 134/65
--- NOTE | 2020-10-17 09:15 | PCM.PROG ---
Progress Note - Progress Note for Day of Date of Exam: 10/14/20 - Subjective Subjective: IS BEING TREATED FOR ASPITATION PNEUMONIA, UTI, AND HYPOTENSION. HE REMAINS ON OXYGEN VIA NASAL CANNULA AT 2 LPM THIS MORNING. HE HAS NOT HAD ANY OVERNIGHT EVENTS. ON MORNING ROUNDS, PATIENT IS LYING IN BED WITH EYES CLOSED. HE AWAKENS AND RESPONDS TO VERBAL STIMULI. HE CONTINUES WITH COMPLAINTS OF COUGH AT TIMES, BUT DENIES OTHER COMPLAINTS. ON EXAMINATION, HEART IS REGULAR IN RATE AND RHYTHM. BILATERAL LUNGS ARE NOTED WITH DIMINISHED LUNG SOUNDS THROUGHOUT. ABDOMEN IS ROUND, SOFT, AND NON-TENDER WITH NORMAL BOWEL SOUNDS NOTED IN ALL QUADRANTS. ARENAS CATHETER NOTED TO BEDSIDE DRAINAGE. SCATTERED BRUISING NOTED. HIS VITALS THIS MORNING ARE: [id number]. LABS WERE OBTAINED. ABNORMAL LAB VALUES INCLUDE THE FOLLOWIN.4, RBC 3.27, HGB 9.1, HCT 27.3, CHLORIDE 113, CARBON DIOXIDE 10.3, BUN 26, CREATININE 1.54, CALCIUM 8.0, ALT 10, TOTAL PROTEIN 5.3, ALBUMIN 1.9. URINE AND SPUTUM CULTURES REVEALS GROWTH OF STENOTROPHOMNAS MALTOPHILIA AND MRSA. HE IS CURRENTLY RE CEIVING NORMAL SALINE AT 75 ML/HR, INVANZ 1G IV DAILY, LEVAQUIN 500MG IV DAILY, VANCOMYCIN 1.25G IV Q12H, NEB TX, ROBITUSSIN DM Q4H PRN, 2MG IV Q6H PRN, ZANAFLEX 4MG PO BID, SENOKOT 1 TAB PO HS, PHENERGAN 25MG [place] PRN, ROXICODONE 20MG PO Q6H PRN, ZOFRAN 4MG IV Q8H PRN NAUSEA, OMEPRAZOLE 20MG PO DAILY, LACTULOSE 60ML PO Q3D, NEURONTIN 100MG PO TID, CYMBALTA 30MG PO BID, COLACE 200MG PO BID, AND LIORESAL 20MG PO QID. WE WILL DISCONTINUE THE VANCOMYCIN AND ADD DOXYCYCLINE IV. OTHERWISE, WE PLAN TO FOLLOW UP WITH AM LABS AND CHEST XRAY AND CONTINUE TO MONITOR. TIME SPENT ON CLINICAL ASSESSMENT, REVIEWING LABS AND IMAGING, DECISION MAKING, AND DOCUMENTATION GREATER THAN 45 MINUTES. - Past Medical Family Social History Past Med/Fam/Surg Hx: No changes since H&P Allergies: Allergies meperidine [From Demerol] Adverse Reaction (Verified 04/27/20 09:51) oxycodone [From Percocet] Adverse Reaction (Verified 10/02/20 04:10) - Review of Systems ROS: No change since H&P - Vital Signs and I&O's Vital Signs: Temperature 98.8 F Pulse Rate 96 Respiratory Rate 62 Blood Pressure [Left Arm] 187/94 Blood Pressure 134/65 O2 Sat by Pulse Oximetry 95 Intake and Output: Intake & Output 10/14/20 10/15/20 10/16/20 10/17/20 11:59 11:59 11:59 11:59 Intake Total 5596 / 5596 690 / 690 2351 / 2351 Output Total 3230 / 3230 2640 / 2640 2925 / 2925 800 / 800 Balance 2366 / 2366 -1950 / -1950 -574 / -574 -800 / -800 - Physical Exam Oriented: Normal Eyes: Normal Ear: Normal Nose: Normal Throat: Normal Respiratory: Generalized, Diminished Cardiovascular: Normal : Normal Auscultation: Bowel Sounds: Normal Palpation: Normal Tenderness: Normal Skin: Normal Musculoskeletal: Normal Psychiatric: Normal Mood Description: Calm Affect: Normal Speech Pattern: Artificially Ventilated - Laboratory and Diagnostics Result Diagrams: 10/16/20 05:32 10/16/20 05:32 Labs: 10/11/20 12:01 Sputum - Expectorated Sputum Sputum Culture - Final Methicillin Resis Staph Aureus Stenotrophomonas Maltophilia 10/11/20 12:01 Sputum - Expectorated Sputum - Final 10/07/20 15:17 Blood Blood Culture - Final 10/07/20 15:10 Blood Blood Culture - Final 10/06/20 14:25 Blood Blood Culture - Final 10/06/20 14:17 Blood Blood Culture - Final 10/06/20 16:30 Urine,Clean Catch Urine Culture - Final Stenotrophomonas Maltophilia Methicillin Resis Staph Aureus Laboratory WBC 12.4 X10^3/uL (3.6-10.0) H 10/16/20 05:32 RBC 2.86 X10^6/uL (4.7-6.0) L 10/16/20 05:32 Hgb 7.9 g/dL (13.5-18.0) L 10/16/20 05:32 Hct 23.4 % (42.0-54.0) L 10/16/20 05:32 MCV 81.5 fL (80.0-100.0) 10/16/20 05:32 MCH 27.4 pg (27.0-34.0) 10/16/20 05:32 MCHC 33.7 g/dL (33.0-35.0) 10/16/20 05:32 RDW 17.0 % (11.6-16.5) H 10/16/20 05:32 Plt Count 234 X10^3/uL (150.0-450.0) 10/16/20 05:32 Plt Count Comment Adequate (ADEQUATE) 10/12/20 06:13 MPV 6.9 fL (7.4-11.0) L 10/16/20 05:32 Neut % (Auto) 78.0 % (42.0-75.0) H 10/16/20 05:32 Lymph % (Auto) 13.7 % (21.0-51.0) L 10/16/20 05:32 Lyon % (Auto) 7.7 % (0.0-13.0) 10/16/20 05:32 Eos % (Auto) 0.4 % (0.9-2.9) L 10/16/20 05:32 Baso % (Auto) 0.2 % (0.2-1.0) 10/16/20 05:32 Neut # (Auto) 9.7 x10^3/uL (2.2-4.8) H 10/16/20 05:32 Lymph # (Auto) 1.7 X10^3/uL (1.3-2.9) 10/16/20 05:32 Lyon # (Auto) 1.0 x10^3/uL (0.3-0.8) H 10/16/20 05:32 Eos # (Auto) 0.0 x10^3/uL (0.0-0.2) 10/16/20 05:32 Baso # (Auto) 0.0 X10^3/uL (0.0-0.1) 10/16/20 05:32 Absolute Nucleated RBC 0.0 /100WBC 10/16/20 05:32 Total Counted 100 10/12/20 06:13 Neutrophils % (Manual) 75 % (39-76) 10/12/20 06:13 Band Neutrophils % 1 % (0-10) 10/12/20 06:13 Lymphocytes % (Manual) 7 % (13-43) L 10/12/20 06:13 Monocytes % (Manual) 17 % (4-9) H 10/12/20 06:13 Eosinophils % (Manual) 3 % (0-6) 10/10/20 04:25 Metamyelocytes % 7 10/08/20 03:00 Plt Morphology Comment Normal (NORMAL) 10/12/20 06:13 RBC Morphology Abnormal (NORMAL) 10/12/20 06:13 Anisocytosis Slight A 10/12/20 06:13 D-Dimer 2.68 ug/ml (0.0-0.57) H* 10/07/20 15:17 Sample Site L brachial 10/16/20 05:15 ABG pH 7.380 (7.35-7.45) 10/16/20 05:15 ABG pCO2 28.0 mmHg (35.0-45.0) L 10/16/20 05:15 ABG pO2 100.0 mmHg (80.0-100.0) 10/16/20 05:15 ABG HCO3 16.6 mmol/L (22-26) L* 10/16/20 05:15 ABG O2 Saturation 98.0 % (90-100) 10/16/20 05:15 ABG Base Excess -7.2 mmol/L (-2.0-2.0) L 10/16/20 05:15 Chiki Test Na 10/16/20 05:15 A-a Gradient 364.0 mmHg 10/16/20 05:15 FiO2 70.0 10/16/20 05:15 Blood Gas Comments Serge well, kh 10/16/20 05:15 Sodium 146 mmol/L (136-145) H 10/16/20 05:32 Corrected Sodium TNP 10/16/20 05:32 Potassium 3.1 mmol/L (3.5-5.1) L 10/16/20 05:32 Chloride 112 mmol/L (98-107) H 10/16/20 05:32 Carbon Dioxide 18.2 mmol/L (21-32) L 10/16/20 05:32 BUN 26 mg/dL (7-18) H 10/16/20 05:32 Creatinine 1.57 mg/dL (0.70-1.30) H 10/16/20 05:32 Est GFR (MDRD) Af Amer 59 (>60) 10/16/20 05:32 Est GFR (MDRD) Non-Af 49 (>60) L 10/16/20 05:32 Glucose 87 mg/dL (65-99) 10/16/20 05:32 POC Glucose (mg/dL) 106 mg/dL (65-99) H 10/07/20 14:39 Lactic Acid 0.7 mmol/L (0.4-2.0) 10/15/20 10:48 Calcium 7.9 mg/dL (8.5-10.1) L 10/16/20 05:32 Corrected Calcium 9.5 mg/dL (8.5-10.1) 10/16/20 05:32 Magnesium 2.0 mg/dL (1.7-2.9) 10/11/20 04:10 Total Bilirubin 0.40 mg/dL (0.2-1.0) 10/16/20 05:32 AST 16 Units/L (15-37) 10/16/20 05:32 ALT 11 Units/L (12-78) L 10/16/20 05:32 Alkaline Phosphatase 50 Units/L (46-116) 10/16/20 05:32 Creatine Kinase 81 Units/L (39-308) 10/08/20 03:00 CK-MB (CK-2) 2.6 ng/mL (0-4.0) 10/08/20 03:00 CK/CKMB % Calc 3.2 % (<4) 10/08/20 03:00 Troponin I 0.02 ng/mL (0-1.5) 10/08/20 03:00 Total Protein 5.2 g/dL (6.4-8.2) L 10/16/20 05:32 Albumin 2.0 g/dL (3.4-5.0) L 10/16/20 05:32 Globulin 3.2 g/dL (2.5-4.5) 10/16/20 05:32 Albumin/Globulin Ratio 0.6 Ratio (1.1-2.1) L 10/16/20 05:32 Specimen Type Catherized urine 10/06/20 16:30 Urine Color Yellow (YELLOW) 10/06/20 16:30 Urine Appearance Cloudy (CLEAR) 10/06/20 16:30 Urine pH 7.0 (5.0 - 8.0) 10/06/20 16:30 Ur Specific [place] 1.010 (1.000-1.030) 10/06/20 16:30 Urine Protein 2+ (NEGATIVE) 10/06/20 16:30 Urine Glucose (UA) Negative (NEGATIVE) 10/06/20 16:30 Urine Ketones 2+ (NEGATIVE) 10/06/20 16:30 Urine Occult Blood 5+ (NEGATIVE) 10/06/20 16:30 Urine Nitrite Negative (NEGATIVE) 10/06/20 16: Urine Bilirubin Negative (NEGATIVE) 10/06/20 16:30 Urine Urobilinogen Normal (NORMAL) 10/06/20 16:30 Ur Leukocyte Esterase 3+ (NEGATIVE) 10/06/20 16:30 Urine RBC Tntc /HPF (0-3) A 10/06/20 16: Urine WBC Tntc /HPF (0-5) A 10/06/20 16:30 Ur Squamous Epith Cells Moderate /HPF (NEGATIVE) 10/06/20 16:30 Amorphous Sediment 2+ /HPF (NEGATIVE) 10/06/20 16:30 Urine Bacteria 1+ /HPF (NEGATIVE) 10/06/20 16:30 Urine Mucus Many /HPF (NEGATIVE) 10/06/20 16:30 Ur Culture Indicated? Yes/culture set up 10/06/20 16:30 Vancomycin Trough 40.8 ug/mL (15-20) H* 10/11/20 20:40 Random Vancomycin 25.5 ug/mL 10/14/20 05:49 Urine Opiates Screen Negative (NEG=<300) 10/06/20 16:30 Urine Methadone Screen Negative (NEG=<300) 10/06/20 16:30 Ur Barbiturates Screen Negative (NEG=<200) 10/06/20 16:30 Ur Phencyclidine Scrn Negative (NEG=<25) 10/06/20 16:30 Ur Amphetamines Screen Negative (NEG=<1000) 10/06/20 16:30 U Benzodiazepines Scrn Negative (NEG=<200) 10/06/20 16:30 Urine Cocaine Screen Negative (NEG=<300) 10/06/20 16:30 U Marijuana (THC) Screen Negative (NEG=<50) 10/06/20 16:30 SARS CoV-2 RNA Rapid MARKOS Negative (NEGATIVE) 10/15/20 20:10 - Plan (1) Aspiration pneumonia Status: Acute Qualifiers: Aspiration pneumonia type: unspecified Laterality: bilateral Lung location: lower lobe of lung Qualified Code(s): J69.0 - Pneumonitis due to inhalation of food and vomit Plan: NORMAL SALINE AT 75 ML/HR, INVANZ 1G IV DAILY, DOCYCYCLINE IV, LEVAQUIN 500MG IV DAILY, NEB TX, ROBITUSSIN DM Q4H PRN, 2MG IV Q6H PRN, ZANAFLEX 4MG PO BID, SENOKOT 1 TAB PO HS, PHENERGAN 25MG [place] PRN, ROXICODONE 20MG PO Q6H PRN, ZOFRAN 4MG IV Q8H PRN NAUSEA, OMEPRAZOLE 20MG PO DAILY, LACTULOSE 60ML PO Q3D, NEURONTIN 100MG PO TID, CYMBALTA 30MG PO BID, COLACE 200MG PO BID, AND LIORESAL 20MG PO QID. (2) UTI (urinary tract infection) Status: Acute Qualifiers: Urinary tract infection type: acute cystitis Hematuria presence: with hematuria Qualified Code(s): N30.01 - Acute cystitis with hematuria (3) Proteus mirabilis infection Status: Acute (4) Pseudomonas urinary tract infection Status: Acute (5) Hypotension Status: Acute Qualifiers: Hypotension type: unspecified hypotension type Qualified Code(s): I95.9 - Hypotension, unspecified
== END 2020-10-16 14:15 | disposition short-term general hospital (02) | DRG 689 ==
LOC: ER 07:12 → ICU 10:31 → MED/SURG 10-11 10:45 → ICU 10-15 19:10
PROVIDERS: ADMIT Internal Medicine; ATTEND Internal Medicine
DX: T50.901A Poisoning by unspecified drugs, medicaments and biological substances, accidental (unintentional), initial encounter; N30.01 Acute cystitis with hematuria; J15.1 Pneumonia due to Pseudomonas; B96.5 Pseudomonas (aeruginosa) (mallei) (pseudomallei) as the cause of diseases classified elsewhere; B95.62 Methicillin resistant Staphylococcus aureus infection as the cause of diseases classified elsewhere; J15.212 Pneumonia due to Methicillin resistant Staphylococcus aureus; B96.4 Proteus (mirabilis) (morganii) as the cause of diseases classified elsewhere; J96.00 Acute respiratory failure, unspecified whether with hypoxia or hypercapnia; R94.31 Abnormal electrocardiogram [ECG] [EKG]; K21.9 Gastro-esophageal reflux disease without esophagitis; G82.50 Quadriplegia, unspecified; I10 Essential (primary) hypertension; J69.0 Pneumonitis due to inhalation of food and vomit; I95.89 Other hypotension; R41.82 Altered mental status, unspecified